=== PATIENT | female | born 1980 | race Caucasian/White ===

== ENCOUNTER 2019-03-17 17:05 | Emergency (ER) | payer BC, SELFPAY ==
--- NOTE | ~2019-03-17 | CT_ITS ---
EXAMINATION: CT cervical spine wo con DATE: 03/17/2019 18:22 INDICATION: Head injury TECHNIQUE: Computed tomography (CT) of the cervical spine was performed without intravenous contrast. Automated exposure control and iterative reconstruction technique were employed. The dose-length pro duct was 416.36 mGy-cm. COMPARISON: Cervical spine radiographs dated 03/26/2017 FINDINGS: Again seen is straightening of the normal cervical lordosis. Vertebral body heights are normal. No fr acture. Mild disc height loss at C5-C6 with left-sided predominant posterior disc osteophyte complex resulting in mild central canal stenosis at this level. Minimal to mild facet osteoarthritis at a few levels in the cervical and upper thoracic spine. No significant neural foraminal stenosis. Cervical soft tissues are unremarkable. Mild emphysematous changes at the periphery of the apices of the lungs . IMPRESSION: 1. Minimal cervical spondylosis. No acute osseous abnormality. Reviewed, dictated and finalized at location A. ES' REGISTRY DIRECTOR
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
--- NOTE | ~2019-03-17 | XR_ITS ---
EXAMINATION: XR hand RT 2V DATE: 03/17/2019 18:30 INDICATION: Right hand pain after a heavy object fell onto it. TECHNIQUE: Posteroanterior and lateral views of the right hand were obtained. COMPARISON: 12/09/2018 FINDINGS: Alignment is normal. No fracture. Joint spaces are normal. Soft tissues are unremarkable. IMPRESSION: 1. Negative right radiographs. Reviewed, dictated and finalized at location A. ATIONAL PROGRAM DIRECTOR
[2019-03-17 17:44] VITALS: BP 107/73; PULSE 99; RESP 18; TEMP 36.8; O2SAT 100
--- NOTE | 2019-03-17 21:04 | ED.HEATRA ---
HPI - Head Injury General Chief complaint: Head Injury <Zeinab Calixto PA-C - Last Filed: 03/17/19 21:10> Stated complaint: head injury <FISH Farrell Last Filed: 03/17/19 21:10> Time Seen by Provider: 03/17/19 20:56 <Zeinab Calixto PA-C - Last Filed: 03/17/19 21:10> Source: patient <FISH Farrell Last Filed: 03/17/19 21:10> Mode of arrival: ambulatory <FISH Farrell Last Filed: 03/17/19 21:10> Limitations: no limitations <FISH Farrell Last Filed: 03/17/19 21:10> History of Present Illness HPI Narrative: This is a 38-year-old female that presents the emergency department after head injury yesterday afternoon. Reports she was putting her hammock back together, and the stand fell and hit her in the head and on her right hand. Denies loss of consciousness. Reports since she has been having headaches and feels forgetful. Also reports neck pain and right hand pain. Denies vision changes, vomiting, numbness, or weakness. <Zeinab Calixto PA-C - Last Filed: 03/17/19 21:10> Related Data Home medications: Home Medications Medication Instructions Recorded Confirmed acyclovir 400 mg tablet 400 mg PO QID 12/12/18 diclofenac sodium 1 % topical gel 2 gm TOPICAL QID 12/12/18 metformin 500 mg tablet 500 mg PO DAILY 12/12/18 venlafaxine 150 mg tablet,extended 150 mg PO DAILY 12/12/18 release 24 hr venlafaxine 75 mg tablet 75 mg PO DAILY 12/12/18 <FISH Farrell Last Filed: 03/17/19 21:10> Allergies/Adverse reactions: Allergies Allergy/AdvReac Type Severity Reaction Status Date / Time adhesive tape Allergy Mild BLISTERS Verified 12/13/18 08:38 adhesive Allergy Unknown blood Verified 12/13/18 08:38 blisters eletriptan Allergy Unknown Unknown Verified 12/13/18 08:38 hydromorphone Allergy Unknown Vomiting Verified 12/13/18 08:38 miconazole Allergy Unknown Unknown Verified 12/13/18 08:38 sumatriptan Allergy Unknown Unknown Verified 12/13/18 08:38 tioconazole Allergy Unknown Swelling Verified 12/13/18 08:38 <Zeinab Calixto PA-C - Last Filed: 03/17/19 21:10> Review of Systems Review of Systems: Narrative: CONSTITUTIONAL: Denies fever EYES: Denies visual changes GASTROINTESTINAL: Denies vomiting MUSCULOSKELETAL: Reports joint pain, and myalgia. NEUROLOGIC: Reports headache. Denies numbness, or weakness. <Zeinab Calixto PA-C - Last Filed: 03/17/19 21:10> All systems reviewed & are unremarkable except as noted in HPI and below <Zeinab Calixto PA-C - Last Filed: 03/17/19 21:10> [facility] Past Medical History Medical History: Medical History (Updated 03/18/19 @ 00:00 by Background Daomkar) Allergies Anxiety Arthritis Asthma Bronchitis Depression Diabetes DM II (diabetes mellitus, type II), controlled Fibroids Fibromyalgia Genital herpes GERD (gastroesophageal reflux disease) HSV infection Hx of carpal tunnel syndrome Hx of fracture of wrist rt Hypercholesteremia Interstitial cystitis Lesion of stomach Migraine MVP (mitral valve prolapse) <Zeinab Calixto PA-C - Last Filed: 03/17/19 21:10> Surgical History Surgical History: Surgical History (Updated 02/17/19 @ 13:47 by Alisia Emerson [facility]) deliv NOS-unsp H/O adenoidectomy H/O foot surgery H/O sinus surgery History of classical section x2 Hx of tonsillectomy Hx of tubal ligation <Zeinab Calixto PA-C - Last Filed: 03/17/19 21:10> Family History Family History: Family History (Updated 06/28/17 @ 15:53 by DOCTOR UNKNOWN) Father Family history of malignant neoplasm of urinary bladder, Onset Age: 67 Family history of rheumatoid arthritis Family history of hypercholesterolemia Family history of mental disorder Hypertension Family history of alcoholism Carcinoma of colon, Onset Age: 67 Family history of lung cancer, Onset Age: 67 Family history of malignant neoplasm of brain, Onset
--- NOTE | 2019-03-17 21:48 | PC.NURSE ---
never got chance to see the pt, before d/c pt ready to leave, asked for papers and left after signing
== END 2019-03-17 21:48 | disposition home or self-care (01) ==
PROVIDERS: Emergency Provider Emergency Medicine; PCP Physician Assistant
DX: S09.90XA Unspecified injury of head, initial encounter (principal); M54.2 Cervicalgia; M79.641 Pain in right hand; M47.812 Spondylosis without myelopathy or radiculopathy, cervical region; F41.9 Anxiety disorder, unspecified; M19.90 Unspecified osteoarthritis, unspecified site; J45.909 Unspecified asthma, uncomplicated; F32.9 Major depressive disorder, single episode, unspecified; E11.9 Type 2 diabetes mellitus without complications; M79.7 Fibromyalgia; K21.9 Gastro-esophageal reflux disease without esophagitis; E78.00 Pure hypercholesterolemia, unspecified; I34.1 Nonrheumatic mitral (valve) prolapse; F17.210 Nicotine dependence, cigarettes, uncomplicated; Z79.84 Long term (current) use of oral hypoglycemic drugs; W20.8XXA Other cause of strike by thrown, projected or falling object, initial encounter
CPT/HCPCS: 70450; 72125; 73120; 99284

== ENCOUNTER 2019-07-05 18:27 | Outpatient (CLI) | payer BC, SELFPAY ==
--- NOTE | ~2019-07-05 | MR_ITS ---
EXAMINATION: MR ankle RT wo con DATE: 07/05/2019 19:16 INDICATION: Achilles insertional tendinosis. Right ankle pain. TECHNIQUE: Magnetic resonance imaging (MRI) of the right ankle was performed without intravenous cont rast. Sequences included sagittal PD-weighted FS FSE, sagittal PD-weighted FSE, coronal PD-weighted F S FSE, coronal PD-weighted FSE, axial PD-weighted FS FSE, and axial PD-weighted FSE. COMPARISON: Right foot radiographs 12/09/2018 FINDINGS: Medial ankle ligaments: The superficial and deep components of the deltoid ligament are normal. Lateral ankle ligaments: There are changes of prior sprains of anterior talofibular ligament and calcaneofibular ligament devin acterized by thickening and increased signal intensity. Posterior talofibular ligament is normal. The re are changes of prior sprain of anterior tibiofibular ligament characterized by thickening and incr eased signal intensity. Posterior tibiofibular ligament is intact. Tendons: There is mild peroneus brevis and peroneus longus tendinopathy. The anterior and medial ankle tendons are normal. There is mild Achilles tendinopathy. Plantar fascia: There is thickening and increased signal involving the central band of plantar fascia, consistent wit h fasciitis. There is an enthesophyte at the calcaneal attachment. Bones/other: Bone alignment is normal. No fracture. The talar dome is normal. Fluid: There is no joint effusion. IMPRESSION: 1. Mild Achilles tendinopathy. 2. Plantar fasciitis. 3. Mild peroneus brevis and peroneus longus tendinopathy. 4. Changes of prior lateral ankle sprain. Reviewed, dictated and finalized at location A.
== END 2019-07-05 18:28 | disposition home or self-care (01) ==
LOC: ANHIMG 18:36
PROVIDERS: PCP Physician Assistant; Visit Provider Podiatrist Foot & Ankle Surgery
DX: M76.61 Achilles tendinitis, right leg (principal); M72.2 Plantar fascial fibromatosis
CPT/HCPCS: 73721

== ENCOUNTER 2019-07-09 10:17 | Emergency (ER) | payer OTHER, BC, SELFPAY ==
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
[2019-07-09 10:21] VITALS: BP 127/83; PULSE 106; RESP 16; TEMP 36.2; O2SAT 100
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
[2019-07-09] MEDS: ACETAMINOPHEN 500 MG TABLET 1000 MG PO (11:37)
[2019-07-09] MEDS: DIAZEPAM 5 MG TABLET PO (11:37)
[2019-07-09] MEDS: KETOROLAC (*BKC) 60 MG/2 ML VIAL 30 MG IM (11:38)
[2019-07-09 11:50] VITALS: TEMP 36.2
== END 2019-07-09 11:51 | disposition home or self-care (01) ==
PROVIDERS: Emergency Provider Emergency Medicine; PCP Physician Assistant
DX: S13.4XXA Sprain of ligaments of cervical spine, initial encounter (principal); M54.12 Radiculopathy, cervical region; M19.90 Unspecified osteoarthritis, unspecified site; J45.909 Unspecified asthma, uncomplicated; E11.9 Type 2 diabetes mellitus without complications; M79.7 Fibromyalgia; K21.9 Gastro-esophageal reflux disease without esophagitis; E78.00 Pure hypercholesterolemia, unspecified; I34.1 Nonrheumatic mitral (valve) prolapse; Z79.84 Long term (current) use of oral hypoglycemic drugs; F41.9 Anxiety disorder, unspecified; F32.9 Major depressive disorder, single episode, unspecified; F17.210 Nicotine dependence, cigarettes, uncomplicated
CPT/HCPCS: 72125; 73030; 73080; 96372; 99284; A9270; J1885

== ENCOUNTER 2019-08-07 07:50 | Emergency (ER) | payer BC, SELFPAY ==
[2019-08-07] VITALS (8 sets, daily range): BP systolic 107–131; BP diastolic 70–79; PULSE 85–104; RESP 13–23; TEMP 36.9–37.1; O2SAT 98–100
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
--- NOTE | ~2019-08-07 | XR_ITS ---
EXAMINATION: XR chest 1V portable DATE: 08/07/2019 08:29 INDICATION: Shortness of breath. Chest pain. TECHNIQUE: frontal view of the chest was obtained. COMPARISON: Chest radiograph dated 01/30/2019 FINDINGS: The lungs remain clear with no focal airspace opacities, pulmonary edema, pleural effusion or pneumot horax. The cardiomediastinal silhouette is normal. Visualized bones and soft tissues are unremarkable . IMPRESSION: 1. No acute cardiopulmonary disease. Reviewed, dictated and finalized at location A.
--- NOTE | 2019-08-07 08:12 | ECG_ITS ---
Measurements Intervals [place] Rate: 103 P: 46 UT: 146 QRS: 72 QRSD: 81 T: 53 QT: 324 QTc: 425 Interpretive Statements SINUS TACHYCARDIA ABNORMAL ECG Electronically Signed On 08-07-2019 8:39:08 CDT by Mulugeta Simon D.O.
[2019-08-07 08:13] LABS: Glucose Point of Care 307 (65-105)
--- NOTE | 2019-08-07 08:29 | PC.NURSE ---
Pt states I'm dry you're going to have to cath me
[2019-08-07] MEDS: LACTATED RINGERS 1,000 ML 999 ML IV CONT (08:34)
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
[2019-08-07 08:53] LABS: Basophils Percent Auto 0.4 % (0.2-1.2); Eosinophils Absolute Auto 0.1 K/mm3 (0-0.3); Hemoglobin 13.6 g/dL (12.0-15.0); Immature Granulocyte Absolute 0.03 K/mm3 (0.00-0.031); Immature Granulocyte Percent A 0.3 % (0-0.5); Lymphocytes Absolute Auto 1.62 K/mm3 (0.9-3.2); Lymphocytes Percent Auto 16.6 % (18.3-44.2); Mean Corpuscular HGB Conc 32.4 g/dl (32-36); Mean Corpuscular Hemoglobin 26.9 pg (26-34); Mean Corpuscular Volume 83.2 fl (80-100); Mean Platelet Volume 10.3 fl (7.4-10.4); Monocytes Absolute Auto 0.5 K/mm3 (0.1-0.6); Monocytes Percent Auto 4.7 % (2.6-8.5); Neutrophils Absolute Auto 7.5 K/mm3 (1.3-6.7); Platelet Count Result 203 k/mm3 (150-375); Red Blood Count 5.05 M/mm3 (4.2-5.4); Red Cell Distribution Width 14.6 % (11.5-14.5); White Blood Count 9.8 K/mm3 (4.5-10.0)
[2019-08-07 09:05] LABS: INR 1.3; Prothrombin Time 16.2 Seconds (11.1-14.7)
[2019-08-07 09:06] LABS: Lactic Acid Reflex 1.4 mmol/L (0.7-2.1)
[2019-08-07 09:06] LABS: Partial Thromboplastin Time 24.7 SECONDS (22.3-36.8)
[2019-08-07 09:09] LABS: Alanine Aminotransferase 17 U/L (4-35); Albumin Level 4.3 g/dL (3.5-5.1); Alkaline Phosphatase 124 U/L (38-126); Aspartate Amino Transferase 19 U/L (14-36); Bilirubin,Total 0.5 mg/dL (0.2-1.3); Blood Urea Nitrogen 11 mg/dL (7-17); Carbon Dioxide 23 mmol/L (22-30); Chloride 101 mmol/L (98-107); Creatine Kinase 42 U/L (30-135); Estimated CRCL calculation 91 ml/min; Estimated Glomerular Filt Rate > 60; Glucose 314 mg/dL (65-105); Lipase 76 U/L (23-300); Magnesium 1.9 mg/dL (1.6-2.3); Potassium 4.2 mmol/L (3.4-5.0); Sodium 133 mmol/L (137-145)
[2019-08-07 09:13] LABS: Add Urine Microscopic? YES; Appearance Urine Clear (Clear); Bacteria Urine Trace /hpf; Bilirubin Urine 1+ (Negative); Blood Urine Negative (Negative); Color Urine Yellow (Yellow); Glucose Urine UA 3+ mg/dL (Negative); Ketones Urine 2+ mg/dL (Negative); Leukocyte Esterase Ur Negative LEU/UL (Negative); Mucus Urine Heavy /lpf; Nitrate Urine Negative (Negative); Protein Urine 1+ mg/dL (Negative); RBC Urine 0-2 /hpf (0-2); Squamous Epithelial Cell Urine Moderate /hpf (Few); WBC Urine 0-3 /hpf
[2019-08-07 09:14] LABS: Specific Grav Ur 1.031 (1.001-1.035)
[2019-08-07 09:17] LABS: Troponin I < 0.012 ng/mL (0.000-0.034)
[2019-08-07 09:18] LABS: Amphetamine Screen Urine Negative (Negative); Barbiturate Screen Urine Negative (Negative); Benzodiazepines Screen Urine Positive (Negative); Cannabinoid Screen Urine Negative (Negative); Cocaine Screen Urine Negative (Negative); Methadone Screen Urine Negative (Negative); Opiate Screen Urine Negative (Negative); Phencyclidine Screen Urine Negative (Negative)
[2019-08-07] MEDS: MECLIZINE HCL 25 MG TABLET PO (11:33)
[2019-08-07] MEDS: SODIUM CHLORIDE 0.9% IV 1,000 ML 999 ML IV CONT ×2 (11:34→11:37)
== END 2019-08-07 13:29 | disposition home or self-care (01) ==
PROVIDERS: Emergency Provider General Practice; PCP Physician Assistant
DX: R53.1 Weakness (principal); E11.65 Type 2 diabetes mellitus with hyperglycemia; F41.9 Anxiety disorder, unspecified; M19.90 Unspecified osteoarthritis, unspecified site; J45.909 Unspecified asthma, uncomplicated; F32.9 Major depressive disorder, single episode, unspecified; K21.9 Gastro-esophageal reflux disease without esophagitis
CPT/HCPCS: 36415; 51701; 70496; 70498; 71045; 80053; 80307; 81001; 81025; 82550; 82948; 83605; 83690; 83735; 84484; 85025; 85610; 85730; 86140; 93005; 96360; 96361; 99284; A9270; J7030; J7120; Q9967

== ENCOUNTER 2019-08-09 15:42 | Emergency (ER) | payer BC, SELFPAY ==
--- NOTE | ~2019-08-09 | CT_ITS ---
EXAMINATION: CT abdomen pelvis w con INDICATION: Abdominal pain TECHNIQUE: Computed tomographic images of the abdomen and pelvis were obtained after the administrati on of 100 cc of Omnipaque 350 intravenous contrast. The dose-length product (DLP) was 694.05 mGy-cm. Automated exposure control and iterative reconstruction technique were employed. COMPARISON: 09/16/2018 FINDINGS: Minimal dependent atelectasis is present in the lung bases. The heart size is normal. The l iver, spleen, pancreas, gallbladder, and adrenal glands are normal. The kidneys are unremarkable. No pathologically enlarged abdominal or pelvic lymph nodes are identified. There is no free intraperiton eal gas or evidence of bowel obstruction. The appendix measures up to 6 mm. There is a complex cyst o f the right adnexa measuring 5.3 x 5.2 cm. A small amount of free fluid is present in the pelvis whic h may be physiologic. IMPRESSION: 1. Complex cyst of the right adnexa, although likely incidental in a reproductive age female, pelvic ultrasound is recommended. These findings and recommendations were discussed with 08/08/2019 at 1725 h ours on 08/09/2019. Reviewed, dictated and finalized at location A. IMPRESSION: 1. Complex cyst of the right adnexa, although likely incidental in a reproducti ve age female, pelvic ultrasound is recommended. These findings and recommendat ions were discussed with 08/08/2019 at 1725 hours on 08/09/2019.
--- NOTE | ~2019-08-09 | US_ITS ---
EXAMINATION: US pelvic complete w TV DATE: 08/09/2019 18:24 INDICATION: Cystic right adnexal lesion on CT, abdominal pain TECHNIQUE: Multiple transabdominal and endovaginal sonographic images of the pelvis were obtained. COMPARISON: 02/15/[address] from today FINDINGS: The uterus measures 7.3 x 3.2 x 3.5 cm. The endometrial complex measures 9 mm. The right ov todd measures 4.9 x 4.8 x 4.3 cm and contains a 4.3 cm cyst with thin septation. The left ovary measur es 2.7 x 1.0 x 2.3 cm. There is normal vascular flow in the ovaries. There is no free fluid in the pe lvis. IMPRESSION: 1. Intact vascular flow to the ovaries. 2. 4.3 cm right ovarian cyst with thin septation requiring no additional follow-up in a reproductive age female. Reviewed, dictated and finalized at location A. IMPRESSION: 1. Intact vascular flow to the ovaries. 2. 4.3 cm right ovarian cyst with thin septation requiring no additional follow -up in a reproductive age female.
[2019-08-09 15:45] VITALS: BP 136/82; PULSE 108; RESP 20; TEMP 36.6; O2SAT 100
[2019-08-09 16:04] LABS: Basophils Absolute Auto 0.1 K/mm3 (0.0-0.1); Basophils Percent Auto 0.6 % (0.2-1.2); Eosinophils Absolute Auto 0.1 K/mm3 (0-0.3); Hematocrit 44.8 % (37.0-47.0); Hemoglobin 14.5 g/dL (12.0-15.0); Immature Granulocyte Absolute 0.05 K/mm3 (0.00-0.031); Immature Granulocyte Percent A 0.4 % (0-0.5); Lymphocytes Absolute Auto 3.43 K/mm3 (0.9-3.2); Lymphocytes Percent Auto 28.8 % (18.3-44.2); Mean Corpuscular HGB Conc 32.4 g/dl (32-36); Mean Corpuscular Hemoglobin 27.2 pg (26-34); Mean Corpuscular Volume 83.9 fl (80-100); Mean Platelet Volume 10.5 fl (7.4-10.4); Monocytes Absolute Auto 0.7 K/mm3 (0.1-0.6); Monocytes Percent Auto 5.8 % (2.6-8.5); Neutrophils Absolute Auto 7.6 K/mm3 (1.3-6.7); Neutrophils Percent Auto 63.4 % (45.5-73.1); Platelet Count Result 259 k/mm3 (150-375); Red Blood Count 5.34 M/mm3 (4.2-5.4); Red Cell Distribution Width 14.8 % (11.5-14.5); White Blood Count 11.9 K/mm3 (4.5-10.0)
[2019-08-09 16:14] LABS: INR 0.9
[2019-08-09 16:15] LABS: Partial Thromboplastin Time 23.8 SECONDS (22.3-36.8)
[2019-08-09 16:16] LABS: Lactic Acid Reflex 1.4 mmol/L (0.7-2.1)
[2019-08-09 16:19] LABS: Alanine Aminotransferase 22 U/L (4-35); Albumin Level 4.5 g/dL (3.5-5.1); Alkaline Phosphatase 108 U/L (38-126); Aspartate Amino Transferase 27 U/L (14-36); Bilirubin,Total 0.3 mg/dL (0.2-1.3); Blood Urea Nitrogen 9 mg/dL (7-17); CRP 0.9 mg/dL (<1.0); Calcium 9.4 mg/dL (8.4-10.2); Carbon Dioxide 26 mmol/L (22-30); Chloride 103 mmol/L (98-107); Estimated CRCL calculation 92 ml/min; Estimated Glomerular Filt Rate > 60; Glucose 133 mg/dL (65-105); Potassium 3.9 mmol/L (3.4-5.0); Sodium 137 mmol/L (137-145)
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
[2019-08-09] MEDS: FAMOTIDINE 20 MG/2 ML VIAL IV PUSH (16:39)
[2019-08-09] MEDS: METOCLOPRAMIDE HCL INJ 10 MG/2 ML VIAL IV PUSH (16:39)
[2019-08-09 16:51] LABS: Add Urine Microscopic? NO; Appearance Urine Clear (Clear); Bilirubin Urine Negative (Negative); Blood Urine Negative (Negative); Color Urine Colorless (Yellow); Glucose Urine UA Negative (Negative); Ketones Urine Negative (Negative); Leukocyte Esterase Ur Negative LEU/UL (Negative); Nitrate Urine Negative (Negative); Protein Urine Negative (Negative); Urobilinogen Urine Negative mg/dL (<2.0)
[2019-08-09 16:52] LABS: Specific Grav Ur 1.004 (1.001-1.035)
[2019-08-09] MEDS: SODIUM CHLORIDE 0.9% IV 1,000 ML 999 ML (17:47)
[2019-08-09 18:23] VITALS: BP 137/88; PULSE 82; RESP 16
[2019-08-09 19:22] VITALS: BP 122/78; PULSE 78; RESP 16; TEMP 36.8; O2SAT 99
[2019-08-11 13:33] LABS: SARS-CoV-2 RNA PCR Negative
== END 2019-08-09 19:23 | disposition home or self-care (01) ==
PROVIDERS: Emergency Medicine Emergency Medical Services; Emergency Provider Emergency Medicine; PCP Physician Assistant
DX: R10.9 Unspecified abdominal pain (principal); Z20.828 Contact with and (suspected) exposure to other viral communicable diseases; E11.9 Type 2 diabetes mellitus without complications; J45.909 Unspecified asthma, uncomplicated; M19.90 Unspecified osteoarthritis, unspecified site; F41.9 Anxiety disorder, unspecified; F32.9 Major depressive disorder, single episode, unspecified; K21.9 Gastro-esophageal reflux disease without esophagitis; M79.7 Fibromyalgia; E78.00 Pure hypercholesterolemia, unspecified; K58.9 Irritable bowel syndrome, unspecified; I34.1 Nonrheumatic mitral (valve) prolapse; F17.210 Nicotine dependence, cigarettes, uncomplicated; N83.201 Unspecified ovarian cyst, right side; Z79.84 Long term (current) use of oral hypoglycemic drugs
CPT/HCPCS: 36415; 74177; 76830; 76856; 80053; 81003; 81025; 83605; 85025; 85610; 85730; 86140; 87635; 96361; 96374; 96375; 99284; C9803; J1200; J2765; J7030; Q9967; U0003

== ENCOUNTER 2019-09-22 00:24 | Outpatient (CLI) | payer BC, SELFPAY ==
[2019-09-22 18:35] LABS: SARS-CoV-2 RNA PCR Negative
== END 2019-09-22 00:25 | disposition home or self-care (01) ==
LOC: ANHCOVIDDT 00:24
PROVIDERS: PCP Physician Assistant; Visit Provider Obstetrics & Gynecology
DX: Z01.812 Encounter for preprocedural laboratory examination (principal); Z20.828 Contact with and (suspected) exposure to other viral communicable diseases
CPT/HCPCS: 87635; C9803; U0003

== ENCOUNTER 2019-09-25 01:01 | Day surgery (SDC) | payer BC, SELFPAY ==
[2019-09-11 10:02] VITALS: BMI 32.3
--- NOTE | 2019-09-22 13:32 | PM.IMHP ---
H&P: HPI History of Present Illness Date/Time: 09/22/19 13:32 Chief complaint: Unspecified Renan Ovarian Cysts Narrative: Alisia Emerson is a 39 year old female Who went to the ER about 6 weeks ago for pelvic pain. She was found to have a 4.3 cm right ovarian cyst. She continues to have midline suprapubic and right lower quadrant pain which is not relieved with Midol or naproxen. She is amenorrheic on progestin only pills other than occasional spotting. She denies urinary or bowel complaints of fever nausea vomiting or vaginal discharge. She is coming in for planned total laparoscopic hysterectomy with bilateral salpingo-oophorectomy. Review of Systems Review of Systems: All systems reviewed & are unremarkable except as noted in HPI and below PMFSH Past Medical History Medical History Allergies Anxiety Arthritis Asthma Bilateral hand pain Bronchitis Carcinoma x2 Chronic constipation Depression Diabetes DM II (diabetes mellitus, type II), controlled Fibroids Fibromyalgia (~2012) Genital herpes GERD (gastroesophageal reflux disease) HSV infection Hx of carpal tunnel syndrome Hx of fracture of wrist rt Hypercholesteremia IBS (irritable bowel syndrome) (~2012) Interstitial cystitis Lesion of stomach Migraine MVP (mitral valve prolapse) Vaginal delivery 10/25/09 Full-term. Female 5lbs 6oz 09/16/97 Full term. Female 8lbs 7.5 oz Surgical History Surgical History deliv NOS-unsp H/O adenoidectomy H/O foot surgery H/O sinus surgery History of bilateral tubal ligation History of classical section x2 Hx of tonsillectomy Hx of tubal ligation Family History Family History Father Family history of malignant neoplasm of urinary bladder, Onset Age: 67 Family history of rheumatoid arthritis Family history of hypercholesterolemia Family history of mental disorder Hypertension Family history of alcoholism Carcinoma of colon, Onset Age: 67 Family history of lung cancer, Onset Age: 67 Family history of malignant neoplasm of brain, Onset Age: 67 Family history of hearing loss Family history of malignant neoplasm Grandparent Family history of thyroid disease Family history of obesity Family history of osteoporosis Depression Hypertension Family history of alcoholism Family history of arthritis Carcinoma of colon Family history of Alzheimer's disease Family history of lung cancer Family history of hearing loss Sibling Family history of mental disorder Hypertension Cerebrovascular accident Family history of development disorder Mother Depression Hypertension Family history of arthritis Family history of Alzheimer's disease Social History Social History Smoking packs per day: 0.5 Smoking cigarettes per day: 10.0 Years smoked: 20 Smoking pack-years: 10.00 Smoking status: Current every day smoker Tobacco type: cigarettes Second hand tobacco smoke exposure: Yes Alcohol intake: current Substance use: never Gender identity (if verbalized by the patient): Female Spiritual care concerns: No Meds Home Medications and Allergies Home Medications Medication Instructions Recorded Confirmed Type atorvastatin 10 mg tablet 10 mg PO DAILY #90 tablet 02/10/19 09/11/19 Rx metformin 500 mg tablet 500 mg PO BID #180 tablet 05/16/19 09/11/19 Rx venlafaxine 75 mg tablet,extended 75 mg PO DAILY #90 tablet 07/03/19 09/11/19 Rx release 24 hr omeprazole 40 mg capsule,delayed 40 mg PO DAILY #90 cap 07/05/19 09/11/19 Rx release acetaminophen 500 mg PO Q6H PRN #30 cap 07/09/19 09/11/19 Rx acyclovir 400 mg PO BID PRN 07/09/19 09/11/19 History flibanserin [Addyi] 100 mg PO DAILY 07/09/19 09/11/19 History norethindrone (contraceptive) 0.35 mg PO D
[2019-09-25] VITALS (16 sets, daily range): BP systolic 113–141; BP diastolic 57–85; PULSE 75–107; RESP 12–20; TEMP 36.2–36.8; O2SAT 77–100
[2019-09-25] MEDS: KETOROLAC 15 MG/ML VIAL (*BKC) IV PUSH (11:37)
[2019-09-25] MEDS: LACTATED RINGERS 1,000 ML 30 ML IV CONT ×2 (11:37→15:37)
[2019-09-25] MEDS: ACETAMINOPHEN 500 MG TABLET 1000 MG PO (11:37)
[2019-09-25 11:46] LABS: Glucose Point of Care 131 (65-105)
--- NOTE | 2019-09-25 12:20 | WPDANESEPPF ---
Anes - Initial Pre Proc Eval Procedure: Operation Date: 09/25/19 13:00 Proposed Procedures p Total Laparoscopic Hysterectomy With Bilateral Salpingo-Oophorectomy - Latia Frias MD Date/Time: 09/25/19 12:20 Surgeon: Latia Frias MD Pre Op Diagnosis: Unspecified Renan Ovarian Cysts Patient Data Age: 39 Gender: F Height: 5 ft 6 in Weight: 86.5 kg Last Vital Signs Temp 98.2 F 09/25/19 11:40 Pulse 96 09/25/19 11:40 Resp 16 09/25/19 11:40 BP 132/85 09/25/19 11:40 Pulse Ox 100 09/25/19 11:40 Allergies Allergy/AdvReac Type Severity Reaction Status Date / Time adhesive tape Allergy Mild BLISTERS Verified 09/25/19 11:07 miconazole Allergy Unknown Swelling Verified 09/25/19 11:07 tioconazole Allergy Unknown Swelling Verified 09/25/19 11:07 eletriptan AdvReac Unknown Vomiting Verified 09/25/19 11:07 hydromorphone AdvReac Unknown Severe Verified 09/25/19 11:07 Vomiting sumatriptan AdvReac Unknown Vomiting Verified 09/25/19 11:07 Home Medications Medication Instructions Recorded Confirmed Type atorvastatin 10 mg tablet 10 mg PO DAILY #90 tablet 02/10/19 09/25/19 Rx metformin 500 mg tablet 500 mg PO BID #180 tablet 05/16/19 09/25/19 Rx venlafaxine 75 mg tablet,extended 75 mg PO DAILY #90 tablet 07/03/19 09/25/19 Rx release 24 hr omeprazole 40 mg capsule,delayed 40 mg PO DAILY #90 cap 07/05/19 09/25/19 Rx release acetaminophen 500 mg PO Q6H PRN #30 cap 07/09/19 09/25/19 Rx acyclovir 400 mg PO BID PRN 07/09/19 09/25/19 History flibanserin [Addyi] 100 mg PO DAILY 07/09/19 09/25/19 History norethindrone (contraceptive) 0.35 mg PO DAILY 07/09/19 09/25/19 History [Incassia] diclofenac sodium 1 % topical gel 2 gm TOPICAL QID PRN 30 Days #100 07/28/19 09/25/19 Rx gm metoprolol succinate 25 mg 25 mg PO DAILY #30 tablet 07/31/19 09/25/19 Rx tablet,extended release 24 hr venlafaxine 150 mg tablet,extended 150 mg PO DAILY #90 tablet 09/03/19 09/25/19 Rx release 24 hr cyclobenzaprine 10 mg PO HS PRN 09/11/19 09/25/19 History fexofenadine [Amina Allergy] 180 mg PO DAILY 09/11/19 09/25/19 History gabapentin 600 mg PO BID 09/11/19 09/25/19 History linaclotide 72 mcg capsule 72 mcg PO QAM #30 cap 09/13/19 09/25/19 Rx alprazolam 0.5 mg tablet 0.5 mg PO HS PRN #30 tablet 09/15/19 09/25/19 Rx Laboratory Tests 09/25/19 11:44 POC Capillary Glucose 131 mg/dl H mg/dl (65-105) Patient hx anesthesia problems: none Family hx anesthesia problems: none PMFSH Past Medical History Medical History Allergies Anxiety Arthritis Asthma Bilateral hand pain Bronchitis Carcinoma x2 Chronic constipation Depression Diabetes DM II (diabetes mellitus, type II), controlled Fibroids Fibromyalgia (~2012) Genital herpes GERD (gastroesophageal reflux disease) HSV infection Hx of carpal tunnel syndrome Hx of fracture of wrist rt Hypercholesteremia IBS (irritable bowel syndrome) (~2012) Interstitial cystitis Lesion of stomach Migraine MVP (mitral valve prolapse) Vaginal delivery 10/25/09 Full-term. Female 5lbs 6oz 09/16/97 Full term. Female 8lbs 7.5 oz Surgical History Surgical History deliv NOS-unsp H/O adenoidectomy H/O foot surgery H/O sinus surgery History of bilateral tubal ligation History of classical section x2 Hx of tonsillectomy Hx of tubal ligation Family History Family History Father Family history of malignant neoplasm of urinary bladder, Onset Age: 67 Family history of rheumatoid arthritis Family history of hypercholesterolemia Family history of mental disorder Hypertension Family history of alcoholism Carcinoma of colon, Onset Age: 67 Family history of lung cancer, Onset Age: 67 Family history of malignant neoplasm of brain, Onset Age: 67 Family history of hearing loss
--- NOTE | 2019-09-25 13:41 | WPDHPUPDATE1 ---
History and Physical Update Update Date/Time: 09/25/19 13:41 History and Physical has been reviewed, including an updated exam of the patient. There are NO changes in the patient's condition. Risks, benefits, and alternatives have been discussed and questions answered. Patient agrees to proceed with procedure.
[2019-09-25] MEDS: ceFAZolin 2 GM/D5W 50 ML 2 GM/50 ML BAG IVPB (13:50)
[2019-09-25] MEDS: BUPIVACAINE/EPINEPHRINE 0.5% 30 ML VIAL INFILTRATE (14:46)
--- NOTE | 2019-09-25 15:22 | PM.PROC ---
Procedure Note - Detailed Date of procedure: 09/25/19 Pre-op diagnosis: Unspecified Renan Ovarian Cysts Right ovarian cyst, pelvic pain Post-op diagnosis: same Procedure performed: TLH/BSO Description of procedure: Procedure she was taken to the operating room where general anesthesia was obtained. She was prepared and draped in the normal sterile fashion in dorsal lithotomy position. Marcaine was injected infraumbilically and a 5 mm skin incision was made in the infraumbilical fold with a scalpel. A 5 mm non bladed trocar was then placed with the camera in the trocar under direct visualization into the peritoneal cavity. Insufflation was begun and she was placed in Trendelenburg. A 10 mm trocar was then placed in the right lower quadrant under direct visualization. Inspection of pelvis revealed the findings as noted below. 5 mm trocar was then placed in the left lower quadrant under direct visualization. The right fallopian tube was grasped for traction. The right infundibulopelvic ligament was grasped coagulated and transected using the Harmonic scalpel with excellent hemostasis visualized. The mesial salpinx was serially clamped and transected. Then the right round ligament was clamped and transected. The bladder flap was created from the right side. Attention was then turned to the left side. The left infundibulopelvic ligament was grasped coagulated and transected using the Harmonic scalpel. The mesosalpinx was serially clamped and transected. The left round ligament was clamped and transected. The bladder flap was created from the left side meeting the flap from the right side. The bladder was pushed down further with the laparoscopic Kittner. The left uterine artery was skeletonized clamped coagulated and transected with excellent hemostasis visualized. Another couple bites were taken down the broad ligament until the level of the uterosacral ligament had been reached. Attention was then turned to the right side again where the right uterine artery was clamped coagulated and transected with excellent hemostasis visualized. Another couple bites were taken on the broad ligament the level of the uterosacral ligament was reached. Both uterosacral ligaments were then divided. A sponge stick was placed in the vagina and pressed against the anterior cul-de-sac. The Harmonic scalpel was used to make a colpotomy incision against the sponge stick. The vagina was then circumferentially incised using the Harmonic scalpel hugging closely against the cervix. All operative sites were noted to be hemostatic the uterus and cervix were put pressed down as far as possible into the vaginal canal. Attention was then turned to the vagina. A speculum was placed the cervix is grasped easily with a tenaculum. The uterus tubes and ovaries were all brought easily through the vaginal incision. A moist blue towel was placed into the vagina to help hold the pneumoperitoneum. Attention was then turned back to the abdomen. The vaginal cuff was closed using 0 Vicryl [id number] sutures placed laparoscopically. A total of 4 sutures were placed for hemostasis and reinforcement. All operative sites were irrigated. Hemostasis was assured. The right lower quadrant trocar was removed. The Ady-Tigre device along with an 0 Vicryl was used to close the fascia of the right lower quadrant incision. The pneumoperitoneum was then allowed to escape. All trocars removed. All skin incisions were closed using 4 0 Monocryl in subcuticular fashion. She tolerated the procedure well. Sponge lap needle and instrument counts were correct x2. She was taken to the recovery room in stable condition. Anesthesia: GETA Surgeon: Latia Frias MD Estimated blood loss (mL): 25 Drains: Yes (Brizuela) Packing: No Pathology: yes Complications: No immediate complications Condition: stable Disposition: PACU Findings: Normal uterus, serous fluid-filled right ovarian cyst, normal left ovary, no
[2019-09-25 15:54] LABS: Glucose Point of Care 120 (65-105)
[2019-09-25] MEDS: ONDANSETRON INJ 4 MG/2 ML VIAL IV PUSH (16:49)
--- NOTE | 2019-09-25 17:31 | PC.NURSE ---
This patient, Alisia Emerson, was received from PACU per bed to room 288. Patient/family oriented to unit policies and routines
[2019-09-25] MEDS: KETOROLAC 30 MG/ML VIAL (*BKC) IV PUSH (17:51)
[2019-09-25] MEDS: LACTATED RINGERS 1,000 ML 125 ML IV CONT (17:51)
[2019-09-25] MEDS: ENOXAPARIN 40 MG/0.4 ML SYRINGE SUB-Q (22:56)
[2019-09-26] MEDS: IBUPROFEN 600 MG TABLET PO (04:55)
[2019-09-26 05:00] VITALS: BP 105/62; PULSE 92; RESP 16; TEMP 37.2; O2SAT 97
[2019-09-26 05:43] LABS: Basophils Percent Auto 0.2 % (0.2-1.2); Eosinophils Percent Auto 0.1 % (0-4.4); Hematocrit 37.2 % (37.0-47.0); Hemoglobin 12.1 g/dL (12.0-15.0); Immature Granulocyte Absolute 0.06 K/mm3 (0.00-0.031); Immature Granulocyte Percent A 0.4 % (0-0.5); Lymphocytes Percent Auto 14.1 % (18.3-44.2); Mean Corpuscular HGB Conc 32.5 g/dl (32-36); Mean Corpuscular Hemoglobin 27.4 pg (26-34); Mean Corpuscular Volume 84.2 fl (80-100); Monocytes Absolute Auto 0.7 K/mm3 (0.1-0.6); Monocytes Percent Auto 4.7 % (2.6-8.5); Neutrophils Absolute Auto 11.4 K/mm3 (1.3-6.7); Neutrophils Percent Auto 80.5 % (45.5-73.1); Platelet Count Result 226 k/mm3 (150-375); Red Blood Count 4.42 M/mm3 (4.2-5.4); Red Cell Distribution Width 14.4 % (11.5-14.5); White Blood Count 14.2 K/mm3 (4.5-10.0)
[2019-09-26 06:05] LABS: Anion Gap 4 mmol/L (8-16); Blood Urea Nitrogen 9 mg/dL (7-17); Calcium 8.8 mg/dL (8.4-10.2); Carbon Dioxide 29 mmol/L (22-30); Chloride 103 mmol/L (98-107); Estimated CRCL calculation 90 ml/min; Estimated Glomerular Filt Rate > 60; Glucose 166 mg/dL (65-105); Potassium 4.3 mmol/L (3.4-5.0); Sodium 136 mmol/L (137-145)
[2019-09-26 07:15] VITALS: PULSE 92; RESP 16; O2SAT 97
--- NOTE | 2019-09-26 07:52 | WPDANESPN ---
Anes - Prog Note Post-Op Date/Time: 09/26/19 07:52 Cardiovascular status: normal Respiratory status: normal Airway patency: baseline Mental status: baseline Post-Op hydration status: normal Vital Signs: Last Vital Signs Temp 37.2 C 09/26/19 05:00 Pulse 92 09/26/19 07:15 Resp 16 09/26/19 07:15 BP 105/62 09/26/19 05:00 Pulse Ox 97 09/26/19 07:15 Pain Score (VAS): 6 I/O: Intake & Output 09/25/19 09/25/19 09/26/19 15:59 23:59 07:59 Intake Total 50 830 1240 Output Total 1840 2250 Balance 50 -1010 -1010 Laboratory Tests 09/26/19 05:02 09/26/19 05:02 09/25/19 09/25/19 09/26/19 11:44 15:52 05:02 WBC 14.2 H RBC 4.42 Hgb 12.1 Hct 37.2 MCV 84.2 MCH 27.4 MCHC 32.5 RDW 14.4 Plt Count 226 MPV 10.0 Immature Gran % (Auto) 0.4 Neut % (Auto) 80.5 H Lymph % (Auto) 14.1 L [place] % (Auto) 4.7 Eos % (Auto) 0.1 Baso % (Auto) 0.2 Lymph # (Auto) 2.00 [place] # (Auto) 0.7 H Eos # (Auto) 0.0 Baso # (Auto) 0.0 Abs Immat Gran (auto) 0.06 H Absolute Neuts (auto) 11.4 H Absolute Nucleated RBC 0.0 Nucleated RBC % 0.0 Sodium Potassium Chloride Carbon Dioxide Anion Gap BUN Creatinine Estim Creat Clear Calc Estimated GFR Glucose POC Capillary Glucose 131 H 120 H Calcium 09/26/19 05:02 WBC RBC Hgb Hct MCV MCH MCHC RDW Plt Count MPV Immature Gran % (Auto) Neut % (Auto) Lymph % (Auto) [place] % (Auto) Eos % (Auto) Baso % (Auto) Lymph # (Auto) [place] # (Auto) Eos # (Auto) Baso # (Auto) Abs Immat Gran (auto) Absolute Neuts (auto) Absolute Nucleated RBC Nucleated RBC % Sodium 136 L Potassium 4.3 Chloride 103 Carbon Dioxide 29 Anion Gap 4 L BUN 9 Creatinine 0.80 Estim Creat Clear Calc 90 Estimated GFR > 60 Glucose 166 H POC Capillary Glucose Calcium 8.8 Post-procedural complaints: none Patient Feedback: Patient satisfied with anesthetic care.
--- NOTE | 2019-09-26 08:18 | PM.GYNPNOP ---
EXPEDITER CLERK - A/P Postoperative Procedures: Procedures Operation Date: 09/25/19 13:00 Actual Procedures Side Surgeon p Total Laparoscopic Hysterectomy With Bilateral Salpingo-Oophorectomy Bilateral Latia Frias MD Postoperative day: 1 Postoperative status: doing well and other (Tollerating Regular Diet) Postoperative plan: routine post-op care and discharge Time Spent With Patient Time: Total time spent is greater than 50% in coordination of care (as documented) at patient's floor/unit and/or counseling patient: Time with patient: 15 - 25 minutes EXPEDITER CLERK- PN:Subj Post-Op Subjective Date/time seen: 09/26/19 08:18 Subjective: patient reports feeling better, pain is well controlled and patient is tolerating oral intake Exam Const: General: cooperative, healthy appearing, comfortable and no acute distress Resp: Auscultation: no crackles, no rales, no rhonchi and no wheezes Cardio: Rhythm: regular rhythm Heart sounds: no click and no murmurs GI: Inspection: non-distended Auscultation: normal bowel sounds Other: Incisions - CDI Extrem: General: normal to inspection, no pedal edema and no calf tenderness EXPEDITER CLERK - PN: Obj Data Vital Signs Vital Signs: Vital Signs - 24 hr 09/25/19 11:40 09/25/19 15:37 09/25/19 15:45 Temperature 98.2 F 97.2 F L Pulse Rate 96 88 75 Respiratory Rate 16 17 16 Blood Pressure 132/85 121/77 122/71 Pulse Oximetry 100 100 77 L 09/25/19 16:00 09/25/19 16:15 09/25/19 16:30 Temperature Pulse Rate 75 100 100 Respiratory Rate 15 20 14 Blood Pressure 117/70 116/76 115/66 Pulse Oximetry 100 96 100 09/25/19 16:45 09/25/19 17:00 09/25/19 17:15 Temperature Pulse Rate 98 88 88 Respiratory Rate 14 12 15 Blood Pressure 113/57 L 113/62 113/78 Pulse Oximetry 100 100 99 09/25/19 17:35 09/25/19 17:45 09/25/19 18:00 Temperature 97.7 F Pulse Rate 93 107 H 88 Respiratory Rate 18 18 Blood Pressure 131/71 119/77 122/66 Pulse Oximetry 99 100 100 09/25/19 18:30 09/25/19 19:00 09/25/19 20:00 Temperature 97.5 F L 97.8 F Pulse Rate 78 89 83 Respiratory Rate 16 16 Blood Pressure 128/67 141/68 H 120/70 Pulse Oximetry 100 100 100 09/25/19 23:00 09/26/19 05:00 09/26/19 07:15 Temperature 97.9 F 99.0 F Pulse Rate 76 92 92 Respiratory Rate 16 16 16 Blood Pressure 120/63 105/62 Pulse Oximetry 99 97 97 Intake/Output Intake/Output: Intake & Output 09/23/19 09/24/19 09/25/19 09/26/19 23:59 23:59 23:59 23:59 Intake Total 880 1240 Output Total 1840 2250 Balance -960 -1010 Meds/Results Medications: Active Medications Generic Name Dose Route Start Last Admin Trade Name Freq PRN Reason Stop Dose Admin Hydrocodone Bitart/Acetaminophen 1 tab 09/25/19 17:25 09/26/19 04:56 [place] 5-325 Mg PO 1 tab Q3H PRN Administration Pain Rated 5 or Less Alprazolam 0.5 mg 09/25/19 17:25 Xanax PO HS PRN anxiety Atorvastatin Calcium 10 mg 09/26/19 09:00 Lipitor PO DAILY [facility] Docusate Sodium 100 mg 09/25/19 17:25 09/26/19 05:23 Colace Capsule PO Not Given BID [facility] Enoxaparin Sodium 40 mg 09/25/19 22:00 09/25/19 22:56 Lovenox SUB-Q 40 mg DAILY [facility] Administration Gabapentin 600 mg 09/25/19 17:25 09/26/19 06:24 Neurontin PO Not Given BID [facility] Ibuprofen 600 mg 09/25/19 17:25 09/26/19 04:55 Motrin PO 600 mg Q6H PRN Administration Cramping Ketorolac Tromethamine 30 mg 09/25/19 17:25 09/25/19 17:51 Toradol Inj IV PUSH 09/30/19 17:26 30 mg Q6H PRN Administration Pain Rated 4-6 Loratadine 10 mg 09/26/19 09:00 Claritin PO 10/26/19 09:01 DAILY [facility] Metformin HCl 500 mg 09/25/19 17:25 09/26/19 06:18 Glucophage PO Not Given BID GENA Metoclopramide HCl 10 mg 09/25/19 17:25 Reglan IV PUSH Q6H PRN Nausea Metoprolol Succinate 25 mg 09/26/19 09:00 Toprol Xl PO DAILY GENA Naloxone HCl 0.1 mg 09/25/19 17:25 Narcan IV PUSH
--- NOTE | 2019-09-26 08:19 | PM.DS ---
DS: Admitting Diagnosis Admitting Diagnosis Admitting Diagnosis: Unspecified Renan Ovarian Cysts DS: Discharge Diagnosis Discharge Diagnosis (1) Pelvic pain: Code(s): R10.2 - Pelvic and perineal pain Status: Acute (2) Ovarian cyst: Qualifiers: Laterality: bilateral Qualified Code(s): N83.201 - Unspecified ovarian cyst, right side; N83.202 - Unspecified ovarian cyst, left side Code(s): N83.209 - Unspecified ovarian cyst, unspecified side Status: Acute DS: Summary Hospital Course Reason for hospitalization: [facility] Hospital Course: unremarkable Status at Discharge Functional status at discharge: independent ambulation Time Spent with Patient Time attestation: Total time spent providing and/or coordinating discharge services: DS: Data Data Completed and Pending Pending studies at discharge: Pending at discharge 09/25/19 15:01 Surgical [PTH] Routine Labs on day of discharge: Labs from last 24 hours 09/26/19 09/26/19 09/25/19 05:02 05:02 15:52 WBC 14.2 H RBC 4.42 Hgb 12.1 Hct 37.2 MCV 84.2 MCH 27.4 MCHC 32.5 RDW 14.4 Plt Count 226 MPV 10.0 Immature Gran % (Auto) 0.4 Neut % (Auto) 80.5 H Lymph % (Auto) 14.1 L [place] % (Auto) 4.7 Eos % (Auto) 0.1 Baso % (Auto) 0.2 Lymph # (Auto) 2.00 [place] # (Auto) 0.7 H Eos # (Auto) 0.0 Baso # (Auto) 0.0 Abs Immat Gran (auto) 0.06 H Absolute Neuts (auto) 11.4 H Absolute Nucleated RBC 0.0 Nucleated RBC % 0.0 Sodium 136 L Potassium 4.3 Chloride 103 Carbon Dioxide 29 Anion Gap 4 L BUN 9 Creatinine 0.80 Estim Creat Clear Calc 90 Estimated GFR > 60 Glucose 166 H POC Capillary Glucose 120 H Calcium 8.8 09/25/19 11:44 WBC RBC Hgb Hct MCV MCH MCHC RDW Plt Count MPV Immature Gran % (Auto) Neut % (Auto) Lymph % (Auto) [place] % (Auto) Eos % (Auto) Baso % (Auto) Lymph # (Auto) [place] # (Auto) Eos # (Auto) Baso # (Auto) Abs Immat Gran (auto) Absolute Neuts (auto) Absolute Nucleated RBC Nucleated RBC % Sodium Potassium Chloride Carbon Dioxide Anion Gap BUN Creatinine Estim Creat Clear Calc Estimated GFR Glucose POC Capillary Glucose 131 H Calcium Discharge Plan Discharge Discharging Clinician: Rajeev Armenta Patient Disposition: Home, Self-Care Activity: pelvic rest Diet: regular Patient Instructions: Antibiotic Form Stand Alone Forms: General Discharge Information Follow-up/Referrals: Rajeev Armenta MD [Physician] - Discharge Medications: New hydrocodone-acetaminophen 5-325 mg tablet 1 - 2 tablet PO Q4H PRN (Reason: pain) Qty: 25 RF: 0 Continued diclofenac sodium 1 % gel 2 gm TOPICAL QID PRN (Reason: pain) 30 Days Qty: 100 RF: 6 Addyi 100 mg tablet 100 mg PO DAILY RF: 0 acyclovir 400 mg tablet 400 mg PO BID PRN (Reason: cold sore) RF: 0 acetaminophen 500 mg capsule 500 mg PO Q6H PRN (Reason: fever or pain) Qty: 30 RF: 0 cyclobenzaprine 10 mg tablet 10 mg PO HS PRN (Reason: Spasms) RF: 0 gabapentin 300 mg capsule 600 mg PO BID RF: 0 fexofenadine [Amina Allergy] 180 mg Tablet 180 mg PO DAILY RF: 0 atorvastatin 10 mg tablet 10 mg PO DAILY Qty: 90 RF: 1 metformin 500 mg tablet 500 mg PO BID Qty: 180 RF: 1 venlafaxine 75 mg tablet extended release 24hr 75 mg PO DAILY Qty: 90 RF: 1 omeprazole 40 mg capsule,delayed release(DR/EC) 40 mg PO DAILY Qty: 90 RF: 2 metoprolol succinate 25 mg tablet extended release 24 hr 25 mg PO DAILY Qty: 30 RF: 5 venlafaxine 150 mg tablet extended release 24hr 150 mg PO DAILY Qty: 90 RF: 1 Linzess 72 mcg capsule 72 mcg PO QAM Qty: 30 RF: 3 alprazolam 0.5 mg tablet 0.5 mg PO HS PRN (Reason: anxiety) Qty: 30 RF: 0 Discontinued norethindrone (contraceptive) [Incassia] 0.35 mg tablet 0.35 mg PO DAILY RF: 0
[2019-09-26] MEDS: LORATADINE 10 MG TABLET PO (08:22)
[2019-09-26] MEDS: ATORVASTATIN 10 MG TABLET PO (08:22)
[2019-09-26] MEDS: GABAPENTIN 300 MG CAPSULE 600 MG PO (08:22)
[2019-09-26] MEDS: SIMETHICONE 80 MG TAB.CHEW PO (08:22)
[2019-09-26] MEDS: PANTOPRAZOLE 40 MG TABLET PO (08:22)
[2019-09-26] MEDS: DOCUSATE SODIUM 100 MG CAPSULE PO (08:22)
[2019-09-26] MEDS: metFORMIN HCL 500 MG TABLET PO (08:23)
[2019-09-26] MEDS: VENLAFAXINE HCL XR 75 MG CAP.ER.24H 150 MG PO (08:23)
[2019-09-26] MEDS: VENLAFAXINE HCL XR 75 MG CAP.ER.24H PO (08:29)
[2019-09-26 08:45] VITALS: BP 128/70; PULSE 81; RESP 18; TEMP 37.3; O2SAT 97
--- NOTE | 2019-09-26 10:26 | PC.NURSE ---
Discharged patient to home. Transported patient to vehicle via wheelchair. Discharge instructions given including follow-up guidelines, when to call provider, and pain management. All questions answered.
== END 2019-09-26 10:17 | disposition home or self-care (01) ==
LOC: ANHSURGERY 10:52 → ANHOB2 09-26 08:20
PROVIDERS: PCP Physician Assistant; Visit Provider Obstetrics & Gynecology
PROC: 0UT9FZZ Resection of Uterus, Via Natural or Artificial Opening With Percutaneous Endoscopic Assistance (ICD-10-PCS; CPT 58571; principal; 2019-09-25 13:00)
DX: R10.2 Pelvic and perineal pain (principal); D27.0 Benign neoplasm of right ovary; N83.02 Follicular cyst of left ovary; E11.9 Type 2 diabetes mellitus without complications; E78.00 Pure hypercholesterolemia, unspecified; M79.7 Fibromyalgia; K21.9 Gastro-esophageal reflux disease without esophagitis; F41.8 Other specified anxiety disorders; J45.909 Unspecified asthma, uncomplicated; I34.1 Nonrheumatic mitral (valve) prolapse; B00.9 Herpesviral infection, unspecified; F17.210 Nicotine dependence, cigarettes, uncomplicated; Z79.84 Long term (current) use of oral hypoglycemic drugs
CPT/HCPCS: 58571; 36415; 80048; 85025; 88307; 99199; A9270; J0690; J1100; J1170; J1650; J1885; J2250; J2405; J3010; J7030; J7120

== ENCOUNTER 2019-09-28 14:33 | Outpatient (CLI) | payer BC, SELFPAY ==
--- NOTE | ~2019-09-28 | US_ITS ---
EXAMINATION: US venous doppler [facility] EXAM DATE: 09/28/2019 15:15 INDICATION: Left leg edema. TECHNIQUE: Multiple grayscale, color flow and Doppler images of the left lower extremity deep venous system were obtained and reviewed. Comparison is made to prior examination from 02/21/2016. FINDINGS: The left common femoral, femoral and profunda veins demonstrate normal color flow, respirat ory variation, augmentation and compressibility. Compressibility, color flow confirmed within the le ft popliteal, posterior tibial, peroneal, and greater saphenous veins. IMPRESSION: 1. No left lower extremity deep venous thrombosis. Reviewed, dictated and finalized at location B.
== END 2019-09-28 14:34 | disposition home or self-care (01) ==
LOC: ANHIMG 14:36
PROVIDERS: PCP Physician Assistant; Visit Provider Obstetrics & Gynecology
DX: M79.89 Other specified soft tissue disorders (principal)
CPT/HCPCS: 93971

== ENCOUNTER 2019-12-25 15:56 | Emergency (ER) | payer BC, SELFPAY ==
--- NOTE | ~2019-12-25 | CT_ITS ---
EXAMINATION: CT abdomen pelvis w con DATE: 12/25/2019 18:37 INDICATION: Periumbilical abdominal pain, right upper quadrant pain and nausea. TECHNIQUE: Computed tomography (CT) of the abdomen and pelvis was performed with 100 mL Omnipaque-350 intravenous contrast. Automated exposure control and iterative reconstruction technique were employe d. The dose-length product was 682.16 mGy-cm. COMPARISON: 08/09/2019 FINDINGS: Minimal dependent atelectasis in the bilateral lower lobes. Heart size is normal. No pericardial or p leural effusion. Liver, gallbladder, spleen, pancreas, bilateral adrenal glands and kidneys are lizzette l. There appears to be some urothelial thickening along the bilateral ureters would correlate with ur inalysis to exclude ascending urinary tract infection. Normal appendix. No abnormal bowel wall thicke kannan or obstruction. Bladder is normal. The uterus is not identified and has likely been surgically r esected. No free intraperitoneal gas or fluid. No pathologically enlarged abdominal or pelvic lymphad enopathy. Minimal to mild thoracolumbar spondylosis. IMPRESSION: 1. Mild urothelial enhancement at the bilateral ureters. Correlate with urinalysis to exclude ascendi ng urinary tract infection. No other acute intra-abdominal/pelvic process. Reviewed, dictated and finalized at location . ICE CAR OPERATOR IMPRESSION: 1. Mild urothelial enhancement at the bilateral ureters. Correlate with urinaly sis to exclude ascending urinary tract infection. No other acute intra-abdomina l/pelvic process.
[2019-12-25 16:09] VITALS: BP 115/72; PULSE 99; RESP 17; TEMP 36.4; O2SAT 100
[2019-12-25 16:30] LABS: Basophils Absolute Auto 0.1 K/mm3 (0.0-0.1); Basophils Percent Auto 0.5 % (0.2-1.2); Eosinophils Absolute Auto 0.1 K/mm3 (0-0.3); Eosinophils Percent Auto 0.7 % (0-4.4); Hematocrit 42.1 % (37.0-47.0); Hemoglobin 13.5 g/dL (12.0-15.0); Immature Granulocyte Absolute 0.03 K/mm3 (0.00-0.031); Immature Granulocyte Percent A 0.3 % (0-0.5); Lymphocytes Absolute Auto 3.66 K/mm3 (0.9-3.2); Lymphocytes Percent Auto 36.5 % (18.3-44.2); Mean Corpuscular HGB Conc 32.1 g/dl (32-36); Mean Corpuscular Hemoglobin 27.4 pg (26-34); Mean Corpuscular Volume 85.6 fl (80-100); Mean Platelet Volume 9.9 fl (7.4-10.4); Monocytes Absolute Auto 0.5 K/mm3 (0.1-0.6); Monocytes Percent Auto 5.4 % (2.6-8.5); Neutrophils Absolute Auto 5.7 K/mm3 (1.3-6.7); Neutrophils Percent Auto 56.6 % (45.5-73.1); Platelet Count Result 234 k/mm3 (150-375); Red Blood Count 4.92 M/mm3 (4.2-5.4); Red Cell Distribution Width 15.1 % (11.5-14.5)
[2019-12-25 16:32] LABS: Add Urine Microscopic? NO; Appearance Urine Clear (Clear); Bilirubin Urine Negative (Negative); Blood Urine Negative (Negative); Color Urine Straw (Yellow); Glucose Urine UA Negative (Negative); Ketones Urine Negative (Negative); Leukocyte Esterase Ur Negative LEU/UL (Negative); Nitrate Urine Negative (Negative); Protein Urine Negative (Negative); Specific Grav Ur 1.006 (1.001-1.035); Urobilinogen Urine Negative mg/dL (<2.0)
--- NOTE | 2019-12-25 16:35 | ED.ABDPAIN ---
HPI - Abdominal Pain General Chief Complaint: Abdominal Pain Stated Complaint: abd pain Time Seen by Provider: 12/25/19 16:33 History of Present Illness HPI narrative: 39 yo female w/ h/o IBS, GERD presents to the ED with abdominal pain. The pain is the worst in the RUQ. Radiates throughout the abdomen. Feels sharp and burning. Not better with anything. She has an upcoming appointment with Dr. Caballero for her abdomianl issues, but has not seen him yet. Related Data Home Medications Medication Instructions Recorded Confirmed acyclovir 400 mg PO BID PRN 07/09/19 09/25/19 fexofenadine [Amina Allergy] 180 mg PO DAILY 09/11/19 09/25/19 Allergies Allergy/AdvReac Type Severity Reaction Status Date / Time adhesive tape Allergy Mild BLISTERS Verified 10/27/19 14:29 miconazole Allergy Unknown Swelling Verified 10/27/19 14:29 tioconazole Allergy Unknown Swelling Verified 10/27/19 14:29 eletriptan AdvReac Unknown Vomiting Verified 10/27/19 14:29 hydromorphone AdvReac Unknown Severe Verified 10/27/19 14:29 Vomiting sumatriptan AdvReac Unknown Vomiting Verified 10/27/19 14:29 Review of Systems Review of Systems: All systems reviewed & are unremarkable except as noted in HPI and below Constitutional: Constitutional: Denies fever(s) ENT: Denies sore throat Cardiovascular: Cardiovascular: Reports chest pain Gastrointestinal: Gastrointestinal: Reports abdominal pain, Reports nausea and Denies vomiting Genitourinary: Genitourinary: Denies dysuria Neurologic: Denies confusion and Denies weakness PMFSH Past Medical History Medical History Allergies Anxiety Arthritis Asthma Bilateral hand pain Bronchitis Carcinoma x2 Chronic constipation Depression Diabetes DM II (diabetes mellitus, type II), controlled Fibroids Fibromyalgia (~2012) Genital herpes GERD (gastroesophageal reflux disease) HSV infection Hx of carpal tunnel syndrome Hx of fracture of wrist rt Hypercholesteremia IBS (irritable bowel syndrome) (~2012) Interstitial cystitis Lesion of stomach Migraine MVP (mitral valve prolapse) Vaginal delivery 10/25/09 Full-term. Female 5lbs 6oz 09/16/97 Full term. Female 8lbs 7.5 oz Surgical History Surgical History deliv NOS-unsp H/O adenoidectomy H/O foot surgery H/O sinus surgery History of bilateral tubal ligation History of classical section x2 History of hysterectomy 09/25/2019 Hx of tonsillectomy Hx of tubal ligation Family History Family History Father Family history of malignant neoplasm of urinary bladder, Onset Age: 67 Family history of rheumatoid arthritis Family history of hypercholesterolemia Family history of mental disorder Hypertension Family history of alcoholism Carcinoma of colon, Onset Age: 67 Family history of lung cancer, Onset Age: 67 Family history of malignant neoplasm of brain, Onset Age: 67 Family history of hearing loss Family history of malignant neoplasm Grandparent Family history of thyroid disease Family history of obesity Family history of osteoporosis Depression Hypertension Family history of alcoholism Family history of arthritis Carcinoma of colon Family history of Alzheimer's disease Family history of lung cancer Family history of hearing loss Sibling Family history of mental disorder Hypertension Cerebrovascular accident Family history of development disorder Mother Depression Hypertension Family history of arthritis Family history of Alzheimer's disease Social History Social History Smoking packs per day: 0.5 Smoking cigarettes per day: 10.0 Years smoked: 20 Smoking pack-years: 10.00 Smoking status: Current every day smoker Tobacco type: cigarettes Second hand
[2019-12-25 16:42] LABS: Alanine Aminotransferase 32 U/L (4-35); Albumin Level 4.6 g/dL (3.5-5.1); Alkaline Phosphatase 90 U/L (38-126); Anion Gap 11 mmol/L (8-16); Aspartate Amino Transferase 29 U/L (14-36); Bilirubin,Total 0.3 mg/dL (0.2-1.3); Blood Urea Nitrogen 17 mg/dL (7-17); Calcium 9.7 mg/dL (8.4-10.2); Carbon Dioxide 26 mmol/L (22-30); Chloride 101 mmol/L (98-107); Estimated CRCL calculation 81 ml/min; Estimated Glomerular Filt Rate > 60; Glucose 89 mg/dL (65-105); Lipase 67 U/L (23-300); Sodium 138 mmol/L (137-145)
[2019-12-25] MEDS: PANTOPRAZOLE SODIUM IV 40 MG VIAL IV PUSH (17:58)
[2019-12-25] MEDS: SODIUM CHLORIDE 0.9% IV 1,000 ML 999 ML IV CONT (17:58)
[2019-12-25] MEDS: ONDANSETRON INJ 4 MG/2 ML VIAL IV PUSH (17:58)
[2019-12-25] MEDS: DICYCLOMINE HCL INJ 20 MG/2 ML VIAL IM (17:58)
[2019-12-25 18:55] VITALS: BP 136/88; PULSE 78; RESP 16; O2SAT 98
== END 2019-12-25 19:45 | disposition home or self-care (01) ==
PROVIDERS: Emergency Provider Emergency Medicine; PCP Physician Assistant
DX: R10.84 Generalized abdominal pain (principal); R11.0 Nausea; M19.90 Unspecified osteoarthritis, unspecified site; J45.909 Unspecified asthma, uncomplicated; E11.9 Type 2 diabetes mellitus without complications; M79.7 Fibromyalgia; K21.9 Gastro-esophageal reflux disease without esophagitis; E78.00 Pure hypercholesterolemia, unspecified; K58.9 Irritable bowel syndrome, unspecified; I34.1 Nonrheumatic mitral (valve) prolapse; F17.210 Nicotine dependence, cigarettes, uncomplicated
CPT/HCPCS: 36415; 74177; 80053; 81003; 83690; 85025; 96372; 96374; 96375; 99284; C9113; J0500; J2405; J7030; Q9967

== ENCOUNTER 2019-12-28 16:28 | Emergency (ER) | payer BC, SELFPAY ==
[2019-12-28 16:37] VITALS: BP 110/67; PULSE 99; RESP 18; TEMP 36.1; O2SAT 100
--- NOTE | 2019-12-28 17:03 | ED.GENADULT ---
HPI - General Adult General Chief complaint: Neck Pain/Injury Stated complaint: swollen lymph nodes/neck pain, recent abd pain Time Seen by Provider: 12/28/19 16:54 Source: patient and old records reviewed Mode of arrival: ambulatory Limitations: no limitations History of Present Illness HPI narrative: Patient is a 39-year-old female who presents to emergency department for evaluation of left ear pain frontal headache and bilateral anterior lymphadenopathy of the cervical region patient notes that the symptoms have just come on denies sick contacts or known potential exposures denies other URI symptoms and on arrival is in the room in no distress patient had had recent evaluation for belly pain which is improved patient on arrival to emergency department Related Data Home Medications Medication Instructions Recorded Confirmed acyclovir 400 mg PO BID PRN 07/09/19 09/25/19 fexofenadine [Amina Allergy] 180 mg PO DAILY 09/11/19 09/25/19 Allergies Allergy/AdvReac Type Severity Reaction Status Date / Time adhesive tape Allergy Mild BLISTERS Verified 12/28/19 16:41 miconazole Allergy Unknown Swelling Verified 12/28/19 16:41 tioconazole Allergy Unknown Swelling Verified 12/28/19 16:41 eletriptan AdvReac Unknown Vomiting Verified 12/28/19 16:41 hydromorphone AdvReac Unknown Severe Verified 12/28/19 16:41 Vomiting sumatriptan AdvReac Unknown Vomiting Verified 12/28/19 16:41 Review of Systems Review of Systems: All systems reviewed & are unremarkable except as noted in HPI and below PMFSH Past Medical History Medical History Allergies Anxiety Arthritis Asthma Bilateral hand pain Bronchitis Carcinoma x2 Chronic constipation Depression Diabetes DM II (diabetes mellitus, type II), controlled Fibroids Fibromyalgia (~2012) Genital herpes GERD (gastroesophageal reflux disease) HSV infection Hx of carpal tunnel syndrome Hx of fracture of wrist rt Hypercholesteremia IBS (irritable bowel syndrome) (~2012) Interstitial cystitis Lesion of stomach Migraine MVP (mitral valve prolapse) Vaginal delivery 10/25/09 Full-term. Female 5lbs 6oz 09/16/97 Full term. Female 8lbs 7.5 oz Surgical History Surgical History deliv NOS-unsp H/O adenoidectomy H/O foot surgery H/O sinus surgery History of bilateral tubal ligation History of classical section x2 History of hysterectomy 09/25/2019 Hx of tonsillectomy Hx of tubal ligation Family History Family History Father Family history of malignant neoplasm of urinary bladder, Onset Age: 67 Family history of rheumatoid arthritis Family history of hypercholesterolemia Family history of mental disorder Hypertension Family history of alcoholism Carcinoma of colon, Onset Age: 67 Family history of lung cancer, Onset Age: 67 Family history of malignant neoplasm of brain, Onset Age: 67 Family history of hearing loss Family history of malignant neoplasm Grandparent Family history of thyroid disease Family history of obesity Family history of osteoporosis Depression Hypertension Family history of alcoholism Family history of arthritis Carcinoma of colon Family history of Alzheimer's disease Family history of lung cancer Family history of hearing loss Sibling Family history of mental disorder Hypertension Cerebrovascular accident Family history of development disorder Mother Depression Hypertension Family history of arthritis Family history of Alzheimer's disease Social History Social History Smoking packs per day: 0.5 Smoking cigarettes per day: 10.0 Years smoked: 20 Smoking pack-years: 10.00 Smoking status: Current every day smoker Tobacco type: cigarettes Second hand tobacco smoke exposure
[2019-12-29 06:44] LABS: SARS-CoV-2 RNA PCR Negative
== END 2019-12-28 17:35 | disposition home or self-care (01) ==
PROVIDERS: Emergency Medicine Emergency Medical Services; Emergency Provider Emergency Medicine; PCP Physician Assistant
DX: Z20.828 Contact with and (suspected) exposure to other viral communicable diseases (principal); J06.9 Acute upper respiratory infection, unspecified; F17.210 Nicotine dependence, cigarettes, uncomplicated; F41.9 Anxiety disorder, unspecified; M19.90 Unspecified osteoarthritis, unspecified site; J45.909 Unspecified asthma, uncomplicated; F32.9 Major depressive disorder, single episode, unspecified; E11.9 Type 2 diabetes mellitus without complications; K21.9 Gastro-esophageal reflux disease without esophagitis
CPT/HCPCS: 87635; 99283; C9803; U0003

== ENCOUNTER 2020-01-21 15:42 | Emergency (ER) | payer BC, SELFPAY ==
--- NOTE | ~2020-01-21 | XR_ITS ---
EXAMINATION: XR chest 1V portable INDICATION: Shortness of breath and headache TECHNIQUE: Portable AP chest at 1608 hours COMPARISON: 08/07/2019 FINDINGS: The lungs are free of acute opacities. There is no pleural effusion or pneumothorax. The ca rdiomediastinal silhouette is normal. The visualized bones and soft tissues are unremarkable. IMPRESSION: 1. No acute cardiopulmonary abnormality. Reviewed, dictated and finalized at location A. NG MACHINE AND DRIER OPERATOR
--- NOTE | ~2020-01-21 | CT_ITS ---
EXAMINATION: CTA chest PE protocol DATE: 01/21/2020 17:18 INDICATION: Pleuritic chest pain TECHNIQUE: Computed tomography angiography (CTA) of the chest was performed with 100 mL Omnipaque-350 intravenous contrast timed to evaluate the pulmonary arteries. Coronal maximum intensity projection 3D-reconstructions were created by the technologist. The dose-length product (DLP) was 410.70 mGy-cm. Automated exposure control and iterative reconstruction technique were employed. COMPARISON: None FINDINGS: The pulmonary arteries are well-opacified. No pulmonary embolism is identified. There are minimal dependent airspace opacities of the lower lobes. No pleural effusion or pneumothorax is ident ified. No pathologically enlarged thoracic lymph nodes are identified. The heart size is normal. IMPRESSION: 1. No pulmonary embolism. 2. Minimal dependent airspace opacities of the lower lobes, likely atelectasis. Reviewed, dictated and finalized at location A. DENSITY FINISHING OPERATOR
[2020-01-21 15:45] VITALS: BP 134/79; PULSE 100; RESP 20; TEMP 36.4; O2SAT 99
--- NOTE | 2020-01-21 16:03 | ECG_ITS ---
Measurements Intervals [place] Rate: 90 P: 45 CT: 154 QRS: 70 QRSD: 79 T: 47 QT: 330 QTc: 404 Interpretive Statements SINUS RHYTHM BASELINE ARTIFACT- I, III, AVL, AVF, V3 NORMAL ECG Electronically Signed On 01-22-2020 6:54:06 CEMETERY KEEPER by Mulugeta Simon D.O.
--- NOTE | 2020-01-21 16:05 | ED.URI ---
HPI - URI/Sore Throat General Chief Complaint: Upper Respiratory Infection Stated Complaint: difficulty breathing, covid exposure Time Seen by Provider: 01/21/20 15:52 Source: patient Mode of arrival: ambulatory Limitations: no limitations History of Present Illness HPI Narrative: This is a 39 year old female that presents to the ER for cold symptoms since this morning. Reports cough, congestion, sore throat. Reports pleuritic chest pain. Denies fever or lower extremity edema. Related Data Home Medications Medication Instructions Recorded Confirmed acyclovir 400 mg PO BID PRN 07/09/19 09/25/19 fexofenadine [Amina Allergy] 180 mg PO DAILY 09/11/19 09/25/19 Allergies Allergy/AdvReac Type Severity Reaction Status Date / Time adhesive tape Allergy Mild BLISTERS Verified 01/21/20 15:50 miconazole Allergy Unknown Swelling Verified 01/21/20 15:50 tioconazole Allergy Unknown Swelling Verified 01/21/20 15:50 eletriptan AdvReac Unknown Vomiting Verified 01/21/20 15:50 hydromorphone AdvReac Unknown Severe Verified 01/21/20 15:50 Vomiting sumatriptan AdvReac Unknown Vomiting Verified 01/21/20 15:50 Review of Systems Review of Systems: Narrative: CONSTITUTIONAL: Denies fever ENT: Reports rhinorrhea, congestion, sore throat CARDIOVASCULAR: Reports chest pain. Denies edema. RESPIRATORY: Reports cough and dyspnea. All systems reviewed & are unremarkable except as noted in HPI and below PMFSH Past Medical History Medical History Allergies Anxiety Arthritis Asthma Bilateral hand pain Bronchitis Carcinoma x2 Chronic constipation Depression Diabetes DM II (diabetes mellitus, type II), controlled Fibroids Fibromyalgia (~2012) Genital herpes GERD (gastroesophageal reflux disease) HSV infection Hx of carpal tunnel syndrome Hx of fracture of wrist rt Hypercholesteremia IBS (irritable bowel syndrome) (~2012) Interstitial cystitis Lesion of stomach Migraine MVP (mitral valve prolapse) Vaginal delivery 10/25/09 Full-term. Female 5lbs 6oz 09/16/97 Full term. Female 8lbs 7.5 oz Surgical History Surgical History deliv NOS-unsp H/O adenoidectomy H/O foot surgery H/O sinus surgery History of bilateral tubal ligation History of classical section x2 History of hysterectomy 09/25/2019 Hx of tonsillectomy Hx of tubal ligation Family History Family History Father Family history of malignant neoplasm of urinary bladder, Onset Age: 67 Family history of rheumatoid arthritis Family history of hypercholesterolemia Family history of mental disorder Hypertension Family history of alcoholism Carcinoma of colon, Onset Age: 67 Family history of lung cancer, Onset Age: 67 Family history of malignant neoplasm of brain, Onset Age: 67 Family history of hearing loss Family history of malignant neoplasm Grandparent Family history of thyroid disease Family history of obesity Family history of osteoporosis Depression Hypertension Family history of alcoholism Family history of arthritis Carcinoma of colon Family history of Alzheimer's disease Family history of lung cancer Family history of hearing loss Sibling Family history of mental disorder Hypertension Cerebrovascular accident Family history of development disorder Mother Depression Hypertension Family history of arthritis Family history of Alzheimer's disease Social History Social History Smoking packs per day: 0.5 Smoking cigarettes per day: 10.0 Years smoked: 20 Smoking pack-years: 10.00 Smoking status: Current every day smoker Tobacco type: cigarettes Second hand tobacco smoke exposure: Yes Alcohol intake: current Substance use: never Gender identity (if verbalized by the pa
[2020-01-21 16:19] LABS: Basophils Absolute Auto 0.1 K/mm3 (0.0-0.1); Basophils Percent Auto 0.5 % (0.2-1.2); Eosinophils Absolute Auto 0.2 K/mm3 (0-0.3); Eosinophils Percent Auto 2.2 % (0-4.4); Hematocrit 39.3 % (37.0-47.0); Hemoglobin 12.9 g/dL (12.0-15.0); Immature Granulocyte Absolute 0.03 K/mm3 (0.00-0.031); Immature Granulocyte Percent A 0.3 % (0-0.5); Lymphocytes Absolute Auto 2.95 K/mm3 (0.9-3.2); Lymphocytes Percent Auto 29.7 % (18.3-44.2); Mean Corpuscular HGB Conc 32.8 g/dl (32-36); Mean Corpuscular Hemoglobin 28.3 pg (26-34); Mean Corpuscular Volume 86.2 fl (80-100); Mean Platelet Volume 9.5 fl (7.4-10.4); Monocytes Absolute Auto 0.7 K/mm3 (0.1-0.6); Monocytes Percent Auto 7.5 % (2.6-8.5); Neutrophils Absolute Auto 5.9 K/mm3 (1.3-6.7); Neutrophils Percent Auto 59.8 % (45.5-73.1); Platelet Count Result 201 k/mm3 (150-375); Red Blood Count 4.56 M/mm3 (4.2-5.4); Red Cell Distribution Width 14.6 % (11.5-14.5); White Blood Count 9.9 K/mm3 (4.5-10.0)
[2020-01-21 16:28] LABS: INR 0.9; Prothrombin Time 12.9 Seconds (11.1-14.7)
[2020-01-21 16:29] LABS: Partial Thromboplastin Time 27.2 SECONDS (22.3-36.8)
[2020-01-21] MEDS: ALBUTEROL SULFATE (*SP) AEROSOL 1 PUFF 2 PUFF INHALATION (16:29)
[2020-01-21 16:31] LABS: Alanine Aminotransferase 26 U/L (4-35); Albumin Level 3.8 g/dL (3.5-5.1); Alkaline Phosphatase 87 U/L (38-126); Anion Gap 6 mmol/L (8-16); Aspartate Amino Transferase 25 U/L (14-36); Bilirubin,Total 0.3 mg/dL (0.2-1.3); Blood Urea Nitrogen 13 mg/dL (7-17); Calcium 9.1 mg/dL (8.4-10.2); Carbon Dioxide 30 mmol/L (22-30); Chloride 103 mmol/L (98-107); D Dimer 1.13 ug/mL (<0.48); Estimated CRCL calculation 79 ml/min; Estimated Glomerular Filt Rate > 60; Glucose 113 mg/dL (65-105); Sodium 139 mmol/L (137-145)
[2020-01-21 18:01] VITALS: BP 136/80; PULSE 102; RESP 21; O2SAT 99
[2020-01-22 18:34] LABS: SARS-CoV-2 RNA PCR Negative
== END 2020-01-21 18:05 | disposition home or self-care (01) ==
PROVIDERS: Physician Assistant; Emergency Provider Emergency Medicine; PCP Physician Assistant
DX: B34.9 Viral infection, unspecified (principal); Z20.828 Contact with and (suspected) exposure to other viral communicable diseases; M19.90 Unspecified osteoarthritis, unspecified site; J45.909 Unspecified asthma, uncomplicated; E11.9 Type 2 diabetes mellitus without complications; Z79.84 Long term (current) use of oral hypoglycemic drugs; F41.9 Anxiety disorder, unspecified; F32.9 Major depressive disorder, single episode, unspecified; M79.7 Fibromyalgia; K21.9 Gastro-esophageal reflux disease without esophagitis; E78.00 Pure hypercholesterolemia, unspecified; K58.9 Irritable bowel syndrome, unspecified; I34.1 Nonrheumatic mitral (valve) prolapse; F17.210 Nicotine dependence, cigarettes, uncomplicated
CPT/HCPCS: 36415; 71045; 71275; 80053; 85025; 85380; 85610; 85730; 87635; 87804; 93005; 94640; 99284; A9270; C9803; Q9967; U0003

== ENCOUNTER 2020-03-08 10:08 | Outpatient (CLI) | payer BC, SELFPAY ==
--- NOTE | ~2020-03-08 | MM_ITS ---
EXAMINATION: MM screening lacy BI w alphonso HISTORY: Screening TECHNIQUE: Craniocaudal and mediolateral oblique 3-D tomosynthesis images were obtained and synthetic 2-D images were generated. CAD analysis was submitted and interpreted. COMPARISON: Comparison to multiple prior studies sequentially, with oldest reviewed study dated 04/2016. BREAST PARENCHYMAL COMPOSITION: There are scattered areas of fibroglandular density. FINDINGS: There is no evidence of suspicious mass, calcification, or architectural distortion to sugg est malignancy in either breast. There has been no suspicious interval change. IMPRESSION: 1. No mammographic evidence of malignancy. 2. Recommend routine screening mammography in one year. BI-RADS Category 1: Negative Reviewed, dictated and finalized at location A. RVISOR LACE TEARING
== END 2020-03-08 10:09 | disposition home or self-care (01) ==
LOC: ANHIMG 10:10
PROVIDERS: PCP Physician Assistant; Visit Provider Obstetrics & Gynecology
DX: Z12.31 Encounter for screening mammogram for malignant neoplasm of breast (principal)
CPT/HCPCS: 77063; 77067

== ENCOUNTER 2020-04-02 16:20 | Emergency (ER) | payer BC, SELFPAY ==
--- NOTE | ~2020-04-02 | XR_ITS ---
EXAMINATION: XR knee RT 3V DATE: 04/02/2020 17:17 INDICATION: Right knee pain. TECHNIQUE: 3 views of right knee on 4 radiographs were obtained. COMPARISON: Right knee radiographs 09/07/2017 FINDINGS: Bone alignment is normal. No fracture. There is mild osteoarthritis of medial and patellofe moral compartments characterized by tiny marginal osteophytes. There is a small knee joint effusion. IMPRESSION: 1. Mild right knee osteoarthritis. 2. Small right knee joint effusion. Reviewed, dictated and finalized at location A. ING MACHINE TENDER
[2020-04-02 16:26] VITALS: BP 113/72; PULSE 97; RESP 20; TEMP 36.4; O2SAT 100
--- NOTE | 2020-04-02 17:49 | ED.GENADULT ---
HPI - General Adult General Chief complaint: Extremity Injury, Lower Stated complaint: right knee pain Time Seen by Provider: 04/02/20 17:23 Source: patient Mode of arrival: ambulatory Limitations: no limitations History of Present Illness HPI narrative: Patient is a 39-year-old female who presents to emergency department for evaluation of right knee pain anterior posterior that began after moving noting aching pain has had some pain in this knee in the past has not seen specialist or primary care for it denies other injury or trauma radiation of pain presents in no distress Related Data Home Medications Medication Instructions Recorded Confirmed acyclovir 400 mg PO BID PRN 07/09/19 01/31/20 fexofenadine [Amina Allergy] 180 mg PO DAILY 09/11/19 01/31/20 Allergies Allergy/AdvReac Type Severity Reaction Status Date / Time adhesive tape Allergy Mild BLISTERS Verified 04/02/20 16:28 miconazole Allergy Unknown Swelling Verified 04/02/20 16:28 tioconazole Allergy Unknown Swelling Verified 04/02/20 16:28 eletriptan AdvReac Unknown Vomiting Verified 04/02/20 16:28 hydromorphone AdvReac Unknown Severe Verified 04/02/20 16:28 Vomiting sumatriptan AdvReac Unknown Vomiting Verified 04/02/20 16:28 Review of Systems Review of Systems: All systems reviewed & are unremarkable except as noted in HPI and below PMFSH Past Medical History Medical History Allergies Anxiety Arthritis Asthma Bilateral hand pain Blood in stool Bronchitis Carcinoma x2 Chronic constipation Depression Diabetes DM II (diabetes mellitus, type II), controlled Dysphagia Family history of colon cancer Fibroids Fibromyalgia (~2012) Genital herpes GERD (gastroesophageal reflux disease) History of gastritis HSV infection Hx of carpal tunnel syndrome Hx of fracture of wrist rt Hypercholesteremia IBS (irritable bowel syndrome) (~2012) Interstitial cystitis Lesion of stomach Migraine MVP (mitral valve prolapse) Odynophagia Postprandial abdominal bloating Vaginal delivery 10/25/09 Full-term. Female 5lbs 6oz 09/16/97 Full term. Female 8lbs 7.5 oz Weight loss Surgical History Surgical History deliv NOS-unsp H/O adenoidectomy H/O foot surgery H/O sinus surgery History of bilateral tubal ligation History of classical section x2 History of hysterectomy 09/25/2019 Hx of tonsillectomy Hx of tubal ligation Family History Family History Father Family history of malignant neoplasm of urinary bladder, Onset Age: 67 Family history of rheumatoid arthritis Family history of hypercholesterolemia Family history of mental disorder Hypertension Family history of alcoholism Carcinoma of colon, Onset Age: 67 Family history of lung cancer, Onset Age: 67 Family history of malignant neoplasm of brain, Onset Age: 67 Family history of hearing loss Family history of malignant neoplasm Grandparent Family history of thyroid disease Family history of obesity Family history of osteoporosis Depression Hypertension Family history of alcoholism Family history of arthritis Carcinoma of colon Family history of Alzheimer's disease Family history of lung cancer Family history of hearing loss Sibling Family history of mental disorder Hypertension Cerebrovascular accident Family history of development disorder Mother Depression Hypertension Family history of arthritis Family history of Alzheimer's disease Social History Social History Smoking packs per day: 0.5 Smoking cigarettes per day: 10.0 Years smoked: 20 Smoking pack-years: 10.00 Smoking status: Current some day smoker Tobacco type: cigarettes Second hand tobacco smoke exposure: Yes Alcohol intake: current Subst
== END 2020-04-02 18:00 | disposition home or self-care (01) ==
PROVIDERS: Emergency Provider Emergency Medicine; PCP Physician Assistant
DX: M25.561 Pain in right knee (principal); J45.909 Unspecified asthma, uncomplicated; F32.9 Major depressive disorder, single episode, unspecified; F41.9 Anxiety disorder, unspecified; E11.9 Type 2 diabetes mellitus without complications; M79.7 Fibromyalgia; K21.9 Gastro-esophageal reflux disease without esophagitis; E78.00 Pure hypercholesterolemia, unspecified; K58.9 Irritable bowel syndrome, unspecified; F17.210 Nicotine dependence, cigarettes, uncomplicated; M17.11 Unilateral primary osteoarthritis, right knee; Z79.84 Long term (current) use of oral hypoglycemic drugs
CPT/HCPCS: 73562; 99283

== ENCOUNTER 2020-04-23 16:31 | Observation (INO) | payer BC, SELFPAY ==
--- NOTE | ~2020-04-23 | CT_ITS ---
EXAMINATION: CT abdomen pelvis wo con DATE: 04/23/2020 21:16 INDICATION: Abdominal pain, nausea, vomiting, blood in stool. TECHNIQUE: Computed tomography (CT) of the abdomen and pelvis was performed without intravenous contr ast. Automated exposure control and iterative reconstruction technique were employed. Exam dose: 751 .58 mGy-cm total exam DLP. COMPARISON: 12/25/2019 CT abdomen and pelvis with IV contrast material FINDINGS: The lung bases are clear of infiltrate or consolidation. Normal heart size. No pericardial or pleural effusion. The liver, spleen, pancreas, and adrenal glands and kidneys are unremarkable on this limited noncontr ast examination. No bile duct or pancreatic duct dilatation. No urinary tract calculus or hydroureteronephrosis. The urinary bladder is unremarkable. Status post hysterectomy. Normal caliber of the abdominal aorta. No intraperitoneal or retroperitoneal or pelvic mass lesion or adenopathy or ascites. Normal appendix. No bowel obstruction or bowel wall thickening, pneumatosis or intraperitoneal free a ir. Included skeletal structures are unremarkable. IMPRESSION: Status post hysterectomy Normal appendix Reviewed, dictated and finalized at [facility] Reviewed, dictated and finalized at [facility].
[2020-04-23 17:08] VITALS: BP 126/78; PULSE 83; RESP 16; O2SAT 100
[2020-04-23 17:31] LABS: Basophils Absolute Auto 0.1 K/mm3 (0.0-0.1); Basophils Percent Auto 0.6 % (0.2-1.2); Eosinophils Absolute Auto 0.1 K/mm3 (0-0.3); Eosinophils Percent Auto 1.1 % (0-4.4); Hematocrit 45.4 % (37.0-47.0); Hemoglobin 14.6 g/dL (12.0-15.0); Immature Granulocyte Absolute 0.03 K/mm3 (0.00-0.031); Immature Granulocyte Percent A 0.3 % (0-0.5); Lymphocytes Absolute Auto 3.73 K/mm3 (0.9-3.2); Lymphocytes Percent Auto 37.4 % (18.3-44.2); Mean Corpuscular HGB Conc 32.2 g/dl (32-36); Mean Corpuscular Hemoglobin 27.3 pg (26-34); Mean Corpuscular Volume 84.9 fl (80-100); Mean Platelet Volume 9.8 fl (7.4-10.4); Monocytes Absolute Auto 0.5 K/mm3 (0.1-0.6); Monocytes Percent Auto 4.7 % (2.6-8.5); Neutrophils Absolute Auto 5.6 K/mm3 (1.3-6.7); Neutrophils Percent Auto 55.9 % (45.5-73.1); Platelet Count Result 235 k/mm3 (150-375); Red Blood Count 5.35 M/mm3 (4.2-5.4); Red Cell Distribution Width 14.3 % (11.5-14.5)
[2020-04-23 17:41] LABS: Add Urine Microscopic? NO; Appearance Urine Clear (Clear); Bilirubin Urine Negative (Negative); Blood Urine Negative (Negative); Color Urine Straw (Yellow); Glucose Urine UA Negative (Negative); Ketones Urine Negative (Negative); Leukocyte Esterase Ur Negative LEU/UL (Negative); Nitrate Urine Negative (Negative); Protein Urine Negative (Negative); Specific Grav Ur 1.009 (1.001-1.035); Urobilinogen Urine Negative mg/dL (<2.0)
[2020-04-23 17:43] LABS: Alanine Aminotransferase 24 U/L (4-35); Albumin Level 4.8 g/dL (3.5-5.1); Alkaline Phosphatase 107 U/L (38-126); Anion Gap 5 mmol/L (8-16); Aspartate Amino Transferase 26 U/L (14-36); Bilirubin,Total 0.3 mg/dL (0.2-1.3); Blood Urea Nitrogen 18 mg/dL (7-17); Carbon Dioxide 32 mmol/L (22-30); Chloride 101 mmol/L (98-107); Estimated CRCL calculation 79 ml/min; Estimated Glomerular Filt Rate > 60; Glucose 74 mg/dL (65-105); Lipase 84 U/L (23-300); Potassium 3.8 mmol/L (3.4-5.0); Sodium 138 mmol/L (137-145)
[2020-04-23 18:35] VITALS: BP 118/68; PULSE 64; RESP 12; O2SAT 99
--- NOTE | 2020-04-23 18:44 | ED.GENADULT ---
HPI - General Adult General Chief complaint: Abdominal Pain Stated complaint: blood in stool, nausea Time Seen by Provider: 04/23/20 18:29 History of Present Illness HPI narrative: Patient is a 39 y/o female complaining of intermittent upper abdominal pain for several months. She describes her pain as burning and rates it as 5/10. There is no pain radiation. There is no alleviating or exacerbating factor. She had vomiting a few days ago. She is supposed to have colonoscopy done, but has not had it done yet. She also noticed some rectal bleeding today. Related Data Home Medications Medication Instructions Recorded Confirmed acyclovir 400 mg PO BID PRN 07/09/19 04/23/20 fexofenadine [Amina Allergy] 180 mg PO DAILY 09/11/19 04/23/20 metformin 500 mg PO DAILY 04/23/20 04/23/20 omeprazole 40 mg PO DAILY 04/23/20 04/23/20 venlafaxine 225 mg PO DAILY 04/23/20 04/23/20 Allergies Allergy/AdvReac Type Severity Reaction Status Date / Time adhesive tape Allergy Mild BLISTERS Verified 04/24/20 13:13 miconazole Allergy Unknown Swelling Verified 04/24/20 13:13 tioconazole Allergy Unknown Swelling Verified 04/24/20 13:13 eletriptan AdvReac Unknown Vomiting Verified 04/24/20 13:13 hydromorphone AdvReac Unknown Severe Verified 04/24/20 13:13 Vomiting sumatriptan AdvReac Unknown Vomiting Verified 04/24/20 13:13 Review of Systems Constitutional: Constitutional: Denies chills, Denies fever(s), Denies headache(s) and Denies weakness Eyes: Eyes: Denies blurry vision ENT: Denies headache(s) and Denies neck pain Cardiovascular: Cardiovascular: Denies chest pain and Denies dyspnea Respiratory: Respiratory: Denies cough and Denies dyspnea Gastrointestinal: Gastrointestinal: Reports abdominal pain, Reports hematochezia, Denies diarrhea, Denies nausea and Denies vomiting Genitourinary: Genitourinary: Denies hematuria and Denies dysuria Musculoskeletal: Musculoskeletal: Denies back pain and Denies neck pain Neurologic: Denies headache(s) and Denies weakness [facility] Past Medical History Medical History Allergies Anxiety Arthritis Asthma Bilateral hand pain Blood in stool Bronchitis Carcinoma x2 Chronic constipation Depression Diabetes DM II (diabetes mellitus, type II), controlled Dysphagia Family history of colon cancer Fibroids Fibromyalgia (~2012) Genital herpes GERD (gastroesophageal reflux disease) History of gastritis HSV infection Hx of carpal tunnel syndrome Hx of fracture of wrist rt Hypercholesteremia IBS (irritable bowel syndrome) (~2012) Interstitial cystitis Lesion of stomach Migraine MVP (mitral valve prolapse) Odynophagia Postprandial abdominal bloating Vaginal delivery 10/25/09 Full-term. Female 5lbs 6oz 09/16/97 Full term. Female 8lbs 7.5 oz Weight loss Surgical History Surgical History deliv NOS-unsp H/O adenoidectomy H/O foot surgery H/O sinus surgery History of bilateral tubal ligation History of classical section x2 History of hysterectomy 09/25/2019 Hx of tonsillectomy Hx of tubal ligation Family History Family History Father Family history of malignant neoplasm of urinary bladder, Onset Age: 67 Family history of rheumatoid arthritis Family history of hypercholesterolemia Family history of mental disorder Hypertension Family history of alcoholism Carcinoma of colon, Onset Age: 67 Family history of lung cancer, Onset Age: 67 Family history of malignant neoplasm of brain, Onset Age: 67 Family history of hearing loss Family history of malignant neoplasm Grandparent Family history of thyroid disease Family history of obesity Family history of osteoporosis Depression Hypertension Family history of alcoholism Family history of arthritis Carcinoma of colon Family history of Al
[2020-04-23] MEDS: ONDANSETRON INJ 4 MG/2 ML VIAL IV PUSH (19:26)
--- NOTE | 2020-04-23 20:44 | PM.IMHP ---
H&P: HPI History of Present Illness Date/Time: 04/23/20 20:44 Chief Complaint: blood in stool Narrative: Patient is a 39 y/o female complaining who presnts today wtih blood in her stool noted this afternoo. She reports that she ahs been feeling nauseous and vomiting this past . She reports she was having upper abodminal pain worsened since then and having nausea nnd vomiting. She reports she does have chronic abodminal issues for quite some time. She has GI workup done in the past for the same without any obvious findings. This afternoon when she went to the bathroom she had blood in her stool which was mixed with stool and not jeffery blood. this alarmed her and hence came to the hospital for further workup. She denies any fver, chils, sob, chest pain. Review of Systems Constitutional: Constitutional: Denies excessive sweating, Denies fatigue, Denies headache(s) and Denies weakness ENT: Denies headache(s), Denies lip swelling, Denies epistaxis, Denies nasal congestion, Denies nasal discharge and Denies neck pain Cardiovascular: Cardiovascular: Denies chest pain, Denies diaphoresis, Denies lightheadedness, Denies palpitations, Denies dyspnea and Denies dyspnea on exertion Respiratory: Respiratory: Denies cough, Denies dyspnea and Denies dyspnea on exertion Gastrointestinal: Gastrointestinal: Reports abdominal pain, Denies melena, Reports hematochezia, Denies constipation, Reports diarrhea, Reports nausea and Reports vomiting Genitourinary: Genitourinary: Denies nocturia, Denies dysuria and Denies flank pain Musculoskeletal: Musculoskeletal: Denies abnormal gait, Denies back pain and Denies neck pain Integumentary/Breasts: Skin/Breast: Denies dry skin and Denies rash Neurologic: Denies Abnormal speech present, Denies abnormal gait, Denies behavioral changes, Denies confusion, Denies headache(s) and Denies weakness Psychiatric: Psychiatric: Denies anxiety, Denies behavioral changes and Denies confusion Endocrine: Endocrine: Denies cold intolerance, Denies excessive sweating, Denies fatigue, Denies heat intolerance and Denies palpitations Hematologic/Lymphatic: Hematologic/Lymphatic: Denies easy bleeding and Denies lymphadenopathy Allergic/Immunologic: Allergic/Immunologic: Denies urticaria and Denies lip swelling PMFSH Past Medical History Medical History Allergies Anxiety Arthritis Asthma Bilateral hand pain Blood in stool Bronchitis Carcinoma x2 Chronic constipation Depression Diabetes DM II (diabetes mellitus, type II), controlled Dysphagia Family history of colon cancer Fibroids Fibromyalgia (~2012) Genital herpes GERD (gastroesophageal reflux disease) History of gastritis HSV infection Hx of carpal tunnel syndrome Hx of fracture of wrist rt Hypercholesteremia IBS (irritable bowel syndrome) (~2012) Interstitial cystitis Lesion of stomach Migraine MVP (mitral valve prolapse) Odynophagia Postprandial abdominal bloating Vaginal delivery 10/25/09 Full-term. Female 5lbs 6oz 09/16/97 Full term. Female 8lbs 7.5 oz Weight loss Surgical History Surgical History deliv NOS-unsp H/O adenoidectomy H/O foot surgery H/O sinus surgery History of bilateral tubal ligation History of classical section x2 History of hysterectomy 09/25/2019 Hx of tonsillectomy Hx of tubal ligation Family History Family History Father Family history of malignant neoplasm of urinary bladder, Onset Age: 67 Family history of rheumatoid arthritis Family history of hypercholesterolemia Family history of mental disorder Hypertension Family history of alcoholism Carcinoma of colon, Onset Age: 67 Family history of lung cancer, Onset Age: 67 Family history of malignant neoplasm of brain, Onset Age: 67 Family history of hearing loss
--- NOTE | 2020-04-23 22:00 | ADMGEN ---
This patient, Alisia Emerson, was admitted to Medical Room 342-01. Patient/family oriented to hospital policies and general routines including ID bracelet, bed and alarms, visiting hours, pain management, procedures, bathroom and other care routines, personal items, smoking policy, room service/diet, and visiting hours. Information on how to activate the Rapid Response Team has been discussed. Patient/Family are encouraged to report perceived risks to care and to ask questions if they do not understand what they are told or what they should do.
[2020-04-23] MEDS: BISACODYL 5 MG TABLET EC 20 MG PO (22:03)
[2020-04-23] MEDS: SODIUM CHLORIDE 0.9% IV 1,000 ML 75 ML IV CONT (22:04)
[2020-04-23] MEDS: PEG (High)/E-LYTE SOLN 4,000 ML BTL 4000 ML PO (22:05)
[2020-04-23 22:10] VITALS: BP 129/74; PULSE 88; RESP 16; TEMP 36.4; O2SAT 100; BMI 29.7
[2020-04-23 22:13] VITALS: BP 129/74; PULSE 88; RESP 16; TEMP 36.4; O2SAT 100; BMI 29.7
[2020-04-24] VITALS (7 sets, daily range): BP systolic 102–138; BP diastolic 59–93; PULSE 77–94; RESP 15–27; TEMP 36.3–36.5; O2SAT 94–100; BMI 29.7
[2020-04-24] MEDS: ONDANSETRON INJ 4 MG/2 ML VIAL IV PUSH ×2 (00:47→09:18)
[2020-04-24 06:42] LABS: Basophils Percent Auto 0.4 % (0.2-1.2); Eosinophils Absolute Auto 0.1 K/mm3 (0-0.3); Eosinophils Percent Auto 1.1 % (0-4.4); Hematocrit 40.2 % (37.0-47.0); Hemoglobin 12.7 g/dL (12.0-15.0); Immature Granulocyte Absolute 0.03 K/mm3 (0.00-0.031); Immature Granulocyte Percent A 0.4 % (0-0.5); Lymphocytes Percent Auto 40.8 % (18.3-44.2); Mean Corpuscular HGB Conc 31.6 g/dl (32-36); Mean Corpuscular Hemoglobin 27.1 pg (26-34); Mean Corpuscular Volume 85.7 fl (80-100); Mean Platelet Volume 9.9 fl (7.4-10.4); Monocytes Absolute Auto 0.7 K/mm3 (0.1-0.6); Neutrophils Percent Auto 49.3 % (45.5-73.1); Platelet Count Result 207 k/mm3 (150-375); Red Blood Count 4.69 M/mm3 (4.2-5.4); Red Cell Distribution Width 14.4 % (11.5-14.5); White Blood Count 8.1 K/mm3 (4.5-10.0)
--- NOTE | 2020-04-24 08:50 | WPDANESEPPF ---
Anes - Initial Pre Proc Eval Procedure: Operation Date: 04/24/20 15:00 Proposed Procedures p Esophagogastroduodenoscopy & Colonoscopy - Georgi Alcantara MD Date/Time: 04/24/20 08:50 Surgeon: Mckay Parkre MD Pre Op Diagnosis: gi bleed Patient Data Age: 39 Gender: F Height: 1.68 m Weight: 83.4 kg Last Vital Signs Temp 36.5 C 04/24/20 06:00 Pulse 94 04/24/20 06:00 Resp 18 04/24/20 06:00 BP 138/72 04/24/20 06:00 Pulse Ox 100 04/24/20 06:00 Allergies Allergy/AdvReac Type Severity Reaction Status Date / Time adhesive tape Allergy Mild BLISTERS Verified 04/23/20 22:06 miconazole Allergy Unknown Swelling Verified 04/23/20 22:06 tioconazole Allergy Unknown Swelling Verified 04/23/20 22:06 eletriptan AdvReac Unknown Vomiting Verified 04/23/20 22:06 hydromorphone AdvReac Unknown Severe Verified 04/23/20 22:06 Vomiting sumatriptan AdvReac Unknown Vomiting Verified 04/23/20 22:06 Home Medications Medication Instructions Recorded Confirmed Type acyclovir 400 mg PO BID PRN 07/09/19 04/23/20 History fexofenadine [Amina Allergy] 180 mg PO DAILY 09/11/19 04/23/20 History lisinopril 5 mg tablet 5 mg PO DAILY #90 tablet 10/17/19 04/23/20 Rx ondansetron 4 mg PO Q6H PRN #7 tablet 12/28/19 04/23/20 Rx metoprolol succinate 25 mg 25 mg PO DAILY #30 tablet 02/12/20 04/23/20 Rx tablet,extended release 24 hr atorvastatin 10 mg tablet 10 mg PO DAILY #90 tablet 02/14/20 04/23/20 Rx estradiol 1 mg/gram (0.1 %) 1 packet TRANSDERM DAILY #90 gm 02/14/20 04/23/20 Rx transdermal gel packet cyclobenzaprine 10 mg tablet 10 mg PO HS PRN #30 tablet 04/09/20 04/23/20 Rx metformin 500 mg PO DAILY 04/23/20 04/23/20 History omeprazole 40 mg PO DAILY 04/23/20 04/23/20 History venlafaxine 225 mg PO DAILY 04/23/20 04/23/20 History Laboratory Tests 04/23/20 04/23/20 04/23/20 17:24 17:24 17:24 WBC 10.0 K/mm3 K/mm3 (4.5-10.0) RBC 5.35 M/mm3 M/mm3 (4.2-5.4) Hgb 14.6 g/dL g/dL (12.0-15.0) Hct 45.4 % % (37.0-47.0) MCV 84.9 fl fl (80-100) MCH 27.3 pg pg (26-34) MCHC 32.2 g/dl g/dl (32-36) RDW 14.3 % % (11.5-14.5) Plt Count 235 k/mm3 k/mm3 (150-375) MPV 9.8 fl fl (7.4-10.4) Immature Gran % (Auto) 0.3 % % (0-0.5) Neut % (Auto) 55.9 % % (45.5-73.1) Lymph % (Auto) 37.4 % % (18.3-44.2) [place] % (Auto) 4.7 % % (2.6-8.5) Eos % (Auto) 1.1 % % (0-4.4) Baso % (Auto) 0.6 % % (0.2-1.2) Lymph # (Auto) 3.73 K/mm3 H K/mm3 (0.9-3.2) [place] # (Auto) 0.5 K/mm3 K/mm3 (0.1-0.6) Eos # (Auto) 0.1 K/mm3 K/mm3 (0-0.3) Baso # (Auto) 0.1 K/mm3 K/mm3 (0.0-0.1) Abs Immat Gran (auto) 0.03 K/mm3 K/mm3 (0.00-0.031) Absolute Neuts (auto) 5.6 K/mm3 K/mm3 (1.3-6.7) Absolute Nucleated RBC 0.0 K/mm3 K/mm3 (0.0-0.012) Nucleated RBC % 0.0 % % (0.0-0.2) Sodium 138 mmol/L mmol/L (137-145) Potassium 3.8 mmol/L mmol/L (3.4-5.0) Chloride 101 mmol/L mmol/L (98-107) Carbon Dioxide 32 mmol/L H mmol/L (22-30) Anion Gap 5 mmol/L L mmol/L (8-16) BUN 18 mg/dL H mg/dL (7-17) Creatinine 0.90 mg/dL mg/dL (0.7-1.0) Estim Creat Clear Calc 79 ml/min ml/min Estimated GFR > 60 (59 - ) Glucose 74 mg/dL mg/dL (65-105) Hemoglobin A1c 6.0 % H % (<5.7) Calcium 10.0 mg/dL mg/dL (8.4-10.2) Total Bilirubin 0.3 mg/dL mg/dL (0.2-1.3) AST 26 U/L U/L (14-36) ALT 24 U/L U/L (4-35) Alkaline Phosphatase 107 U/L U/L (38-126) Total Protein 9.0 g/dL H g/dL (6.3-8.2) Albumin 4.8 g/dL g/dL (3.5-5.1) Lipase 84 U/L U/L (23-300) Urine Color Urine Appearance
[2020-04-24] MEDS: MAGNESIUM CITRATE 300 ML BTL PO (09:29)
[2020-04-24 10:11] LABS: Glucose Point of Care 135 (65-105)
[2020-04-24] MEDS: SODIUM CHLORIDE 0.9% IV 1,000 ML 75 ML IV CONT (11:52)
[2020-04-24 11:58] LABS: Glucose Point of Care 118 (65-105)
--- NOTE | 2020-04-24 12:26 | PM.IMPN ---
Progress Note: A&P Assessment and Plan (1) BRBPR (bright red blood per rectum): Code(s): K62.5 - Hemorrhage of anus and rectum Status: Acute Assessment and Plan: NPO Would obtain EGD on colonoscopy Appreciate GI note Supportive care Monitor H&H (2) Weight loss: Code(s): R63.4 - Abnormal weight loss Status: Acute Assessment and Plan: On intention Likely secondary to decreased oral intake (3) Postprandial abdominal bloating: Code(s): R14.0 - Abdominal distension (gaseous) Status: Acute Assessment and Plan: Suspect ulcer ulcer Exacerbated after meals Patient takes NSAIDs (4) Odynophagia: Code(s): R13.10 - Dysphagia, unspecified Status: Acute Assessment and Plan: Likely esophagitis Await EGD (5) Dysphagia: Code(s): R13.10 - Dysphagia, unspecified Status: Acute Assessment and Plan: Likely esophagitis/reflux. PENDING EGD (6) Tobacco use: Code(s): Z72.0 - Tobacco use Status: Acute Assessment and Plan: Nicotine patch as needed Will deputy county counsel about tobacco cessation (7) Fibromyalgia: Onset Date: ~2012 Code(s): M79.7 - Fibromyalgia Status: Acute Assessment and Plan: Follow-up in the outpatient setting (8) Bilateral hand pain: Code(s): M79.641 - Pain in right hand; M79.642 - Pain in left hand Status: Acute Assessment and Plan: Stable Follow-up in the outpatient setting (9) Chronic constipation: Code(s): K59.09 - Other constipation Status: Acute Assessment and Plan: Encourage fiber rich to diet (10) IBS (irritable bowel syndrome): Onset Date: ~2012 Code(s): K58.9 - Irritable bowel syndrome without diarrhea Status: Acute Assessment and Plan: Stable Subjective Date/time seen: 04/24/20 12:26 I feel fine Review of Systems Review of Systems: Narrative: Patient is here after she presented to emergency room for bright red blood per rectum. Patient states that she has had epigastric abdominal pain for the last 2 years or so, she regularly takes naproxen. States the pain is worse after eating, has had some weight loss. Constitutional: Comments: No fevers, no rigors, or chills. Cardiovascular: Comments: No chest pain ,no shortness of breath, no PND no orthopnea ,no leg swelling, no palpitation Respiratory: Comments: No cough or sputum production Gastrointestinal: Comments: Epigastric abdominal pain, no hematemesis, bright red blood per rectum. Musculoskeletal: Comments: No muscle pain, or joint pain. Integumentary/Breasts: Comments: No rashes Neurologic: Comments: No sensorimotor deficit Exam Narrative: Exam Narrative: Laying in bed in no acute distress Const: General: cooperative, healthy appearing, comfortable, no acute distress, alert, awake and Physically active Nutritional Appearance: well nourished Orientation/consciousness: patient oriented x3 HENMT: Head: normal to inspection and normocephalic Ears: hearing grossly normal bilaterally General nose exam: Normal external nose present Face and sinus: normal facial exam Eyes: General: appearance normal, both eyes and all related structures Pupils: Equal, round and reactive pupils present EOM: EOMs intact bilaterally Neck: Neck: no lymphadenopathy, supple and no JVD Resp: Effort & Inspection: normal respiratory effort and able to speak in complete sentences Auscultation: clear to auscultation bilaterally Cardio: Jugular venous distension: no JVD Rate: regular rate Rhythm: regular rhythm GI: GI Palp: Yes Soft to palpation and Yes No hepatosplenomegaly present Skin: Rashes: no rashes Neuro: General: patient oriented x3 and CN's II-XI intact bilaterally Cranial nerves: Yes CN's II-XII intact bilaterally and Yes Equal, round and reactive pupils present Speech: normal speech Gait exam (Neuro): Normal gait present Motor exam (neuro):
--- NOTE | 2020-04-24 13:02 | PC.NURSE ---
To GI lab per lior.
[2020-04-24] MEDS: LACTATED RINGERS 1,000 ML 150 ML IV CONT (13:18)
--- NOTE | 2020-04-24 13:23 | PCNSR ---
On 04/24/20, the student, Gracy Cramer, provided care and completed [facility] documentation on this patient. I have reviewed the student's documentation and agree with the findings.
--- NOTE | 2020-04-24 15:08 | WPDGICN ---
Assessment and Plan Assessment and plan (1) BRBPR (bright red blood per rectum): Code(s): K62.5 - Hemorrhage of anus and rectum Status: Acute Assessment and Plan: we will proceed with colonoscopy to check source of bleeding hb normal but continue to monitor more recommendations after scopes (2) Dysphagia: Code(s): R13.10 - Dysphagia, unspecified Status: Acute Assessment and Plan: intermittent, will proceed with egd and biopsies, check if esophagitis, ring, EoE (3) Postprandial abdominal bloating: Code(s): R14.0 - Abdominal distension (gaseous) Status: Acute (4) Nausea & vomiting: Qualifiers: Vomiting type: unspecified Vomiting Intractability: non-intractable Qualified Code(s): R11.2 - Nausea with vomiting, unspecified Code(s): R11.2 - Nausea with vomiting, unspecified Status: Acute Assessment and Plan: better with medical treatment proceed with egd (5) Chronic constipation: Code(s): K59.09 - Other constipation Status: Acute Assessment and Plan: she has used linzess previously (6) Fibromyalgia: Onset Date: ~2012 Code(s): M79.7 - Fibromyalgia Status: Acute (7) Family history of colon cancer: Code(s): Z80.0 - Family history of malignant neoplasm of digestive organs Status: Acute Assessment and Plan: colonoscopy GI Consult Note Consult date/time: 04/24/20 15:08 Reason for consult: abdominal pain, bloating, blood in stools HPI: Alisia Emerson is a 39 year old female who saw us in clinic back in January because intermittent abdominal pain, weight loss, nausea and bloating since September. Also history of painful swallowing with solids and liquids in chest area, like food gets stuck and slow passes pain resolves after food passing. EGD [place] [address] Gould with gastritis using omeprazole. CT scan 12/2019 reviewed with normal liver gallbladder,spleen, pancreas, bilateral adrenal glands, and kidneys normal. Last colonoscopy in 09/2018 with sigmoid colon polyp (Dr. Gould). She came here with worsening abdominal pain and also blood in stools which is a new symptom. After she saw me in the office, she was supposed to follow up with EGD and colonoscopy. Here also with more nause and vomiting since Wednesday, hb on admission normal 14. Repeat CT scan reviewed, status post hysterectomy, normal appendix. She has strong family history of colon cancer with Father, Paternal Aunt, and Paternal Grandmother. Also history of constipation, used linzess. Review of Systems Constitutional: Constitutional: Denies headache(s) and Denies weakness Eyes: Eyes: Denies blurry vision ENT: Reports Normal hearing present, Denies headache(s) and Denies neck pain Cardiovascular: Cardiovascular: Denies chest pain and Denies dyspnea Respiratory: Respiratory: Denies dyspnea Gastrointestinal: Gastrointestinal: Reports no additional gastrointestinal complaints Genitourinary: Genitourinary: Denies dysuria Musculoskeletal: Musculoskeletal: Denies neck pain Integumentary/Breasts: Skin/Breast: Denies dry skin Neurologic: Reports Normal hearing present, Denies headache(s) and Denies weakness Psychiatric: Psychiatric: Denies anxiety Endocrine: Endocrine: Denies change in body appearance Hematologic/Lymphatic: Hematologic/Lymphatic: Denies easy bleeding Allergic/Immunologic: Allergic/Immunologic: Denies urticaria PMFSH Past Medical History Medical History Allergies Anxiety Arthritis Asthma Bilateral hand pain Blood in stool Bronchitis Carcinoma x2 Chronic constipation Depression Diabetes DM II (diabetes mellitus, type II), controlled Dysphagia Family history of colon cancer Fibroids Fibromyalgia (~2012) Genital herpes GERD (gastroesophageal reflux disease) History of gastritis HSV infection Hx of carpal tunnel syndrome Hx of fracture of
[2020-04-24] MEDS: BENZOCAINE (*SP) 60 ML SPRAY CAN (HURRICAINE) 1 SPRAY MUCOUS MEM (15:20)
--- NOTE | 2020-04-24 15:36 | SUR.OPER ---
Addendum entered by Demetria Lepe, [employer] 04/24/20 15:37: EGD COMPLETED AT 1530, COLONOSCOPY STARTED AT 1537 Original Note: EGD COMPLETED AT 1630 COLONOSCOPY STARTED AT 1537
--- NOTE | 2020-04-24 16:20 | PC.NURSE ---
Pt returned from GI lab per lior.
[2020-04-24 16:42] LABS: Glucose Point of Care 84 (65-105)
--- NOTE | 2020-04-24 17:16 | PM.DS ---
DS: Admitting Diagnosis Admitting Diagnosis Admitting Diagnosis: (1) Blood in stool: (2) History of gastritis: (3) Family history of colon cancer: (4) Weight loss: (5) Postprandial abdominal bloating: (6) Overweight (BMI 25.0-29.9): (7) Fibromyalgia: (8) IBS (irritable bowel syndrome): DS: Discharge Diagnosis Discharge Diagnosis (1) BRBPR (bright red blood per rectum): Code(s): K62.5 - Hemorrhage of anus and rectum Status: Acute Assessment and Plan: Resolved S/P EGD (2) Weight loss: Code(s): R63.4 - Abnormal weight loss Status: Acute Assessment and Plan: Intentional (3) Dysphagia: Code(s): R13.10 - Dysphagia, unspecified Status: Acute Assessment and Plan: S/p EGD No findings (4) Odynophagia: Code(s): R13.10 - Dysphagia, unspecified Status: Acute Assessment and Plan: S/p EGD No findings (5) Postprandial abdominal bloating: Code(s): R14.0 - Abdominal distension (gaseous) Status: Acute Assessment and Plan: S/p EGD and Colonoscopy (6) Tobacco use: Code(s): Z72.0 - Tobacco use Status: Acute Assessment and Plan: Encourage sessation (7) Nausea & vomiting: Qualifiers: Vomiting type: unspecified Vomiting Intractability: non-intractable Qualified Code(s): R11.2 - Nausea with vomiting, unspecified Code(s): R11.2 - Nausea with vomiting, unspecified Status: Acute Assessment and Plan: Resolved (8) Fibromyalgia: Onset Date: ~2012 Code(s): M79.7 - Fibromyalgia Status: Acute Assessment and Plan: Follow up in the outpatient setting. DS: Summary Hospital Course Reason for hospitalization: BRBPR Hospital Course: Patient is a 39 y/o female presented to ED blood in her stool . She reports that she has been feeling nauseous and vomiting a couple of days ago, also epigastric abdominal pain worse with food intake . She stated to have chronic abdominal issues for quite some time. She had GI workup done in the past for the same without any findings. Preliminary work up in ED was low yielding. Patient was admitted to [facility] and underwent EGD and colonoscopy with no remarkable findings but hemorrhoids. She has been discharged home. Consults: GI Procedures: EGD and colonoscopy Patient will follow-up with her primary care physician for all other health issues. Status at Discharge Cognitive/behavioral status at discharge: AOX3 Functional status at discharge: independent ambulation Time Spent with Patient Time attestation: Total time spent providing and/or coordinating discharge services: Time spent: Greater than 30 minutes Exam Const: General: healthy appearing, comfortable, no acute distress, well developed, alert, awake and Physically active Nutritional Appearance: average body habitus and well nourished HENMT: Head: normal to inspection and normocephalic Ears: hearing grossly normal bilaterally General nose exam: Normal external nose present Face and sinus: normal facial exam Mouth: Yes Normal oral and palatal mucosa present Eyes: General: appearance normal, both eyes and all related structures Pupils: Equal, round and reactive pupils present EOM: EOMs intact bilaterally Neck: Neck: normal visual inspection and no lymphadenopathy Resp: Effort & Inspection: normal respiratory effort Auscultation: clear to auscultation bilaterally Cardio: Jugular venous distension: no JVD Rate: regular rate Rhythm: regular rhythm GI: GI Palp: Yes Soft to palpation and Yes No hepatosplenomegaly present Skin: Rashes: no rashes Neuro: General: patient oriented x3 and CN's II-XI intact bilaterally Cranial nerves: Yes CN's II-XII intact bilaterally and Yes Equal, round and reactive pupils present Cognition (Neuro): normal cognition Speech: normal speech Gait exam (Neuro): Normal gait pres
--- NOTE | 2020-04-24 17:58 | PC.NURSE ---
Pt valuables (vivi) retrieved from locked cabinet and returned to pt.
== END 2020-04-24 18:05 | disposition home or self-care (01) ==
LOC: ANHED 18:32 → ANH3MED 22:20
PROVIDERS: Internal Medicine Gastroenterology; Admitting Provider Internal Medicine; Emergency Provider Emergency Medicine; PCP Physician Assistant; Visit Provider Internal Medicine
PROC: 0DJ08ZZ Inspection of Upper Intestinal Tract, Via Natural or Artificial Opening Endoscopic (ICD-10-PCS; CPT 43235; principal; 2020-04-24 15:00)
DX: K29.50 Unspecified chronic gastritis without bleeding (principal); D12.3 Benign neoplasm of transverse colon; K92.1 Melena; K64.8 Other hemorrhoids; E11.9 Type 2 diabetes mellitus without complications; R13.10 Dysphagia, unspecified; R14.0 Abdominal distension (gaseous); K21.9 Gastro-esophageal reflux disease without esophagitis; K58.9 Irritable bowel syndrome, unspecified; M79.7 Fibromyalgia; F17.210 Nicotine dependence, cigarettes, uncomplicated; Z79.84 Long term (current) use of oral hypoglycemic drugs
CPT/HCPCS: 45385; 43239; 36415; 74176; 80053; 81003; 81025; 82948; 83036; 83690; 85025; 88305; 96361; 96374; 99285; A9270; G0378; J2405; J2704; J7030; J7120

== ENCOUNTER 2020-05-07 19:50 | Emergency (ER) | payer BC, SELFPAY ==
--- NOTE | ~2020-05-07 | CT_ITS ---
EXAMINATION: CT abdomen pelvis w con DATE: 05/07/2020 23:06 INDICATION: Upper abdominal pain. Nausea and vomiting. TECHNIQUE: Computed tomography (CT) of the abdomen and pelvis was performed with 100 mL Omnipaque 350 intravenous contrast. Automated exposure control and iterative reconstruction technique were employe d. The dose-length product was 631.05 mGy-cm. COMPARISON: None. FINDINGS: The visualized portions of the lung bases demonstrate mild atelectasis. No pleural effusion . The heart size is normal. No pericardial effusion. The liver, gallbladder, spleen, pancreas, adrena l glands, and kidneys are normal. There are no dilated loops of bowel. There is wall thickening and m esenteric edema involving multiple of jejunum. The appendix is normal. There are no pathologically en larged lymph nodes. There is no free intraperitoneal fluid. There is mild lumbar spondylosis. IMPRESSION: 1. Wall thickening and mesenteric edema involving multiple loops of jejunum, consistent with enteriti s. Reviewed, dictated and finalized at location A. IMPRESSION: 1. Wall thickening and mesenteric edema involving multiple loops of jejunum, co nsistent with enteritis.
[2020-05-07 20:43] VITALS: BP 90/62; PULSE 116; RESP 18; TEMP 36.9; O2SAT 99
[2020-05-07 21:09] LABS: Basophils Absolute Auto 0.1 K/mm3 (0.0-0.1); Basophils Percent Auto 0.4 % (0.2-1.2); Eosinophils Absolute Auto 0.1 K/mm3 (0-0.3); Eosinophils Percent Auto 0.6 % (0-4.4); Hematocrit 46.9 % (37.0-47.0); Hemoglobin 15.2 g/dL (12.0-15.0); Immature Granulocyte Absolute 0.06 K/mm3 (0.00-0.031); Immature Granulocyte Percent A 0.5 % (0-0.5); Lymphocytes Absolute Auto 1.66 K/mm3 (0.9-3.2); Lymphocytes Percent Auto 13.4 % (18.3-44.2); Mean Corpuscular HGB Conc 32.4 g/dl (32-36); Mean Corpuscular Hemoglobin 27.2 pg (26-34); Mean Corpuscular Volume 84.1 fl (80-100); Mean Platelet Volume 9.6 fl (7.4-10.4); Monocytes Absolute Auto 0.6 K/mm3 (0.1-0.6); Monocytes Percent Auto 4.7 % (2.6-8.5); Neutrophils Percent Auto 80.4 % (45.5-73.1); Platelet Count Result 257 k/mm3 (150-375); Red Blood Count 5.58 M/mm3 (4.2-5.4); Red Cell Distribution Width 14.3 % (11.5-14.5); White Blood Count 12.4 K/mm3 (4.5-10.0)
[2020-05-07 21:31] LABS: Alanine Aminotransferase 27 U/L (4-35); Albumin Level 4.8 g/dL (3.5-5.1); Alkaline Phosphatase 108 U/L (38-126); Anion Gap 9 mmol/L (8-16); Aspartate Amino Transferase 28 U/L (14-36); Bilirubin,Total 0.4 mg/dL (0.2-1.3); Blood Urea Nitrogen 23 mg/dL (7-17); Calcium 9.7 mg/dL (8.4-10.2); Carbon Dioxide 29 mmol/L (22-30); Chloride 100 mmol/L (98-107); Estimated CRCL calculation 79 ml/min; Estimated Glomerular Filt Rate > 60; Glucose 115 mg/dL (65-105); Lipase 57 U/L (23-300); Potassium 4.2 mmol/L (3.4-5.0); Sodium 138 mmol/L (137-145)
[2020-05-07 21:57] VITALS: BP 134/84; PULSE 103; RESP 16; TEMP 37.2; O2SAT 100
--- NOTE | 2020-05-07 22:44 | ED.ABDPAIN ---
HPI - Abdominal Pain General Chief Complaint: Abdominal Pain Stated Complaint: abd pain; N/V Time Seen by Provider: 05/07/20 22:02 Source: patient Mode of arrival: ambulatory Limitations: no limitations History of Present Illness HPI narrative: This is a 39 year old female who presents for evaluation of epigastric abdominal pain with nausea and vomiting. She reports that she has been dealing with dull aching epigastric pain for a while now, but today she developed sharp epigastric pain . This new pain is also associated with nausea and vomiting which is a new symptom. She had an EDG and colonoscopy performed [address] Alcantara. She reports chills but denies fever. Related Data Home Medications Medication Instructions Recorded Confirmed acyclovir 400 mg PO BID PRN 07/09/19 04/23/20 fexofenadine [Amina Allergy] 180 mg PO DAILY 09/11/19 04/23/20 metformin 500 mg PO DAILY 04/23/20 04/23/20 omeprazole 40 mg PO DAILY 04/23/20 04/23/20 venlafaxine 225 mg PO DAILY 04/23/20 04/23/20 Allergies Allergy/AdvReac Type Severity Reaction Status Date / Time adhesive tape Allergy Mild BLISTERS Verified 05/07/20 22:08 miconazole Allergy Unknown Swelling Verified 05/07/20 22:08 tioconazole Allergy Unknown Swelling Verified 05/07/20 22:08 eletriptan AdvReac Unknown Vomiting Verified 05/07/20 22:08 hydromorphone AdvReac Unknown Severe Verified 05/07/20 22:08 Vomiting sumatriptan AdvReac Unknown Vomiting Verified 05/07/20 22:08 Review of Systems Review of Systems: All systems reviewed & are unremarkable except as noted in HPI and below Constitutional: Constitutional: Reports chills and Denies fever(s) Cardiovascular: Cardiovascular: Denies chest pain Respiratory: Respiratory: Denies cough and Denies dyspnea Gastrointestinal: Gastrointestinal: Reports abdominal pain, Denies diarrhea, Reports nausea and Reports vomiting PMFSH Past Medical History Medical History Allergies Anxiety Arthritis Asthma Bilateral hand pain Blood in stool Bronchitis Carcinoma x2 Chronic constipation Depression Diabetes DM II (diabetes mellitus, type II), controlled Dysphagia Family history of colon cancer Fibroids Fibromyalgia (~2012) Genital herpes GERD (gastroesophageal reflux disease) History of gastritis HSV infection Hx of carpal tunnel syndrome Hx of fracture of wrist rt Hypercholesteremia IBS (irritable bowel syndrome) (~2012) Interstitial cystitis Lesion of stomach Migraine MVP (mitral valve prolapse) Odynophagia Postprandial abdominal bloating Vaginal delivery 10/25/09 Full-term. Female 5lbs 6oz 09/16/97 Full term. Female 8lbs 7.5 oz Weight loss Surgical History Surgical History deliv NOS-unsp H/O adenoidectomy H/O foot surgery H/O sinus surgery History of bilateral tubal ligation History of classical section x2 History of hysterectomy 09/25/2019 Hx of tonsillectomy Hx of tubal ligation Family History Family History Father Family history of malignant neoplasm of urinary bladder, Onset Age: 67 Family history of rheumatoid arthritis Family history of hypercholesterolemia Family history of mental disorder Hypertension Family history of alcoholism Carcinoma of colon, Onset Age: 67 Family history of lung cancer, Onset Age: 67 Family history of malignant neoplasm of brain, Onset Age: 67 Family history of hearing loss Family history of malignant neoplasm Grandparent Family history of thyroid disease Family history of obesity Family history of osteoporosis Depression Hypertension Family history of alcoholism Family history of arthritis Carcinoma of colon Family history of Alzheimer's disease Family history of lung cancer Family history of hearing loss Sibling Family history of men
[2020-05-07] MEDS: ONDANSETRON INJ 4 MG/2 ML VIAL IV PUSH (22:48)
[2020-05-07 23:00] LABS: Add Urine Microscopic? YES; Appearance Urine Cloudy (Clear); Bacteria Urine Trace /hpf; Bilirubin Urine Negative (Negative); Blood Urine Negative (Negative); Color Urine Yellow (Yellow); Glucose Urine UA Negative (Negative); Ketones Urine Trace mg/dL (Negative); Leukocyte Esterase Ur 1+ LEU/UL (Negative); Mucus Urine Rare /lpf; Nitrate Urine Negative (Negative); Protein Urine 1+ mg/dL (Negative); RBC Urine 0-2 /hpf (0-2); Specific Grav Ur 1.028 (1.001-1.035); Squamous Epithelial Cell Urine Occasional /hpf (Few); WBC Urine 0-3 /hpf
[2020-05-07] MEDS: LACTATED RINGERS 1,000 ML 999 ML IV CONT (23:13)
[2020-05-07 23:21] VITALS: TEMP 37.2
[2020-05-07] MEDS: SODIUM CHLORIDE 0.9% IV 1,000 ML 999 ML IV CONT (23:41)
[2020-05-07 23:49] VITALS: BP 93/55; PULSE 78; RESP 16; O2SAT 97
[2020-05-08] MEDS: ONDANSETRON INJ 4 MG/2 ML VIAL IV PUSH (01:02)
[2020-05-08 01:13] VITALS: BP 99/66; PULSE 95; RESP 16; O2SAT 97
[2020-05-08] MEDS: DICYCLOMINE HCL INJ 20 MG/2 ML VIAL IM (01:44)
--- NOTE | 2020-05-08 02:57 | PC.NURSE ---
Patient able to keep fluids and crackers down after PO challenge.
[2020-05-08 02:58] VITALS: BP 103/78; PULSE 91; RESP 12; O2SAT 99
== END 2020-05-08 03:00 | disposition home or self-care (01) ==
PROVIDERS: Emergency Medicine; Emergency Provider General Practice; PCP Physician Assistant
DX: K52.9 Noninfective gastroenteritis and colitis, unspecified (principal); E11.9 Type 2 diabetes mellitus without complications; J45.909 Unspecified asthma, uncomplicated; M79.7 Fibromyalgia; K21.9 Gastro-esophageal reflux disease without esophagitis; E78.00 Pure hypercholesterolemia, unspecified; K58.9 Irritable bowel syndrome, unspecified; I34.1 Nonrheumatic mitral (valve) prolapse; F41.9 Anxiety disorder, unspecified; F32.9 Major depressive disorder, single episode, unspecified; F17.210 Nicotine dependence, cigarettes, uncomplicated; Z79.84 Long term (current) use of oral hypoglycemic drugs
CPT/HCPCS: 36415; 74177; 80053; 81001; 83690; 85025; 96361; 96372; 96374; 96375; 96376; 99284; J0131; J0500; J2405; J7030; J7120; Q9967

== ENCOUNTER 2020-07-21 15:05 | Emergency (ER) | payer BC, SELFPAY ==
[2020-07-21 15:21] VITALS: BP 108/69; PULSE 93; RESP 16; TEMP 36.1; O2SAT 100
[2020-07-21 15:24] VITALS: BP 108/69; PULSE 93; RESP 16; TEMP 36.1; O2SAT 100
--- NOTE | 2020-07-21 15:51 | ED.FEMALEGU ---
HPI - Female Genitourinary General Chief complaint: Urogenital-Female Stated complaint: UTI Time Seen by Provider: 07/21/20 15:51 Source: patient and RN notes reviewed Mode of arrival: ambulatory Limitations: no limitations History of Present Illness HPI Narrative: 40-year-old female who presents to [facility] with complaints of urinary frequency and burning stating she felt she had a urinary tract infection. Patient states that she called her PROGRAMMER ANALYST and she received Flagyl on the 8th for what she thought was bacterial vaginosis due to having white vaginal discharge but she noticed no improvement after taking 3 days worth of medication so she quit taking. Patient admits that she quit taking her Metformin approximately 1 year ago and has not had any recent labs for evaluation for her glucose. Urine showing 3+ glucose no other abnormalities noted on urine. Glucose per fingerstick greater than 405 which is upper limits of our glucose monitor. Patient states that she is drinking a lot of water because she is thirsty and concerned because she doesn't seem to be going as much as she thinks she should with as much water as she is drinking. MD elicited complaint: dysuria Pertinent past history: diabetes and other (treated) Onset (ago): week(s) (1) Location of symptoms: urethra and vaginal Severity: moderate Female Urogenital Radiation: Non-Radiating Quality of pain: burning Related Data Home Medications Medication Instructions Recorded Confirmed fexofenadine [Amina Allergy] 180 mg PO DAILY 09/11/19 04/23/20 Allergies Allergy/AdvReac Type Severity Reaction Status Date / Time adhesive tape Allergy Mild BLISTERS Verified 07/21/20 16:58 miconazole Allergy Unknown Swelling Verified 07/21/20 16:58 tioconazole Allergy Unknown Swelling Verified 07/21/20 16:58 amoxicillin AdvReac Intermediate Other Verified 07/21/20 16:58 clavulanic acid AdvReac Intermediate Other Verified 07/21/20 16:58 [From Augmentin] eletriptan AdvReac Unknown Vomiting Verified 07/21/20 16:58 hydromorphone AdvReac Unknown Severe Verified 07/21/20 16:58 Vomiting sumatriptan AdvReac Unknown Vomiting Verified 07/21/20 16:58 Review of Systems Review of Systems: Narrative: CONSTITUTIONAL: Denies fever, chills, or sweats. EYES: Denies visual changes, redness, or discharge. ENT: Denies rhinorrhea, congestion, sore throat, or otalgia. CARDIOVASCULAR: Denies chest pain, palpitations, or edema. RESPIRATORY: Denies cough or dyspnea. GASTROINTESTINAL: Denies abdominal pain, nausea, vomiting, or diarrhea. GENITOURINARY: Positive for dysuria no hematuria. SKIN: Denies rash or itching. MUSCULOSKELETAL: Denies back pain, joint pain, or myalgia. NEUROLOGIC: Denies headache, numbness, or weakness. PSYCHIATRIC: Denies anxiety or depression. All systems reviewed & are unremarkable except as noted in HPI and below PMFSH Past Medical History Medical History Allergies Anxiety Arthritis Asthma Bilateral hand pain Blood in stool Bronchitis Carcinoma x2 Chronic constipation Depression Diabetes DM II (diabetes mellitus, type II), controlled Dysphagia Family history of colon cancer Fibroids Fibromyalgia (~2012) Genital herpes GERD (gastroesophageal reflux disease) History of gastritis HSV infection Hx of carpal tunnel syndrome Hx of fracture of wrist rt Hypercholesteremia IBS (irritable bowel syndrome) (~2012) Interstitial cystitis Lesion of stomach Migraine MVP (mitral valve prolapse) Odynophagia Postprandial abdominal bloating Vaginal delivery 10/25/09 Full-term. Female 5lbs 6oz 09/16/97 Full term. Female 8lbs 7.5 oz Weight loss Surgical History Surgical History deliv NOS-unsp H/O adenoidectomy H/O foot surgery H/O sinus surgery History of bilateral tubal ligation History of classical section x2 History of hysterectomy 09/25/2019
[2020-07-21 16:02] LABS: Glucose Point of Care 405 mg/dl (65-105)
== END 2020-07-21 16:10 | disposition short-term general hospital (02) ==
PROVIDERS: Emergency Provider Registered Nurse; PCP Physician Assistant
DX: R63.1 Polydipsia (principal); R30.0 Dysuria; E11.65 Type 2 diabetes mellitus with hyperglycemia; M19.90 Unspecified osteoarthritis, unspecified site; J45.909 Unspecified asthma, uncomplicated; K21.9 Gastro-esophageal reflux disease without esophagitis; E78.00 Pure hypercholesterolemia, unspecified; I34.1 Nonrheumatic mitral (valve) prolapse
CPT/HCPCS: 81003; 82948; 99212; G0463

== ENCOUNTER 2020-07-21 16:36 | Emergency (ER) | payer BC, SELFPAY ==
[2020-07-21 16:36] VITALS: BP 127/80; PULSE 86; RESP 20; TEMP 36.7; O2SAT 100
[2020-07-21 17:25] LABS: Basophils Percent Auto 0.5 % (0.2-1.2); Eosinophils Absolute Auto 0.1 K/mm3 (0-0.3); Eosinophils Percent Auto 1.4 % (0-4.4); Hemoglobin 13.9 g/dL (12.0-15.0); Immature Granulocyte Absolute 0.03 K/mm3 (0.00-0.031); Immature Granulocyte Percent A 0.4 % (0-0.5); Lymphocytes Absolute Auto 3.11 K/mm3 (0.9-3.2); Lymphocytes Percent Auto 38.4 % (18.3-44.2); Mean Corpuscular HGB Conc 32.3 g/dl (32-36); Mean Corpuscular Volume 83.7 fl (80-100); Mean Platelet Volume 10.3 fl (7.4-10.4); Monocytes Absolute Auto 0.4 K/mm3 (0.1-0.6); Monocytes Percent Auto 4.9 % (2.6-8.5); Neutrophils Absolute Auto 4.4 K/mm3 (1.3-6.7); Neutrophils Percent Auto 54.4 % (45.5-73.1); Platelet Count Result 218 k/mm3 (150-375); Red Blood Count 5.14 M/mm3 (4.2-5.4); White Blood Count 8.1 K/mm3 (4.5-10.0)
[2020-07-21] MEDS: SODIUM CHLORIDE 0.9% IV 1,000 ML 999 ML (17:25)
--- NOTE | 2020-07-21 17:26 | PC.NURSE ---
VORB FROM DR PETER. TO GIVE 1L NS BOLUS X1
[2020-07-21 17:34] LABS: Anion Gap 12 mmol/L (8-16); Blood Urea Nitrogen 15 mg/dL (7-17); Carbon Dioxide 28 mmol/L (22-30); Chloride 95 mmol/L (98-107); Estimated CRCL calculation 89 ml/min; Estimated Glomerular Filt Rate > 60; Glucose 373 mg/dL (65-105); Potassium 3.7 mmol/L (3.4-5.0); Sodium 135 mmol/L (137-145)
--- NOTE | 2020-07-21 17:42 | ED.GENADULT ---
HPI - General Adult General Chief complaint: Recheck/Abnormal Lab/Rx Stated complaint: high blood sugar Time Seen by Provider: 07/21/20 16:57 History of Present Illness HPI narrative: Patient is a 40-year-old female who presents ER with elevated blood sugars. Patient was at urgent care for dysuria ongoing over the last 3 to 4 days. No fevers or chills or sweats. No flank pain. It was found that she had no UTI but that she was feeling a lot of glucose and her blood sugar was greater than 400 on the glucometer. Patient reports she has not been taking her Metformin for the last year because her significant other had read that there is a class action lawsuit suit did not want her to take the medication. Patient also reports that she had a hysterectomy about a year ago and she has been going through menopause due to this. Patient reports she has no vaginal discharge or rash around her vagina. Related Data Home Medications Medication Instructions Recorded Confirmed fexofenadine [Amina Allergy] 180 mg PO DAILY 09/11/19 04/23/20 Allergies Allergy/AdvReac Type Severity Reaction Status Date / Time adhesive tape Allergy Mild BLISTERS Verified 07/21/20 16:58 miconazole Allergy Unknown Swelling Verified 07/21/20 16:58 tioconazole Allergy Unknown Swelling Verified 07/21/20 16:58 amoxicillin AdvReac Intermediate Other Verified 07/21/20 16:58 clavulanic acid AdvReac Intermediate Other Verified 07/21/20 16:58 [From Augmentin] eletriptan AdvReac Unknown Vomiting Verified 07/21/20 16:58 hydromorphone AdvReac Unknown Severe Verified 07/21/20 16:58 Vomiting sumatriptan AdvReac Unknown Vomiting Verified 07/21/20 16:58 Review of Systems Constitutional: Constitutional: Denies chills, Denies fever(s) and Denies weakness Gastrointestinal: Gastrointestinal: Denies abdominal pain, Denies nausea and Denies vomiting Genitourinary: Genitourinary: Denies abnormal vaginal bleeding, Denies hematuria, Denies nocturia, Reports dysuria, Denies flank pain and Denies vaginal discharge PMFSH Past Medical History Medical History Allergies Anxiety Arthritis Asthma Bilateral hand pain Blood in stool Bronchitis Carcinoma x2 Chronic constipation Depression Diabetes DM II (diabetes mellitus, type II), controlled Dysphagia Family history of colon cancer Fibroids Fibromyalgia (~2012) Genital herpes GERD (gastroesophageal reflux disease) History of gastritis HSV infection Hx of carpal tunnel syndrome Hx of fracture of wrist rt Hypercholesteremia IBS (irritable bowel syndrome) (~2012) Interstitial cystitis Lesion of stomach Migraine MVP (mitral valve prolapse) Odynophagia Postprandial abdominal bloating Vaginal delivery 10/25/09 Full-term. Female 5lbs 6oz 09/16/97 Full term. Female 8lbs 7.5 oz Weight loss Surgical History Surgical History deliv NOS-unsp H/O adenoidectomy H/O foot surgery H/O sinus surgery History of bilateral tubal ligation History of classical section x2 History of hysterectomy 09/25/2019 Hx of tonsillectomy Hx of tubal ligation Family History Family History Father Family history of malignant neoplasm of urinary bladder, Onset Age: 67 Family history of hearing loss Family history of malignant neoplasm Family history of rheumatoid arthritis Family history of hypercholesterolemia Family history of mental disorder Hypertension Family history of alcoholism Carcinoma of colon, Onset Age: 67 Family history of lung cancer, Onset Age: 67 Family history of malignant neoplasm of brain, Onset Age: 67 Grandparent Family history of thyroid disease Family history of lung cancer Family history of hearing loss Family history of obesity Family history of osteoporosis Depression Hypertension Family history of alcoholism
[2020-07-21 18:30] VITALS: BP 144/88; PULSE 84; RESP 18; O2SAT 98
== END 2020-07-21 18:30 | disposition home or self-care (01) ==
PROVIDERS: Emergency Provider Emergency Medicine; PCP Physician Assistant
DX: E11.65 Type 2 diabetes mellitus with hyperglycemia (principal); F17.210 Nicotine dependence, cigarettes, uncomplicated; T38.3X6A Underdosing of insulin and oral hypoglycemic [antidiabetic] drugs, initial encounter; Z91.128 Patient's intentional underdosing of medication regimen for other reason
CPT/HCPCS: 36415; 80048; 85025; 96360; 96361; 99283; J7030

== ENCOUNTER 2020-07-24 06:14 | Emergency (ER) | payer BC, SELFPAY ==
[2020-07-24 06:23] VITALS: BP 132/85; PULSE 114; RESP 18; TEMP 36.7; O2SAT 98
[2020-07-24 06:29] LABS: Glucose Point of Care 458 mg/dl (65-105)
[2020-07-24 07:02] LABS: Add Urine Microscopic? YES; Appearance Urine Clear (Clear); Bacteria Urine Trace /hpf; Bilirubin Urine Negative (Negative); Blood Urine Negative (Negative); Color Urine Straw (Yellow); Glucose Urine UA 3+ mg/dL (Negative); Ketones Urine Negative (Negative); Leukocyte Esterase Ur Negative LEU/UL (Negative); Nitrate Urine Negative (Negative); Protein Urine Negative (Negative); Specific Grav Ur 1.026 (1.001-1.035); Squamous Epithelial Cell Urine Occasional /hpf (Few); Urobilinogen Urine Negative mg/dL (<2.0); WBC Urine 0-3 /hpf
[2020-07-24 07:04] LABS: Basophils Percent Auto 0.5 % (0.2-1.2); Eosinophils Absolute Auto 0.1 K/mm3 (0-0.3); Eosinophils Percent Auto 1.2 % (0-4.4); Hematocrit 41.6 % (37.0-47.0); Hemoglobin 13.5 g/dL (12.0-15.0); Immature Granulocyte Absolute 0.03 K/mm3 (0.00-0.031); Immature Granulocyte Percent A 0.5 % (0-0.5); Lymphocytes Absolute Auto 1.57 K/mm3 (0.9-3.2); Lymphocytes Percent Auto 26.2 % (18.3-44.2); Mean Corpuscular HGB Conc 32.5 g/dl (32-36); Mean Corpuscular Hemoglobin 27.3 pg (26-34); Mean Corpuscular Volume 84.2 fl (80-100); Mean Platelet Volume 10.3 fl (7.4-10.4); Monocytes Absolute Auto 0.6 K/mm3 (0.1-0.6); Monocytes Percent Auto 10.2 % (2.6-8.5); Neutrophils Absolute Auto 3.7 K/mm3 (1.3-6.7); Neutrophils Percent Auto 61.4 % (45.5-73.1); Platelet Count Result 201 k/mm3 (150-375); Red Blood Count 4.94 M/mm3 (4.2-5.4); Red Cell Distribution Width 14.3 % (11.5-14.5)
[2020-07-24 07:12] LABS: Beta-Hydroxybutyrate/Acetoacetate 0.26 mmol/L (0.02-0.27)
--- NOTE | 2020-07-24 07:35 | PC.NURSE ---
called lab spoke to christina at 0730 to add on a CMP Mg and Phos
[2020-07-24 07:40] LABS: Glucose Point of Care 474 mg/dl (65-105)
[2020-07-24 07:44] LABS: Alveolar/Arterial O2 Gradient 32.3 mmHg; Base Excess ABG -0.4 mEq/l (+/-2.0); Carboxyhemoglobin 5.2 % THb (0-2.0); Fractional Inspired Oxygen 21 %; HCO3 ABG 23.7 mEq/l (22.0-26.0); Oxygen Content ABG 17.6 %vol (16.0-22.0); Oxygen Saturation ABG 95.1 % (95.0-100.0); Oxyhemoglobin 90.1 % THb (90.0-100.0); PCO2 ABG 37.1 mmHg (35.0-45.0); PO2 FiO2 Ratio Arterial Blood 3.48 %; Reduced Hemoglobin 4.7 %THb (0-5.0); Total Hemoglobin 13.9 g/dL (12.0-18.0); pH ABG 7.423 (7.350-7.450)
[2020-07-24 07:45] LABS: Device ROOM AIR; Site Drawn LEFT RADIAL
[2020-07-24] MEDS: INSULIN HUMAN REGULAR (*BKC) 100 UNITS/ML 8 UNITS IV PUSH (07:50)
[2020-07-24] MEDS: INSULIN HUMAN REGULAR (*BKC) 100 UNITS in SODIUM CHLORIDE 0.9% IV 99 ML 8.28 UNITS IV CONT (07:52)
[2020-07-24] MEDS: SODIUM CHLORIDE 0.9% IV 1,000 ML 999 ML IV CONT (07:54)
[2020-07-24 08:10] VITALS: BP 107/67; PULSE 85; RESP 21; O2SAT 100
[2020-07-24 08:16] VITALS: BP 98/55; PULSE 83; RESP 19; O2SAT 100
[2020-07-24 08:16] LABS: Alanine Aminotransferase 23 U/L (4-35); Albumin Level 4.3 g/dL (3.5-5.1); Alkaline Phosphatase 195 U/L (38-126); Anion Gap 10 mmol/L (8-16); Aspartate Amino Transferase 24 U/L (14-36); Bilirubin,Total 0.3 mg/dL (0.2-1.3); Blood Urea Nitrogen 14 mg/dL (7-17); Calcium 9.4 mg/dL (8.4-10.2); Carbon Dioxide 25 mmol/L (22-30); Chloride 100 mmol/L (98-107); Estimated CRCL calculation 88 ml/min; Estimated Glomerular Filt Rate > 60; Glucose 530 mg/dL (65-105); Magnesium 1.9 mg/dL (1.6-2.3); Phosphorus 3.9 mg/dL (2.5-4.5); Potassium 4.3 mmol/L (3.4-5.0); Sodium 135 mmol/L (137-145)
[2020-07-24 08:28] VITALS: BP 94/55; PULSE 82; RESP 18; O2SAT 100
--- NOTE | 2020-07-24 08:33 | ED.GENADULT ---
HPI - General Adult General Chief complaint: Recheck/Abnormal Lab/Rx Stated complaint: High blood sugar Time Seen by Provider: 07/24/20 07:14 Source: patient and RN notes reviewed Mode of arrival: ambulatory History of Present Illness HPI narrative: Patient is 40 years old white female presented to the ED not feeling well for months. Had history of gestational diabetes, later was diagnosed of type 2 diabetes almost 11 years ago, been using Metformin and diet control since. Last antidiabetic medication was over 2 years ago. Came to our emergency room 4 days ago and was diagnosed of hyperglycemia, discharged on Metformin which started 1 day later. Been checking her blood sugar almost 10 times a day. She reports elevated blood glucose and difficulty to control it. Patient denies any fever, chills, nausea, vomiting, pain. Related Data Home Medications Medication Instructions Recorded Confirmed fexofenadine [Amina Allergy] 180 mg PO DAILY 09/11/19 04/23/20 venlafaxine mg PO 07/24/20 Allergies Allergy/AdvReac Type Severity Reaction Status Date / Time adhesive tape Allergy Mild BLISTERS Verified 07/24/20 08:05 miconazole Allergy Unknown Swelling Verified 07/24/20 08:05 tioconazole Allergy Unknown Swelling Verified 07/24/20 08:05 amoxicillin AdvReac Intermediate Other Verified 07/24/20 08:05 clavulanic acid AdvReac Intermediate Other Verified 07/24/20 08:05 [From Augmentin] eletriptan AdvReac Unknown Vomiting Verified 07/24/20 08:05 hydromorphone AdvReac Unknown Severe Verified 07/24/20 08:05 Vomiting sumatriptan AdvReac Unknown Vomiting Verified 07/24/20 08:05 Review of Systems Review of Systems: Narrative: CONSTITUTIONAL: Denies fever, chills, or sweats. EYES: Denies visual changes, redness, or discharge. ENT: Denies rhinorrhea, congestion, sore throat, or otalgia. CARDIOVASCULAR: Denies chest pain, palpitations, or edema. RESPIRATORY: Denies cough or dyspnea. GASTROINTESTINAL: Denies abdominal pain, nausea, vomiting, or diarrhea. GENITOURINARY: Denies dysuria or hematuria. SKIN: Denies rash or itching. MUSCULOSKELETAL: Denies back pain, joint pain, or myalgia. NEUROLOGIC: Denies headache, numbness, or weakness. PSYCHIATRIC: Denies anxiety or depression. [facility] Past Medical History Medical History Allergies Anxiety Arthritis Asthma Bilateral hand pain Blood in stool Bronchitis Carcinoma x2 Chronic constipation Depression Diabetes DM II (diabetes mellitus, type II), controlled Dysphagia Family history of colon cancer Fibroids Fibromyalgia (~2012) Genital herpes GERD (gastroesophageal reflux disease) History of gastritis HSV infection Hx of carpal tunnel syndrome Hx of fracture of wrist rt Hypercholesteremia IBS (irritable bowel syndrome) (~2012) Interstitial cystitis Lesion of stomach Migraine MVP (mitral valve prolapse) Odynophagia Postprandial abdominal bloating Vaginal delivery 10/25/09 Full-term. Female 5lbs 6oz 09/16/97 Full term. Female 8lbs 7.5 oz Weight loss Surgical History Surgical History deliv NOS-unsp H/O adenoidectomy H/O foot surgery H/O sinus surgery History of bilateral tubal ligation History of classical section x2 History of hysterectomy 09/25/2019 Hx of tonsillectomy Hx of tubal ligation Family History Family History Father Family history of malignant neoplasm of urinary bladder, Onset Age: 67 Family history of hearing loss Family history of malignant neoplasm Family history of rheumatoid arthritis Family history of hypercholesterolemia Family history of mental disorder Hypertension Family history of alcoholism Carcinoma of colon, Onset Age: 67 Family history of lung cancer, Onset Age: 67 Family history of malignant neoplasm of brain, Onset Age: 67 Grandparent Family history
[2020-07-24 08:49] LABS: Glucose Point of Care 223 mg/dl (65-105)
--- NOTE | 2020-07-24 09:13 | PC.NURSE ---
per EDP lindsey insulin drip stopped
[2020-07-24 09:22] VITALS: BP 120/80; PULSE 87; RESP 16; O2SAT 100
== END 2020-07-24 09:22 | disposition home or self-care (01) ==
PROVIDERS: Emergency Medicine; Emergency Provider Emergency Medicine; PCP Physician Assistant
DX: E11.65 Type 2 diabetes mellitus with hyperglycemia (principal); M19.90 Unspecified osteoarthritis, unspecified site; J45.909 Unspecified asthma, uncomplicated; F41.9 Anxiety disorder, unspecified; M79.7 Fibromyalgia; K21.9 Gastro-esophageal reflux disease without esophagitis; E78.00 Pure hypercholesterolemia, unspecified; F17.210 Nicotine dependence, cigarettes, uncomplicated; Z79.84 Long term (current) use of oral hypoglycemic drugs
CPT/HCPCS: 36415; 36600; 80053; 81001; 81025; 82010; 82375; 82805; 82948; 83050; 83735; 84100; 85025; 96365; 99284; J1815; J7030

== ENCOUNTER 2021-01-21 09:51 | Outpatient (CLI) | payer BC, SELFPAY ==
[2021-01-21 10:27] LABS: Anion Gap 8 mmol/L (8-16); Blood Urea Nitrogen 18 mg/dL (7-17); Calcium 9.9 mg/dL (8.4-10.2); Carbon Dioxide 26 mmol/L (22-30); Chloride 102 mmol/L (98-107); Cholesterol 169 mg/dL (0-200); Estimated Glomerular Filt Rate > 60; Glucose 97 mg/dL (65-110); HDL Direct 42 mg/dL; Potassium 4.7 mmol/L (3.4-5.0); Sodium 136 mmol/L (137-145); Triglycerides 168 mg/dL (<150)
[2021-01-21 10:38] LABS: LDL Cholesterol Direct 90 mg/dL
== END 2021-01-21 09:52 | disposition home or self-care (01) ==
LOC: ANHLAB 09:53
PROVIDERS: PCP Internal Medicine; Visit Provider Physician Assistant
DX: E11.9 Type 2 diabetes mellitus without complications (principal)
CPT/HCPCS: 36415; 80048; 80061

== ENCOUNTER 2021-03-18 11:37 | Emergency (ER) | payer BC, SELFPAY ==
--- NOTE | ~2021-03-18 | XR_ITS ---
EXAMINATION: XR chest 1V portable DATE: 03/18/2021 12:10 INDICATION: Cough. COVID positive. TECHNIQUE: frontal view of the chest was obtained. COMPARISON: Chest radiograph and CT dated 01/21/2020 FINDINGS: The lungs remain clear with no focal airspace opacities, pulmonary edema, pleural effusion or pneumot horax. The cardiomediastinal silhouette is normal. Visualized bones and soft tissues are unremarkable . IMPRESSION: 1. No acute cardiopulmonary disease. Reviewed, dictated and finalized at location A. GEMASTER ANALYST
[2021-03-18 11:42] VITALS: BP 115/76; PULSE 100; RESP 16; TEMP 36.4; O2SAT 100
--- NOTE | 2021-03-18 12:10 | ED.URI ---
HPI - URI/Sore Throat General Chief Complaint: Back Pain/Injury Stated Complaint: Wheezing bilat. flank pain, Covid-19+ Time Seen by Provider: 03/18/21 11:52 Source: patient Mode of arrival: ambulatory Limitations: no limitations History of Present Illness HPI Narrative: Patient is a 40-year-old female complaining of wheezing accompanied by cough, nasal congestion, fever x2 weeks. Patient states that she was diagnosed with Covid on March 05, and still having symptoms up until now. Patient also complaining of low back pain x1 week, denies any nausea, vomiting, or urinary symptoms. Denies any chest pain, shortness of breath, abdominal pain or diarrhea. Related Data Home Medications Medication Instructions Recorded Confirmed fexofenadine [Amina Allergy] 180 mg PO DAILY 09/11/19 02/19/21 ascorbate calcium (vitamin C) 500 500 mg PO DAILY 02/19/21 02/19/21 mg tablet insulin glargine 100 unit/mL (3 10 unit SUBCUT QPM 02/19/21 02/19/21 mL) subcutaneous pen magnesium 200 mg tablet 200 mg PO DAILY 02/19/21 02/19/21 zinc PO 02/19/21 02/19/21 Allergies Allergy/AdvReac Type Severity Reaction Status Date / Time adhesive tape Allergy Mild BLISTERS Verified 02/19/21 10:34 miconazole Allergy Unknown Swelling Verified 02/19/21 10:34 tioconazole Allergy Unknown Swelling Verified 02/19/21 10:34 clavulanic acid AdvReac Intermediate Other Verified 02/19/21 10:34 [From Augmentin] eletriptan AdvReac Unknown Vomiting Verified 02/19/21 10:34 hydromorphone AdvReac Unknown Severe Verified 02/19/21 10:34 Vomiting sumatriptan AdvReac Unknown Vomiting Verified 02/19/21 10:34 Review of Systems Review of Systems: All systems reviewed & are unremarkable except as noted in HPI and below Constitutional: Constitutional: Denies body ache(s), Denies excessive sweating, Denies fatigue, Denies headache(s), Denies lethargy, Denies malaise, Denies weakness and Denies weight loss Eyes: Eyes: Denies blurry vision, Denies change in vision and Denies loss of vision ENT: Denies dizziness, Denies ear discharge, Denies headache(s), Denies lip swelling, Denies epistaxis, Denies nasal congestion, Denies neck pain, Denies throat swelling and Denies tongue swelling Cardiovascular: Cardiovascular: Denies chest pain, Denies chest pain at rest, Denies chest pain with activity, Denies diaphoresis, Denies rapid heart rate, Denies edema, Denies irregular heart rhythm, Denies lightheadedness, Denies palpitations, Denies dyspnea and Denies dyspnea on exertion Respiratory: Respiratory: Denies chest congestion, Denies hemoptysis, Denies dyspnea and Denies dyspnea on exertion Gastrointestinal: Gastrointestinal: Denies abdominal pain, Denies melena, Denies hematochezia, Denies diarrhea, Denies nausea, Denies vomiting and Denies hematemesis Musculoskeletal: Musculoskeletal: Denies abnormal gait, Denies deformity, Denies joint swelling, Denies limited range of motion, Denies neck pain and Denies numbness Neurologic: Denies Abnormal speech present, Denies abnormal gait, Denies confusion, Denies dizziness, Denies headache(s), Denies focal weakness, Denies loss of vision, Denies numbness, Denies Other visual disturbances, Denies Sensory deficit (Neuro) and Denies weakness Psychiatric: Psychiatric: Denies confusion, Denies depression, Denies auditory hallucinations, Denies homicidal ideation and Denies suicidal ideation Endocrine: Endocrine: Denies cold intolerance, Denies excessive sweating, Denies fatigue, Denies heat intolerance and Denies palpitations Hematologic/Lymphatic: Hematologic/Lymphatic: Denies easy bleeding and Denies easy bruising Allergic/Immunologic: Allergic/Immunologic: Denies lip swelling, Denies throat swelling and Denies tongue swelling PMFSH Past Medical History Medical History Allergies Anxiety Arthritis Asthma Bilateral hand pain Blood in stool Bronchitis Carcinoma x2 Chronic constipat
[2021-03-18 12:20] LABS: Add Urine Microscopic? NO; Appearance Urine Clear (Clear); Bilirubin Urine Negative (Negative); Blood Urine Negative (Negative); Color Urine Yellow (Yellow); Glucose Urine UA Negative (Negative); Ketones Urine Negative (Negative); Leukocyte Esterase Ur Negative LEU/UL (Negative); Nitrate Urine Negative (Negative); Protein Urine Negative (Negative); Urobilinogen Urine Negative mg/dL (<2.0)
[2021-03-18 12:47] LABS: Glucose Point of Care 147 mg/dl (65-105)
[2021-03-18 14:48] VITALS: BP 96/61; PULSE 99; RESP 16; O2SAT 96
== END 2021-03-18 14:51 | disposition home or self-care (01) ==
PROVIDERS: Emergency Provider Emergency Medicine; PCP Internal Medicine
DX: U07.1 COVID-19 (principal); E11.9 Type 2 diabetes mellitus without complications; J45.909 Unspecified asthma, uncomplicated; E78.00 Pure hypercholesterolemia, unspecified; I34.1 Nonrheumatic mitral (valve) prolapse; M79.7 Fibromyalgia; K58.1 Irritable bowel syndrome with constipation; K21.9 Gastro-esophageal reflux disease without esophagitis; M19.90 Unspecified osteoarthritis, unspecified site; F41.9 Anxiety disorder, unspecified; F32.A Depression, unspecified; F17.210 Nicotine dependence, cigarettes, uncomplicated; Z85.9 Personal history of malignant neoplasm, unspecified; Z79.4 Long term (current) use of insulin; Z79.84 Long term (current) use of oral hypoglycemic drugs
CPT/HCPCS: 71045; 81003; 81025; 82948; 96372; 99283; J1100

== ENCOUNTER 2021-12-19 09:08 | Emergency (ER) | payer BC, SELFPAY ==
[2021-12-19] VITALS (7 sets, daily range): BP systolic 129; BP diastolic 73; PULSE 66–91; RESP 16–19; TEMP 37.1; O2SAT 93–100
--- NOTE | ~2021-12-19 | XR_ITS ---
EXAMINATION: XR chest 1V portable INDICATION: Cough TECHNIQUE: Portable AP chest at 1042 hours COMPARISON: 03/18/2021 FINDINGS: The lungs are free of acute opacities. No pleural effusion or pneumothorax. The cardiomedia stinal silhouette is normal. IMPRESSION: 1. No acute cardiopulmonary abnormality. Reviewed, dictated and finalized at location B. ESS DEVELOPMENT TECHNICIAN
--- NOTE | 2021-12-19 10:11 | ECG_ITS ---
Measurements Intervals Epes Rate: 78 P: 16 CA: 132 QRS: 52 QRSD: 86 T: 33 QT: 357 QTc: 407 Interpretive Statements SINUS RHYTHM BASELINE WANDER- III, V5 NORMAL ECG COMPARED TO ECG 01/21/2020 16:17:13 NO SIGNIFICANT CHANGES Electronically Signed On 12-19-2021 11:54:03 FRUIT HARVEST WORKER by Mulugeta Simon D.O.
--- NOTE | 2021-12-19 10:42 | ED.GENADULT ---
HPI - General Adult General Chief complaint: Upper Respiratory Infection Stated complaint: pain with inspiration Time Seen by Provider: 12/19/21 10:08 Source: RN notes reviewed History of Present Illness HPI narrative: Patient presents emergency room from home for upper respiratory symptoms. Patient states she has been sick for the past 2 days. Says she has been having a cough this been nonproductive as well as rhinorrhea. States is associated with subjective fevers and chest pain across the bilateral upper chest. Patient states the pain hurts with deep inspiration and coughing and she has no pain when at rest she states that the cough has been nonproductive she denies any shortness of breath denies abdominal pain nausea vomiting states she is not taking thing for the pain at home Related Data Home Medications Medication Instructions Recorded Confirmed fexofenadine 180 mg tablet 180 mg PO DAILY 09/11/19 12/07/21 ([facility] All[facility]) ascorbate calcium (vitamin C) 500 500 mg PO DAILY 02/19/21 12/07/21 mg tablet magnesium 200 mg tablet 200 mg PO DAILY 02/19/21 12/07/21 zinc PO 02/19/21 12/07/21 quetiapine 50 mg tablet 50 mg PO QHS 06/02/21 12/07/21 Allergies Allergy/AdvReac Type Severity Reaction Status Date / Time adhesive tape Allergy Mild BLISTERS Verified 12/01/21 08:59 miconazole Allergy Unknown Swelling Verified 12/01/21 08:59 tioconazole Allergy Unknown Swelling Verified 12/01/21 08:59 clavulanic acid AdvReac Intermediate Other Verified 12/01/21 08:59 [From Augmentin] eletriptan AdvReac Unknown Vomiting Verified 12/01/21 08:59 hydromorphone AdvReac Unknown Severe Verified 12/01/21 08:59 Vomiting sumatriptan AdvReac Unknown Vomiting Verified 12/01/21 08:59 Review of Systems Review of Systems: Gen.: Report subjective fevers Eyes: Denies eye pain or visual change ENT: Reports area Respiratory: Denies shortness of breath reports cough CV: D reports chest pain with coughing and deep and GI: Denies abdominal pain nausea, emesis or diarrhea Musculoskeletal: Denies back pain or muscle pain Neuro: Denies numbness, tingling, weakness or focal weakness Skin: Denies rash Except as documented, all other systems reviewed and negative [facility] Past Medical History Medical History Allergies Anxiety Arthritis Asthma Bilateral hand pain Blood in stool Bronchitis Carcinoma x2 Chronic constipation COVID-19 virus infection Depression Diabetes DM II (diabetes mellitus, type II), controlled Dysphagia Fibroids Fibromyalgia (~2012) GERD (gastroesophageal reflux disease) History of gastritis HSV infection Type 2 Hx of carpal tunnel syndrome Hx of fracture of wrist rt Hypercholesteremia IBS (irritable bowel syndrome) (~2012) Interstitial cystitis Lesion of stomach Migraine MVP (mitral valve prolapse) Odynophagia Postprandial abdominal bloating Weight loss Surgical History Surgical History H/O adenoidectomy H/O foot surgery H/O sinus surgery History of bilateral salpingo-oophorectomy 09/25/19 History of bilateral tubal ligation History of hysterectomy 09/25/2019, TLH Hx of tonsillectomy Previous section x2 Family History Family History Father Family history of malignant neoplasm of urinary bladder, Onset Age: 67 Family history of rheumatoid arthritis Family history of hypercholesterolemia Family history of mental disorder Hypertension Family history of alcoholism Carcinoma of colon, Onset Age: 67 Family history of lung cancer, Onset Age: 67 Family history of malignant neoplasm of brain, Onset Age: 67 Family history of hearing loss Family history of malignant neoplasm Grandparent Family history of thyroid disease Family history of obesity Family history of osteoporosis Depression Hypertension Fami
[2021-12-19 10:44] LABS: Influenza A QL RT-PCR Negative (Negative); Influenza B QL RT-PCR Negative (Negative); SARS-CoV-2 RNA PCR Negative
[2021-12-19] MEDS: ALBUTEROL SULFATE NEB 2.5 MG/3 ML INH 5 MG INHALATION (10:49)
[2021-12-19] MEDS: IPRATROPIUM BR 0.02% INH SOLN 0.5 MG/2.5 ML VIAL INHALATION (10:49)
--- NOTE | 2021-12-19 11:25 | PC.NURSE ---
Patient report received from NONI Burt. All questions answered and care of patient assumed. Patient resting quietly in stretcher with call-light in reach. NAD. VSS. Awaiting further orders and disposition.
[2021-12-19] MEDS: predniSONE 20 MG TABLET 60 MG PO (12:18)
[2021-12-19] MEDS: IBUPROFEN 600 MG TABLET PO (12:19)
== END 2021-12-19 13:04 | disposition home or self-care (01) ==
PROVIDERS: Emergency Provider Emergency Medicine; PCP Physician Assistant
DX: J06.9 Acute upper respiratory infection, unspecified (principal); J45.909 Unspecified asthma, uncomplicated; Z20.822 Contact with and (suspected) exposure to COVID-19; E11.9 Type 2 diabetes mellitus without complications; E78.00 Pure hypercholesterolemia, unspecified; I34.1 Nonrheumatic mitral (valve) prolapse; K21.9 Gastro-esophageal reflux disease without esophagitis; M79.7 Fibromyalgia; M19.90 Unspecified osteoarthritis, unspecified site; F41.9 Anxiety disorder, unspecified; F32.A Depression, unspecified; Z86.16 Personal history of COVID-19; Z85.9 Personal history of malignant neoplasm, unspecified; Z90.710 Acquired absence of both cervix and uterus; Z90.722 Acquired absence of ovaries, bilateral; Z90.79 Acquired absence of other genital organ(s); Z79.84 Long term (current) use of oral hypoglycemic drugs; Z79.4 Long term (current) use of insulin; F17.210 Nicotine dependence, cigarettes, uncomplicated; F17.290 Nicotine dependence, other tobacco product, uncomplicated
CPT/HCPCS: 71045; 87636; 93005; 94640; 99283; A9270; J7512

== ENCOUNTER 2022-01-15 09:52 | Emergency (ER) | payer BC, SELFPAY ==
--- NOTE | ~2022-01-15 | US_ITS ---
EXAMINATION: US axilla LT DATE: 01/15/2022 11:12 INDICATION: Swelling at the left axilla 3 days post COVID vaccination in the left arm TECHNIQUE: Multiple grayscale and Doppler ultrasound images of the left axilla were obtained. COMPARISON: CT dated 01/21/2020 FINDINGS: There are couple lymph nodes in the region of concern at the left axilla which, the larger measuring 3.1 cm in maximal length and the smaller measuring 1.4 cm in length. These appear comprised predomina ntly by large central echogenic fatty hilum. The cortex of the larger of the 2 lymph nodes measure ap proximately 2-3 mm which is within normal limits but increased in size since the prior CT. No other a bnormal masses or fluid collections identified. IMPRESSION: 1. Pair of likely reactive left axillary lymph nodes. Reviewed, dictated and finalized at location A. ER MATERIAL HANDLER
[2022-01-15 10:00] VITALS: BP 130/84; PULSE 100; RESP 16; TEMP 36.8; O2SAT 100
--- NOTE | 2022-01-15 10:50 | ED.GENADULT ---
HPI - General Adult General Chief complaint: Recheck/Abnormal Lab/Rx Stated complaint: SWOLLEN L AXILLA AFTER COVID VACCINE Time Seen by Provider: 01/15/22 10:06 History of Present Illness HPI narrative: 41-year-old female presents to the emergency room for evaluation of pain and swelling to her left axilla. Patient states symptoms of been present for 3 days, and began shortly after receiving her first COVID injection. Patient also reports subjective fever, chills and decreased appetite. Patient was referred here by her PCP for further evaluation. Related Data Home Medications Medication Instructions Recorded Confirmed fexofenadine 180 mg tablet 180 mg PO DAILY 09/11/19 12/07/21 ([facility]) ascorbate calcium (vitamin C) 500 500 mg PO DAILY 02/19/21 12/07/21 mg tablet magnesium 200 mg tablet 200 mg PO DAILY 02/19/21 12/07/21 zinc PO 02/19/21 12/07/21 quetiapine 50 mg tablet 50 mg PO QHS 06/02/21 12/07/21 Allergies Allergy/AdvReac Type Severity Reaction Status Date / Time adhesive tape Allergy Mild BLISTERS Verified 01/15/22 10:03 miconazole Allergy Unknown Swelling Verified 01/15/22 10:03 tioconazole Allergy Unknown Swelling Verified 01/15/22 10:03 clavulanic acid AdvReac Intermediate Other Verified 01/15/22 10:03 [From Augmentin] eletriptan AdvReac Unknown Vomiting Verified 01/15/22 10:03 hydromorphone AdvReac Unknown Severe Verified 01/15/22 10:03 Vomiting sumatriptan AdvReac Unknown Vomiting Verified 01/15/22 10:03 Review of Systems Review of Systems: CONSTITUTIONAL: Denies fever, chills, or sweats. EYES: Denies visual changes, redness, or discharge. ENT: Denies rhinorrhea, congestion, sore throat, or otalgia. CARDIOVASCULAR: Denies chest pain, palpitations, or edema. RESPIRATORY: Denies cough or dyspnea. GASTROINTESTINAL: Denies abdominal pain, nausea, vomiting, or diarrhea. GENITOURINARY: Denies dysuria or hematuria. SKIN: Reports left axillary swelling and tenderness MUSCULOSKELETAL: Denies back pain, joint pain, or myalgia. NEUROLOGIC: Denies headache, numbness, dizziness, or weakness. PSYCHIATRIC: Denies anxiety or depression. PMFSH Past Medical History Medical History Allergies Anxiety Arthritis Asthma Bilateral hand pain Blood in stool Bronchitis Carcinoma x2 Chronic constipation COVID-19 virus infection Depression Diabetes DM II (diabetes mellitus, type II), controlled Dysphagia Fibroids Fibromyalgia (~2012) GERD (gastroesophageal reflux disease) History of gastritis HSV infection Type 2 Hx of carpal tunnel syndrome Hx of fracture of wrist rt Hypercholesteremia IBS (irritable bowel syndrome) (~2012) Interstitial cystitis Lesion of stomach Migraine MVP (mitral valve prolapse) Odynophagia Postprandial abdominal bloating Weight loss Surgical History Surgical History H/O adenoidectomy H/O foot surgery H/O sinus surgery History of bilateral salpingo-oophorectomy 09/25/19 History of bilateral tubal ligation History of hysterectomy 09/25/2019, TLH Hx of tonsillectomy Previous section x2 Family History Family History Father Family history of malignant neoplasm of urinary bladder, Onset Age: 67 Family history of rheumatoid arthritis Family history of hypercholesterolemia Family history of mental disorder Hypertension Family history of alcoholism Carcinoma of colon, Onset Age: 67 Family history of lung cancer, Onset Age: 67 Family history of malignant neoplasm of brain, Onset Age: 67 Family history of hearing loss Family history of malignant neoplasm Grandparent Family history of thyroid disease Family history of obesity Family history of osteoporosis Depression Hypertension Family history of alcoholism Family history of arthritis Carcinoma of colon Family histo
[2022-01-15 12:37] VITALS: BP 128/78; PULSE 99; RESP 18; O2SAT 100
== END 2022-01-15 13:11 | disposition home or self-care (01) ==
PROVIDERS: Emergency Provider Nurse Practitioner Family; PCP Physician Assistant
DX: R22.32 Localized swelling, mass and lump, left upper limb (principal); T50.B95A Adverse effect of other viral vaccines, initial encounter
CPT/HCPCS: 76882; 99284

== ENCOUNTER 2022-03-09 08:05 | Emergency (ER) | payer BC, SELFPAY ==
--- NOTE | ~2022-03-09 | CT_ITS ---
EXAMINATION: CT abdomen pelvis w con DATE: 03/09/2022 09:27 INDICATION: Right lower quadrant abdominal pain. Nausea and vomiting. TECHNIQUE: Computed tomography (CT) of the abdomen and pelvis was performed with 100 mL Omnipaque 350 intravenous contrast. Automated exposure control and iterative reconstruction technique were employe d. The dose-length product was 652.66 mGy-cm. COMPARISON: CT abdomen and pelvis 05/07/2020 FINDINGS: The visualized portions of the lung bases demonstrate mild dependent atelectasis. No pleura l effusion. The heart size is normal. No pericardial effusion. The liver, gallbladder, spleen, pancre as, adrenal glands, and kidneys are normal. There is diverticulosis of the colon without evidence of diverticulitis. The appendix is normal. There are no dilated loops of bowel. There are no pathologica lly enlarged lymph nodes. There is no free intraperitoneal fluid. There is mild thoracolumbar spondyl osis. IMPRESSION: 1. No etiology for the patient's symptoms. Reviewed, dictated and finalized at location A. GER REPORTING
[2022-03-09 08:12] VITALS: BP 125/83; PULSE 92; RESP 20; TEMP 37.1; O2SAT 100
[2022-03-09 08:32] LABS: Basophils Percent Auto 0.5 % (0.2-1.2); Eosinophils Absolute Auto 0.1 K/mm3 (0-0.3); Eosinophils Percent Auto 1.7 % (0-4.4); Hematocrit 45.6 % (37.0-47.0); Hemoglobin 14.4 g/dL (12.0-15.0); Immature Granulocyte Absolute 0.02 K/mm3 (0.00-0.031); Immature Granulocyte Percent A 0.2 % (0-0.5); Lymphocytes Absolute Auto 2.41 K/mm3 (0.9-3.2); Mean Corpuscular HGB Conc 31.6 g/dl (32-36); Mean Corpuscular Hemoglobin 27.3 pg (26-34); Mean Corpuscular Volume 86.5 fl (80-100); Mean Platelet Volume 9.8 fl (7.4-10.4); Monocytes Absolute Auto 0.5 K/mm3 (0.1-0.6); Neutrophils Absolute Auto 4.9 K/mm3 (1.3-6.7); Neutrophils Percent Auto 61.6 % (45.5-73.1); Platelet Count Result 255 k/mm3 (150-375); Red Blood Count 5.27 M/mm3 (4.2-5.4); Red Cell Distribution Width 14.8 % (11.5-14.5)
[2022-03-09 08:37] LABS: Alanine Aminotransferase 26 U/L (6-35); Albumin Level 4.5 g/dL (3.5-5.1); Alkaline Phosphatase 106 U/L (38-126); Anion Gap 10 mmol/L (8-16); Aspartate Amino Transferase 29 U/L (14-36); Bilirubin,Total 0.7 mg/dL (0.2-1.3); Blood Urea Nitrogen 19 mg/dL (7-17); Carbon Dioxide 25 mmol/L (22-30); Chloride 103 mmol/L (98-107); Estimated CRCL calculation 61 ml/min; Estimated Glomerular Filt Rate 54; Glucose 151 mg/dL (65-110); Lipase 53 U/L (23-300); Sodium 138 mmol/L (137-145)
[2022-03-09 08:41] LABS: Appearance Urine Clear (Clear); Bilirubin Urine 1+ (Negative); Blood Urine Negative (Negative); Color Urine Yellow (Yellow); Glucose Urine UA Negative (Negative); Ketones Urine Negative (Negative); Leukocyte Esterase Ur Negative LEU/UL (Negative); Nitrate Urine Negative (Negative); Protein Urine Negative (Negative)
[2022-03-09 08:44] LABS: Bacteria Urine Trace /hpf; Mucus Urine Rare /lpf; Squamous Epithelial Cell Urine Moderate /hpf (Few); Transitional Epi Cells Urine Rare /hpf (None Seen)
[2022-03-09 08:45] LABS: Add Urine Microscopic? YES
[2022-03-09] MEDS: MORPHINE SULFATE (*CRX) 4 MG/ML INJ IV PUSH (09:10)
[2022-03-09] MEDS: SODIUM CHLORIDE 0.9% IV 1,000 ML 999 ML IV CONT (09:10)
[2022-03-09] MEDS: ONDANSETRON INJ 4 MG/2 ML VIAL IV PUSH (09:10)
[2022-03-09 09:11] VITALS: BP 147/86; PULSE 100; RESP 18; O2SAT 100
--- NOTE | 2022-03-09 09:19 | PC.NURSE ---
Pt to CT scan via stretcher at this time.
--- NOTE | 2022-03-09 10:15 | ED.NAVMDI ---
HPI - Nausea/Vomiting/Diarrhea General Chief complaint: Nausea/Vomiting/Diarrhea Stated complaint: N/V x 3 days Time Seen by Provider: 03/09/22 08:17 History of Present Illness HPI Narrative: Patient is a 41-year-old female who presents ER with nausea and vomiting. Ongoing for 3 days. No alleviating factors. Associated with diffuse abdominal cramping. Reports she has not had a bowel movement in the last 5 to 6 days. Denies fevers or chills or sweats. No known sick contacts. Related Data Allergies Allergy/AdvReac Type Severity Reaction Status Date / Time adhesive tape Allergy Mild BLISTERS Verified 03/09/22 08:18 miconazole Allergy Unknown Swelling Verified 03/09/22 08:18 tioconazole Allergy Unknown Swelling Verified 03/09/22 08:18 clavulanic acid AdvReac Intermediate Other Verified 03/09/22 08:18 [From Augmentin] eletriptan AdvReac Unknown Vomiting Verified 03/09/22 08:18 hydromorphone AdvReac Unknown Severe Verified 03/09/22 08:18 Vomiting sumatriptan AdvReac Unknown Vomiting Verified 03/09/22 08:18 Review of Systems Review of Systems: All systems reviewed & are unremarkable except as noted in HPI and below Constitutional: Constitutional: Denies chills, Denies fatigue and Denies fever(s) Cardiovascular: Cardiovascular: Denies chest pain and Denies rapid heart rate Gastrointestinal: Gastrointestinal: Reports abdominal pain, Denies constipation, Denies diarrhea, Reports nausea and Reports vomiting Genitourinary: Genitourinary: Denies nocturia, Denies dysuria and Denies flank pain PMFSH Past Medical History Medical History Allergies Anxiety Arthritis Asthma Bilateral hand pain Blood in stool Bronchitis Carcinoma x2 Chronic constipation COVID-19 virus infection Depression Diabetes DM II (diabetes mellitus, type II), controlled Dysphagia Fibroids Fibromyalgia (~2012) GERD (gastroesophageal reflux disease) History of gastritis HSV infection Type 2 Hx of carpal tunnel syndrome Hx of fracture of wrist rt Hypercholesteremia IBS (irritable bowel syndrome) (~2012) Interstitial cystitis Lesion of stomach Migraine MVP (mitral valve prolapse) Odynophagia Postprandial abdominal bloating Weight loss Surgical History Surgical History H/O adenoidectomy H/O foot surgery H/O sinus surgery History of bilateral salpingo-oophorectomy 09/25/19 History of bilateral tubal ligation History of hysterectomy 09/25/2019, TLH Hx of tonsillectomy Previous section x2 Family History Family History Father Family history of malignant neoplasm of urinary bladder, Onset Age: 67 Family history of rheumatoid arthritis Family history of hypercholesterolemia Family history of mental disorder Hypertension Family history of alcoholism Carcinoma of colon, Onset Age: 67 Family history of lung cancer, Onset Age: 67 Family history of malignant neoplasm of brain, Onset Age: 67 Family history of hearing loss Family history of malignant neoplasm Grandparent Family history of thyroid disease Family history of obesity Family history of osteoporosis Depression Hypertension Family history of alcoholism Family history of arthritis Carcinoma of colon Family history of Alzheimer's disease Family history of lung cancer Family history of hearing loss Sibling Family history of mental disorder Hypertension Cerebrovascular accident Family history of development disorder Mother Depression Hypertension Family history of arthritis Family history of Alzheimer's disease Social History Social History Smoking packs per day: 0.5 Smoking cigarettes per day: 10.0 Smoking status: Current every day smoker Tobacco type: cigarettes and e-cigarettes/vaping Second hand tobacco smoke e
[2022-03-09 10:43] VITALS: BP 103/67; PULSE 73; RESP 18; O2SAT 100
== END 2022-03-09 10:52 | disposition home or self-care (01) ==
PROVIDERS: Emergency Provider Emergency Medicine; PCP Physician Assistant
DX: R11.2 Nausea with vomiting, unspecified (principal); J45.909 Unspecified asthma, uncomplicated; E11.9 Type 2 diabetes mellitus without complications; E78.00 Pure hypercholesterolemia, unspecified; I34.1 Nonrheumatic mitral (valve) prolapse; K58.9 Irritable bowel syndrome, unspecified; K21.9 Gastro-esophageal reflux disease without esophagitis; M79.7 Fibromyalgia; M19.90 Unspecified osteoarthritis, unspecified site; F41.9 Anxiety disorder, unspecified; F32.A Depression, unspecified; Z90.722 Acquired absence of ovaries, bilateral; Z90.79 Acquired absence of other genital organ(s); Z90.710 Acquired absence of both cervix and uterus; Z86.16 Personal history of COVID-19; F17.290 Nicotine dependence, other tobacco product, uncomplicated; Z79.4 Long term (current) use of insulin; Z79.85 Long-term (current) use of injectable non-insulin antidiabetic drugs
CPT/HCPCS: 36415; 74177; 80053; 81001; 83690; 85025; 96361; 96374; 96375; 99284; J2270; J2405; J7030; Q9967

== ENCOUNTER 2022-03-31 08:18 | Outpatient (CLI) | payer BC, SELFPAY ==
--- NOTE | ~2022-03-31 | NM_ITS ---
EXAMINATION: NM marylin stress w perfusion DATE: 03/31/2022 10:36 TELECOMMUNICATIONS SWITCH TECHNICIAN INDICATION: Shortness of breath with exertion TECHNIQUE: Rest images were obtained following intravenous administration of 10 mCi Tc99m tetrofosmin (Myoview). The patient was infused intravenously with Lexiscan (regadenoson). Then, 33 mCi Tc99m tet rofosmin (Myoview) was administered intravenously, and stress images were obtained. Data was reconstr ucted into short axis and horizontal and vertical long axis SPECT images. Gated SPECT images were als o obtained. COMPARISON: None. FINDINGS: There is no definite reversible or fixed perfusion abnormality to suggest ischemia or infar ction. There is no segmental wall motion abnormality. Left ventricular ejection fraction measures 7 7%. IMPRESSION: 1. No definite ischemia or infarct. 2. Normal left ventricular ejection fraction measuring 77%. Reviewed, dictated and finalized at location L. COMMUNICATIONS SWITCH TECHNICIAN
--- NOTE | 2022-03-31 08:29 | EST_ITS ---
Patient Info Name: Alisia Emerson Age: 41 years : 1980 Gender: Female Ht: 66 in Wt: 185 lbs BSA: 2.00 m2 HR: 79 bpm BP: 114 / 82 mmHg Heart Rhythm: Sinus Rhythm Exam Date: 03/31/2022 9:26 AM Exam Location: [facility] Patient Status: Outpatient Admit Date: 03/31/2022 Staff Ordering Physician: Dontae Elliott PA-C Attending Provider: Dontae Elliott PA-C Exercise Technologist: Kandi Onofre CT Exercise Physician: Mulugeta Simon DO Exam Type: CA stress marylin w NM Study Info Indications R06.09 - Other forms of dyspnea R53.83 - Other fatigue A regadenoson stress test was performed. Summary 1. 1. Negative lexiscan stress test for ischemic ST changes by ECG criteria. 2. 2. Stable hemodynamics throughout the test. 3. 3. Nuclear scan to follow and will be reported separately. Please correlate with it. 4. 4. Patient informed of the above results. Protocol: Lexiscan Stress ECG Details Stage: REST Duration (min): 0 min : 58 sec HR (bpm): 81 SBP (mmHg): 114 DBP (mmHg): 82 Stage: REST Duration (min): 6 min : 11 sec HR (bpm): 80 SBP (mmHg): 114 DBP (mmHg): 82 Stage: STAGE 1 Duration (min): 0 min : 59 sec HR (bpm): 138 SBP (mmHg): 128 DBP (mmHg): 84 Stage: RECOVERY Duration (min): 1 min : 0 sec HR (bpm): 142 SBP (mmHg): 128 DBP (mmHg): 84 Stage: RECOVERY Duration (min): 2 min : 0 sec HR (bpm): --- SBP (mmHg): 128 DBP (mmHg): 84 Stage: RECOVERY Duration (min): 3 min : 0 sec HR (bpm): 130 SBP (mmHg): 132 DBP (mmHg): 80 Stage: RECOVERY Duration (min): 4 min : 0 sec HR (bpm): 122 SBP (mmHg): 132 DBP (mmHg): 80 Stage: RECOVERY Duration (min): 4 min : 51 sec HR (bpm): 115 SBP (mmHg): 115 DBP (mmHg): 78 Rest HR: 80 bpm Peak HR: 148 bpm Rest Sys BP: 114 mmHg Peak Sys BP: 132 mmHg Max Pred HR: 178 bpm % Max Pred HR: 83 % Target HR: 151 bpm Max RPP: 19,536 bpm*mmHg Termination Reason: Completed protocol Cardiac Symptoms: Shortness of breath Total Time: 1 min : 0 sec Rest Kumar BP: 82 mmHg Peak Kumar BP: 80 mmHg Total Dose: 0.4 mg Resting ECG Sinus rhythm. Stress ECG No ST changes. Arrhythmias None. Report Signatures
== END 2022-03-31 08:19 | disposition home or self-care (01) ==
PROVIDERS: PCP Physician Assistant; Visit Provider Physician Assistant
DX: R06.02 Shortness of breath (principal); R53.83 Other fatigue
CPT/HCPCS: 78452; 93017; A9502; J2785

== ENCOUNTER 2022-06-15 12:31 | Outpatient (CLI) | payer OTHER, BC, SELFPAY ==
--- NOTE | 2022-06-15 16:44 | WPDSIXMINUTE ---
Six Minute Walk Procedure Procedure Performed Pulmonary Stress Test (6 min walk) Six Minute Walk Six Minute Walk: This is a 6 minute walk test. The test was performed and interpreted in accordance with the 2014 ERS/ATS task force guidelines. Findings: The patient's resting room air oxygen saturation measured by pulse oximetry was 98% and heart rate was 78 bpm. Patient ambulated for 305 meters and oxygen saturation remained 92 to 98%. Heart rate at the end of the study was 114 bpm. The patient did not qualify for supplemental oxygen at rest or with ambulation. There are no prior studies for comparison.
--- NOTE | 2022-06-15 16:45 | WPDPFTINT ---
PFT Procedure Performed PFT Procedure Performed Spirometry with Pre/Post Bronchodilator Plethysmography (Lung Vol) Diffusing Cap (DLCO) Flow Vol Loop PFT Interpretation This is a pulmonary function test with pre and post-bronchodilator spirometry, plethysmography and diffusing capacity. The test was performed and results interpreted in accordance with the 2019 and 2005 ATS/ERS Task Force guidelines respectively using the Global Lung Function Initiative-2012 reference equations. Patient demonstrated good effort and cooperation. Reproducibility criteria were met. The quality of the pre bronchodilator spirometry maneuver was Grade B and post bronchodilator spirometry maneuver was Grade A. Findings: Spirometry: The contour the inspiratory and expiratory flow tracing are normal. The pre bronchodilator FVC is 4.01 L, 103% predicted. The pre bronchodilator FEV1 is 2.8 L, 91% predicted. The pre bronchodilator FEV1: FVC ratio 72%. The post bronchodilator FVC is 3.99 L, representing 1% decrease. The post bronchodilator FEV1 is 2.99 L, representing a 4% increase. The post bronchodilator FEV1: FVC ratio 75%. Plethysmography: The total lung capacity is 5.47 L, 102% predicted. Functional residual capacity is 2.65 L, 88% predicted. The residual volume is 1.45 L, 83% predicted. Diffusion capacity: The diffusing capacity unadjusted for hemoglobin carboxyhemoglobin is 16.2, 67% predicted. The diffusing capacity adjusted for alveolar volume is 3.54, 77% predicted. Impression: The spirometry is normal without evidence of an obstructive abnormality. There is no significant improvement after inhaling a single dose of albuterol. The lung volumes are normal. The diffusing capacity unadjusted for hemoglobin and carboxyhemoglobin is mildly decreased and normalizes when adjusted for alveolar volume. There are no prior studies for comparison
== END 2022-06-15 12:32 | disposition home or self-care (01) ==
LOC: ANHPFT 12:32
PROVIDERS: PCP Physician Assistant; Visit Provider Nurse Practitioner Family
DX: R06.02 Shortness of breath (principal)
CPT/HCPCS: 94060; 94618; 94726; 94729

== ENCOUNTER 2022-07-23 09:27 | Outpatient (CLI) | payer OTHER, BC, SELFPAY ==
--- NOTE | 2022-07-23 14:46 | SLEEP ---
Paper documentation exists on this patient due to [employer] [facility] downtime on 07/22/22 from to [[id number]] .
--- NOTE | 2022-08-01 13:38 | WPDHOMESLEEP ---
Sleep Study - Home Unattended Date of Study: 07/22/22 Ordering Provider: Deepak Little APRN Interpreting Provider: Maryann Slater MD Home Sleep Study Type: Watch PAT Height: 1.68 m Weight: 83.007 kg Body Mass Index: 29.5 Neck Circumference (inches): 16.5 Flippin: 13 Reason for Sleep Study Daytime hypersomnolence Sleep History Alisia Emerson is a 42-year-old female with history of excessive daytime sleepiness who is having a home sleep test for evaluation of sleep-disordered breathing. She is always tired, has fallen asleep on the phone at work. 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 She has fallen asleep talking with her . This started a month ago. She occasionally awakens from sleep short of breath. She rarely awakens at night with heartburn, belching or cough.??She constantly snores, frequently snores loudly enough that others complain. She frequently has trouble sleeping when she has a cold. She never wakes up suddenly gasping for breath during the night. She never has breathing problems at night. She occasionally sweats excessively at night. She never notices her heart pounding or beating irregularly during the night. She occasionally falls asleep during the day. She occasionally falls asleep while driving. She occasionally experiences loss of muscle tone with strong emotion. She occasionally feels paralyzed on waking or falling asleep. She frequently experiences vivid dreams upon waking or falling asleep. She never feels afraid of going to sleep. She occasionally has nightmares. She rarely recalls her dreams. She constantly has thoughts racing through her mind. She frequently feels sad or depressed. She frequently feels anxiety or worry about things. She occasionally notices parts of her body jerk. She never kicks during the night. She never feels crawling or aching feelings in her legs. She frequently feels leg pain at night. She does not grind her teeth or has morning jaw pain. She constantly feels bothered by pain during the day, rarely awakened by pain during the night. She constantly wakes up feeling stiff, sore, and achy in the morning with pain in her neck, spine, or joints. ? ? Normal bedtime is around 8:30 to 9:30 p.m., taking about an hour or longer to fall asleep. She wakes up 4-6 times during the night, and while awake, goes to the bathroom or gets something to eat. She is able to return to sleep in 3 to 10 minutes. She typically gets about 6-8 hours of sleep per night. Her wake up time is 6:00 to 6:30 a.m. She does not take naps. She is drowsy for 3 hours after waking. She feels better in the afternoon compared to other times of day. Habits:??Tobacco:1/2 pack per day. Caffeine 4-5 servings/day. Alcohol: none Recreational substances: marijuana for pain PMFSH Past Medical History Medical History Allergies Anxiety Arthritis Asthma Bilateral hand pain Blood in stool Bronchitis Carcinoma x2 Chronic constipation COVID-19 virus infection Depression Diabetes DM II (diabetes mellitus, type II), controlled Dysphagia Fibroids Fibromyalgia (~2012) GERD (gastroesophageal reflux disease) History of gastritis HSV infection Type 2 Hx of carpal tunnel syndrome Hx of fracture of wrist rt Hypercholesteremia IBS (irritable bowel syndrome) (~2012) Interstitial cystitis Lesion of stomach Migraine MVP (mitral valve prolapse) Odynophagia Postprandial abdominal bloating Weight loss Surgical History Surgical History H/O adenoidectomy H/O foot surgery H/O sinus surgery History of bilateral salpingo-oophorectomy 09/25/19 History of bilateral tubal ligation History of hysterectomy 09/25/2019, TLH Hx of tonsillectomy Previous section x2 Family History Family History Father Family history of malignant neoplasm of urinary bladder, Onset Age: 6
[2022-08-01 14:03] VITALS: BMI 29.5
== END 2022-07-24 08:48 | disposition home or self-care (01) ==
LOC: ANHCSM 09:28
PROVIDERS: PCP Physician Assistant; Visit Provider Nurse Practitioner Family
DX: R06.83 Snoring (principal); G47.10 Hypersomnia, unspecified
CPT/HCPCS: 95800

== ENCOUNTER 2022-08-12 07:18 | Emergency (ER) | payer OTHER, BC, SELFPAY ==
[2022-08-12] VITALS (21 sets, daily range): BP systolic 102–124; BP diastolic 49–78; PULSE 76–101; RESP 12–20; TEMP 36.4; O2SAT 96–100
--- NOTE | ~2022-08-12 | XR_ITS ---
EXAMINATION: XR chest 2V DATE: 08/12/2022 07:50 INDICATION: Chest pain. TECHNIQUE: Frontal and lateral views of the chest were obtained. COMPARISON: Chest single view 12/19/2021, CT abdomen and pelvis 03/09/22 FINDINGS: The chest demonstrates clear lungs without pneumonia, pleural effusion, or pneumothorax. Th e heart size is normal. IMPRESSION: 1. No acute cardiopulmonary disease. Reviewed, dictated and finalized at location A.
--- NOTE | 2022-08-12 07:26 | ECG_ITS ---
Measurements Intervals [place] Rate: 87 P: 44 RI: 158 QRS: 69 QRSD: 79 T: 52 QT: 345 QTc: 416 Interpretive Statements SINUS RHYTHM NORMAL ECG COMPARED TO ECG 12/19/2021 10:18:08 NO SIGNIFICANT CHANGES Electronically Signed On 08-12-2022 8:12:58 CDT by Mulugeta Simon D.O.
[2022-08-12 07:47] LABS: Basophils Absolute Auto 0.1 K/mm3 (0.0-0.1); Basophils Percent Auto 0.9 % (0.2-1.2); Eosinophils Absolute Auto 0.3 K/mm3 (0-0.3); Eosinophils Percent Auto 3.8 % (0-4.4); Hematocrit 40.5 % (37.0-47.0); Immature Granulocyte Absolute 0.02 K/mm3 (0.00-0.031); Immature Granulocyte Percent A 0.3 % (0-0.5); Lymphocytes Absolute Auto 2.58 K/mm3 (0.9-3.2); Lymphocytes Percent Auto 32.9 % (18.3-44.2); Mean Corpuscular HGB Conc 32.1 g/dl (32-36); Mean Corpuscular Hemoglobin 28.3 pg (26-34); Mean Platelet Volume 9.7 fl (7.4-10.4); Monocytes Absolute Auto 0.5 K/mm3 (0.1-0.6); Monocytes Percent Auto 6.2 % (2.6-8.5); Neutrophils Absolute Auto 4.4 K/mm3 (1.3-6.7); Neutrophils Percent Auto 55.9 % (45.5-73.1); Platelet Count Result 208 k/mm3 (150-375); Red Cell Distribution Width 14.2 % (11.5-14.5); White Blood Count 7.9 K/mm3 (4.5-10.0)
[2022-08-12 07:54] LABS: Alanine Aminotransferase 25 U/L (6-35); Alkaline Phosphatase 113 U/L (38-126); Anion Gap 8 mmol/L (8-16); Aspartate Amino Transferase 26 U/L (14-36); Bilirubin,Total 0.3 mg/dL (0.2-1.3); Blood Urea Nitrogen 16 mg/dL (7-17); Calcium 8.9 mg/dL (8.4-10.2); Carbon Dioxide 28 mmol/L (22-30); Chloride 105 mmol/L (98-107); Estimated CRCL calculation 68 ml/min; Estimated Glomerular Filt Rate > 60; Glucose 167 mg/dL (65-110); Lipase 128 U/L (23-300); Potassium 4.5 mmol/L (3.4-5.0); Sodium 141 mmol/L (137-145)
[2022-08-12 07:57] LABS: INR 0.9; Prothrombin Time 12.4 Seconds (11.1-14.7)
--- NOTE | 2022-08-12 07:57 | ED.CHESTPAIN ---
HPI - Chest Pain General Chief Complaint: Chest Pain Stated Complaint: difficulty breathing Time Seen by Provider: 08/12/22 07:24 History of Present Illness HPI narrative: 42-year-old female presented to the emergency department for evaluation of right-sided chest pain that started on Wednesday and has since spread to her left chest. Patient describes the chest pain or short lasting but is intermittent. Patient states it happens at rest that is not attributed to activity. Patient denies any prior history of VT CVA or PE/DVT. Patient does describe some associated nausea and shortness of breath. Related Data Allergies Allergy/AdvReac Type Severity Reaction Status Date / Time adhesive tape Allergy Mild BLISTERS Verified 07/03/22 15:15 miconazole Allergy Unknown Swelling Verified 07/03/22 15:15 tioconazole Allergy Unknown Swelling Verified 07/03/22 15:15 clavulanic acid AdvReac Intermediate Other Verified 07/03/22 15:15 [From Augmentin] eletriptan AdvReac Unknown Vomiting Verified 07/03/22 15:15 hydromorphone AdvReac Unknown Severe Verified 07/03/22 15:15 Vomiting sumatriptan AdvReac Unknown Vomiting Verified 07/03/22 15:15 Review of Systems Review of Systems: All systems reviewed & are unremarkable except as noted in HPI and below PMFSH Past Medical History Medical History Allergies Anxiety Arthritis Asthma Bilateral hand pain Blood in stool Bronchitis Carcinoma x2 Chronic constipation COVID-19 virus infection Depression Diabetes DM II (diabetes mellitus, type II), controlled Dysphagia Fibroids Fibromyalgia (~2012) GERD (gastroesophageal reflux disease) History of gastritis HSV infection Type 2 Hx of carpal tunnel syndrome Hx of fracture of wrist rt Hypercholesteremia IBS (irritable bowel syndrome) (~2012) Interstitial cystitis Lesion of stomach Migraine MVP (mitral valve prolapse) Odynophagia Postprandial abdominal bloating Weight loss Surgical History Surgical History H/O adenoidectomy H/O foot surgery H/O sinus surgery History of bilateral salpingo-oophorectomy 09/25/19 History of bilateral tubal ligation History of hysterectomy 09/25/2019, TLH Hx of tonsillectomy Previous section x2 Family History Family History Father Family history of malignant neoplasm of urinary bladder, Onset Age: 67 Family history of rheumatoid arthritis Family history of hypercholesterolemia Family history of mental disorder Hypertension Family history of alcoholism Carcinoma of colon, Onset Age: 67 Family history of lung cancer, Onset Age: 67 Family history of malignant neoplasm of brain, Onset Age: 67 Family history of hearing loss Family history of malignant neoplasm Grandparent Family history of thyroid disease Family history of obesity Family history of osteoporosis Depression Hypertension Family history of alcoholism Family history of arthritis Carcinoma of colon Family history of Alzheimer's disease Family history of lung cancer Family history of hearing loss Sibling Family history of mental disorder Hypertension Cerebrovascular accident Family history of development disorder Mother Depression Hypertension Family history of arthritis Family history of Alzheimer's disease Social History Social History Smoking packs per day: 0.5 Smoking cigarettes per day: 10.0 Smoking status: Current every day smoker Tobacco type: cigarettes Second hand tobacco smoke exposure: Yes Alcohol intake: current Drinks per week: 1 Alcohol use details: rarely Substance use: never Lack of Transportation: No Lack of Food: Sometimes True Current Housing: I Have Housing Concerned About Future Housing: No Difficulty Paying Gas/Electric B
[2022-08-12 07:58] LABS: Partial Thromboplastin Time 28.5 SECONDS (22.3-36.8)
[2022-08-12 08:04] LABS: Troponin I < 0.012 ng/mL (0.000-0.034)
[2022-08-12] MEDS: NITROGLYCERIN SL 0.4 MG TABLET SUBLINGUAL (08:06)
[2022-08-12] MEDS: ASPIRIN 81 MG CHEWABLE TABLET 324 MG PO (08:06)
--- NOTE | 2022-08-12 08:10 | PC.NURSE ---
Administerd 1 SL tablet of Nitro. Patient rating pain at 7/10. No improvement of pain with Nitro. Patient did c/o headache. MD aware and no additional nitro given.
[2022-08-12 08:15] LABS: D Dimer 0.33 ug/mL (<0.48)
[2022-08-12 11:01] LABS: Troponin I < 0.012 ng/mL (0.000-0.034)
--- NOTE | 2022-08-12 11:01 | PC.NURSE ---
Patient report given to NONI Benton. All questions answered and care of patient transferred.
== END 2022-08-12 11:42 | disposition home or self-care (01) ==
PROVIDERS: Emergency Provider Emergency Medicine; PCP Physician Assistant
DX: R07.9 Chest pain, unspecified (principal); J45.909 Unspecified asthma, uncomplicated; E11.9 Type 2 diabetes mellitus without complications; E78.00 Pure hypercholesterolemia, unspecified; I34.1 Nonrheumatic mitral (valve) prolapse; M19.90 Unspecified osteoarthritis, unspecified site; M79.7 Fibromyalgia; K21.9 Gastro-esophageal reflux disease without esophagitis; K58.9 Irritable bowel syndrome, unspecified; F41.9 Anxiety disorder, unspecified; F32.A Depression, unspecified; Z86.16 Personal history of COVID-19; Z79.85 Long-term (current) use of injectable non-insulin antidiabetic drugs; Z79.4 Long term (current) use of insulin
CPT/HCPCS: 36415; 71046; 80053; 83690; 84484; 85025; 85380; 85610; 85730; 93005; 99284; A9270

== ENCOUNTER 2022-09-11 08:22 | Outpatient (CLI) | payer OTHER, BC, SELFPAY ==
--- NOTE | ~2022-09-11 | SLEEP.INT_ITS ---
Polysomnography Report Patient Name: ELISSA EMERSON Study Date: 09/11/2022 Referring Physician: Deepak Little APRN Indications for Polysomnography The patient is a 42 year-old Female who is 5' 6 and weighs 180.0 lbs. Her BMI equals 29.3. The patie nt's neck circumference is 16.5 inches. The [place] Sleepiness Scale score was 13. A full night polysomnogram was performed to evaluate the patient for unrefreshing sleep and daytime hypersomnia. Sleep History Elissa Emerson is a 42-year-old female with history of excessive daytime sleepiness who is having a h ome sleep test for evaluation of sleep-disordered breathing. She is always tired, has fallen asleep on the phone at work. 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 She has fallen asleep talking with her . This started a month ago. She oc casionally awakens from sleep short of breath. She rarely awakens at night with heartburn, belching or cough. S he constantly snores, frequently snores loudly enough that others complain. She frequently has trouble sleeping whe n she has a cold. She never wakes up suddenly gasping for breath during the night. She never has breathing proble ms at night. She occasionally sweats excessively at night. She never notices her heart pounding or beating irregul yung during the night. She occasionally falls asleep during the day. She occasionally falls asleep while driving. She occasionally experiences loss of muscle tone with strong emotion. She occasionally feels paralyzed on waking or fa lling asleep. She frequently experiences vivid dreams upon waking or falling asleep. She never feels afraid of jesus g to sleep. She occasionally has nightmares. She rarely recalls her dreams. She constantly has thoughts racing throug h her mind. She frequently feels sad or depressed. She frequently feels anxiety or worry about things. She occasi onally notices parts of her body jerk. She never kicks during the night. She never feels crawling or aching feelings in her legs. She frequently feels leg pain at night. She does not grind her teeth or has morning jaw bola n. She constantly feels bothered by pain during the day, rarely awakened by pain during the night. She const antly wakes up feeling stiff, sore, and achy in the morning with pain in her neck, spine, or joints. Normal bedtime is around 8:30 to 9:30 p.m., taking about an hour or longer to fall asleep. She wakes up 4-6 times during the night, and while awake, goes to the bathroom or gets something to eat. She is able to retu rn to sleep in 3 to 10 minutes. She typically gets about 6-8 hours of sleep per night. Her wake up time is 6:00 to 6:30 a .m. She does not take naps. She is drowsy for 3 hours after waking. She feels better in the afternoon compared to othe r times of day. Habits: Tobacco:1/2 packs per day. Caffeine 4-5 servings/day. Alcohol: none Recreational subst ances: marijuana for pain Medical History Allergies Anxiety Arthritis Asthma Bilateral hand pain Blood in stool Bronchitis Carcinoma x 2 Chronic constipation COVID-19 virus infection Depression Diabetes DM II (diabetes mellitus, type II), controlled Dysphagia Fibroids Fibromyalgia ( 2012) GERD (gastroesophageal reflux disease) History of gastritis HSV infection-Type 2 Hx of carpal tunnel syndrome Hx of fracture of right wrist Hypercholesteremia IBS (irritable bowel syndrome) ( 2012) Interstitial cystitis Lesion of stomach Migraine MVP (mitral valve prolapse) Odynophagia Postprandial abdominal bloating Weight loss Medications quetiapine 50 mg tablet 50 mg PO QHS Qty: 90 1RF bupropion HCl 300 mg tablet extended release 24 hr 300 mg PO QAM Qty: 90 1RF atorvastatin 20 mg tablet 20 mg PO DAILY Qty: 90 1RF tolterodine 4 mg capsule,extended release 24hr 4 mg PO DAILY Qty: 90 1RF insulin glargine [Basaglar KwikPen U-100 Insulin] 100 unit/mL (3 mL
== END 2022-09-12 07:02 | disposition home or self-care (01) ==
LOC: ANHCSM 08:23
PROVIDERS: PCP Physician Assistant; Visit Provider Nurse Practitioner Family
DX: G47.10 Hypersomnia, unspecified (principal)
CPT/HCPCS: 95810

== ENCOUNTER 2022-10-26 08:54 | Emergency (ER) | payer OTHER, BC, SELFPAY ==
--- NOTE | ~2022-10-26 | CT_ITS ---
EXAMINATION: CT brain wo con DATE: 10/26/2022 10:19 INDICATION: Anterior left head pain post head injury. TECHNIQUE: Computed tomography (CT) of the head was performed without intravenous contrast. Sagittal and coronal reconstructions were performed. The mA was adjusted according to patient size. Iterative reconstruction technique was employed. The dose-length product was 605.33 mGy-cm. COMPARISON: head CT dated 08/07/2019 FINDINGS: No fracture. No acute intracranial hemorrhage, acute infarction or abnormal extra axial fluid collect ion. Ventricles are normal and symmetric. No mass/mass effect. The orbits, paranasal sinuses and mast oid air cells are normal. IMPRESSION: 1. Normal head CT. Reviewed, dictated and finalized at location A. IMPRESSION: 1. Normal head CT.
[2022-10-26 09:25] VITALS: BP 112/70; PULSE 91; RESP 18; TEMP 36.3; O2SAT 99
[2022-10-26] MEDS: ACETAMINOPHEN 500 MG TABLET 1000 MG PO (10:36)
[2022-10-26] MEDS: diphenhydrAMINE HCl INJ 50 MG/ML VIAL 25 MG IV PUSH (10:37)
[2022-10-26] MEDS: PROCHLORPERAZINE EDISYLATE 10 MG/2 ML VIAL IV PUSH (10:39)
[2022-10-26] MEDS: SODIUM CHLORIDE 0.9% IV 1,000 ML 999 ML IV CONT (10:40)
[2022-10-26] MEDS: KETOROLAC 15 MG/ML VIAL (*BKC) IV PUSH (10:44)
[2022-10-26 10:46] VITALS: BP 111/78; PULSE 80; RESP 18; O2SAT 100
--- NOTE | 2022-10-26 11:12 | ED.HA ---
HPI - Headache General Chief Complaint: Headache Stated Complaint: Headache Time Seen by Provider: 10/26/22 09:21 History of Present Illness HPI Narrative: This is a 42-year-old female, past history of hypertension and hyperlipidemia, who presents emergency department complaining of headache for the past day. The patient states last night, she was running to her friend, when she struck her head on a car window frame. She states she did not lose consciousness but since then has had numbness in the left hand and throbbing headache. This is associated with light sensitivity and nausea. She states she has vomited once without blood. Related Data Allergies Allergy/AdvReac Type Severity Reaction Status Date / Time adhesive tape Allergy Mild BLISTERS Verified 10/26/22 09:29 miconazole Allergy Unknown Swelling Verified 10/26/22 09:29 tioconazole Allergy Unknown Swelling Verified 10/26/22 09:29 clavulanic acid AdvReac Intermediate Other Verified 10/26/22 09:29 [From Augmentin] eletriptan AdvReac Unknown Vomiting Verified 10/26/22 09:29 hydromorphone AdvReac Unknown Severe Verified 10/26/22 09:29 Vomiting sumatriptan AdvReac Unknown Vomiting Verified 10/26/22 09:29 Review of Systems Review of Systems: CONSTITUTIONAL: Denies fever, chills, or sweats. EYES: Photophobia denies redness, or discharge. ENT: Mild congestion denies rhinorrhea, sore throat, or otalgia. CARDIOVASCULAR: Denies chest pain, palpitations, or edema. RESPIRATORY: Denies cough or dyspnea. GASTROINTESTINAL: Denies abdominal pain, nausea, vomiting, or diarrhea. GENITOURINARY: Denies dysuria or hematuria. SKIN: Denies rash or itching. MUSCULOSKELETAL: Denies back pain, joint pain, or myalgia. NEUROLOGIC: Headache denies numbness, dizziness, or weakness. PSYCHIATRIC: Denies anxiety or depression. [facility] Past Medical History Medical History Allergies Anxiety Arthritis Asthma Bilateral hand pain Blood in stool Bronchitis Carcinoma x2 Chronic constipation COVID-19 virus infection Depression Diabetes DM II (diabetes mellitus, type II), controlled Dysphagia Fibroids Fibromyalgia (~2012) GERD (gastroesophageal reflux disease) History of gastritis HSV infection Type 2 Hx of carpal tunnel syndrome Hx of fracture of wrist rt Hypercholesteremia IBS (irritable bowel syndrome) (~2013) Interstitial cystitis Lesion of stomach Migraine MVP (mitral valve prolapse) Odynophagia Postprandial abdominal bloating Weight loss Surgical History Surgical History H/O adenoidectomy H/O foot surgery H/O sinus surgery History of bilateral salpingo-oophorectomy 09/25/19 History of bilateral tubal ligation History of hysterectomy 09/25/2019, TLH Hx of tonsillectomy Previous section x2 Family History Family History Father Family history of malignant neoplasm of urinary bladder, Onset Age: 67 Family history of rheumatoid arthritis Family history of hypercholesterolemia Family history of mental disorder Hypertension Family history of alcoholism Carcinoma of colon, Onset Age: 67 Family history of lung cancer, Onset Age: 67 Family history of malignant neoplasm of brain, Onset Age: 67 Family history of hearing loss Family history of malignant neoplasm Grandparent Family history of thyroid disease Family history of obesity Family history of osteoporosis Depression Hypertension Family history of alcoholism Family history of arthritis Carcinoma of colon Family history of Alzheimer's disease Family history of lung cancer Family history of hearing loss Sibling Family history of mental disorder Hypertension Cerebrovascular accident Family history of development disorder Mother Depression Hypertension Family history of arthritis Family history of Alzheim
[2022-10-26 11:23] VITALS: BP 122/76; O2SAT 100
[2022-10-26 11:54] VITALS: BP 109/58; PULSE 71; RESP 18; O2SAT 100
== END 2022-10-26 11:55 | disposition home or self-care (01) ==
PROVIDERS: Emergency Provider Preventive Medicine Aerospace Medicine; PCP Physician Assistant
DX: S06.0X0A Concussion without loss of consciousness, initial encounter (principal); G44.309 Post-traumatic headache, unspecified, not intractable; I10 Essential (primary) hypertension; I34.1 Nonrheumatic mitral (valve) prolapse; E78.00 Pure hypercholesterolemia, unspecified; E11.9 Type 2 diabetes mellitus without complications; J45.909 Unspecified asthma, uncomplicated; M19.90 Unspecified osteoarthritis, unspecified site; M79.7 Fibromyalgia; K21.9 Gastro-esophageal reflux disease without esophagitis; K58.9 Irritable bowel syndrome, unspecified; Z86.16 Personal history of COVID-19; Z90.722 Acquired absence of ovaries, bilateral; Z90.79 Acquired absence of other genital organ(s); Z90.710 Acquired absence of both cervix and uterus; F17.210 Nicotine dependence, cigarettes, uncomplicated; Z79.85 Long-term (current) use of injectable non-insulin antidiabetic drugs; Z79.4 Long term (current) use of insulin; W22.8XXA Striking against or struck by other objects, initial encounter
CPT/HCPCS: 70450; 96361; 96374; 96375; 99284; A9270; J0780; J1200; J1885; J7030

== ENCOUNTER 2022-10-28 09:59 | Emergency (ER) | payer OTHER, BC, SELFPAY ==
[2022-10-28 10:02] VITALS: PULSE 89; RESP 10; O2SAT 100
--- NOTE | 2022-10-28 10:47 | ED.HEATRA ---
HPI - Head Injury General Chief complaint: Head Injury Stated complaint: Concussion last week, wet ear Time Seen by Provider: 10/28/22 10:16 History of Present Illness HPI Narrative: Patient is a 42-year-old female who presents ER with reports of concussion. She was trying to say hello to a friend who was in a car when she banged her head on the window. It caused her to have a headache and blurred vision. She was seen in the ER and had a negative CT scan. She went to work yesterday and cannot finish her shift due to her headache. She also thinks she has some drainage coming out of her left ear which increased her concerned so she came here for further evaluation. No fevers or chills or sweats. No ringing in her ear Related Data Allergies Allergy/AdvReac Type Severity Reaction Status Date / Time adhesive tape Allergy Mild BLISTERS Verified 10/26/22 09:29 miconazole Allergy Unknown Swelling Verified 10/26/22 09:29 tioconazole Allergy Unknown Swelling Verified 10/26/22 09:29 clavulanic acid AdvReac Intermediate Other Verified 10/26/22 09:29 [From Augmentin] eletriptan AdvReac Unknown Vomiting Verified 10/26/22 09:29 hydromorphone AdvReac Unknown Severe Verified 10/26/22 09:29 Vomiting sumatriptan AdvReac Unknown Vomiting Verified 10/26/22 09:29 Review of Systems Review of Systems: All systems reviewed & are unremarkable except as noted in HPI and below ENT: Denies nasal congestion and Denies sore throat Comments: Ear drainage Neurologic: Reports headache(s), Denies focal weakness and Denies numbness PMFSH Past Medical History Medical History Allergies Anxiety Arthritis Asthma Bilateral hand pain Blood in stool Bronchitis Carcinoma x2 Chronic constipation COVID-19 virus infection Depression Diabetes DM II (diabetes mellitus, type II), controlled Dysphagia Fibroids Fibromyalgia (~2012) GERD (gastroesophageal reflux disease) History of gastritis HSV infection Type 2 Hx of carpal tunnel syndrome Hx of fracture of wrist rt Hypercholesteremia IBS (irritable bowel syndrome) (~2012) Interstitial cystitis Lesion of stomach Migraine MVP (mitral valve prolapse) Odynophagia Postprandial abdominal bloating Weight loss Surgical History Surgical History H/O adenoidectomy H/O foot surgery H/O sinus surgery History of bilateral salpingo-oophorectomy 09/25/19 History of bilateral tubal ligation History of hysterectomy 09/25/2019, TLH Hx of tonsillectomy Previous section x2 Family History Family History Father Family history of malignant neoplasm of urinary bladder, Onset Age: 67 Family history of rheumatoid arthritis Family history of hypercholesterolemia Family history of mental disorder Hypertension Family history of alcoholism Carcinoma of colon, Onset Age: 67 Family history of lung cancer, Onset Age: 67 Family history of malignant neoplasm of brain, Onset Age: 67 Family history of hearing loss Family history of malignant neoplasm Grandparent Family history of thyroid disease Family history of obesity Family history of osteoporosis Depression Hypertension Family history of alcoholism Family history of arthritis Carcinoma of colon Family history of Alzheimer's disease Family history of lung cancer Family history of hearing loss Sibling Family history of mental disorder Hypertension Cerebrovascular accident Family history of development disorder Mother Depression Hypertension Family history of arthritis Family history of Alzheimer's disease Social History Social History Smoking packs per day: 0.5 Smoking cigarettes per day: 10.0 Smoking status: Current every day smoker Tobacco type: cigarettes Second hand
== END 2022-10-28 10:57 | disposition home or self-care (01) ==
PROVIDERS: Emergency Provider Emergency Medicine; PCP Physician Assistant
DX: S06.0XAD Concussion with loss of consciousness status unknown, subsequent encounter (principal); S16.1XXD Strain of muscle, fascia and tendon at neck level, subsequent encounter; I10 Essential (primary) hypertension; I34.1 Nonrheumatic mitral (valve) prolapse; E78.00 Pure hypercholesterolemia, unspecified; E11.9 Type 2 diabetes mellitus without complications; J45.909 Unspecified asthma, uncomplicated; M19.90 Unspecified osteoarthritis, unspecified site; M79.7 Fibromyalgia; K21.9 Gastro-esophageal reflux disease without esophagitis; K58.9 Irritable bowel syndrome, unspecified; Z86.16 Personal history of COVID-19; Z90.722 Acquired absence of ovaries, bilateral; Z90.79 Acquired absence of other genital organ(s); Z90.710 Acquired absence of both cervix and uterus; F17.210 Nicotine dependence, cigarettes, uncomplicated; Z79.85 Long-term (current) use of injectable non-insulin antidiabetic drugs; Z79.4 Long term (current) use of insulin; W22.8XXD Striking against or struck by other objects, subsequent encounter
CPT/HCPCS: 99283

== ENCOUNTER 2022-11-02 11:37 | Emergency (ER) | payer OTHER, BC, SELFPAY ==
[2022-11-02 11:56] VITALS: BP 116/77; PULSE 108; RESP 16; TEMP 36.4; O2SAT 100
--- NOTE | 2022-11-02 12:28 | ED.URI ---
HPI - URI/Sore Throat General Chief Complaint: Upper Respiratory Infection Stated Complaint: cough,fever, wheezing Time Seen by Provider: 11/02/22 12:28 Source: patient Mode of arrival: ambulatory Limitations: no limitations History of Present Illness HPI Narrative: 42 yo F presents with c/o cough, congestion, fatigue, fever, bodyaches, headache for 3 days. Taking DayQuil NyQuil cold and flu to treat symptoms. Denies nausea vomiting diarrhea. History of asthma and smoking, has been using albuterol more than usual. All systems reviewed and negative except as noted above. Related Data Allergies Allergy/AdvReac Type Severity Reaction Status Date / Time adhesive tape Allergy Mild BLISTERS Verified 11/02/22 12:02 miconazole Allergy Unknown Swelling Verified 11/02/22 12:02 tioconazole Allergy Unknown Swelling Verified 11/02/22 12:02 clavulanic acid AdvReac Intermediate Other Verified 11/02/22 12:02 [From Augmentin] eletriptan AdvReac Unknown Vomiting Verified 11/02/22 12:02 hydromorphone AdvReac Unknown Severe Verified 11/02/22 12:02 Vomiting sumatriptan AdvReac Unknown Vomiting Verified 11/02/22 12:02 Review of Systems Review of Systems: CONSTITUTIONAL: reports fever, chills, or sweats. EYES: Denies visual changes, redness, or discharge. ENT: Reports rhinorrhea, congestion, sore throat. Denies otalgia. CARDIOVASCULAR: Denies chest pain, palpitations, or edema. RESPIRATORY: reports cough. In dyspnea. GASTROINTESTINAL: Denies abdominal pain, nausea, vomiting, or diarrhea. GENITOURINARY: Denies dysuria or hematuria. SKIN: Denies rash or itching. MUSCULOSKELETAL: Denies back pain, joint pain, or myalgia. NEUROLOGIC: Denies headache, numbness, or weakness. PSYCHIATRIC: Denies anxiety or depression. All other systems reviewed are negative, except as documented in HPI. [facility] Past Medical History Medical History Allergies Anxiety Arthritis Asthma Bilateral hand pain Blood in stool Bronchitis Carcinoma x2 Chronic constipation COVID-19 virus infection Depression Diabetes DM II (diabetes mellitus, type II), controlled Dysphagia Fibroids Fibromyalgia (~2012) GERD (gastroesophageal reflux disease) History of gastritis HSV infection Type 2 Hx of carpal tunnel syndrome Hx of fracture of wrist rt Hypercholesteremia IBS (irritable bowel syndrome) (~2013) Interstitial cystitis Lesion of stomach Migraine MVP (mitral valve prolapse) Odynophagia Postprandial abdominal bloating Weight loss Surgical History Surgical History H/O adenoidectomy H/O foot surgery H/O sinus surgery History of bilateral salpingo-oophorectomy 09/25/19 History of bilateral tubal ligation History of hysterectomy 09/25/2019, TLH Hx of tonsillectomy Previous section x2 Family History Family History Father Family history of malignant neoplasm of urinary bladder, Onset Age: 67 Family history of rheumatoid arthritis Family history of hypercholesterolemia Family history of mental disorder Hypertension Family history of alcoholism Carcinoma of colon, Onset Age: 67 Family history of lung cancer, Onset Age: 67 Family history of malignant neoplasm of brain, Onset Age: 67 Family history of hearing loss Family history of malignant neoplasm Grandparent Family history of thyroid disease Family history of obesity Family history of osteoporosis Depression Hypertension Family history of alcoholism Family history of arthritis Carcinoma of colon Family history of Alzheimer's disease Family history of lung cancer Family history of hearing loss Sibling Family history of mental disorder Hypertension Cerebrovascular accident Family history of development disorder Mother Depression Hypertension Family history of arthritis
== END 2022-11-02 12:52 | disposition home or self-care (01) ==
PROVIDERS: Emergency Provider Nurse Practitioner Family; PCP Physician Assistant
DX: J10.1 Influenza due to other identified influenza virus with other respiratory manifestations (principal); E11.9 Type 2 diabetes mellitus without complications; F17.210 Nicotine dependence, cigarettes, uncomplicated; Z20.822 Contact with and (suspected) exposure to COVID-19
CPT/HCPCS: 87426; 87804; 99213; C9803; G0463

== ENCOUNTER 2022-11-08 08:41 | Emergency (ER) | payer OTHER, BC, SELFPAY ==
[2022-11-08] VITALS (16 sets, daily range): BP systolic 107–139; BP diastolic 69–92; PULSE 86–137; RESP 15–26; TEMP 37.1; O2SAT 98–100
--- NOTE | ~2022-11-08 | XR_ITS ---
EXAMINATION: XR chest 1V portable INDICATION: Productive cough TECHNIQUE: Portable AP chest at 0953 hours COMPARISON: 08/12/2022 FINDINGS: The lungs are free of acute opacities. No pleural effusion or pneumothorax. The cardiomedia stinal silhouette is normal. IMPRESSION: 1. No acute cardiopulmonary abnormality. Reviewed, dictated and finalized at location [facility].
--- NOTE | 2022-11-08 09:00 | ED.GENADULT ---
HPI - General Adult General Chief complaint: Shortness of Breath/Dyspnea Stated complaint: trouble breathing Time Seen by Provider: 11/08/22 09:00 Source: patient Mode of arrival: ambulatory Limitations: no limitations History of Present Illness HPI narrative: This is a 42-year-old female with PMH of asthma, T2DM who presents to the ED with chief complaint of shortness of breath and cough for the last week. Patient reports that she was diagnosed with influenza a urgent care approximately 1 week ago. She had initial relief with Tessalon Perles, steroids and albuterol but states these things are not helping now. Reports the cough is getting worse. Reports cough is productive with green sputum. Reports general malaise. Endorses chest pain/tightness only when she has to cough. Denies fevers, chills, exertional chest pain, abdominal pain, urinary symptoms, leg swelling. Related Data Allergies Allergy/AdvReac Type Severity Reaction Status Date / Time adhesive tape Allergy Mild BLISTERS Verified 11/02/22 12:02 miconazole Allergy Unknown Swelling Verified 11/02/22 12:02 tioconazole Allergy Unknown Swelling Verified 11/02/22 12:02 amoxicillin Allergy Nausea and Verified 11/08/22 08:58 Vomiting clavulanic acid AdvReac Intermediate Other Verified 11/02/22 12:02 [From Augmentin] eletriptan AdvReac Unknown Vomiting Verified 11/02/22 12:02 hydromorphone AdvReac Unknown Severe Verified 11/02/22 12:02 Vomiting sumatriptan AdvReac Unknown Vomiting Verified 11/02/22 12:02 Review of Systems Review of Systems: All systems as dictated in HPI [facility] Past Medical History Medical History Allergies Anxiety Arthritis Asthma Bilateral hand pain Blood in stool Bronchitis Carcinoma x2 Chronic constipation COVID-19 virus infection Depression Diabetes DM II (diabetes mellitus, type II), controlled Dysphagia Fibroids Fibromyalgia (~2012) GERD (gastroesophageal reflux disease) History of gastritis HSV infection Type 2 Hx of carpal tunnel syndrome Hx of fracture of wrist rt Hypercholesteremia IBS (irritable bowel syndrome) (~2012) Interstitial cystitis Lesion of stomach Migraine MVP (mitral valve prolapse) Odynophagia Postprandial abdominal bloating Weight loss Surgical History Surgical History H/O adenoidectomy H/O foot surgery H/O sinus surgery History of bilateral salpingo-oophorectomy 09/25/19 History of bilateral tubal ligation History of hysterectomy 09/25/2019, TLH Hx of tonsillectomy Previous section x2 Family History Family History Father Family history of malignant neoplasm of urinary bladder, Onset Age: 67 Family history of rheumatoid arthritis Family history of hypercholesterolemia Family history of mental disorder Hypertension Family history of alcoholism Carcinoma of colon, Onset Age: 67 Family history of lung cancer, Onset Age: 67 Family history of malignant neoplasm of brain, Onset Age: 67 Family history of hearing loss Family history of malignant neoplasm Grandparent Family history of thyroid disease Family history of obesity Family history of osteoporosis Depression Hypertension Family history of alcoholism Family history of arthritis Carcinoma of colon Family history of Alzheimer's disease Family history of lung cancer Family history of hearing loss Sibling Family history of mental disorder Hypertension Cerebrovascular accident Family history of development disorder Mother Depression Hypertension Family history of arthritis Family history of Alzheimer's disease Social History Social History Smoking packs per day: 0.5 Smoking cigarettes per day: 10.0 Smoking status: Current every day smoker Tobac
--- NOTE | 2022-11-08 09:17 | ECG_ITS ---
Measurements Intervals [place] Rate: 93 P: 48 [place]: 151 QRS: 75 QRSD: 82 T: 56 QT: 332 QTc: 414 Interpretive Statements SINUS RHYTHM NORMAL ELECTROCARDIOGRAM COMPARED TO ECG 08/12/2022 07:29:03 NO SIGNIFICANT CHANGES Electronically Signed On 11-09-2022 13:19:57 CDT by Han Rodrigez M.D.
[2022-11-08] MEDS: methylPREDNISolone SOD SUCC 125 MG VIAL IV PUSH (09:34)
[2022-11-08] MEDS: ALBUTEROL SULFATE NEB 2.5 MG/3 ML INH INHALATION ×3 (09:36→09:38)
[2022-11-08] MEDS: IPRATROPIUM BR 0.02% INH SOLN 0.5 MG/2.5 ML VIAL INHALATION ×3 (09:36→09:37)
[2022-11-08 09:41] LABS: Basophils Percent Auto 0.5 % (0.2-1.2); Eosinophils Absolute Auto 0.2 K/mm3 (0-0.3); Eosinophils Percent Auto 3.1 % (0-4.4); Hematocrit 37.9 % (37.0-47.0); Hemoglobin 11.9 g/dL (12.0-15.0); Immature Granulocyte Absolute 0.04 K/mm3 (0.00-0.031); Immature Granulocyte Percent A 0.5 % (0-0.5); Lymphocytes Absolute Auto 2.85 K/mm3 (0.9-3.2); Lymphocytes Percent Auto 37.8 % (18.3-44.2); Mean Corpuscular HGB Conc 31.4 g/dl (32-36); Mean Corpuscular Hemoglobin 27.5 pg (26-34); Mean Corpuscular Volume 87.7 fl (80-100); Mean Platelet Volume 9.9 fl (7.4-10.4); Monocytes Absolute Auto 0.5 K/mm3 (0.1-0.6); Neutrophils Absolute Auto 3.9 K/mm3 (1.3-6.7); Neutrophils Percent Auto 52.1 % (45.5-73.1); Platelet Count Result 225 k/mm3 (150-375); Red Blood Count 4.32 M/mm3 (4.2-5.4); Red Cell Distribution Width 14.6 % (11.5-14.5); White Blood Count 7.5 K/mm3 (4.5-10.0)
[2022-11-08 09:55] LABS: Anion Gap 6 mmol/L (8-16); Blood Urea Nitrogen 11 mg/dL (7-17); Calcium 9.1 mg/dL (8.4-10.2); Carbon Dioxide 30 mmol/L (22-30); Chloride 105 mmol/L (98-107); Estimated CRCL calculation 55 ml/min; Estimated Glomerular Filt Rate 54; Glucose 87 mg/dL (65-110); Magnesium 2.2 mg/dL (1.6-2.3); Potassium 3.4 mmol/L (3.4-5.0); Sodium 141 mmol/L (137-145)
[2022-11-08 09:56] LABS: D Dimer 0.52 ug/mL (<0.48)
== END 2022-11-08 11:36 | disposition home or self-care (01) ==
PROVIDERS: Emergency Provider Physician Assistant; PCP Physician Assistant
DX: J45.909 Unspecified asthma, uncomplicated (principal); E11.9 Type 2 diabetes mellitus without complications; E78.00 Pure hypercholesterolemia, unspecified; K58.9 Irritable bowel syndrome, unspecified; I34.1 Nonrheumatic mitral (valve) prolapse; N30.10 Interstitial cystitis (chronic) without hematuria; K21.9 Gastro-esophageal reflux disease without esophagitis; M79.7 Fibromyalgia; M19.90 Unspecified osteoarthritis, unspecified site; F32.A Depression, unspecified; F41.9 Anxiety disorder, unspecified; F17.210 Nicotine dependence, cigarettes, uncomplicated; Z86.16 Personal history of COVID-19; Z90.722 Acquired absence of ovaries, bilateral; Z90.79 Acquired absence of other genital organ(s); Z90.710 Acquired absence of both cervix and uterus; Z79.85 Long-term (current) use of injectable non-insulin antidiabetic drugs; Z79.4 Long term (current) use of insulin
CPT/HCPCS: 36415; 71045; 80048; 83735; 85025; 85380; 93005; 94640; 96374; 99284; J2930

== ENCOUNTER 2022-11-11 09:04 | Emergency (ER) | payer OTHER, BC, SELFPAY ==
[2022-11-11] VITALS (19 sets, daily range): BP systolic 114–137; BP diastolic 64–85; PULSE 85–112; RESP 12–24; TEMP 36.7; O2SAT 96–100
--- NOTE | ~2022-11-11 | XR_ITS ---
Clinical Indication: Shortness of breath AP and lateral views of the chest: Comparison: 11/08/2022 Findings: The lungs are clear, without evidence of focal consolidation or pleural effusion. Cardiome diastinal silhouette is within normal limits. Bones and soft tissues are unremarkable. Impression: Normal chest. Reviewed, dictated and finalized at location . Impression: Normal chest.
--- NOTE | ~2022-11-11 | CT_ITS ---
EXAMINATION: CTA chest PE protocol DATE: 11/11/2022 10:21 INDICATION: Shortness of breath with exertion. Pleuritic pain. Cough. Recent flu. TECHNIQUE: Computed tomography angiography (CTA) of the chest was performed with 100 mL Omnipaque-350 intravenous contrast timed to evaluate the pulmonary arteries. Coronal maximum intensity projection 3D-reconstructions were created by the technologist. Automated exposure control and iterative reconst ruction technique were employed. Exam dose: 412.38 mGy-cm total exam DLP. COMPARISON: 11/08/2022 portable AP chest FINDINGS: There is diagnostic contrast enhancement of the pulmonary arteries and no evidence of pulmo nary embolism. No thoracic aortic aneurysm or dissection. Normal heart size. No pericardial effusion. Mild bilateral hilar and mediastinal lymph node prominence, likely reactive, with scattered irregular groundglass infiltrates throughout all lobes, both lungs. Consider Covid infection or other bilatera l pneumonia. No pleural effusion or pneumothorax. Included skeletal structures are unremarkable. IMPRESSION: Scattered diffuse bilateral pulmonary infiltrates suggestive of Covid or other bilateral pneumonia, with mild likely reactive bilateral hilar and mediastinal lymph node prominence No evidence of pulmonary embolism or aortic aneurysm or dissection Reviewed, dictated and finalized at Location [facility]. Reviewed, dictated and finalized at location B. IMPRESSION: Scattered diffuse bilateral pulmonary infiltrates suggestive of Co vid or other bilateral pneumonia, with mild likely reactive bilateral hilar and mediastinal lymph node prominence No evidence of pulmonary embolism or aortic aneurysm or dissection
--- NOTE | 2022-11-11 09:15 | ECG_ITS ---
Measurements Intervals [place] Rate: 92 P: 49 [place]: 144 QRS: 62 QRSD: 78 T: 43 QT: 328 QTc: 408 Interpretive Statements SINUS RHYTHM COMPARED TO ECG 11/08/2022 09:38:41 NO SIGNIFICANT CHANGES Electronically Signed On 11-11-2022 15:45:18 CDT by Norma Sarmiento M.D.
--- NOTE | 2022-11-11 09:21 | ED.SOB ---
HPI - SOB/Dyspnea General Chief Complaint: Shortness of Breath/Dyspnea Stated Complaint: SOB w/ excertion Time Seen by Provider: 11/11/22 09:12 Source: patient and old records reviewed Mode of arrival: ambulatory Limitations: no limitations History of Present Illness HPI Narrative: Patient is a 42-year-old female who presents ED with report of shortness of breath. Per records, patient has been seen in our facility several times within the last few weeks. She was diagnosed with influenza A on 11/02. Patient reports she has not felt well since then. She complains of a persistent cough, unable to bring up any phlegm, dyspnea, worse with exertion, and chest heaviness over the last 4 days. Patient states she feels like she is unable to even walk throughout her house without having to stop and catch her breath. She also states she has had a hard time taking a deep breath as this forces her to begin coughing again. She does have history of asthma and has been using her albuterol at home. She denies any further fevers, nausea, vomiting, abdominal pain, lower extremity pain or swelling. Related Data Allergies Allergy/AdvReac Type Severity Reaction Status Date / Time adhesive tape Allergy Mild BLISTERS Verified 11/11/22 09:25 miconazole Allergy Unknown Swelling Verified 11/11/22 09:25 tioconazole Allergy Unknown Swelling Verified 11/11/22 09:25 amoxicillin Allergy Nausea and Verified 11/11/22 09:25 Vomiting clavulanic acid AdvReac Intermediate Other Verified 11/11/22 09:25 [From Augmentin] eletriptan AdvReac Unknown Vomiting Verified 11/11/22 09:25 hydromorphone AdvReac Unknown Severe Verified 11/11/22 09:25 Vomiting sumatriptan AdvReac Unknown Vomiting Verified 11/11/22 09:25 Review of Systems Review of Systems: CONSTITUTIONAL: Denies fever, chills, or sweats. ENT: Denies rhinorrhea, congestion, sore throat. CARDIOVASCULAR: See HPI. RESPIRATORY: See HPI. GASTROINTESTINAL: Denies abdominal pain, nausea, vomiting. MUSCULOSKELETAL: Denies back pain, joint pain, or myalgia. NEUROLOGIC: Denies headache, numbness, or weakness. All systems reviewed & are unremarkable except as noted in HPI and below PMFSH Past Medical History Medical History Allergies Anxiety Arthritis Asthma Bilateral hand pain Blood in stool Bronchitis Carcinoma x2 Chronic constipation COVID-19 virus infection Depression Diabetes DM II (diabetes mellitus, type II), controlled Dysphagia Fibroids Fibromyalgia (~2012) GERD (gastroesophageal reflux disease) History of gastritis HSV infection Type 2 Hx of carpal tunnel syndrome Hx of fracture of wrist rt Hypercholesteremia IBS (irritable bowel syndrome) (~2012) Interstitial cystitis Lesion of stomach Migraine MVP (mitral valve prolapse) Odynophagia Postprandial abdominal bloating Weight loss Surgical History Surgical History H/O adenoidectomy H/O foot surgery H/O sinus surgery History of bilateral salpingo-oophorectomy 09/25/19 History of bilateral tubal ligation History of hysterectomy 09/25/2019, TLH Hx of tonsillectomy Previous section x2 Family History Family History Father Family history of malignant neoplasm of urinary bladder, Onset Age: 67 Family history of rheumatoid arthritis Family history of hypercholesterolemia Family history of mental disorder Hypertension Family history of alcoholism Carcinoma of colon, Onset Age: 67 Family history of lung cancer, Onset Age: 67 Family history of malignant neoplasm of brain, Onset Age: 67 Family history of hearing loss Family history of malignant neoplasm Grandparent Family history of thyroid disease Family history of obesity Family history of osteoporosis Depression Hypertension Family history of alcoholism Family
[2022-11-11] MEDS: IPRATROPIUM BR 0.02% INH SOLN 0.5 MG/2.5 ML VIAL INHALATION (09:31)
[2022-11-11] MEDS: LEVALBUTEROL NEB 1.25 MG/3 ML INHALATION (09:31)
[2022-11-11 09:38] LABS: Basophils Percent Auto 0.5 % (0.2-1.2); Eosinophils Absolute Auto 0.3 K/mm3 (0-0.3); Eosinophils Percent Auto 3.4 % (0-4.4); Hematocrit 38.3 % (37.0-47.0); Hemoglobin 11.9 g/dL (12.0-15.0); Immature Granulocyte Absolute 0.05 K/mm3 (0.00-0.031); Immature Granulocyte Percent A 0.7 % (0-0.5); Lymphocytes Absolute Auto 2.34 K/mm3 (0.9-3.2); Lymphocytes Percent Auto 30.6 % (18.3-44.2); Mean Corpuscular HGB Conc 31.1 g/dl (32-36); Mean Corpuscular Hemoglobin 27.4 pg (26-34); Mean Platelet Volume 9.7 fl (7.4-10.4); Monocytes Absolute Auto 0.5 K/mm3 (0.1-0.6); Monocytes Percent Auto 6.5 % (2.6-8.5); Neutrophils Absolute Auto 4.5 K/mm3 (1.3-6.7); Neutrophils Percent Auto 58.3 % (45.5-73.1); Platelet Count Result 252 k/mm3 (150-375); Red Blood Count 4.35 M/mm3 (4.2-5.4); Red Cell Distribution Width 14.3 % (11.5-14.5); White Blood Count 7.7 K/mm3 (4.5-10.0)
[2022-11-11 09:56] LABS: Magnesium 2.2 mg/dL (1.6-2.3)
[2022-11-11 09:58] LABS: Alanine Aminotransferase 23 U/L (6-35); Albumin Level 3.9 g/dL (3.5-5.1); Alkaline Phosphatase 86 U/L (38-126); Anion Gap 7 mmol/L (8-16); Aspartate Amino Transferase 25 U/L (14-36); Bilirubin,Total 0.7 mg/dL (0.2-1.3); Blood Urea Nitrogen 14 mg/dL (7-17); Calcium 9.2 mg/dL (8.4-10.2); Carbon Dioxide 28 mmol/L (22-30); Chloride 105 mmol/L (98-107); Estimated CRCL calculation 60 ml/min; Estimated Glomerular Filt Rate > 60; Glucose 142 mg/dL (65-110); Sodium 140 mmol/L (137-145)
[2022-11-11 10:08] LABS: NT Pro B Type Natriuretic Pept 42 pg/mL (19.9-100); Troponin I < 0.012 ng/mL (0.000-0.034)
[2022-11-11] MEDS: FLUCONAZOLE 150 MG TABLET PO (12:29)
== END 2022-11-11 12:38 | disposition home or self-care (01) ==
PROVIDERS: Preventive Medicine Aerospace Medicine; Emergency Provider Physician Assistant; PCP Physician Assistant
DX: J18.9 Pneumonia, unspecified organism (principal); R06.02 Shortness of breath; E11.9 Type 2 diabetes mellitus without complications; E78.00 Pure hypercholesterolemia, unspecified; J45.909 Unspecified asthma, uncomplicated; I34.1 Nonrheumatic mitral (valve) prolapse; N30.10 Interstitial cystitis (chronic) without hematuria; K58.9 Irritable bowel syndrome, unspecified; K21.9 Gastro-esophageal reflux disease without esophagitis; M79.7 Fibromyalgia; M19.90 Unspecified osteoarthritis, unspecified site; F41.9 Anxiety disorder, unspecified; F17.210 Nicotine dependence, cigarettes, uncomplicated; Z85.9 Personal history of malignant neoplasm, unspecified; Z86.16 Personal history of COVID-19; Z90.722 Acquired absence of ovaries, bilateral; Z90.79 Acquired absence of other genital organ(s); Z90.710 Acquired absence of both cervix and uterus; Z79.85 Long-term (current) use of injectable non-insulin antidiabetic drugs; Z79.4 Long term (current) use of insulin
CPT/HCPCS: 36415; 71046; 71275; 80053; 83735; 83880; 84484; 85025; 93005; 94640; 99284; A9270; Q9967

== ENCOUNTER 2022-12-30 10:19 | Emergency (ER) | payer OTHER, BC, SELFPAY ==
--- NOTE | ~2022-12-30 | CT_ITS ---
EXAMINATION: CT brain wo con INDICATION: Headache COMPARISON: 10/26/2022 TECHNIQUE: Standard unenhanced head CT. The dose-length product (DLP) was 605.33 mGy-cm. The mA was a djusted according to patient size. Iterative reconstruction technique was employed. FINDINGS: No intracranial hemorrhage, acute infarction, or abnormal mass lesion. The ventricles are n ormal. No abnormal mass effect or midline shift. The [place]-white matter differentiation is normal. The basal cisterns are patent. The orbits are normal. The paranasal sinuses, mastoids and calvarium are normal. IMPRESSION: 1. No acute intracranial abnormality. 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
[2022-12-30 10:27] LABS: Glucose Point of Care 197 mg/dl (65-105)
[2022-12-30 10:41] VITALS: BP 115/78; PULSE 73; RESP 18; TEMP 36.3; O2SAT 100
[2022-12-30 11:05] VITALS: BP 109/73; PULSE 77; RESP 18; O2SAT 100
--- NOTE | 2022-12-30 11:17 | ED.GENADULT ---
HPI - General Adult General Chief complaint: Weakness Stated complaint: Low blood sugar Time Seen by Provider: 12/30/22 10:44 History of Present Illness HPI narrative: 42-year-old female presenting to the emergency department for evaluation of headache weakness and hypoglycemia. Patient is a diabetic and reports last night she was review shopping and had onset of diaphoresis lightheaded weakness and suspected that her blood sugar had dropped. Patient was able to make it home after having a sodium a.m. after patient checked her blood sugar was 125. Patient states that today she still has increased generalized weakness and does still have a headache. Related Data Allergies Allergy/AdvReac Type Severity Reaction Status Date / Time adhesive tape Allergy Mild BLISTERS Verified 12/30/22 11:08 miconazole Allergy Unknown Swelling Verified 12/30/22 11:08 tioconazole Allergy Unknown Swelling Verified 12/30/22 11:08 amoxicillin Allergy Nausea and Verified 12/30/22 11:08 Vomiting clavulanic acid AdvReac Intermediate Other Verified 12/30/22 11:08 [From Augmentin] eletriptan AdvReac Unknown Vomiting Verified 12/30/22 11:08 hydromorphone AdvReac Unknown Severe Verified 12/30/22 11:08 Vomiting sumatriptan AdvReac Unknown Vomiting Verified 12/30/22 11:08 Review of Systems Review of Systems: All systems reviewed & are unremarkable except as noted in HPI and below PMFSH Past Medical History Medical History Allergies Anxiety Arthritis Asthma Bilateral hand pain Blood in stool Bronchitis Carcinoma x2 Chronic constipation COVID-19 virus infection Depression Diabetes DM II (diabetes mellitus, type II), controlled Dysphagia Fibroids Fibromyalgia (~2012) GERD (gastroesophageal reflux disease) History of gastritis HSV infection Type 2 Hx of carpal tunnel syndrome Hx of fracture of wrist rt Hypercholesteremia IBS (irritable bowel syndrome) (~2012) Interstitial cystitis Lesion of stomach Migraine MVP (mitral valve prolapse) Odynophagia Postprandial abdominal bloating Weight loss Surgical History Surgical History H/O adenoidectomy H/O foot surgery H/O sinus surgery History of bilateral salpingo-oophorectomy 09/25/19 History of bilateral tubal ligation History of hysterectomy 09/25/2019, TLH Hx of tonsillectomy Previous section x2 Family History Family History Father Family history of malignant neoplasm of urinary bladder, Onset Age: 67 Family history of rheumatoid arthritis Family history of hypercholesterolemia Family history of mental disorder Hypertension Family history of alcoholism Carcinoma of colon, Onset Age: 67 Family history of lung cancer, Onset Age: 67 Family history of malignant neoplasm of brain, Onset Age: 67 Family history of hearing loss Family history of malignant neoplasm Grandparent Family history of thyroid disease Family history of obesity Family history of osteoporosis Depression Hypertension Family history of alcoholism Family history of arthritis Carcinoma of colon Family history of Alzheimer's disease Family history of lung cancer Family history of hearing loss Sibling Family history of mental disorder Hypertension Cerebrovascular accident Family history of development disorder Mother Depression Hypertension Family history of arthritis Family history of Alzheimer's disease Social History Social History Smoking packs per day: 0.5 Smoking cigarettes per day: 10.0 Smoking status: Current every day smoker Tobacco type: cigarettes Second hand tobacco smoke exposure: Yes Alcohol intake: current Drinks per week: 1 Alcohol use details: rarely Substance use: never Lack of Transp
[2022-12-30] MEDS: SODIUM CHLORIDE 0.9% IV 1,000 ML 999 ML IV CONT (11:24)
[2022-12-30 11:28] VITALS: BP 111/77; PULSE 72; RESP 18; O2SAT 100
[2022-12-30 11:35] LABS: Basophils Absolute Auto 0.1 K/mm3 (0.0-0.1); Basophils Percent Auto 0.6 % (0.2-1.2); Eosinophils Absolute Auto 0.2 K/mm3 (0-0.3); Eosinophils Percent Auto 2.8 % (0-4.4); Hematocrit 43.8 % (37.0-47.0); Hemoglobin 13.9 g/dL (12.0-15.0); Immature Granulocyte Absolute 0.02 K/mm3 (0.00-0.031); Immature Granulocyte Percent A 0.3 % (0-0.5); Lymphocytes Absolute Auto 2.97 K/mm3 (0.9-3.2); Lymphocytes Percent Auto 37.1 % (18.3-44.2); Mean Corpuscular HGB Conc 31.7 g/dl (32-36); Mean Corpuscular Hemoglobin 27.7 pg (26-34); Mean Corpuscular Volume 87.3 fl (80-100); Mean Platelet Volume 9.9 fl (7.4-10.4); Monocytes Absolute Auto 0.5 K/mm3 (0.1-0.6); Monocytes Percent Auto 6.6 % (2.6-8.5); Neutrophils Absolute Auto 4.2 K/mm3 (1.3-6.7); Neutrophils Percent Auto 52.6 % (45.5-73.1); Platelet Count Result 222 k/mm3 (150-375); Red Blood Count 5.02 M/mm3 (4.2-5.4); Red Cell Distribution Width 14.8 % (11.5-14.5)
[2022-12-30 11:37] LABS: Appearance Urine Clear (Clear); Bilirubin Urine Negative (Negative); Blood Urine Negative (Negative); Color Urine Yellow (Yellow); Glucose Urine UA Negative (Negative); Ketones Urine Negative (Negative); Leukocyte Esterase Ur Negative LEU/UL (Negative); Nitrate Urine Negative (Negative); Protein Urine Negative (Negative); Specific Grav Ur 1.009 (1.001-1.035); Urobilinogen Urine 0.2 mg/dL (<2.0); pH Urine 6.5 (5.0-9.0)
[2022-12-30 11:47] LABS: Add Urine Microscopic? NO
[2022-12-30 11:49] LABS: Alanine Aminotransferase 48 U/L (6-35); Albumin Level 4.7 g/dL (3.5-5.1); Alkaline Phosphatase 106 U/L (38-126); Anion Gap 12 mmol/L (8-16); Aspartate Amino Transferase 38 U/L (14-36); Bilirubin,Total 0.5 mg/dL (0.2-1.3); Blood Urea Nitrogen 16 mg/dL (7-17); Carbon Dioxide 27 mmol/L (22-30); Chloride 100 mmol/L (98-107); Estimated Glomerular Filt Rate > 60; Glucose 158 mg/dL (65-110); Potassium 4.4 mmol/L (3.4-5.0); Sodium 139 mmol/L (137-145)
[2022-12-30 12:11] LABS: Influenza A QL RT-PCR Negative (Negative); Influenza B QL RT-PCR Negative (Negative); RSV RNA, RT-PCR Negative (Negative); SARS-CoV-2 RNA PCR Negative (Negative)
[2022-12-30 12:54] VITALS: BP 106/64; PULSE 67; RESP 18; O2SAT 100
[2022-12-30 13:03] VITALS: BP 113/65; PULSE 66; RESP 17; O2SAT 100
== END 2022-12-30 13:05 | disposition home or self-care (01) ==
PROVIDERS: Emergency Provider Emergency Medicine; PCP Physician Assistant
DX: R53.1 Weakness (principal); Z20.822 Contact with and (suspected) exposure to COVID-19; E11.9 Type 2 diabetes mellitus without complications; Z79.4 Long term (current) use of insulin; Z79.85 Long-term (current) use of injectable non-insulin antidiabetic drugs
CPT/HCPCS: 36415; 70450; 80053; 81003; 82948; 85025; 87637; 96360; 96361; 99284; J7030

== ENCOUNTER 2023-01-22 09:52 | Emergency (ER) | payer OTHER, BC, SELFPAY ==
[2023-01-22 10:03] VITALS: BP 115/75; PULSE 87; RESP 16; TEMP 36.4; O2SAT 99
--- NOTE | 2023-01-22 10:17 | ED.BACK ---
HPI - Back Pain/Injury General Chief Complaint: Back Pain/Injury Stated Complaint: Back pain Time Seen by Provider: 01/22/23 10:41 Source: patient and RN notes reviewed Mode of arrival: ambulatory Limitations: no limitations History of Present Illness HPI Narrative: 42-year-old female presents concern for acute low back pain. Reports she has had intermittent dkal-or-eyamibtn back pain over the last week and today at work she twisted and felt a sudden back pain. She reports bilateral low back pain. Denies loss of bowel or bladder function, perianal anesthesia, weakness in any extremity, abdominal pain. Reports throughout the last week she has tried to take Motrin without relief. MD elicited complaint: back pain Related Data Allergies Allergy/AdvReac Type Severity Reaction Status Date / Time adhesive tape Allergy Mild BLISTERS Verified 12/30/22 11:08 miconazole Allergy Unknown Swelling Verified 12/30/22 11:08 tioconazole Allergy Unknown Swelling Verified 12/30/22 11:08 amoxicillin Allergy Nausea and Verified 12/30/22 11:08 Vomiting clavulanic acid AdvReac Intermediate Other Verified 12/30/22 11:08 [From Augmentin] eletriptan AdvReac Unknown Vomiting Verified 12/30/22 11:08 hydromorphone AdvReac Unknown Severe Verified 12/30/22 11:08 Vomiting sumatriptan AdvReac Unknown Vomiting Verified 12/30/22 11:08 Review of Systems Review of Systems: CONSTITUTIONAL: Denies malaise, chills, sweats, or fever. CARDIOVASCULAR: Denies chest pain, palpitations, or edema. RESPIRATORY: Denies cough or dyspnea. GASTROINTESTINAL: Denies abdominal pain, nausea, vomiting, diarrhea, loss of bowel function GENITOURINARY: Denies dysuria, hematuria, frequency, loss of bladder function. SKIN: Denies rash or itching. MUSCULOSKELETAL: Reports low back pain NEUROLOGIC: Denies numbness, weakness, or headache. All systems reviewed & are unremarkable except as noted in HPI and below PMFSH Past Medical History Medical History Allergies Anxiety Arthritis Asthma Bilateral hand pain Blood in stool Bronchitis Carcinoma x2 Chronic constipation COVID-19 virus infection Depression Diabetes DM II (diabetes mellitus, type II), controlled Dysphagia Fibroids Fibromyalgia (~2012) GERD (gastroesophageal reflux disease) History of gastritis HSV infection Type 2 Hx of carpal tunnel syndrome Hx of fracture of wrist rt Hypercholesteremia IBS (irritable bowel syndrome) (~2012) Interstitial cystitis Lesion of stomach Migraine MVP (mitral valve prolapse) Odynophagia Postprandial abdominal bloating Weight loss Surgical History Surgical History H/O adenoidectomy H/O foot surgery H/O sinus surgery History of bilateral salpingo-oophorectomy 09/25/19 History of bilateral tubal ligation History of hysterectomy 09/25/2019, TLH Hx of tonsillectomy Previous section x2 Family History Family History Father Family history of malignant neoplasm of urinary bladder, Onset Age: 67 Family history of rheumatoid arthritis Family history of hypercholesterolemia Family history of mental disorder Hypertension Family history of alcoholism Carcinoma of colon, Onset Age: 67 Family history of lung cancer, Onset Age: 67 Family history of malignant neoplasm of brain, Onset Age: 67 Family history of hearing loss Family history of malignant neoplasm Grandparent Family history of thyroid disease Family history of obesity Family history of osteoporosis Depression Hypertension Family history of alcoholism Family history of arthritis Carcinoma of colon Family history of Alzheimer's disease Family history of lung cancer Family history of hearing loss Sibling Family history of mental disorder Hypertension Cerebrovascular accident Family h
== END 2023-01-22 10:54 | disposition home or self-care (01) ==
PROVIDERS: Emergency Provider Nurse Practitioner; PCP Physician Assistant
DX: M54.50 Low back pain, unspecified (principal); F17.210 Nicotine dependence, cigarettes, uncomplicated; M19.90 Unspecified osteoarthritis, unspecified site; E11.9 Type 2 diabetes mellitus without complications; M79.7 Fibromyalgia; K21.9 Gastro-esophageal reflux disease without esophagitis; E78.00 Pure hypercholesterolemia, unspecified; I34.1 Nonrheumatic mitral (valve) prolapse; F41.9 Anxiety disorder, unspecified; F32.A Depression, unspecified; Z86.16 Personal history of COVID-19; Z85.9 Personal history of malignant neoplasm, unspecified
CPT/HCPCS: 99213; G0463

== ENCOUNTER 2023-02-01 11:10 | Emergency (ER) | payer OTHER, BC, SELFPAY ==
[2023-02-01] VITALS (29 sets, daily range): BP systolic 102–124; BP diastolic 53–90; PULSE 66–131; RESP 12–25; TEMP 36.4; O2SAT 98–100
[2023-02-01 11:39] LABS: Glucose Point of Care 197 mg/dl (65-105)
[2023-02-01 11:46] LABS: Basophils Absolute Auto 0.1 K/mm3 (0.0-0.1); Basophils Percent Auto 0.3 % (0.2-1.2); Eosinophils Absolute Auto 0.1 K/mm3 (0-0.3); Eosinophils Percent Auto 0.3 % (0-4.4); Hematocrit 51.9 % (37.0-47.0); Hemoglobin 16.4 g/dL (12.0-15.0); Immature Granulocyte Absolute 0.07 K/mm3 (0.00-0.031); Immature Granulocyte Percent A 0.4 % (0-0.5); Lymphocytes Absolute Auto 2.68 K/mm3 (0.9-3.2); Lymphocytes Percent Auto 16.8 % (18.3-44.2); Mean Corpuscular HGB Conc 31.6 g/dl (32-36); Mean Corpuscular Hemoglobin 27.5 pg (26-34); Mean Corpuscular Volume 87.1 fl (80-100); Mean Platelet Volume 9.7 fl (7.4-10.4); Monocytes Absolute Auto 0.9 K/mm3 (0.1-0.6); Monocytes Percent Auto 5.9 % (2.6-8.5); Neutrophils Absolute Auto 12.2 K/mm3 (1.3-6.7); Neutrophils Percent Auto 76.3 % (45.5-73.1); Platelet Count Result 271 k/mm3 (150-375); Red Blood Count 5.96 M/mm3 (4.2-5.4); Red Cell Distribution Width 14.7 % (11.5-14.5)
[2023-02-01 12:00] LABS: Alanine Aminotransferase 30 U/L (6-35); Albumin Level 4.9 g/dL (3.5-5.1); Alkaline Phosphatase 127 U/L (38-126); Anion Gap 13 mmol/L (8-16); Aspartate Amino Transferase 26 U/L (14-36); Bilirubin,Total 0.9 mg/dL (0.2-1.3); Blood Urea Nitrogen 21 mg/dL (7-17); Calcium 10.6 mg/dL (8.4-10.2); Carbon Dioxide 27 mmol/L (22-30); Chloride 100 mmol/L (98-107); Estimated CRCL calculation 63 ml/min; Estimated Glomerular Filt Rate 54; Glucose 177 mg/dL (65-110); Lipase 78 U/L (23-300); Potassium 3.9 mmol/L (3.4-5.0); Sodium 140 mmol/L (137-145)
--- NOTE | 2023-02-01 12:07 | PC.NURSE ---
pt states they are unable to void for a urine sample at this time. pt requested to hold off on getting straight cathed. pt was educated to use call light when they have the urge to void for a sample.
[2023-02-01] MEDS: ONDANSETRON INJ 4 MG/2 ML VIAL IV PUSH (12:30)
[2023-02-01] MEDS: SODIUM CHLORIDE 0.9% IV 1,000 ML 999 ML IV CONT ×2 (12:30→14:33)
[2023-02-01 13:50] LABS: Appearance Urine Cloudy (Clear); Bacteria Urine Rare /hpf; Bilirubin Urine Negative (Negative); Blood Urine Negative (Negative); Color Urine Dark Yellow (Yellow); Glucose Urine UA Negative (Negative); Ketones Urine 2+ mg/dL (Negative); Leukocyte Esterase Ur Negative LEU/UL (Negative); Mucus Urine Present /lpf; Need Manual Microscopic Reviewed; Nitrate Urine Negative (Negative); Protein Urine 1+ mg/dL (Negative); RBC Urine 0-2 /hpf (0-2); Specific Grav Ur 1.027 (1.001-1.035); Squamous Epithelial Cell Urine Few /hpf (Few); WBC Urine 0-5 /hpf
[2023-02-01 13:51] LABS: Add Urine Microscopic? YES
--- NOTE | 2023-02-01 15:36 | ED.NAVMDI ---
HPI - Nausea/Vomiting/Diarrhea General Chief complaint: Nausea/Vomiting/Diarrhea Stated complaint: vomiting/diabetic Time Seen by Provider: 02/01/23 12:03 History of Present Illness HPI Narrative: Patient is a 42-year-old female who presents ER with nausea vomiting. Ongoing for 2 days. No fevers or chills or sweats. Denies elevated blood sugars. No known sick contacts. She is without diarrhea. No alleviating factors. Related Data Allergies Allergy/AdvReac Type Severity Reaction Status Date / Time adhesive tape Allergy Mild BLISTERS Verified 12/30/22 11:08 miconazole Allergy Unknown Swelling Verified 12/30/22 11:08 tioconazole Allergy Unknown Swelling Verified 12/30/22 11:08 amoxicillin Allergy Nausea and Verified 12/30/22 11:08 Vomiting clavulanic acid AdvReac Intermediate Other Verified 12/30/22 11:08 [From Augmentin] eletriptan AdvReac Unknown Vomiting Verified 12/30/22 11:08 hydromorphone AdvReac Unknown Severe Verified 12/30/22 11:08 Vomiting sumatriptan AdvReac Unknown Vomiting Verified 12/30/22 11:08 Review of Systems Review of Systems: All systems reviewed & are unremarkable except as noted in HPI and below Constitutional: Constitutional: Reports chills, Reports fatigue and Denies fever(s) ENT: Reports system reviewed and no additional complaints, except as documented Cardiovascular: Cardiovascular: Reports no additional cardiovascular complaints Respiratory: Respiratory: Reports no additional respiratory complaints Gastrointestinal: Gastrointestinal: Denies abdominal pain, Denies diarrhea, Reports nausea and Reports vomiting Genitourinary: Genitourinary: Reports no additional female genitourinary complaints [facility] Past Medical History Medical History Allergies Anxiety Arthritis Asthma Bilateral hand pain Blood in stool Bronchitis Carcinoma x2 Chronic constipation COVID-19 virus infection Depression Diabetes DM II (diabetes mellitus, type II), controlled Dysphagia Fibroids Fibromyalgia (~2012) GERD (gastroesophageal reflux disease) History of gastritis HSV infection Type 2 Hx of carpal tunnel syndrome Hx of fracture of wrist rt Hypercholesteremia IBS (irritable bowel syndrome) (~2012) Interstitial cystitis Lesion of stomach Migraine MVP (mitral valve prolapse) Odynophagia Postprandial abdominal bloating Weight loss Surgical History Surgical History H/O adenoidectomy H/O foot surgery H/O sinus surgery History of bilateral salpingo-oophorectomy 09/25/19 History of bilateral tubal ligation History of hysterectomy 09/25/2019, TLH Hx of tonsillectomy Previous section x2 Family History Family History Father Family history of malignant neoplasm of urinary bladder, Onset Age: 67 Family history of rheumatoid arthritis Family history of hypercholesterolemia Family history of mental disorder Hypertension Family history of alcoholism Carcinoma of colon, Onset Age: 67 Family history of lung cancer, Onset Age: 67 Family history of malignant neoplasm of brain, Onset Age: 67 Family history of hearing loss Family history of malignant neoplasm Grandparent Family history of thyroid disease Family history of obesity Family history of osteoporosis Depression Hypertension Family history of alcoholism Family history of arthritis Carcinoma of colon Family history of Alzheimer's disease Family history of lung cancer Family history of hearing loss Sibling Family history of mental disorder Hypertension Cerebrovascular accident Family history of development disorder Mother Depression Hypertension Family history of arthritis Family history of Alzheimer's disease Social History Social History Smok
== END 2023-02-01 15:52 | disposition home or self-care (01) ==
PROVIDERS: Emergency Medicine; Emergency Provider Emergency Medicine; PCP Physician Assistant
DX: R11.2 Nausea with vomiting, unspecified (principal); E86.0 Dehydration; E11.9 Type 2 diabetes mellitus without complications; F17.210 Nicotine dependence, cigarettes, uncomplicated
CPT/HCPCS: 36415; 80053; 81001; 82948; 83690; 85025; 96361; 96374; 99284; J2405; J7030

== ENCOUNTER 2023-02-05 06:28 | Emergency (ER) | payer OTHER, BC, SELFPAY ==
[2023-02-05] VITALS (9 sets, daily range): BP systolic 102–130; BP diastolic 77–93; PULSE 92–118; RESP 11–24; TEMP 36.9; O2SAT 99–100
[2023-02-05 07:30] LABS: Influenza A QL RT-PCR Negative (Negative); Influenza B QL RT-PCR Negative (Negative); RSV RNA, RT-PCR Negative (Negative); SARS-CoV-2 RNA PCR Positive (Negative)
--- NOTE | 2023-02-05 07:35 | ED.GENADULT ---
HPI - General Adult General Chief complaint: Unspecified Stated complaint: hurting all over , vomiting Time Seen by Provider: 02/05/23 06:56 History of Present Illness HPI narrative: 42-year-old female present to the emergency department for evaluation of persistent nausea vomiting and body aches. Patient reports that over the course of the last week she began developing body aches with persistent nausea vomiting. Patient reports the nausea vomiting improved approximately 2 days ago but she is still having persistent body aches. Patient also reports sore throat. Related Data Allergies Allergy/AdvReac Type Severity Reaction Status Date / Time adhesive tape Allergy Mild BLISTERS Verified 12/30/22 11:08 miconazole Allergy Unknown Swelling Verified 12/30/22 11:08 tioconazole Allergy Unknown Swelling Verified 12/30/22 11:08 amoxicillin Allergy Nausea and Verified 12/30/22 11:08 Vomiting clavulanic acid AdvReac Intermediate Other Verified 12/30/22 11:08 [From Augmentin] eletriptan AdvReac Unknown Vomiting Verified 12/30/22 11:08 hydromorphone AdvReac Unknown Severe Verified 12/30/22 11:08 Vomiting sumatriptan AdvReac Unknown Vomiting Verified 12/30/22 11:08 Review of Systems Review of Systems: All systems reviewed & are unremarkable except as noted in HPI and below PMFSH Past Medical History Medical History Allergies Anxiety Arthritis Asthma Bilateral hand pain Blood in stool Bronchitis Carcinoma x2 Chronic constipation COVID-19 virus infection Depression Diabetes DM II (diabetes mellitus, type II), controlled Dysphagia Fibroids Fibromyalgia (~2012) GERD (gastroesophageal reflux disease) History of gastritis HSV infection Type 2 Hx of carpal tunnel syndrome Hx of fracture of wrist rt Hypercholesteremia IBS (irritable bowel syndrome) (~2012) Interstitial cystitis Lesion of stomach Migraine MVP (mitral valve prolapse) Odynophagia Postprandial abdominal bloating Weight loss Surgical History Surgical History H/O adenoidectomy H/O foot surgery H/O sinus surgery History of bilateral salpingo-oophorectomy 09/25/19 History of bilateral tubal ligation History of hysterectomy 09/25/2019, TLH Hx of tonsillectomy Previous section x2 Family History Family History Father Family history of malignant neoplasm of urinary bladder, Onset Age: 67 Family history of rheumatoid arthritis Family history of hypercholesterolemia Family history of mental disorder Hypertension Family history of alcoholism Carcinoma of colon, Onset Age: 67 Family history of lung cancer, Onset Age: 67 Family history of malignant neoplasm of brain, Onset Age: 67 Family history of hearing loss Family history of malignant neoplasm Grandparent Family history of thyroid disease Family history of obesity Family history of osteoporosis Depression Hypertension Family history of alcoholism Family history of arthritis Carcinoma of colon Family history of Alzheimer's disease Family history of lung cancer Family history of hearing loss Sibling Family history of mental disorder Hypertension Cerebrovascular accident Family history of development disorder Mother Depression Hypertension Family history of arthritis Family history of Alzheimer's disease Social History Social History Smoking packs per day: 0.5 Smoking cigarettes per day: 10.0 Smoking status: Current every day smoker Tobacco type: cigarettes Second hand tobacco smoke exposure: Yes Alcohol intake: current Drinks per week: 1 Alcohol use details: rarely Substance use: never Lack of Transportation: No Lack of Food: Sometimes True Current Housing: I Have Housing Con
[2023-02-05] MEDS: KETOROLAC 15 MG/ML VIAL (*BKC) IV PUSH (07:49)
[2023-02-05 08:29] LABS: Basophils Percent Auto 0.4 % (0.2-1.2); Eosinophils Percent Auto 0.3 % (0-4.4); Hematocrit 43.7 % (37.0-47.0); Hemoglobin 14.4 g/dL (12.0-15.0); Immature Granulocyte Absolute 0.03 K/mm3 (0.00-0.031); Immature Granulocyte Percent A 0.4 % (0-0.5); Lymphocytes Absolute Auto 0.82 K/mm3 (0.9-3.2); Lymphocytes Percent Auto 12.2 % (18.3-44.2); Mean Corpuscular Hemoglobin 27.5 pg (26-34); Mean Corpuscular Volume 83.6 fl (80-100); Mean Platelet Volume 9.5 fl (7.4-10.4); Monocytes Absolute Auto 0.6 K/mm3 (0.1-0.6); Monocytes Percent Auto 8.5 % (2.6-8.5); Neutrophils Absolute Auto 5.2 K/mm3 (1.3-6.7); Neutrophils Percent Auto 78.2 % (45.5-73.1); Platelet Count Result 166 k/mm3 (150-375); Red Blood Count 5.23 M/mm3 (4.2-5.4); Red Cell Distribution Width 13.5 % (11.5-14.5); White Blood Count 6.7 K/mm3 (4.5-10.0)
[2023-02-05 08:38] LABS: Alanine Aminotransferase 24 U/L (6-35); Albumin Level 4.3 g/dL (3.5-5.1); Alkaline Phosphatase 90 U/L (38-126); Anion Gap 14 mmol/L (8-16); Aspartate Amino Transferase 27 U/L (14-36); Blood Urea Nitrogen 14 mg/dL (7-17); Calcium 9.4 mg/dL (8.4-10.2); Carbon Dioxide 20 mmol/L (22-30); Chloride 101 mmol/L (98-107); Estimated Glomerular Filt Rate > 60; Glucose 123 mg/dL (65-110); Potassium 3.6 mmol/L (3.4-5.0); Sodium 135 mmol/L (137-145)
[2023-02-05 08:52] LABS: Strep Group A RT-PCR NOT DETECTED (Negative)
== END 2023-02-05 09:20 | disposition home or self-care (01) ==
PROVIDERS: Emergency Medicine; Emergency Provider Emergency Medicine; PCP Physician Assistant
DX: U07.1 COVID-19 (principal); J02.9 Acute pharyngitis, unspecified; J45.909 Unspecified asthma, uncomplicated; E11.9 Type 2 diabetes mellitus without complications; E78.00 Pure hypercholesterolemia, unspecified; I34.1 Nonrheumatic mitral (valve) prolapse; K21.9 Gastro-esophageal reflux disease without esophagitis; K58.9 Irritable bowel syndrome, unspecified; M19.90 Unspecified osteoarthritis, unspecified site; M79.7 Fibromyalgia; F17.200 Nicotine dependence, unspecified, uncomplicated; F41.9 Anxiety disorder, unspecified; F32.A Depression, unspecified; Z86.16 Personal history of COVID-19; Z90.722 Acquired absence of ovaries, bilateral; Z90.79 Acquired absence of other genital organ(s); Z90.710 Acquired absence of both cervix and uterus
CPT/HCPCS: 36415; 80053; 85025; 87637; 87651; 96374; 99284; J1885

== ENCOUNTER 2023-04-19 15:27 | Emergency (ER) | payer BC, OTHER, SELFPAY ==
[2023-04-19 15:36] VITALS: BP 126/71; PULSE 74; RESP 12; TEMP 36.6; O2SAT 100
--- NOTE | 2023-04-19 16:00 | ED.GENADULT ---
HPI - General Adult General Chief complaint: Extremity Problem,Nontraumatic Stated complaint: Right Shoulder Pain/Both Hands Swollen Time Seen by Provider: 04/19/23 15:51 Source: patient, RN notes reviewed and old records reviewed Mode of arrival: ambulatory Limitations: no limitations History of Present Illness HPI narrative: 42-year-old patient to express care with complaint of bilateral hand swelling for pain for 3 days and right shoulder pain this started this morning. Patient endorses that she noticed shoulder pain upon opening her 's car door this morning. Patient reports no known injury to hands. Patient endorses history of arthritis. Related Data Home Medications Medication Instructions Recorded Confirmed propranolol 60 mg capsule,24 60 mg PO DAILY 04/19/23 04/19/23 hr,extended release quetiapine 100 mg tablet 100 mg PO DAILY 04/19/23 04/19/23 Allergies Allergy/AdvReac Type Severity Reaction Status Date / Time adhesive tape Allergy Mild BLISTERS Verified 04/19/23 15:45 miconazole Allergy Unknown Swelling Verified 04/19/23 15:45 tioconazole Allergy Unknown Swelling Verified 04/19/23 15:45 amoxicillin Allergy Nausea and Verified 04/19/23 15:45 Vomiting clavulanic acid AdvReac Intermediate Other Verified 04/19/23 15:45 [From Augmentin] eletriptan AdvReac Unknown Vomiting Verified 04/19/23 15:45 hydromorphone AdvReac Unknown Severe Verified 04/19/23 15:45 Vomiting sumatriptan AdvReac Unknown Vomiting Verified 04/19/23 15:45 Review of Systems Review of Systems: All systems reviewed & are unremarkable except as noted in HPI and below Constitutional: Constitutional: Reports no additional constitutional complaints Eyes: Eyes: Reports no additional eye complaints ENT: Reports system reviewed and no additional complaints, except as documented Cardiovascular: Cardiovascular: Reports no additional cardiovascular complaints, Denies chest pain and Denies dyspnea Respiratory: Respiratory: Reports no additional respiratory complaints, Denies cough and Denies dyspnea Musculoskeletal: Musculoskeletal: Denies muscle weakness, Denies numbness and Reports other ( endorses bilateral hand swelling and right shoulder pain) Neurologic: Reports system reviewed and no additional complaints, except as documented Psychiatric: Psychiatric: Reports no additional psychiatric complaints PMFSH Past Medical History Medical History Allergies Anxiety Arthritis Asthma Bilateral hand pain Blood in stool Bronchitis Carcinoma x2 Chronic constipation COVID-19 virus infection Depression Diabetes DM II (diabetes mellitus, type II), controlled Dysphagia Fibroids Fibromyalgia (~2012) GERD (gastroesophageal reflux disease) History of gastritis HSV infection Type 2 Hx of carpal tunnel syndrome Hx of fracture of wrist rt Hypercholesteremia IBS (irritable bowel syndrome) (~2012) Interstitial cystitis Lesion of stomach Migraine MVP (mitral valve prolapse) Odynophagia Postprandial abdominal bloating Weight loss Surgical History Surgical History H/O adenoidectomy H/O foot surgery H/O sinus surgery History of bilateral salpingo-oophorectomy 09/25/19 History of bilateral tubal ligation History of hysterectomy 09/25/2019, TLH Hx of tonsillectomy Previous section x2 Family History Family History Father Family history of malignant neoplasm of urinary bladder, Onset Age: 67 Family history of rheumatoid arthritis Family history of hypercholesterolemia Family history of mental disorder Hypertension Family history of alcoholism Carcinoma of colon, Onset Age: 67 Family history of lung cancer, Onset Age: 67 Family history of malignant neoplasm of brain, Onset Age: 67 Family history of hearing loss
== END 2023-04-19 16:15 | disposition home or self-care (01) ==
PROVIDERS: Emergency Provider Nurse Practitioner Family; PCP Physician Assistant
DX: S46.911A Strain of unspecified muscle, fascia and tendon at shoulder and upper arm level, right arm, initial encounter (principal); X58.XXXA Exposure to other specified factors, initial encounter; M19.042 Primary osteoarthritis, left hand; M19.041 Primary osteoarthritis, right hand; E11.9 Type 2 diabetes mellitus without complications; M79.7 Fibromyalgia; E78.00 Pure hypercholesterolemia, unspecified; I34.1 Nonrheumatic mitral (valve) prolapse; Z86.16 Personal history of COVID-19; F41.9 Anxiety disorder, unspecified; F32.A Depression, unspecified
CPT/HCPCS: 99212; G0463

== ENCOUNTER 2023-04-22 11:45 | Emergency (ER) | payer OTHER, BC, SELFPAY ==
[2023-04-22 11:47] VITALS: BP 127/69; PULSE 88; RESP 16; TEMP 36.6; O2SAT 100
--- NOTE | 2023-04-22 13:51 | ED.UPPEXIN ---
HPI - Extremity Injury (Upper) General Chief Complaint: Extremity Injury, Upper Stated Complaint: Right arm pain and swelling Time Seen by Provider: 04/22/23 13:51 Source: patient Mode of arrival: ambulatory Limitations: no limitations History of Present Illness HPI narrative: Nancy is a 42-year-old female patient presenting to the clinic today with complaints of right trapezius muscle pain with pain radiating down to her shoulder and down her arm. She reports that she has been taking ibuprofen without relief. Denies any neck injury or shoulder injury. Related Data Home Medications Medication Instructions Recorded Confirmed propranolol 60 mg capsule,24 60 mg PO DAILY 04/19/23 04/19/23 hr,extended release quetiapine 100 mg tablet 100 mg PO DAILY 04/19/23 04/19/23 Allergies Allergy/AdvReac Type Severity Reaction Status Date / Time adhesive tape Allergy Mild BLISTERS Verified 04/22/23 11:49 miconazole Allergy Unknown Swelling Verified 04/22/23 11:49 tioconazole Allergy Unknown Swelling Verified 04/22/23 11:49 amoxicillin Allergy Nausea and Verified 04/22/23 11:49 Vomiting clavulanic acid AdvReac Intermediate Other Verified 04/22/23 11:49 [From Augmentin] eletriptan AdvReac Unknown Vomiting Verified 04/22/23 11:49 hydromorphone AdvReac Unknown Severe Verified 04/22/23 11:49 Vomiting sumatriptan AdvReac Unknown Vomiting Verified 04/22/23 11:49 Review of Systems Review of Systems: Pertinent positives per HPI. Patient denies any fever, chills, rash, headache, visual changes, dizziness, cough, shortness of breath, chest pain, palpitations, nausea, vomiting, diarrhea, constipation, abdominal pain, or any urinary issues. [facility] Past Medical History Medical History Allergies Anxiety Arthritis Asthma Bilateral hand pain Blood in stool Bronchitis Carcinoma x2 Chronic constipation COVID-19 virus infection Depression Diabetes DM II (diabetes mellitus, type II), controlled Dysphagia Fibroids Fibromyalgia (~2012) GERD (gastroesophageal reflux disease) History of gastritis HSV infection Type 2 Hx of carpal tunnel syndrome Hx of fracture of wrist rt Hypercholesteremia IBS (irritable bowel syndrome) (~2012) Interstitial cystitis Lesion of stomach Migraine MVP (mitral valve prolapse) Odynophagia Postprandial abdominal bloating Weight loss Surgical History Surgical History H/O adenoidectomy H/O foot surgery H/O sinus surgery History of bilateral salpingo-oophorectomy 09/25/19 History of bilateral tubal ligation History of hysterectomy 09/25/2019, TLH Hx of tonsillectomy Previous section x2 Family History Family History Father Family history of malignant neoplasm of urinary bladder, Onset Age: 67 Family history of rheumatoid arthritis Family history of hypercholesterolemia Family history of mental disorder Hypertension Family history of alcoholism Carcinoma of colon, Onset Age: 67 Family history of lung cancer, Onset Age: 67 Family history of malignant neoplasm of brain, Onset Age: 67 Family history of hearing loss Family history of malignant neoplasm Grandparent Family history of thyroid disease Family history of obesity Family history of osteoporosis Depression Hypertension Family history of alcoholism Family history of arthritis Carcinoma of colon Family history of Alzheimer's disease Family history of lung cancer Family history of hearing loss Sibling Family history of mental disorder Hypertension Cerebrovascular accident Family history of development disorder Mother Depression Hypertension Family history of arthritis Family history of Alzheimer's disease Social History Social History Smoking pack
== END 2023-04-22 14:11 | disposition home or self-care (01) ==
PROVIDERS: Emergency Provider Nurse Practitioner Family; PCP Physician Assistant
DX: S46.811A Strain of other muscles, fascia and tendons at shoulder and upper arm level, right arm, initial encounter (principal); J45.909 Unspecified asthma, uncomplicated; E11.9 Type 2 diabetes mellitus without complications; M79.7 Fibromyalgia; K21.9 Gastro-esophageal reflux disease without esophagitis; K58.1 Irritable bowel syndrome with constipation; F32.A Depression, unspecified; I34.1 Nonrheumatic mitral (valve) prolapse; F41.9 Anxiety disorder, unspecified; F17.210 Nicotine dependence, cigarettes, uncomplicated; Z86.16 Personal history of COVID-19; Z90.79 Acquired absence of other genital organ(s); Z90.722 Acquired absence of ovaries, bilateral; Z90.710 Acquired absence of both cervix and uterus; X58.XXXA Exposure to other specified factors, initial encounter
CPT/HCPCS: 99283

== ENCOUNTER 2023-05-04 10:49 | Emergency (ER) | payer OTHER, BC, SELFPAY ==
[2023-05-04] VITALS (10 sets, daily range): BP systolic 111–137; BP diastolic 74–81; PULSE 64–72; RESP 12–19; TEMP 36.1–36.8; O2SAT 97–100
[2023-05-04 11:25] LABS: Glucose Point of Care 365 mg/dl (65-105)
[2023-05-04 11:34] LABS: Basophils Absolute Auto 0.1 K/mm3 (0.0-0.1); Basophils Percent Auto 0.6 % (0.2-1.2); Eosinophils Absolute Auto 0.1 K/mm3 (0-0.3); Eosinophils Percent Auto 1.1 % (0-4.4); Hematocrit 41.7 % (37.0-47.0); Hemoglobin 13.6 g/dL (12.0-15.0); Immature Granulocyte Absolute 0.05 K/mm3 (0.00-0.031); Immature Granulocyte Percent A 0.5 % (0-0.5); Lymphocytes Absolute Auto 4.37 K/mm3 (0.9-3.2); Mean Corpuscular HGB Conc 32.6 g/dl (32-36); Mean Corpuscular Volume 85.8 fl (80-100); Mean Platelet Volume 9.9 fl (7.4-10.4); Monocytes Absolute Auto 0.6 K/mm3 (0.1-0.6); Monocytes Percent Auto 6.4 % (2.6-8.5); Neutrophils Absolute Auto 4.5 K/mm3 (1.3-6.7); Neutrophils Percent Auto 46.4 % (45.5-73.1); Platelet Count Result 210 k/mm3 (150-375); Red Blood Count 4.86 M/mm3 (4.2-5.4); Red Cell Distribution Width 14.2 % (11.5-14.5); White Blood Count 9.7 K/mm3 (4.5-10.0)
--- NOTE | 2023-05-04 11:36 | ECG_ITS ---
Measurements Intervals [place] Rate: 70 P: 44 NC: 171 QRS: 65 QRSD: 75 T: 45 QT: 354 QTc: 382 Interpretive Statements SINUS RHYTHM BASELINE WANDER- I, II, AVR, AVL, V6 NORMAL ECG COMPARED TO ECG 11/11/2022 09:20:27 NO SIGNIFICANT CHANGES Electronically Signed On 05-04-2023 12:58:08 CDT by Mulugeta Simon D.O.
--- NOTE | 2023-05-04 11:37 | ED.RECABL ---
HPI - Recheck/Abnormal Lab/Rx General Chief Complaint: Recheck/Abnormal Lab/Rx Stated Complaint: high BG Time Seen by Provider: 05/04/23 11:06 Source: patient Mode of arrival: ambulatory Limitations: no limitations History of Present Illness HPI narrative: This is a 42-year-old female that presents to the emergency department for elevated blood sugar. Reports she has not been on her medication for diabetes in a couple of months. She was on Ozempic, but was having a lot of nausea and vomiting with this. She has not seen her PCP for further management of her diabetes. She checked her blood sugar and it was 400 which prompted her to be seen in the ER. Reports she has been having some trouble with reflux as well, she has not been taking her Omeprazole. Denies fever, chest pain, shortness of breath. Related Data Home Medications Medication Instructions Recorded Confirmed propranolol 60 mg capsule,24 60 mg PO DAILY 04/19/23 04/19/23 hr,extended release quetiapine 100 mg tablet 100 mg PO DAILY 04/19/23 04/19/23 Allergies Allergy/AdvReac Type Severity Reaction Status Date / Time adhesive tape Allergy Mild BLISTERS Verified 04/22/23 11:49 miconazole Allergy Unknown Swelling Verified 04/22/23 11:49 tioconazole Allergy Unknown Swelling Verified 04/22/23 11:49 clavulanic acid AdvReac Intermediate Other Verified 04/22/23 11:49 [From Augmentin] eletriptan AdvReac Unknown Vomiting Verified 04/22/23 11:49 hydromorphone AdvReac Unknown Severe Verified 04/22/23 11:49 Vomiting sumatriptan AdvReac Unknown Vomiting Verified 04/22/23 11:49 amoxicillin AdvReac Nausea and Verified 05/04/23 11:40 Vomiting Review of Systems Review of Systems: CONSTITUTIONAL: Denies fever CARDIOVASCULAR: Denies chest pain, or edema. RESPIRATORY: Denies dyspnea. GASTROINTESTINAL: Denies current nausea, vomiting All systems reviewed & are unremarkable except as noted in HPI and below PMFSH Past Medical History Medical History Allergies Anxiety Arthritis Asthma Bilateral hand pain Blood in stool Bronchitis Carcinoma x2 Chronic constipation COVID-19 virus infection Depression Diabetes DM II (diabetes mellitus, type II), controlled Dysphagia Fibroids Fibromyalgia (~2012) GERD (gastroesophageal reflux disease) History of gastritis HSV infection Type 2 Hx of carpal tunnel syndrome Hx of fracture of wrist rt Hypercholesteremia IBS (irritable bowel syndrome) (~2012) Interstitial cystitis Lesion of stomach Migraine MVP (mitral valve prolapse) Odynophagia Postprandial abdominal bloating Weight loss Surgical History Surgical History H/O adenoidectomy H/O foot surgery H/O sinus surgery History of bilateral salpingo-oophorectomy 09/25/19 History of bilateral tubal ligation History of hysterectomy 09/25/2019, TLH Hx of tonsillectomy Previous section x2 Family History Family History Father Family history of malignant neoplasm of urinary bladder, Onset Age: 67 Family history of rheumatoid arthritis Family history of hypercholesterolemia Family history of mental disorder Hypertension Family history of alcoholism Carcinoma of colon, Onset Age: 67 Family history of lung cancer, Onset Age: 67 Family history of malignant neoplasm of brain, Onset Age: 67 Family history of hearing loss Family history of malignant neoplasm Grandparent Family history of thyroid disease Family history of obesity Family history of osteoporosis Depression Hypertension Family history of alcoholism Family history of arthritis Carcinoma of colon Family history of Alzheimer's disease Family history of lung cancer Family history of hearing loss Sibling Family history of mental disorder Hypertension Cerebrovascular accident Family his
[2023-05-04 11:40] LABS: Appearance Urine Clear (Clear); Color Urine Yellow (Yellow)
[2023-05-04 11:41] LABS: Add Urine Microscopic? NO; Bilirubin Urine Negative (Negative); Blood Urine Negative (Negative); Glucose Urine UA 3+ mg/dL (Negative); Ketones Urine Negative (Negative); Leukocyte Esterase Ur Negative LEU/UL (Negative); Nitrate Urine Negative (Negative); Protein Urine Negative (Negative); Specific Grav Ur 1.025 (1.001-1.035); Urobilinogen Urine 0.2 mg/dL (<2.0); pH Urine 5.5 (5.0-9.0)
[2023-05-04 11:43] LABS: Alanine Aminotransferase 17 U/L (6-35); Albumin Level 4.2 g/dL (3.5-5.1); Alkaline Phosphatase 136 U/L (38-126); Anion Gap 5 mmol/L (4-12); Aspartate Amino Transferase 17 U/L (14-36); Bilirubin,Total 0.5 mg/dL (0.2-1.3); Blood Urea Nitrogen 21 mg/dL (7-17); Calcium 9.3 mg/dL (8.4-10.2); Carbon Dioxide 27 mmol/L (22-30); Chloride 101 mmol/L (98-107); Estimated CRCL calculation 87 ml/min; Estimated Glomerular Filt Rate > 60; Glucose 350 mg/dL (65-110); Phosphorus 3.9 mg/dL (2.5-4.5); Potassium 4.2 mmol/L (3.4-5.0); Sodium 133 mmol/L (137-145)
[2023-05-04 11:46] LABS: Beta-Hydroxybutyrate/Acetoacetate 0.05 mmol/L (0.02-0.27)
[2023-05-04] MEDS: ONDANSETRON INJ 4 MG/2 ML VIAL IV PUSH (11:53)
[2023-05-04] MEDS: PANTOPRAZOLE SODIUM IV 40 MG VIAL IV PUSH (11:53)
[2023-05-04 12:00] LABS: Troponin I < 0.012 ng/mL (0.000-0.034)
[2023-05-04 13:12] LABS: Hemoglobin A1C 8.7 % (<5.7)
== END 2023-05-04 13:00 | disposition home or self-care (01) ==
PROVIDERS: Emergency Provider Physician Assistant; PCP Physician Assistant
DX: E11.65 Type 2 diabetes mellitus with hyperglycemia (principal); K21.00 Gastro-esophageal reflux disease with esophagitis, without bleeding; F17.210 Nicotine dependence, cigarettes, uncomplicated; F41.9 Anxiety disorder, unspecified; M19.90 Unspecified osteoarthritis, unspecified site; J45.909 Unspecified asthma, uncomplicated; F32.A Depression, unspecified; K21.9 Gastro-esophageal reflux disease without esophagitis; Z91.148 Patient's other noncompliance with medication regimen for other reason
CPT/HCPCS: 36415; 80053; 81003; 82010; 82948; 83036; 83735; 84100; 84484; 85025; 93005; 96374; 96375; 99284; C9113; J2405

== ENCOUNTER 2023-06-19 08:07 | Outpatient (CLI) | payer BC, SELFPAY ==
--- NOTE | ~2023-06-19 | US_ITS ---
EXAMINATION: US abdomen complete DATE: 06/19/2023 08:35 INDICATION: Unspecified abdominal pain. TECHNIQUE: Multiple grayscale and Doppler ultrasound images of the abdomen were obtained. COMPARISON: CT abdomen and pelvis 03/09/2022 FINDINGS: Abdominal aorta is normal in caliber. Inferior vena cava is normal. The visualized portions of the head and body of the pancreas are normal. The liver is normal without focal lesion. There is normal flow in main portal vein. The gallbladder is normal in size. No gallstones or gallbladder wall thickening. There was no sonographic Louise's sign. The common duct is normal and measures 4 mm. The spleen is normal in size. The kidneys are normal in size. IMPRESSION: 1. Normal complete abdomen ultrasound. Reviewed, dictated and finalized at location E.
== END 2023-06-19 08:08 ==
PROVIDERS: PCP Physician Assistant; Visit Provider Physician Assistant
DX: R10.9 Unspecified abdominal pain (principal)
CPT/HCPCS: 76700

== ENCOUNTER 2023-08-04 16:46 | Emergency (ER) | payer BC, SELFPAY ==
--- NOTE | ~2023-08-04 | XR_ITS ---
EXAM: XR knee RT min 4V DATE: 08/04/2023 17:10 HISTORY: recent injury FALL/TWIST INJ TO RT KNEE ATTN LATEROINFERO . COMPARISON: 04/02/2020. FINDINGS: Normal mineralization. No fracture or dislocation. No lytic or blastic lesion. Mild tricom partmental osteoarthritis. No erosion or periosteal change. Soft tissues within normal limits. Small volume joint fluid. IMPRESSION: No acute osseous finding in the right knee. Reviewed, dictated and finalized at location K.
[2023-08-04 16:51] VITALS: BP 130/79; PULSE 79; RESP 14; TEMP 36.9; O2SAT 100
--- NOTE | 2023-08-04 17:16 | ED.LOWEXIN ---
HPI - Extremity Injury (Lower) General Chief Complaint: Extremity Injury, Lower Stated Complaint: R KNEECAP INJURY 5D AGO Time Seen by Provider: 08/04/23 16:56 Source: patient Mode of arrival: ambulatory Limitations: no limitations History of Present Illness HPI Narrative: Patient is a 43-year-old female who presents the ED with report of right knee pain. Patient reports she believes she dislocated her patella on Wednesday after tripping/falling and hitting her kitchen cabinet. She states she is able to reduce the patellar herself, however since then she has been having pain in the right knee. She states her kneecap looks more pointy than usual. she is able to ambulate, but has pain with this. Has been taking ibuprofen without much relief. Last took ibuprofen at 11:00 a.m.. Denies numbness or other injuries. Related Data Home Medications Medication Instructions Recorded Confirmed propranolol 60 mg capsule,24 60 mg PO DAILY 04/19/23 04/19/23 hr,extended release quetiapine 100 mg tablet 100 mg PO DAILY 04/19/23 04/19/23 Allergies Allergy/AdvReac Type Severity Reaction Status Date / Time adhesive tape Allergy Mild BLISTERS Verified 08/04/23 17:05 miconazole Allergy Unknown Swelling Verified 08/04/23 17:05 tioconazole Allergy Unknown Swelling Verified 08/04/23 17:05 clavulanic acid AdvReac Intermediate Other Verified 08/04/23 17:05 [From Augmentin] eletriptan AdvReac Unknown Vomiting Verified 08/04/23 17:05 hydromorphone AdvReac Unknown Severe Verified 08/04/23 17:05 Vomiting sumatriptan AdvReac Unknown Vomiting Verified 08/04/23 17:05 amoxicillin AdvReac Nausea and Verified 08/04/23 17:05 Vomiting Review of Systems Review of Systems: CONSTITUTIONAL: Denies fever, chills, or sweats. MUSCULOSKELETAL: See HPI NEUROLOGIC: Denies headache, dizziness, numbness, or weakness. All systems reviewed & are unremarkable except as noted in HPI and below PMFSH Past Medical History Medical History Allergies Anxiety Arthritis Asthma Bilateral hand pain Blood in stool Bronchitis Carcinoma x2 Chronic constipation COVID-19 virus infection Depression Diabetes DM II (diabetes mellitus, type II), controlled Dysphagia Fibroids Fibromyalgia (~2012) GERD (gastroesophageal reflux disease) History of gastritis HSV infection Type 2 Hx of carpal tunnel syndrome Hx of fracture of wrist rt Hypercholesteremia IBS (irritable bowel syndrome) (~2012) Interstitial cystitis Lesion of stomach Migraine MVP (mitral valve prolapse) Odynophagia Postprandial abdominal bloating Weight loss Surgical History Surgical History H/O adenoidectomy H/O foot surgery H/O sinus surgery History of bilateral salpingo-oophorectomy 09/25/19 History of bilateral tubal ligation History of hysterectomy 09/25/2019, TLH Hx of tonsillectomy Previous section x2 Family History Family History Father Family history of malignant neoplasm of urinary bladder, Onset Age: 67 Family history of rheumatoid arthritis Family history of hypercholesterolemia Family history of mental disorder Hypertension Family history of alcoholism Carcinoma of colon, Onset Age: 67 Family history of lung cancer, Onset Age: 67 Family history of malignant neoplasm of brain, Onset Age: 67 Family history of hearing loss Family history of malignant neoplasm Grandparent Family history of thyroid disease Family history of obesity Family history of osteoporosis Depression Hypertension Family history of alcoholism Family history of arthritis Carcinoma of colon Family history of Alzheimer's disease Family history of lung cancer Family history of hearing loss Sibling Family history of mental disorder Hypertension Cerebrovascular accident Fam
[2023-08-04] MEDS: ACETAMINOPHEN 500 MG TABLET 1000 MG PO (17:34)
[2023-08-04] MEDS: KETOROLAC (*BKC) 60 MG/2 ML VIAL IM (17:35)
== END 2023-08-04 18:20 | disposition home or self-care (01) ==
PROVIDERS: Emergency Provider Physician Assistant; PCP Physician Assistant
DX: M23.91 Unspecified internal derangement of right knee (principal); S89.91XA Unspecified injury of right lower leg, initial encounter; I34.1 Nonrheumatic mitral (valve) prolapse; J45.909 Unspecified asthma, uncomplicated; E11.9 Type 2 diabetes mellitus without complications; E78.00 Pure hypercholesterolemia, unspecified; N30.10 Interstitial cystitis (chronic) without hematuria; K21.9 Gastro-esophageal reflux disease without esophagitis; M79.7 Fibromyalgia; M19.90 Unspecified osteoarthritis, unspecified site; F32.A Depression, unspecified; F41.9 Anxiety disorder, unspecified; F17.210 Nicotine dependence, cigarettes, uncomplicated; Z86.16 Personal history of COVID-19; Z90.79 Acquired absence of other genital organ(s); Z90.722 Acquired absence of ovaries, bilateral; Z90.710 Acquired absence of both cervix and uterus; Z79.899 Other long term (current) drug therapy; Z79.84 Long term (current) use of oral hypoglycemic drugs; Z79.4 Long term (current) use of insulin; W01.198A Fall on same level from slipping, tripping and stumbling with subsequent striking against other object, initial encounter
CPT/HCPCS: 73564; 96372; 99283; A9270; J1885

== ENCOUNTER 2023-08-20 13:00 | Emergency (ER) | payer BC, SELFPAY ==
--- NOTE | ~2023-08-20 | XR_ITS ---
EXAMINATION: XR knee RT 3V DATE: 08/20/2023 14:23 INDICATION: Trauma to the right patella 3 weeks prior with possible dislocation TECHNIQUE: AP, lateral and sunrise views of the right knee were obtained COMPARISON: None. FINDINGS: Alignment is normal. There is an irregular contour along the inferomedial margin of the patella sugge stive of an impaction fracture related to a lateral patellar dislocation/relocation injury. No other fractures identified. No joint effusion/layering lipohemarthrosis. Soft tissues are unremarkable. IMPRESSION: 1. Likely impaction fracture along the inferomedial margin of the patella suggestive of a lateral pat ellar dislocation/relocation injury. Correlate for point tenderness along the inferomedial margin of the patella. Reviewed, dictated and finalized at location A. IMPRESSION: 1. Likely impaction fracture along the inferomedial margin of the patella sugge stive of a lateral patellar dislocation/relocation injury. Correlate for point tenderness along the inferomedial margin of the patella.
--- NOTE | ~2023-08-20 | US_ITS ---
EXAMINATION: US venous doppler LE DATE: 08/20/2023 14:13 INDICATION: Right lower limb pain and swelling TECHNIQUE: Grayscale ultrasound images without and with compression and Doppler ultrasound images of the right lower extremity veins were obtained. COMPARISON: 06/25/2017 FINDINGS: The visualized portions of right common femoral vein, profunda (deep) femoral vein, femoral vein, pop liteal vein, peroneal trunk, posterior tibial veins, peroneal veins, gastrocnemius vein and proximal to mid greater saphenous vein are patent. IMPRESSION: 1. No deep venous thrombosis in the right lower limb. Reviewed, dictated and finalized at location A.
[2023-08-20 13:07] VITALS: BP 119/75; PULSE 74; RESP 16; TEMP 36.7; O2SAT 100
--- NOTE | 2023-08-20 13:40 | ED.EXTPRO ---
HPI - Extremity Problem General Chief complaint: Extremity Problem,Nontraumatic Stated complaint: rule out dvt, injured R knee 07/29 Time Seen by Provider: 08/20/23 13:39 Source: patient Mode of arrival: ambulatory History of Present Illness HPI Narrative: PATIENT ACCIDENTALLY KICKED HER RIGHT KNEE ON THE [employer] JULY 30, 2023. BEEN HAVING PAIN AND THE RIGHT KNEE ANTERIORLY SINCE, WAS SEEN BY ORTHOPEDIC 1 WEEK AGO, REFERRED TO THE ER FOR EVALUATION AND GET VENOUS DOPPLER TO RULE OUT DEEP VEIN THROMBOSIS. Related Data Home Medications Medication Instructions Recorded Confirmed propranolol 60 mg capsule,24 60 mg PO DAILY 04/19/23 04/19/23 hr,extended release quetiapine 100 mg tablet 100 mg PO DAILY 04/19/23 04/19/23 Allergies Allergy/AdvReac Type Severity Reaction Status Date / Time adhesive tape Allergy Mild BLISTERS Verified 08/13/23 08:42 miconazole Allergy Unknown Swelling Verified 08/13/23 08:42 tioconazole Allergy Unknown Swelling Verified 08/13/23 08:42 clavulanic acid AdvReac Intermediate Other Verified 08/13/23 08:42 [From Augmentin] eletriptan AdvReac Unknown Vomiting Verified 08/13/23 08:42 hydromorphone AdvReac Unknown Severe Verified 08/13/23 08:42 Vomiting sumatriptan AdvReac Unknown Vomiting Verified 08/13/23 08:42 amoxicillin AdvReac Nausea and Verified 08/13/23 08:42 Vomiting Review of Systems Review of Systems: All systems reviewed & are unremarkable except as noted in HPI and below PMFSH Past Medical History Medical History Allergies Anxiety Arthritis Asthma Bilateral hand pain Blood in stool Bronchitis Carcinoma x2 Chronic constipation COVID-19 virus infection Depression Diabetes DM II (diabetes mellitus, type II), controlled Dysphagia Fibroids Fibromyalgia (~2012) GERD (gastroesophageal reflux disease) History of gastritis HSV infection Type 2 Hx of carpal tunnel syndrome Hx of fracture of wrist rt Hypercholesteremia IBS (irritable bowel syndrome) (~2012) Interstitial cystitis Lesion of stomach Migraine MVP (mitral valve prolapse) Odynophagia Postprandial abdominal bloating Weight loss Surgical History Surgical History H/O adenoidectomy H/O foot surgery H/O sinus surgery History of bilateral salpingo-oophorectomy 09/25/19 History of bilateral tubal ligation History of hysterectomy 09/25/2019, TLH Hx of tonsillectomy Previous section x2 Family History Family History Father Family history of malignant neoplasm of urinary bladder, Onset Age: 67 Family history of rheumatoid arthritis Family history of hypercholesterolemia Family history of mental disorder Hypertension Family history of alcoholism Carcinoma of colon, Onset Age: 67 Family history of lung cancer, Onset Age: 67 Family history of malignant neoplasm of brain, Onset Age: 67 Family history of hearing loss Family history of malignant neoplasm Grandparent Family history of thyroid disease Family history of obesity Family history of osteoporosis Depression Hypertension Family history of alcoholism Family history of arthritis Carcinoma of colon Family history of Alzheimer's disease Family history of lung cancer Family history of hearing loss Sibling Family history of mental disorder Hypertension Cerebrovascular accident Family history of development disorder Mother Depression Hypertension Family history of arthritis Family history of Alzheimer's disease Social History Social History Smoking packs per day: 0.5 Smoking cigarettes per day: 10.0 Smoking status: Current every day smoker Tobacco type: cigarettes Second hand tobacco smoke exposure: Yes Alcohol intake: current Drinks per week: 1 Alcohol use details: rarely S
--- NOTE | 2023-08-20 16:56 | PC.NURSE ---
Patient left before knee immobilizer placement. and discharge education
== END 2023-08-20 16:55 | disposition home or self-care (01) ==
PROVIDERS: Emergency Provider Emergency Medicine; PCP Physician Assistant
DX: S82.091A Other fracture of right patella, initial encounter for closed fracture (principal); M79.604 Pain in right leg; I34.1 Nonrheumatic mitral (valve) prolapse; J45.909 Unspecified asthma, uncomplicated; E11.9 Type 2 diabetes mellitus without complications; E78.00 Pure hypercholesterolemia, unspecified; K21.9 Gastro-esophageal reflux disease without esophagitis; K58.9 Irritable bowel syndrome, unspecified; M79.7 Fibromyalgia; F41.9 Anxiety disorder, unspecified; F32.A Depression, unspecified; F17.210 Nicotine dependence, cigarettes, uncomplicated; Z86.16 Personal history of COVID-19; Z90.722 Acquired absence of ovaries, bilateral; Z90.79 Acquired absence of other genital organ(s); Z90.710 Acquired absence of both cervix and uterus; Z79.899 Other long term (current) drug therapy; W22.8XXA Striking against or struck by other objects, initial encounter
CPT/HCPCS: 73562; 93971; 99284

== ENCOUNTER 2023-08-28 09:36 | Outpatient (CLI) | payer BC, SELFPAY ==
--- NOTE | ~2023-08-28 | MR_ITS ---
EXAMINATION: MR knee RT wo con DATE: 08/28/2023 10:31 INDICATION: Right knee pain TECHNIQUE: Magnetic resonance imaging (MRI) of the right knee was performed without intravenous contr ast. Sequences included coronal PD-weighted FSE, coronal PD-weighted FS FSE, sagittal T2-weighted FS E, sagittal PD-weighted FS FSE and axial PD weighted fat saturated FSE. COMPARISON: None. FINDINGS: Medial compartment: Medial meniscus is normal. Articular cartilage is normal. Lateral compartment: Lateral meniscus is normal. Articular cartilage is normal. Patellofemoral compartment: Deep chondral fissuring at the medial and lateral patellar facets and at the apical ridge with tiny s ubarticular cystlike change at the central aspect of the medial patellar facet. Trochlear cartilage i s normal. Ligaments and tendons: Anterior and posterior cruciate ligaments are normal. The medial collateral ligament and fibular brook ateral ligament complex are normal. The extensor mechanism is normal. The visualized medial and later al hamstring tendons as well as the iliotibial band are normal. Fluid: Physiologic amount of fluid in the joint space. No loose osteochondral bodies identified. Osseous/other: Normal marrow signal. No fracture or pathologic marrow replacing process. There is mild edema in the superficial suprapatellar fat pad which can be seen with fat pad impingement syndrome. IMPRESSION: 1. Moderate and high-grade patellar chondromalacia. The remaining femoral and tibial cartilage, the m enisci and stabilizing ligaments are all normal. 2. Edema in the superficial suprapatellar fat pad which can be seen with fat pad impingement syndrome . Reviewed, dictated and finalized at location A. IMPRESSION: 1. Moderate and high-grade patellar chondromalacia. The remaining femoral and t ibial cartilage, the menisci and stabilizing ligaments are all normal. 2. Edema in the superficial suprapatellar fat pad which can be seen with fat pa d impingement syndrome.
== END 2023-08-28 09:37 | disposition home or self-care (01) ==
PROVIDERS: PCP Physician Assistant; Visit Provider Physician Assistant Surgical
DX: M25.561 Pain in right knee (principal); R93.6 Abnormal findings on diagnostic imaging of limbs
CPT/HCPCS: 73721

== ENCOUNTER 2023-10-07 11:19 | Emergency (ER) | payer BC, SELFPAY ==
[2023-10-07 11:31] VITALS: BP 109/72; PULSE 70; RESP 16; TEMP 36.7; O2SAT 98
--- NOTE | 2023-10-07 12:21 | ED.URI ---
HPI - URI/Sore Throat General Chief Complaint: Upper Respiratory Infection Stated Complaint: covid exp, CASIANO,bodyaches,throat issue Time Seen by Provider: 10/07/23 12:23 Source: patient, RN notes reviewed and old records reviewed Mode of arrival: ambulatory Limitations: no limitations History of Present Illness HPI Narrative: Patient presents with 1 day history of cough, body aches, runny nose, headache. She has had a positive COVID-19 exposure. She denies any shortness of breath. She has been taking ibuprofen for her symptoms with good relief Related Data Home Medications Medication Instructions Recorded Confirmed propranolol 60 mg capsule,24 60 mg PO DAILY 04/19/23 10/07/23 hr,extended release quetiapine 100 mg tablet 100 mg PO DAILY 04/19/23 10/07/23 Allergies Allergy/AdvReac Type Severity Reaction Status Date / Time miconazole Allergy Severe Swelling Verified 10/07/23 12:05 tioconazole Allergy Severe Swelling Verified 10/07/23 12:05 adhesive tape Allergy Mild BLISTERS Verified 10/07/23 12:05 amoxicillin AdvReac Intermediate Nausea and Verified 10/07/23 12:05 Vomiting clavulanic acid AdvReac Intermediate Other Verified 10/07/23 12:05 [From Augmentin] eletriptan AdvReac Intermediate Vomiting Verified 10/07/23 12:05 hydromorphone AdvReac Intermediate Severe Verified 10/07/23 12:05 Vomiting sumatriptan AdvReac Intermediate Vomiting Verified 10/07/23 12:05 Review of Systems Review of Systems: All systems reviewed & are unremarkable except as noted in HPI and below Constitutional: Constitutional: Reports as per HPI, Reports no additional constitutional complaints, Reports body ache(s), Reports fever(s) and Reports headache(s) ENT: Reports system reviewed and no additional complaints, except as documented, Reports as per HPI, Reports headache(s), Reports nasal discharge and Reports sore throat Cardiovascular: Cardiovascular: Reports no additional cardiovascular complaints Respiratory: Respiratory: Reports as per HPI, Reports no additional respiratory complaints and Reports cough Gastrointestinal: Gastrointestinal: Reports no additional gastrointestinal complaints PMFSH Past Medical History Medical History Allergies Anxiety Arthritis Asthma Bilateral hand pain Blood in stool Bronchitis Carcinoma x2 Chronic constipation COVID-19 virus infection Depression Diabetes DM II (diabetes mellitus, type II), controlled Dysphagia Fibroids Fibromyalgia (~2012) GERD (gastroesophageal reflux disease) History of gastritis HSV infection Type 2 Hx of carpal tunnel syndrome Hx of fracture of wrist rt Hypercholesteremia IBS (irritable bowel syndrome) (~2012) Interstitial cystitis Lesion of stomach Migraine MVP (mitral valve prolapse) Odynophagia Postprandial abdominal bloating Weight loss Surgical History Surgical History H/O adenoidectomy H/O foot surgery H/O sinus surgery History of bilateral salpingo-oophorectomy 09/25/19 History of bilateral tubal ligation History of hysterectomy 09/25/2019, TLH Hx of tonsillectomy Previous section x2 Family History Family History Father Family history of malignant neoplasm of urinary bladder, Onset Age: 67 Family history of rheumatoid arthritis Family history of hypercholesterolemia Family history of mental disorder Hypertension Family history of alcoholism Carcinoma of colon, Onset Age: 67 Family history of lung cancer, Onset Age: 67 Family history of malignant neoplasm of brain, Onset Age: 67 Family history of hearing loss Family history of malignant neoplasm Grandparent Family history of thyroid disease Family history of obesity Family history of osteoporosis Depression Hypertension Family history of alcoholism Family history of arthritis Carcinom
== END 2023-10-07 13:06 | disposition home or self-care (01) ==
PROVIDERS: Emergency Provider Nurse Practitioner Family; PCP Physician Assistant
DX: J06.9 Acute upper respiratory infection, unspecified (principal); Z20.822 Contact with and (suspected) exposure to COVID-19; F17.210 Nicotine dependence, cigarettes, uncomplicated; F12.90 Cannabis use, unspecified, uncomplicated; J45.909 Unspecified asthma, uncomplicated; E11.9 Type 2 diabetes mellitus without complications; M79.7 Fibromyalgia; E78.00 Pure hypercholesterolemia, unspecified; I34.1 Nonrheumatic mitral (valve) prolapse
CPT/HCPCS: 87426; 99213; G0463

== ENCOUNTER 2023-10-25 12:25 | Emergency (ER) | payer BC, SELFPAY ==
--- NOTE | ~2023-10-25 | XR_ITS ---
EXAMINATION: XR chest 2V DATE: 10/25/2023 14:19 INDICATION: Cough. TECHNIQUE: Frontal and lateral views of the chest were obtained. COMPARISON: Chest 2 views 11/11/2022 FINDINGS: There is no pneumonia, pleural effusion, or pneumothorax. The heart size is normal. IMPRESSION: 1. No acute cardiopulmonary disease. Reviewed, dictated and finalized at location A.
[2023-10-25 12:34] LABS: Glucose Point of Care 250 mg/dl (65-105)
[2023-10-25 12:35] VITALS: BP 135/82; PULSE 102; RESP 18; TEMP 36.1; O2SAT 98
--- NOTE | 2023-10-25 13:53 | ED.RECABL ---
HPI - Recheck/Abnormal Lab/Rx General Chief Complaint: Recheck/Abnormal Lab/Rx <Kathleen Bailey APRN - Last Filed: 10/25/23 14:00> Stated Complaint: high blood sugar <Kathleen Bailey APRN - Last Filed: 10/25/23 14:00> Time Seen by Provider: 10/25/23 13:45 <Kathleen Bailey APRN - Last Filed: 10/25/23 14:00> Focused HPI: Pt is a 43-year-old female who presents with elevated blood sugar. She has had diabetes for about ten years, which is usually well-controlled but this morning it was 330. Pt reports she has had a cough for a couple weeks and has had a headache. She normally takes insulin to control her blood sugar. Pt denies shortness of breath, chest pain, and numbness/tingling. GENERAL: Well-appearing, well-nourished, and in no acute distress. HEAD: Normocephalic, atraumatic. CHEST: Clear to auscultation. ?No respiratory distress. HEART: Regular rate and rhythm.? NEURO: ?Alert and oriented x3. Patient screened in triage and initial orders placed.? ?Additional care and disposition to be based upon?diagnostic testing and treatment. <Kathleen Bailey APRN - Last Filed: 10/25/23 14:00> History of Present Illness HPI narrative: Agree with HPI. Patient having mild congestion. Reports her blood sugar increases when she has an infection. She had not been checking her blood sugar for few days because her dexcom was not working so she switched to her Accu-Chek machine. No fevers or chills. No chest pain or chest pressure. No vomiting. Takes 15 units of long-acting insulin at night. <Niels Ozuna MD - Last Filed: 10/25/23 17:49> Related Data Home Medications: Home Medications Medication Instructions Recorded Confirmed quetiapine 100 mg tablet 100 mg PO DAILY 04/19/23 10/22/23 <Kathleen Bailey APRN - Last Filed: 10/25/23 14:00> Allergies/Adverse Reactions: Allergies Allergy/AdvReac Type Severity Reaction Status Date / Time miconazole Allergy Severe Swelling Verified 10/07/23 12:05 tioconazole Allergy Severe Swelling Verified 10/07/23 12:05 adhesive tape Allergy Mild BLISTERS Verified 10/07/23 12:05 amoxicillin AdvReac Intermediate Nausea and Verified 10/07/23 12:05 Vomiting clavulanic acid AdvReac Intermediate Other Verified 10/07/23 12:05 [From Augmentin] eletriptan AdvReac Intermediate Vomiting Verified 10/07/23 12:05 hydromorphone AdvReac Intermediate Severe Verified 10/07/23 12:05 Vomiting sumatriptan AdvReac Intermediate Vomiting Verified 10/07/23 12:05 <Kathleen Bailye APRN - Last Filed: 10/25/23 14:00> Review of Systems Review of Systems: All systems reviewed & are unremarkable except as noted in HPI and below <Niels Ozuna MD - Last Filed: 10/25/23 17:49> Constitutional: Constitutional: Reports no additional constitutional complaints <Niels Ozuna MD - Last Filed: 10/25/23 17:49> ENT: Reports nasal congestion and Denies sore throat <Niels Ozuna MD - Last Filed: 10/25/23 17:49> Cardiovascular: Cardiovascular: Reports no additional cardiovascular complaints <Niels Ozuna MD - Last Filed: 10/25/23 17:49> Respiratory: Respiratory: Reports no additional respiratory complaints <Niels Ozuna MD - Last Filed: 10/25/23 17:49> Gastrointestinal: Gastrointestinal: Reports no additional gastrointestinal complaints <Niels Ozuna MD - Last Filed: 10/25/23 17:49> [facility] Past Medical History Medical History: Medical History Allergies Anxiety Arthritis Asthma Bilateral hand pain Blood in stool Bronchitis Carcinoma x2 Chronic constipation COVID-19 virus infection Depression Diabetes DM II (diabetes mellitus, type II), controlled Dysphagia Fibroids Fibromyalgia (~2012) GERD (gastroesophageal reflux disease) History of gastritis HSV infection Type 2 Hx of carpal tunnel syndrome Hx of fracture of wrist rt Hypercholesteremia
[2023-10-25 14:21] LABS: Basophils Absolute Auto 0.1 K/mm3 (0.0-0.1); Basophils Percent Auto 0.9 % (0.2-1.2); Eosinophils Absolute Auto 0.1 K/mm3 (0-0.3); Eosinophils Percent Auto 1.7 % (0-4.4); Hematocrit 39.2 % (37.0-47.0); Hemoglobin 13.2 g/dL (12.0-15.0); Immature Granulocyte Absolute 0.03 K/mm3 (0.00-0.031); Immature Granulocyte Percent A 0.4 % (0-0.5); Lymphocytes Absolute Auto 2.71 K/mm3 (0.9-3.2); Lymphocytes Percent Auto 35.1 % (18.3-44.2); Mean Corpuscular HGB Conc 33.7 g/dl (32-36); Mean Corpuscular Hemoglobin 28.9 pg (26-34); Mean Platelet Volume 9.6 fl (7.4-10.4); Monocytes Absolute Auto 0.6 K/mm3 (0.1-0.6); Monocytes Percent Auto 7.8 % (2.6-8.5); Neutrophils Absolute Auto 4.2 K/mm3 (1.3-6.7); Neutrophils Percent Auto 54.1 % (45.5-73.1); Platelet Count Result 186 k/mm3 (150-375); Red Blood Count 4.56 M/mm3 (4.2-5.4); Red Cell Distribution Width 13.4 % (11.5-14.5); White Blood Count 7.7 K/mm3 (4.5-10.0)
[2023-10-25 14:34] LABS: BEDSIDEPREGUCG Negative (Negative)
[2023-10-25] MEDS: SODIUM CHLORIDE 0.9% IV 1,000 ML 999 ML IV CONT (14:35)
[2023-10-25 14:38] VITALS: BP 115/56; PULSE 86; RESP 16; O2SAT 96
[2023-10-25 14:40] LABS: Add Urine Microscopic? NO; Appearance Urine Clear (Clear); Bilirubin Urine Negative (Negative); Blood Urine Negative (Negative); Color Urine Yellow (Yellow); Glucose Urine UA 1+ mg/dL (Negative); Ketones Urine Negative (Negative); Leukocyte Esterase Ur Negative LEU/UL (Negative); Nitrate Urine Negative (Negative); Protein Urine Negative (Negative); Specific Grav Ur 1.012 (1.001-1.035); Urobilinogen Urine 0.2 mg/dL (<2.0)
[2023-10-25 14:40] LABS: Alanine Aminotransferase 19 U/L (6-35); Alkaline Phosphatase 145 U/L (38-126); Anion Gap 8 mmol/L (4-12); Aspartate Amino Transferase 22 U/L (14-36); Bilirubin,Total 0.4 mg/dL (0.2-1.3); Blood Urea Nitrogen 20 mg/dL (7-17); Calcium 8.9 mg/dL (8.4-10.2); Carbon Dioxide 25 mmol/L (22-30); Chloride 100 mmol/L (98-107); Estimated CRCL calculation 92 ml/min; Estimated Glomerular Filt Rate > 60; Glucose 237 mg/dL (65-110); Phosphorus 3.5 mg/dL (2.5-4.5); Sodium 133 mmol/L (137-145)
--- NOTE | 2023-10-25 14:42 | PC.NURSE ---
pt blood sugar checked at this time. it was 250
[2023-10-25 14:43] LABS: Glucose Point of Care 250 mg/dl (65-105)
[2023-10-25 14:45] LABS: Beta-Hydroxybutyrate/Acetoacetate 0.11 mmol/L (0.02-0.27)
[2023-10-25 14:56] LABS: Influenza A QL RT-PCR Negative (Negative); Influenza B QL RT-PCR Negative (Negative); RSV RNA, RT-PCR Negative (Negative); SARS-CoV-2 RNA PCR Negative (Negative)
[2023-10-25 16:12] VITALS: BP 122/76; PULSE 79; RESP 18; TEMP 36.2; O2SAT 98
== END 2023-10-25 19:17 | disposition home or self-care (01) ==
PROVIDERS: Registered Nurse; Emergency Provider Emergency Medicine; PCP Internal Medicine
DX: E11.65 Type 2 diabetes mellitus with hyperglycemia (principal); Z20.822 Contact with and (suspected) exposure to COVID-19; I34.1 Nonrheumatic mitral (valve) prolapse; J44.9 Chronic obstructive pulmonary disease, unspecified; E78.00 Pure hypercholesterolemia, unspecified; N30.10 Interstitial cystitis (chronic) without hematuria; K21.9 Gastro-esophageal reflux disease without esophagitis; K58.9 Irritable bowel syndrome, unspecified; M79.7 Fibromyalgia; M19.90 Unspecified osteoarthritis, unspecified site; F41.9 Anxiety disorder, unspecified; F17.210 Nicotine dependence, cigarettes, uncomplicated; Z90.722 Acquired absence of ovaries, bilateral; Z90.79 Acquired absence of other genital organ(s); Z86.16 Personal history of COVID-19; Z85.9 Personal history of malignant neoplasm, unspecified; Z79.4 Long term (current) use of insulin; Z79.899 Other long term (current) drug therapy; Z90.710 Acquired absence of both cervix and uterus
CPT/HCPCS: 36415; 71046; 80053; 81003; 81025; 82010; 82948; 83735; 84100; 85025; 87637; 96360; 96361; 99283; J7030

== ENCOUNTER 2024-01-07 09:45 | Emergency (ER) | payer BC, SELFPAY ==
--- NOTE | ~2024-01-07 | XR_ITS ---
EXAMINATION: XR ankle RT min 3V DATE: 01/07/2024 11:36 INDICATION: 3 weeks of lateral right ankle pain TECHNIQUE: Anteroposterior, oblique, mortise, and lateral views of the right ankle were obtained. COMPARISON: None. FINDINGS: Alignment is normal. No fracture. Joint spaces are well maintained. No ankle joint effusion. Small Achilles and plantar calcaneal spurs. The soft tissues are unremarkable. IMPRESSION: 1. Small Achilles and plantar calcaneal enthesophytes. Reviewed, dictated and finalized at location A. ONTRACT ADMINISTRATOR
[2024-01-07 10:10] VITALS: BP 121/81; PULSE 80; RESP 16; TEMP 36.8; O2SAT 99
--- NOTE | 2024-01-07 11:12 | ED_ITS ---
HPI - Extremity Injury (Lower) General Chief Complaint: Extremity Injury, Lower Stated Complaint: Right Ankle/Foot Pain and Swelling Time Seen by Provider: 01/07/24 11:12 Source: patient, RN notes reviewed and old records reviewed Mode of arrival: ambulatory Limitations: no limitations History of Present Illness HPI Narrative: Patient presents with complaints of right lateral ankle pain that has been present for 3 weeks. She reports that about 3 weeks ago she tripped over her dog. Has had pain with weight-bearing ever since. She states that she has been taking Tylenol with no relief. Last dose 2 days ago. States that she has been icing and elevating the affected ankle, standing on concrete floors at work makes pain worse. Rest makes pain better. No obvious deformity. No other concerns or complaints. Denies other injury and trauma Related Data Home Medications Medication Instructions Recorded Confirmed quetiapine 100 mg tablet 100 mg PO DAILY 04/19/23 01/07/24 Allergies Allergy/AdvReac Type Severity Reaction Status Date / Time miconazole Allergy Severe Swelling Verified 01/07/24 11:14 tioconazole Allergy Severe Swelling Verified 01/07/24 11:14 adhesive tape Allergy Mild BLISTERS Verified 01/07/24 11:14 amoxicillin AdvReac Intermediate Nausea and Verified 01/07/24 11:14 Vomiting clavulanic acid AdvReac Intermediate Other Verified 01/07/24 11:14 [From Augmentin] eletriptan AdvReac Intermediate Vomiting Verified 01/07/24 11:14 hydromorphone AdvReac Intermediate Severe Verified 01/07/24 11:14 Vomiting sumatriptan AdvReac Intermediate Vomiting Verified 01/07/24 11:14 Review of Systems Review of Systems: All systems reviewed & are unremarkable except as noted in HPI and below Constitutional: Constitutional: Reports no additional constitutional complaints ENT: Reports system reviewed and no additional complaints, except as documented Cardiovascular: Cardiovascular: Reports no additional cardiovascular complaints Respiratory: Respiratory: Reports no additional respiratory complaints Gastrointestinal: Gastrointestinal: Reports no additional gastrointestinal complaints Musculoskeletal: Musculoskeletal: Reports no additional musculoskeletal complaints, Reports as per HPI, Reports arthralgias and Denies joint swelling PMFSH Past Medical History Medical History Allergies Anxiety Arthritis Asthma Bilateral hand pain Blood in stool Bronchitis Carcinoma x2 Chronic constipation COVID-19 virus infection Depression Diabetes DM II (diabetes mellitus, type II), controlled Dysphagia Fibroids Fibromyalgia (~2012) GERD (gastroesophageal reflux disease) History of gastritis HSV infection Type 2 Hx of carpal tunnel syndrome Hx of fracture of wrist rt Hypercholesteremia IBS (irritable bowel syndrome) (~2012) Interstitial cystitis Lesion of stomach Migraine MVP (mitral valve prolapse) Odynophagia Postprandial abdominal bloating Weight loss Surgical History Surgical History H/O adenoidectomy H/O foot surgery H/O sinus surgery History of bilateral salpingo-oophorectomy 09/25/19 History of bilateral tubal ligation History of hysterectomy 09/25/2019, TLH Hx of tonsillectomy Previous section x2 Family History Family History Father Family history of malignant neoplasm of urinary bladder, Onset Age: 67 Family history of rheumatoid arthritis Family history of hypercholesterolemia Family history of mental disorder Hypertension Family history of alcoholism Carcinoma of colon, Onset Age: 67 Family history of lung cancer, Onset Age: 67 Family history of malignant neoplasm of brain, Onset Age: 67 Family history of hearing loss Family history of malignant neoplasm Grandparent Family history of thyroid disease Family history of obesity Family history of osteoporosis Depression Hypertension Family history of alcoholism Family history of arthritis Carcinoma of colon Family history of Alzheimer's disease Family history of lung cancer Family history of hearing loss Sibling Family history of mental disorder Hypertension Cerebrovascular accident Family history of development disorder Mother Depression Hypertension Family history of arthritis Family history of Alzheimer's disease Social History Social History Smoking packs per day: 0.5 Smoking cigarettes per day: 10.0 Smoking status: Current every day smoker Tobacco type: cigarettes Second hand tobacco smoke exposure: Yes Alcohol intake: current Drinks per week: 1 Alcohol use details: rarely Substance use: current Substance use type: marijuana Do You Feel Safe in your Home?: Yes Lack of Transportation: No Lack of Food: Sometimes True Current Housing: I Have Housing Concerned About Future Housing: No Difficulty Paying Gas/Electric Bills: YES Difficulty Paying for Meds: YES Currently Unemployed: No Education: Associate Degree Difficulty w/ Childcare or Family Care: No Living arrangements: with family Occupation/Education: occupation 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 There is no relevant family his tory pertinent to the patient complaint. Exam Const: General: cooperative, no acute distress, alert and awake Orientation/consciousness: oriented to person, oriented to place and oriented to time HENMT: Head: normal to inspection Resp: Effort & Inspection: normal respiratory effort and able to speak in complete sentences Auscultation: clear to auscultation bilaterally, no crackles, no rales, no rhonchi and no wheezes Cardio: Palpation: normal PMI Rate: regular rate Rhythm: regular rhythm Heart sounds: S1 normal heart sound present and S2 normal heart sound present Neuro: General: oriented to person, oriented to place and oriented to time Cranial nerves: Yes CN's II-XII intact bilaterally Extrem: Right lower extremity: normal to inspection, full ROM, no joint enlargement and ankle Details: normal to inspection, tenderness Location: of the lateral malleolus, no edema and normal ROM; no swelling and no ecchymosis Psych: Appearance: grossly normal Thought process: Normal thought process present Insight: Good insight present (Psych) Judgement: Good judgement present (Psych) Course Course Level of Care: Express Care Visit Vital Signs Vital signs: Vital Signs Pulse Rate 80 01/07/24 10:10 Respiratory Rate 16 01/07/24 10:10 Blood Pressure 121/81 01/07/24 10:10 Pulse Oximetry 99 01/07/24 10:10 Oxygen Delivery Room Air 01/07/24 10:10 Pulse Rate 80 01/07/24 10:10 Respiratory Rate 16 01/07/24 10:10 Blood Pressure 121/81 01/07/24 10:10 Pulse Oximetry 99 01/07/24 10:10 Oxygen Delivery Room Air 01/07/24 10:10 Reviewed MDM - Extremity Injury (Lower) Imaging Data My impression: no fracture Radiologist's impression: [facility] [address] [place] [address] XRay Report Signed Patient: Alisia Emerson : 1980 MR#: [id number] Age: 43 Acct:[id number] Loc: [facility] ADM Date: 01/07/24Attending Dr: Ordering Physician: Isabella Rebolledo FNP Date of Service: 01/07/24 Procedure(s): XR ankle RT min 3V Accession Number(s): [id number] cc: Isabella Rebolledo FNP; SmithaEnio DO~ EXAMINATION: XR ankle RT min 3V DATE: 01/07/2024 11:36 INDICATION: 3 weeks of lateral right ankle pain TECHNIQUE: Anteroposterior, oblique, mortise, and lateral views of the right ankle were obtained. COMPARISON: None. FINDINGS: Alignment is normal. No fracture. Joint spaces are well maintained. No ankle joint effusion. Small Achilles and plantar calcaneal spurs. The soft tissues are unremarkable. IMPRESSION: 1. Small Achilles and plantar calcaneal enthesophytes. Reviewed, dictated and finalized at location A. E LEAD FILTERER Dictated By: Terry Cui MD 01/07/24 1136 Signed By: <Electronically signed by Terry Cui MD in OV> 01/07/24 1137 Discharge Plan Discharge Clinical Impression: Musculoskeletal pain Patient Disposition: Home, Self-Care Condition: Stable Instructions: Antibiotic Form, P.R.I.C.E. Treatment (ED) Additional Instructions: Follow-up with primary care provider. Emergency department for any new or worsening symptoms Patient Language: Greenlandic Prescriptions: No Action quetiapine 100 mg tablet 100 mg PO DAILY (DME) Sharps Container Misc See Rx Instructions .Route Qty: 1 5RF Rx Instructions: As directed naproxen 500 mg tablet 500 mg PO BID Qty: 60 1RF (DME) lancets [FreeStyle Lancets] 28 gauge misc See Rx Instructions .Route Qty: 100 0RF Rx Instructions: As directed estradiol 1 mg tablet 1 mg PO DAILY Qty: 90 3RF bupropion HCl 300 mg tablet extended release 24 hr 300 mg PO QAM Qty: 90 1RF (DME) Dexcom G7 Hand Roller Misc See Rx Instructions .Route Qty: 1 0RF Rx Instructions: As directed omeprazole 40 mg capsule,delayed release(DR/EC) 40 mg PO DAILY Qty: 90 3RF (DME) pen needle, diabetic [BD Ev 2nd Gen Pen Needle] 32 gauge x 5/32 ne edle See Rx Instructions .ROUTE .COMPLEX Qty: 100 3RF Dose Instruction: USE WITH INSULIN ONCE DAILY Rx Instructions: USE WITH INSULIN ONCE DAILY insulin glargine U-300 conc [Toujeo Max U-300 SoloStar] 300 unit/mL (3 mL) insulin pen 15 unit subcut QHS Qty: 18 1RF (DME) Dexcom G7 Sensor Device See Rx Instructions .Route Qty: 6 2RF Rx Instructions: As directed venlafaxine 75 mg capsule,extended release 24hr 75 mg PO DAILY Qty: 90 1RF atorvastatin 20 mg tablet 20 mg PO DAILY Qty: 90 2RF buspirone 15 mg tablet 15 mg PO BID Qty: 180 2RF cyclobenzaprine 10 mg tablet 10 mg PO QHS PRN (Reason: muscle spasm) Qty: 30 0RF Follow-up/Referrals: Enio Bone DO [Primary Care Provider] - 1 Week Stand Alone Forms: Work/School Release IP Time of Disposition: 11:49
== END 2024-01-07 11:59 | disposition home or self-care (01) ==
PROVIDERS: Emergency Provider Nurse Practitioner Family; PCP Internal Medicine
DX: M25.571 Pain in right ankle and joints of right foot (principal); J45.909 Unspecified asthma, uncomplicated; M19.90 Unspecified osteoarthritis, unspecified site; E11.9 Type 2 diabetes mellitus without complications; M79.7 Fibromyalgia; K21.9 Gastro-esophageal reflux disease without esophagitis; E78.00 Pure hypercholesterolemia, unspecified; I34.1 Nonrheumatic mitral (valve) prolapse; F32.A Depression, unspecified
CPT/HCPCS: 73610; 99213; G0463

== ENCOUNTER 2024-06-23 10:39 | Outpatient (CLI) | payer BC, SELFPAY ==
--- NOTE | ~2024-06-23 | US_ITS ---
Thyroid ultrasound. Clinical History: Dysphagia Findings: Real-time sonography of the thyroid gland was performed. The right lobe measures 5.5 x 1.4 x 1.6 cm. The left lobe measures 4.7 x 1.8 x 1.5 cm. The isthmus is 4 mm in AP diameter. No thyroid nodule seen. Impression: No significant abnormality seen. No thyroid nodule seen.. Reviewed, dictated and finalized at location . Impression: No significant abnormality seen. No thyroid nodule seen..
== END 2024-06-23 10:40 | disposition home or self-care (01) ==
LOC: MICIMG 06-24 10:40
PROVIDERS: PCP Nurse Practitioner Family; Visit Provider Nurse Practitioner Family
DX: R13.10 Dysphagia, unspecified (principal)
CPT/HCPCS: 76536

== ENCOUNTER 2024-07-11 14:21 | Outpatient (CLI) | payer BC, SELFPAY ==
--- OUTSIDE RECORDS SUMMARY | 2024-07-11 14:27 | XMS_ITS | Clinical Summary ---
Author Organization [facility] [address] Address [address] [place] [address] Care Team Providers Care Sand Technologist Name Role Phone Dontae Elliott Primary Care Provider Allergies Active Allergy Reactions Criticality Noted Date Comments Adhesive Redness Low 03/21/2012 Adhesive Tape-Silicones Blisters High 02/16/2018 Hydromorphone Vomiting Low 02/16/2018 Sumatriptan Vomiting Low 02/16/2018 Metronidazole Hives Medium 07/08/2017 Tioconazole Swelling Medium 02/16/2018 Medications gabapentin (NEURONTIN) 300 mg capsule Take 300 mg by mouth 3 (three) times a day 02/10/2019 Active metFORMIN (GLUCOPHAGE) 500 mg tablet Take 500 mg by mouth daily 01/22/2019 Active venlafaxine XR (EFFEXOR-XR) 75 mg 24 hr capsule Take 75 mg by mouth daily 02/08/2019 Active metoprolol XL (TOPROL-XL) 25 mg 24 hr tablet Take 25 mg by mouth daily 01/27/2019 Active DEXILANT 60 mg capsule Take 60 mg by mouth daily 01/22/2019 Active atorvastatin (LIPITOR) 10 mg tablet Take 10 mg by mouth daily 01/23/2019 Active lisinopril (PRINIVIL,ZESTRI L) 5 mg tablet Take 5 mg by mouth daily 01/22/2019 Active buPROPion XL (WELLBUTRIN XL) 300 mg 24 hr tablet 12/16/2020 Active BASAGLAR 100 unit/mL (3 mL) pen for injection 11/12/2020 Active Active Problems Problem Noted Date Diagnosed Date Mitral valve prolapse 02/18/2019 Chronic fatigue 02/18/2019 Precordial pain 02/16/2019 Tachycardia 02/16/2019 Surgical History Surgery Date Site/Laterality Comments SECTION TONSILECTOMY, ADENOIDECTOMY, BILATERAL MYRINGOTOMY AND TUBES Tonsilectomy Medical History Medical History Date Comments Obesity Hypertension Diabetes mellitus (HCC) Sinusitis Wears dentures Allergic rhinitis Ulcer, gastric, acute Depression Anxiety Asthma Interstitial cystitis Arthritis Hypercholesteremia Plantar fasciitis Migraine Family History Medical History Relation Name Comments Cardiomyopathy Brother 1 Awaiting parish splant, has ICD Prob CAD Brother 1 morbid obesity Brother 1 Heart disease Brother 2 Hyperlipidemia Brother 2 Hypertension Brother 2 Bladder Cancer Father Hyperlipidemia Mother Hypertension Mother Hypertension Sister 1 Relation Name Status Comments Brother 1 Alive Brother 2 Alive Father Mother Alive Sister 1 Alive Sister 2 Alive Social History Tobacco Use Types Packs/Day Years Used Date Smoking Tobacco: Every Day Smokeless Tobacco: Never Tobacco Cessation:Ready to Q uit: No; Counseling Given: Yes Alcohol Use Standard Drinks/Week Comments Yes 0 (1 standard drink = 0.6 oz pur e alcohol) AUDIT-C Answer Date Recorded Frequency of Alcohol Consumption Monthly or less 02/16/2019 Average Number of Drinks Not on file 020 Frequency of Binge Drinking Not on file 10/2019 Personal Safety Answer Date Recorded Getting School Help Needed Not on file 04/09 Comments No Sex and Gender Information Value Date Recorded Sex Assigned at Not on file Legal Sex Female 2:49 PM PEACE OFFICER Gender Identity Not on file Sexual Orientation Not on file Obstetrics History Last Filed Vital Signs Vital Sign Reading Time Taken Comments Blood Pressure 117/84 03/06/2021 10:19 AM PEACE OFFICER Pulse 109 03/06/2021 10:19 AM PEACE OFFICER Temperature 37 C (98.6 F) 03/18/2021 3:30 PM PEACE OFFICER Respiratory Rate 16 03/06/2021 10:19 AM PEACE OFFICER Oxygen Saturation 98% 03/06/2021 10:19 AM PEACE OFFICER Inhaled Oxygen Concentration - - Weight 85.7 kg (189 lb) 03/06/2021 10:19 AM PEACE OFFICER Height 167.6 cm (5' 6) 03/06/2021 10:19 AM PEACE OFFICER Body Mass Index 30.51 03/06/2021 10:19 AM PEACE OFFICER Plan of Treatment Not on file Insurance [facility] Care Teams Sand Technologist Relationship Specialty Start Date End Date Dontae Elliott PA [address] [facility] [address] [place] [address] PCP - General Physician Ledger Poster 02/09/18
--- OUTSIDE RECORDS SUMMARY | 2024-07-11 14:27 | XMS_ITS | Referral Summary ---
Author Organization [facility] [address] Address [address] [place] [address] Care Team Providers Care Commissary Manager Name Role Phone Dontae Elliott Primary Care [...] fatigue 02/18/2019 Precordial pain 02/16/2019 Tachycardia 02/16/2019 Social History Tobacco Use Types Packs/Day Years [...] on file Legal Sex Female 2:49 PM DOCK GUARD Gender Identity Not on file Sexual Orientation Not on file Last Filed Vital Signs Vital Sign Reading Time Taken Comments Blood Pressure 117/84 03/06/2021 10:19 AM DOCK GUARD Pulse 109 03/06/2021 10:19 AM DOCK GUARD Temperature 37 C (98.6 F) 03/18/2021 3:30 PM DOCK GUARD Respiratory Rate 16 03/06/2021 10:19 AM DOCK GUARD Oxygen Saturation 98% 03/06/2021 10:19 AM DOCK GUARD Inhaled Oxygen Concentration - - Weight 85.7 kg (189 lb) 03/06/2021 10:19 AM DOCK GUARD Height 167.6 cm (5' 6) 03/06/2021 10:19 AM DOCK GUARD Body Mass Index 30.51 03/06/2021 10:19 AM DOCK GUARD Plan of Treatment Not on file Insurance [facility] Care Teams Commissary Manager Relationship Specialty Start Date End Date Dontae Elliott PA [address] [facility] [address] [place] [address] PCP - General Physician Lockstitcher 02/09/18
--- OUTSIDE RECORDS SUMMARY | 2024-07-11 14:28 | XMS_ITS | Patient Health Record ---
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 Role Phone Enio Bone DO Primary Care Provider Perri Pierre Unavailable [phone] Allergies Allergen (clinical drug ingredient) Drug/Non Drug Allergy documented on EMR Reaction Allergy Type Onset Date Status ADHESIVE TAPE (uncoded) Unknown Allergy 03/22/2023 Active COVID-19 VACCINE, MRNA, [id number], LNP-S ([employer]) (uncoded) Unknown Allergy 03/22/2023 Active Miconazole Unknown Drug Allergy 03/22/2023 Activ e sumatriptan SUMAtriptan Unknown Drug Allergy 03/22/2023 Ac tive clavulanic acid Clavulanic Acid Unknown Drug Allergy 03/22 Active eletriptan Eletriptan Unknown Drug Allergy 03/22/2023 Acti ve hydromorphone Hydromorphone Unknown Drug Allergy Active Reason For Referral No Information Medications Medication SIG (Take, Route, Frequency, Duration) Notes Start Date End Date Status FreeStyle Lite Test In Vitro 03/22/2023 Active Fluconazole 150 MG Oral 03/22/2023 Not-Taking ProAir HFA 108 (90 Base) MCG/ACT Inhalation 03/22/2023 Active Lisinopril 5 MG Oral 03/22/2023 Not -Taking Cyclobenzaprine HCl 10 MG Oral 03/22/2023 Active methylPREDNISolone 4 MG Oral 03/22/2023 Not-Taking Venlafaxine HCl ER 150 MG 1 capsule in the morning Oral Once a day for 30 days Active Omeprazole 40 MG Oral 03/22/2023 Ac tive Triazolam 0.25 MG Oral 03/22/2023 N ot-Taking buPROPion HCl ER (XL) 300 MG 1 tablet in the morning Oral Once a day for 90 days Active rOPINIRole HCl 0.5 MG Oral 03/22/2023 Not-Taking Toujeo SoloStar 300 UNIT/ML as directed Subcutaneous Active QUEtiapine Fumarate 100 MG 1 tablet at bedtime Oral bedtime for 90 days appointment needed for refills Active Divigel 1 mg/gram (0.1 %) Transdermal *Pick strength-form from [facility] for eRX* 03/22/2023 Not-Taking QUEtiapine Fumarate 100 MG 1 tablet at bedtime Oral bedtime for 90 days Active Atorvastatin Calcium 20 MG 1 tablet Oral Once a day 03/22/2023 Active FREESTYLE LITE METER MISCELLANEOUS *Reorder fr [facility] for eRx and Interaction Alerts* 03/22/2023 Not-Taking Estradiol 1 MG Oral 03/22/2023 Acti ve metFORMIN HCl 500 MG Oral 03/22/2023 Not-Taking BD RENARD 2ND GEN PEN NEEDLE 32 GAUGE X 5/32 *Reorder from [facility] for eRx and Interaction Alerts* 03/22/2023 Active Basaglar KwikPen 100 UNIT/ML Subcutaneous 03/22/2023 Not-Taking Propranolol HCl ER 60 MG Oral 03/22/2023 Active Diclofenac Sodium 1% Transdermal 03/22/2023 Not-Taking Immunizations Vaccine Route Administration Date Status Comme nts Influenza, unspecified formulation Unknown 11/09/2022 A dministered Social History Tobacco Use: Social History Observation Description Date Details (start date - stop date) Current Smoker NA - NA Sex Assigned At : Social History Observation Description Sex Assigned At Female Tobacco Control (Standard) Question Answer Notes Tobacco use: Current smoker How often do you smoke cigarettes? Every day How many cigarettes a day do you smoke? 11-20 How soon after you wake up do you smoke your fir st cigarette? 6-30 minutes Are you interested in quitting? Not ready to salena t AUDIT-C (Standard) Question Answer Notes Did you have a drink contain ing alcohol in the past year? Yes How often did you have six o r more drinks on one occasion in the past year? Never (0 point) How many drinks did you have on a typical day when you were drinking in the past year? 3 or 4 drinks (1 point) How often did you have a dri nk containing alcohol in the past year? Monthly or less (1 point) Problems Problem Type SNOMED Code ICD Code Onset Dates Problem Status W/U Status Risk Notes Problem Generalized anxiety disorder (09432115) Generalized anxiety disorder (F41.1) 4 Active confirmed Problem Insomnia due to other mental disorder (F51.05) 4 Active confirmed Problem 463944998 Tobacco use (Z72.0) Active confirmed Problem 809442541 Marijuana use (F12.90) Active confirmed Problem 013100250 On long-term drug therapy (Z79.899) Active confirmed Problem 209322267 MDD (major depressive disorder), severe (F32.2) Active confirmed Vital Signs Heart Rate 88 /min 03/30/2024 Height-cm 167.64 cm 03/30/2024 Blood pressure diastolic 84 mm Hg 03/30/2024 Weight-kg 88.27 kg 03/30/2024 Height 66.00 in 03/30/2024 Blood pressure systolic 126 mm Hg 03/30/2024 Weight 194.6 lbs 03/30/2024 BMI 31.41 kg/m2 03/30/2024 Encounters Encounter Location Date Provider Diagnosis [facility] [employer] [address] [place] [address] [address] 12/07/2023 Perri Cristobal MDD (major depressiv e disorder), severe F32.2 ; Generalized anxiety disorder F41.1 ; Insomnia due to other mental disorder F51.05 ; Marijuana use F12.90 ; On [facility] drug therapy Z79.899 and Tobacco use Z72.0 [facility] [employer] [address] [address] 03/30/2024 Perri Jain MDD (major depressiv e disorder), severe F32.2 ; Generalized anxiety disorder F41.1 ; Insomnia due to other mental disorder F51.05 ; Marijuana use F12.90 ; On long-term drug therapy Z79.899 and Tobacco use Z72.0 Assessments Encounter Date Diagnosis (ICD Code) Assessment Notes Treatment Notes Treatment Clinical Notes Section Notes 12/07/2023 Generalized anxiety disorder (ICD-10 - F41.1) Learning About Generalized Anxiety Disorder material was published, Generalized Anxiety Disorder: Care Instructions material was published, Learning About Anxiety Disorders material was published presently taking Seroquel 100 mg bedtime (off for last 3 months- ran out rx), Buspar 15 mg twice a day, Wellbutrin XL 300 mg daily in am, Effexor ER 75 mg daily Depression- having increase depression, anxiety, agitation, and sleep issues restart Seroquel 100 mg bedtime- hx good response - been off rx Wellbutrin XL 300 mg daily in am Effexor ER 75 mg daily monitor B/P discuss therapy - patient will check insurance and co-pay Anxiety- having anxiety and panic increase Buspar 15 mg three times a day anxiety and stress coping skills handout given Insomnia - Seroquel will help sleep sleep hygiene educated tobacco use Do not smoke. Nicotine and other chemicals in cigarettes and cigars can cause lung damage. Ask your healthcare provider for information if you currently smoke and need help to quit. E-cigarettes or smokeless tobacco still contain nicotine. Talk to your healthcare provider before you use these products. education on decrease to stopping nicotine products and stop smoking hotline given Cannabis use- educated on decrease to stopping Recommend decrease/stop cannabis use as it can negatively impact mood, motivation, anxiety, sleep, focus/concentratio n/memory (vigilance, elasticity, processing and attention); can also contribute to development of psychosis. http_s://www.nimh. nih.gov/health/top ics/mental-health- medications http_s://www.lc. org/Raphj-Bzyqcn-S llness/Treatments/ Xeoyxm-Bxecws-Kmgh cations Recommend decrease/stop cannabis use as it may be negatively impacting mood, motivation, anxiety, sleep, focus; can also contribute to development of psychosis Cannabis/marijuana information: http_s://tina.nih. gov/publications/d rugfacts/cannabis- marijuana http_s://www.[employer]/cannabi h-iyv-wkqxyvdc-mar ijuana-adhd/ http_s://www.lc. org/Dcucu-Dhhyrl-O llness/Mental-Heal th-Conditions http_s://psychcent Watch Over Me.com/depression /bwo-bsulnyyxl-enj pskla-qa-xlzhjrypn n#treatments http__s://www.nimh .nih.gov/health/to pics/mental-health -medications http__s://www.lc .org/About-Mental- Illness/Treatments /Aqvnwu-Zivwok-Tva ications educated on all medications, benefits, side effects and risk, and educated on depression, anxiety, and ADHD, mood d/o and educated on compliance of medications, metabolic and movement d/o education appointment's, continue therapy discussion with patient about course of treatment and patient instructions. education on serotonin syndrome SSRI/SNRI side effects discussed including but not limited to, gastric upset, nausea, vomiting, diarrhea and/or constipation, weight changes, sexual side effects including loss of libido, increased suicidal thoughts/behaviors in children and young adults, and serotonin syndrome. Second generation antipsychotics (SGAs) have metabolic syndrome issues with weight gain, increase in prolactin, increased waist circumference, increased lipids, and increased glucose. Thus routine monitoring of weight, metabolic labs, etc. is indicated. A general rank ordering of antipsychotics that have the greatest to the least risk of metabolic effects is olanzapine, quetiapine, risperidone, ziprasidone, and aripiprazole. However, weight gain can occur with all of these drugs and considerable variability exists among patients receiving the same drug regarding the risk of metabolic effects. Anti-psychotic agents not only increase the risk of metabolic disorder, they also increase the risk of CVA, akathisia, and movement disorders including EPS or tardive dyskinesia (more common with first generation antipsychotics) and more. Discussed and educated pt regarding benzodiazepines are generally not intended for prolonged use and that use can cause tolerance, dependence, depression, and associated memory issues including dementias (this list is not exhaustive). Benzodiazepine use is generally not recommended concurrently with pain medications and/or other controlled substances Medication Management and Follow-Up - Plan: - Schedule follow-up appointments every 1-3 months to monitor the patient's response to the medication regimen. - Reinforce the importance of avoiding recreational drug use due to potential neurotoxicity and interactions with prescribed medications. 12/07/2023 MDD (major depressive disorder), severe (ICD-10 - F32.2) Learning About Depression material was published, Learning About Depression Screening material was published, Depression Treatment: Care Instructions material was published, Suicidal Thoughts and Behavior: Care Instructions material was published, Learning About Mood Disorders material was published presently taking Seroquel 100 mg bedtime (off for last 3 months- ran out rx), Buspar 15 mg twice a day, Wellbutrin XL 300 mg daily in am, Effexor ER 75 mg daily Depression- having increase depression, anxiety, agitation, and sleep issues restart Seroquel 100 mg bedtime- hx good response - been off rx Wellbutrin XL 300 mg daily in am Effexor ER 75 mg daily monitor B/P discuss therapy - patient will check insurance and co-pay Anxiety- having anxiety and panic increase Buspar 15 mg three times a day anxiety and stress coping skills handout given Insomnia - Seroquel will help sleep sleep hygiene educated tobacco use Do not smoke. Nicotine and other chemicals in cigarettes and cigars can cause lung damage. Ask your healthcare provider for information if you currently smoke and need help to quit. E-cigarettes or smokeless tobacco still contain nicotine. Talk to your healthcare provider before you use these products. education on decrease to stopping nicotine products and stop smoking hotline given Cannabis use- educated on decrease to stopping Recommend decrease/stop cannabis use as it can negatively impact mood, motivation, anxiety, sleep, focus/concentratio n/memory (vigilance, elasticity, processing and attention); can also contribute to development of psychosis. http_s://www.nimh. nih.gov/health/top ics/mental-health- medications http_s://www.lc. org/Dzvty-Jazxic-B llness/Treatments/ Jxcmsc-Rnxvmq-Sqdu cations Recommend decrease/stop cannabis use as it may be negatively impacting mood, motivation, anxiety, sleep, focus; can also contribute to development of psychosis Cannabis/marijuana information: http_s://tina.nih. gov/publications/d rugfacts/cannabis- marijuana http_s://www.[employer]/cannabi m-cfz-ntfbbopy-mar ijuana-adhd/ http_s://www.lc. org/Dbtvg-Qtnllv-G llness/Mental-Heal th-Conditions http_s://psychcent Watch Over Me.com/depression /lbr-ryeryvzrx-usu gnghr-uz-asafogimd n#treatments http__s://www.nimh .nih.gov/health/to pics/mental-health -medications http__s://www.lc .org/About-Mental- Illness/Treatments /Airjfh-Vfjnzp-Smy ications educated on all medications, benefits, side effects and risk, and educated on depression, anxiety, and ADHD, mood d/o and educated on compliance of medications, metabolic and movement d/o education appointment's, continue therapy discussion with patient about course of treatment and patient instructions. education on serotonin syndrome SSRI/SNRI side effects discussed including but not limited to, gastric upset, nausea, vomiting, diarrhea and/or constipation, weight changes, sexual side effects including loss of libido, increased suicidal thoughts/behaviors in children and young adults, and serotonin syndrome. Second generation antipsychotics (SGAs) have metabolic syndrome issues with weight gain, increase in prolactin, increased waist circumference, increased lipids, and increased glucose. Thus routine monitoring of weight, metabolic labs, etc. is indicated. A general rank ordering of antipsychotics that have the greatest to the least risk of metabolic effects is olanzapine, quetiapine, risperidone, ziprasidone, and aripiprazole. However, weight gain can occur with all of these drugs and considerable variability exists among patients receiving the same drug regarding the risk of metabolic effects. Anti-psychotic agents not only increase the risk of metabolic disorder, they also increase the risk of CVA, akathisia, and movement disorders including EPS or tardive dyskinesia (more common with first generation antipsychotics) and more. Discussed and educated pt regarding benzodiazepines are generally not intended for prolonged use and that use can cause tolerance, dependence, depression, and associated memory issues including dementias (this list is not exhaustive). Benzodiazepine use is generally not recommended concurrently with pain medications and/or other controlled substances Medication Management and Follow-Up - Plan: - Schedule follow-up appointments every 1-3 months to monitor the patient's response to the medication regimen. - Reinforce the importance of avoiding recreational drug use due to potential neurotoxicity and interactions with prescribed medications. 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 Nicotine and other chemicals in cigarettes and cigars can cause lung damage. Ask your healthcare provider for information if you currently smoke and need help to quit. E-cigarettes or smokeless tobacco still contain nicotine. Talk to your healthcare provider before you use these products. education on decrease to stopping nicotine products and stop smoking hotline given Cannabis use- educated on decrease to stopping Recommend decrease/stop cannabis use as it can negatively impact mood, motivation, anxiety, sleep, focus/concentratio n/memory (vigilance, elasticity, processing and attention); can also contribute to development of psychosis. http_s://www.nimh. nih.gov/health/top ics/mental-health- medications http_s://www.lc. org/Uuvpk-Mmtlqp-C llness/Treatments/ Spztpe-Wbvvpq-Deqz cations Recommend decrease/stop cannabis use as it may be negatively impacting mood, motivation, anxiety, sleep, focus; can also contribute to development of psychosis Cannabis/marijuana information: http_s://tina.nih. gov/publications/d rugfacts/cannabis- marijuana http_s://www.[employer]/cannabi g-pkc-bkxylucn-mar ijuana-adhd/ http_s://www.lc. org/Atkez-Qlmcbe-R llness/Mental-Heal th-Conditions http_s://psychcent Watch Over Me.com/depression /snz-axmoauxvn-aew xklwq-cl-hyyoblxcw n#treatments http__s://www.nimh .nih.gov/health/to pics/mental-health -medications http__s://www.lc .org/About-Mental- Illness/Treatments /Xymhns-Vojwuc-Wtv ications educated on all medications, benefits, side effects and risk, and educated on depression, anxiety, and ADHD, mood d/o and educated on compliance of medications, metabolic and movement d/o education appointment's, continue therapy discussion with patient about course of treatment and patient instructions. education on serotonin syndrome SSRI/SNRI side effects discussed including but not limited to, gastric upset, nausea, vomiting, diarrhea and/or constipation, weight changes, sexual side effects including loss of libido, increased suicidal thoughts/behaviors in children and young adults, and serotonin syndrome. Second generation antipsychotics (SGAs) have metabolic syndrome issues with weight gain, increase in prolactin, increased waist circumference, increased lipids, and increased glucose. Thus routine monitoring of weight, metabolic labs, etc. is indicated. A general rank ordering of antipsychotics that have the greatest to the least risk of metabolic effects is olanzapine, quetiapine, risperidone, ziprasidone, and aripiprazole. However, weight gain can occur with all of these drugs and considerable variability exists among patients receiving the same drug regarding the risk of metabolic effects. Anti-psychotic agents not only increase the risk of metabolic disorder, they also increase the risk of CVA, akathisia, and movement disorders including EPS or tardive dyskinesia (more common with first generation antipsychotics) and more. Discussed and educated pt regarding benzodiazepines are generally not intended for prolonged use and that use can cause tolerance, dependence, depression, and associated memory issues including dementias (this list is not exhaustive). Benzodiazepine use is generally not recommended concurrently with pain medications and/or other controlled substances Medication Management and Follow-Up - Plan: - Schedule follow-up appointments every 1-3 months to monitor the patient's response to the medication regimen. - Reinforce the importance of avoiding recreational drug use due to potential neurotoxicity and interactions with prescribed medications. 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 Nicotine and other chemicals in cigarettes and cigars can cause lung damage. Ask your healthcare provider for information if you currently smoke and need help to quit. E-cigarettes or smokeless tobacco still contain nicotine. Talk to your healthcare provider before you use these products. education on decrease to stopping nicotine products and stop smoking hotline given Cannabis use- educated on decrease to stopping Recommend decrease/stop cannabis use as it can negatively impact mood, motivation, anxiety, sleep, focus/concentratio n/memory (vigilance, elasticity, processing and attention); can also contribute to development of psychosis. http_s://www.nimh. nih.gov/health/top ics/mental-health- medications http_s://www.lc. org/Eqadt-Rkqrxs-P llness/Treatments/ Roqbgb-Craxpk-Qiuy cations Recommend decrease/stop cannabis use as it may be negatively impacting mood, motivation, anxiety, sleep, focus; can also contribute to development of psychosis Cannabis/marijuana information: http_s://tina.nih. gov/publications/d rugfacts/cannabis- marijuana http_s://www.[employer]/cannabi e-wjx-sgvugout-mar ijuana-adhd/ http_s://www.lc. org/Wbswr-Xkqsuc-V llness/Mental-Heal th-Conditions http_s://swabr.[employer]/depression /upo-kmhqcphoe-eqx dzaxw-dd-wgqztcilw n#treatments http__s://www.nimh .nih.gov/health/to pics/mental-health -medications http__s://www.lc .org/About-Mental- Illness/Treatments /Ieoeme-Vyzegq-Dpa ications educated on all medications, benefits, side effects and risk, and educated on depression, anxiety, and ADHD, mood d/o and educated on compliance of medications, metabolic and movement d/o education appointment's, continue therapy discussion with patient about course of treatment and patient instructions. education on serotonin syndrome SSRI/SNRI side effects discussed including but not limited to, gastric upset, nausea, vomiting, diarrhea and/or constipation, weight changes, sexual side effects including loss of libido, increased suicidal thoughts/behaviors in children and young adults, and serotonin syndrome. Second generation antipsychotics (SGAs) have metabolic syndrome issues with weight gain, increase in prolactin, increased waist circumference, increased lipids, and increased glucose. Thus routine monitoring of weight, metabolic labs, etc. is indicated. A general rank ordering of antipsychotics that have the greatest to the least risk of metabolic effects is olanzapine, quetiapine, risperidone, ziprasidone, and aripiprazole. However, weight gain can occur with all of these drugs and considerable variability exists among patients receiving the same drug regarding the risk of metabolic effects. Anti-psychotic agents not only increase the risk of metabolic disorder, they also increase the risk of CVA, akathisia, and movement disorders including EPS or tardive dyskinesia (more common with first generation antipsychotics) and more. Discussed and educated pt regarding benzodiazepines are generally not intended for prolonged use and that use can cause tolerance, dependence, depression, and associated memory issues including dementias (this list is not exhaustive). Benzodiazepine use is generally not recommended concurrently with pain medications and/or other controlled substances Medication Management and Follow-Up - Plan: - Schedule follow-up appointments every 1-3 months to monitor the patient's response to the medication regimen. - Reinforce the importance of avoiding recreational drug use due to potential neurotoxicity and interactions with prescribed medications. 12/07/2023 Insomnia due to other mental disorder (ICD-10 - F51.05) presently taking Seroquel 100 mg bedtime (off for last 3 months- ran out rx), Buspar 15 mg twice a day, Wellbutrin XL 300 mg daily in am, Effexor ER 75 mg daily Depression- having increase depression, anxiety, agitation, and sleep issues restart Seroquel 100 mg bedtime- hx good response - been off rx Wellbutrin XL 300 mg daily in am Effexor ER 75 mg daily monitor B/P discuss therapy - patient will check insurance and co-pay Anxiety- having anxiety and panic increase Buspar 15 mg three times a day anxiety and stress coping skills handout given Insomnia - Seroquel will help sleep sleep hygiene educated tobacco use Do not smoke. Nicotine and other chemicals in cigarettes and cigars can cause lung damage. Ask your healthcare provider for information if you currently smoke and need help to quit. E-cigarettes or smokeless tobacco still contain nicotine. Talk to your healthcare provider before you use these products. education on decrease to stopping nicotine products and stop smoking hotline given Cannabis use- educated on decrease to stopping Recommend decrease/stop cannabis use as it can negatively impact mood, motivation, anxiety, sleep, focus/concentratio n/memory (vigilance, elasticity, processing and attention); can also contribute to development of psychosis. http_s://www.nimh. nih.gov/health/top ics/mental-health- medications http_s://www.lc. org/Mlcvg-Npwgvr-T llness/Treatments/ Dkwchn-Fsaiip-Jskb cations Recommend decrease/stop cannabis use as it may be negatively impacting mood, motivation, anxiety, sleep, focus; can also contribute to development of psychosis Cannabis/marijuana information: http_s://tina.nih. gov/publications/d rugfacts/cannabis- marijuana http_s://www.[employer]/cannabi v-hgc-skiqtgio-mar ijuana-adhd/ http_s://www.lc. org/Jtcma-Duxwzl-V llness/Mental-Heal th-Conditions http_s://Reciclata/depression /ktg-judnagjzx-qhv pmobt-rx-weccebncr n#treatments http__s://www.nimh .nih.gov/health/to pics/mental-health -medications http__s://www.lc .org/About-Mental- Illness/Treatments /Kruivp-Doqnmk-Lxo ications educated on all medications, benefits, side effects and risk, and educated on depression, anxiety, and ADHD, mood d/o and educated on compliance of medications, metabolic and movement d/o education appointment's, continue therapy discussion with patient about course of treatment and patient instructions. education on serotonin syndrome SSRI/SNRI side effects discussed including but not limited to, gastric upset, nausea, vomiting, diarrhea and/or constipation, weight changes, sexual side effects including loss of libido, increased suicidal thoughts/behaviors in children and young adults, and serotonin syndrome. Second generation antipsychotics (SGAs) have metabolic syndrome issues with weight gain, increase in prolactin, increased waist circumference, increased lipids, and increased glucose. Thus routine monitoring of weight, metabolic labs, etc. is indicated. A general rank ordering of antipsychotics that have the greatest to the least risk of metabolic effects is olanzapine, quetiapine, risperidone, ziprasidone, and aripiprazole. However, weight gain can occur with all of these drugs and considerable variability exists among patients receiving the same drug regarding the risk of metabolic effects. Anti-psychotic agents not only increase the risk of metabolic disorder, they also increase the risk of CVA, akathisia, and movement disorders including EPS or tardive dyskinesia (more common with first generation antipsychotics) and more. Discussed and educated pt regarding benzodiazepines are generally not intended for prolonged use and that use can cause tolerance, dependence, depression, and associated memory issues including dementias (this list is not exhaustive). Benzodiazepine use is generally not recommended concurrently with pain medications and/or other controlled substances Medication Management and Follow-Up - Plan: - Schedule follow-up appointments every 1-3 months to monitor the patient's response to the medication regimen. - Reinforce the importance of avoiding recreational drug use due to potential neurotoxicity and interactions with prescribed medications. 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 Nicotine and other chemicals in cigarettes and cigars can cause lung damage. Ask your healthcare provider for information if you currently smoke and need help to quit. E-cigarettes or smokeless tobacco still contain nicotine. Talk to your healthcare provider before you use these products. education on decrease to stopping nicotine products and stop smoking hotline given Cannabis use- educated on decrease to stopping Recommend decrease/stop cannabis use as it can negatively impact mood, motivation, anxiety, sleep, focus/concentratio n/memory (vigilance, elasticity, processing and attention); can also contribute to development of psychosis. http_s://www.nimh. nih.gov/health/top ics/mental-health- medications http_s://www.lc. org/Casfh-Qyniwg-A llness/Treatments/ Vakuea-Mrowwb-Kzva cations Recommend decrease/stop cannabis use as it may be negatively impacting mood, motivation, anxiety, sleep, focus; can also contribute to development of psychosis Cannabis/marijuana information: http_s://tina.nih. gov/publications/d rugfacts/cannabis- marijuana http_s://www.[employer]/cannabi f-zvg-mgtsxtpl-mar ijuana-adhd/ http_s://www.lc. org/Oziut-Vozitw-J llness/Mental-Heal th-Conditions http_s://Reciclata/depression /jfd-rtnotvldz-csq tmoqw-fn-jocvpuvke n#treatments http__s://www.nimh .nih.gov/health/to pics/mental-health -medications http__s://www.lc .org/About-Mental- Illness/Treatments /Gjfoxc-Xpiuft-Vww ications educated on all medications, benefits, side effects and risk, and educated on depression, anxiety, and ADHD, mood d/o and educated on compliance of medications, metabolic and movement d/o education appointment's, continue therapy discussion with patient about course of treatment and patient instructions. education on serotonin syndrome SSRI/SNRI side effects discussed including but not limited to, gastric upset, nausea, vomiting, diarrhea and/or constipation, weight changes, sexual side effects including loss of libido, increased suicidal thoughts/behaviors in children and young adults, and serotonin syndrome. Second generation antipsychotics (SGAs) have metabolic syndrome issues with weight gain, increase in prolactin, increased waist circumference, increased lipids, and increased glucose. Thus routine monitoring of weight, metabolic labs, etc. is indicated. A general rank ordering of antipsychotics that have the greatest to the least risk of metabolic effects is olanzapine, quetiapine, risperidone, ziprasidone, and aripiprazole. However, weight gain can occur with all of these drugs and considerable variability exists among patients receiving the same drug regarding the risk of metabolic effects. Anti-psychotic agents not only increase the risk of metabolic disorder, they also increase the risk of CVA, akathisia, and movement disorders including EPS or tardive dyskinesia (more common with first generation antipsychotics) and more. Discussed and educated pt regarding benzodiazepines are generally not intended for prolonged use and that use can cause tolerance, dependence, depression, and associated memory issues including dementias (this list is not exhaustive). Benzodiazepine use is generally not recommended concurrently with pain medications and/or other controlled substances Medication Management and Follow-Up - Plan: - Schedule follow-up appointments every 1-3 months to monitor the patient's response to the medication regimen. - Reinforce the importance of avoiding recreational drug use due to potential neurotoxicity and interactions with prescribed medications. 12/07/2023 Marijuana use (ICD-10 - F12.90) Marijuana Use: Care Instructions material was published, Learning About Cannabis Use Disorder material was published presently taking Seroquel 100 mg bedtime (off for last 3 months- ran out rx), Buspar 15 mg twice a day, Wellbutrin XL 300 mg daily in am, Effexor ER 75 mg daily Depression- having increase depression, anxiety, agitation, and sleep issues restart Seroquel 100 mg bedtime- hx good response - been off rx Wellbutrin XL 300 mg daily in am Effexor ER 75 mg daily monitor B/P discuss therapy - patient will check insurance and co-pay Anxiety- having anxiety and panic increase Buspar 15 mg three times a day anxiety and stress coping skills handout given Insomnia - Seroquel will help sleep sleep hygiene educated tobacco use Do not smoke. Nicotine and other chemicals in cigarettes and cigars can cause lung damage. Ask your healthcare provider for information if you currently smoke and need help to quit. E-cigarettes or smokeless tobacco still contain nicotine. Talk to your healthcare provider before you use these products. education on decrease to stopping nicotine products and stop smoking hotline given Cannabis use- educated on decrease to stopping Recommend decrease/stop cannabis use as it can negatively impact mood, motivation, anxiety, sleep, focus/concentratio n/memory (vigilance, elasticity, processing and attention); can also contribute to development of psychosis. http_s://www.nimh. nih.gov/health/top ics/mental-health- medications http_s://www.lc. org/Xcvfi-Wztxhg-L llness/Treatments/ Qriwmg-Xkxflh-Pftb cations Recommend decrease/stop cannabis use as it may be negatively impacting mood, motivation, anxiety, sleep, focus; can also contribute to development of psychosis Cannabis/marijuana information: http_s://tina.nih. gov/publications/d rugfacts/cannabis- marijuana http_s://www.ticketea.[employer]/cannabi i-jrn-zxnrxlzs-mar ijuana-adhd/ http_s://www.lc. org/Qdrgv-Sydyjn-J llness/Mental-Heal th-Conditions http_s://psychcent Watch Over Me.com/depression /uup-tqwnuqukz-ixz zobmz-bz-zxijlxaqx n#treatments http__s://www.nimh .nih.gov/health/to pics/mental-health -medications http__s://www.lc .org/About-Mental- Illness/Treatments /Epylas-Tqexiv-Hxi ications educated on all medications, benefits, side effects and risk, and educated on depression, anxiety, and ADHD, mood d/o and educated on compliance of medications, metabolic and movement d/o education appointment's, continue therapy discussion with patient about course of treatment and patient instructions. education on serotonin syndrome SSRI/SNRI side effects discussed including but not limited to, gastric upset, nausea, vomiting, diarrhea and/or constipation, weight changes, sexual side effects including loss of libido, increased suicidal thoughts/behaviors in children and young adults, and serotonin syndrome. Second generation antipsychotics (SGAs) have metabolic syndrome issues with weight gain, increase in prolactin, increased waist circumference, increased lipids, and increased glucose. Thus routine monitoring of weight, metabolic labs, etc. is indicated. A general rank ordering of antipsychotics that have the greatest to the least risk of metabolic effects is olanzapine, quetiapine, risperidone, ziprasidone, and aripiprazole. However, weight gain can occur with all of these drugs and considerable variability exists among patients receiving the same drug regarding the risk of metabolic effects. Anti-psychotic agents not only increase the risk of metabolic disorder, they also increase the risk of CVA, akathisia, and movement disorders including EPS or tardive dyskinesia (more common with first generation antipsychotics) and more. Discussed and educated pt regarding benzodiazepines are generally not intended for prolonged use and that use can cause tolerance, dependence, depression, and associated memory issues including dementias (this list is not exhaustive). Benzodiazepine use is generally not recommended concurrently with pain medications and/or other controlled substances Medication Management and Follow-Up - Plan: - Schedule follow-up appointments every 1-3 months to monitor the patient's response to the medication regimen. - Reinforce the importance of avoiding recreational drug use due to potential neurotoxicity and interactions with prescribed medications. 12/07/2023 On long-term drug therapy (ICD-10 - Z79.899) Medication Refill: Care Instructions material was published presently taking Seroquel 100 mg bedtime (off for last 3 months- ran out rx), Buspar 15 mg twice a day, Wellbutrin XL 300 mg daily in am, Effexor ER 75 mg daily Depression- having increase depression, anxiety, agitation, and sleep issues restart Seroquel 100 mg bedtime- hx good response - been off rx Wellbutrin XL 300 mg daily in am Effexor ER 75 mg daily monitor B/P discuss therapy - patient will check insurance and co-pay Anxiety- having anxiety and panic increase Buspar 15 mg three times a day anxiety and stress coping skills handout given Insomnia - Seroquel will help sleep sleep hygiene educated tobacco use Do not smoke. Nicotine and other chemicals in cigarettes and cigars can cause lung damage. Ask your healthcare provider for information if you currently smoke and need help to quit. E-cigarettes or smokeless tobacco still contain nicotine. Talk to your healthcare provider before you use these products. education on decrease to stopping nicotine products and stop smoking hotline given Cannabis use- educated on decrease to stopping Recommend decrease/stop cannabis use as it can negatively impact mood, motivation, anxiety, sleep, focus/concentratio n/memory (vigilance, elasticity, processing and attention); can also contribute to development of psychosis. http_s://www.nimh. nih.gov/health/top ics/mental-health- medications http_s://www.lc. org/Ftpyr-Zepdai-Y llness/Treatments/ Fealnb-Zhsbdj-Ttch cations Recommend decrease/stop cannabis use as it may be negatively impacting mood, motivation, anxiety, sleep, focus; can also contribute to development of psychosis Cannabis/marijuana information: http_s://tina.nih. gov/publications/d rugfacts/cannabis- marijuana http_s://www.[employer]/cannabi q-tzb-sljttqhx-mar ijuana-adhd/ http_s://www.lc. org/Cpljy-Kkavai-G llness/Mental-Heal th-Conditions http_s://psychcent Watch Over Me.com/depression /zap-zwdlijbiw-yok wcoiz-fq-llcszrgur n#treatments http__s://www.nimh .nih.gov/health/to pics/mental-health -medications http__s://www.lc .org/About-Mental- Illness/Treatments /Ierbyi-Edlnee-Onh ications educated on all medications, benefits, side effects and risk, and educated on depression, anxiety, and ADHD, mood d/o and educated on compliance of medications, metabolic and movement d/o education appointment's, continue therapy discussion with patient about course of treatment and patient instructions. education on serotonin syndrome SSRI/SNRI side effects discussed including but not limited to, gastric upset, nausea, vomiting, diarrhea and/or constipation, weight changes, sexual side effects including loss of libido, increased suicidal thoughts/behaviors in children and young adults, and serotonin syndrome. Second generation antipsychotics (SGAs) have metabolic syndrome issues with weight gain, increase in prolactin, increased waist circumference, increased lipids, and increased glucose. Thus routine monitoring of weight, metabolic labs, etc. is indicated. A general rank ordering of antipsychotics that have the greatest to the least risk of metabolic effects is olanzapine, quetiapine, risperidone, ziprasidone, and aripiprazole. However, weight gain can occur with all of these drugs and considerable variability exists among patients receiving the same drug regarding the risk of metabolic effects. Anti-psychotic agents not only increase the risk of metabolic disorder, they also increase the risk of CVA, akathisia, and movement disorders including EPS or tardive dyskinesia (more common with first generation antipsychotics) and more. Discussed and educated pt regarding benzodiazepines are generally not intended for prolonged use and that use can cause tolerance, dependence, depression, and associated memory issues including dementias (this list is not exhaustive). Benzodiazepine use is generally not recommended concurrently with pain medications and/or other controlled substances Medication Management and Follow-Up - Plan: - Schedule follow-up appointments every 1-3 months to monitor the patient's response to the medication regimen. - Reinforce the importance of avoiding recreational drug use due to potential neurotoxicity and interactions with prescribed medications. 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 Nicotine and other chemicals in cigarettes and cigars can cause lung damage. Ask your healthcare provider for information if you currently smoke and need help to quit. E-cigarettes or smokeless tobacco still contain nicotine. Talk to your healthcare provider before you use these products. education on decrease to stopping nicotine products and stop smoking hotline given Cannabis use- educated on decrease to stopping Recommend decrease/stop cannabis use as it can negatively impact mood, motivation, anxiety, sleep, focus/concentratio n/memory (vigilance, elasticity, processing and attention); can also contribute to development of psychosis. http_s://www.nimh. nih.gov/health/top ics/mental-health- medications http_s://www.lc. org/Tggld-Ciykjo-Y llness/Treatments/ Ooemia-Attyzt-Pxcw cations Recommend decrease/stop cannabis use as it may be negatively impacting mood, motivation, anxiety, sleep, focus; can also contribute to development of psychosis Cannabis/marijuana information: http_s://tina.nih. gov/publications/d rugfacts/cannabis- marijuana http_s://www.[employer]/cannabi o-bux-axjnrvim-mar ijuana-adhd/ http_s://www.lc. org/Cbzqs-Hfrwle-D llness/Mental-Heal th-Conditions http_s://swabr.[employer]/depression /nqr-pjfxrjeuj-hjj jbkip-pg-ebgwfjlqy n#treatments http__s://www.nimh .nih.gov/health/to pics/mental-health -medications http__s://www.lc .org/About-Mental- Illness/Treatments /Drvgaz-Wdrkgl-Jlg ications educated on all medications, benefits, side effects and risk, and educated on depression, anxiety, and ADHD, mood d/o and educated on compliance of medications, metabolic and movement d/o education appointment's, continue therapy discussion with patient about course of treatment and patient instructions. education on serotonin syndrome SSRI/SNRI side effects discussed including but not limited to, gastric upset, nausea, vomiting, diarrhea and/or constipation, weight changes, sexual side effects including loss of libido, increased suicidal thoughts/behaviors in children and young adults, and serotonin syndrome. Second generation antipsychotics (SGAs) have metabolic syndrome issues with weight gain, increase in prolactin, increased waist circumference, increased lipids, and increased glucose. Thus routine monitoring of weight, metabolic labs, etc. is indicated. A general rank ordering of antipsychotics that have the greatest to the least risk of metabolic effects is olanzapine, quetiapine, risperidone, ziprasidone, and aripiprazole. However, weight gain can occur with all of these drugs and considerable variability exists among patients receiving the same drug regarding the risk of metabolic effects. Anti-psychotic agents not only increase the risk of metabolic disorder, they also increase the risk of CVA, akathisia, and movement disorders including EPS or tardive dyskinesia (more common with first generation antipsychotics) and more. Discussed and educated pt regarding benzodiazepines are generally not intended for prolonged use and that use can cause tolerance, dependence, depression, and associated memory issues including dementias (this list is not exhaustive). Benzodiazepine use is generally not recommended concurrently with pain medications and/or other controlled substances Medication Management and Follow-Up - Plan: - Schedule follow-up appointments every 1-3 months to monitor the patient's response to the medication regimen. - Reinforce the importance of avoiding recreational drug use due to potential neurotoxicity and interactions with prescribed medications. 03/30/2024 On [facility] drug therapy (ICD-10 - Z79.899) Medication Refill: Care Instructions material was published Depression- having depression, anxiety, agitation, - taking care mom last 2 weeks schedule therapy KLAUS discuss healthcare translator stress with caring for mom- Vascular Dementia Seroquel 100 mg bedtime- hx good response - Wellbutrin XL 300 mg daily in am Increase Effexor ER 150 mg daily monitor B/P discuss therapy - patient will check insurance and co-pay Anxiety- having anxiety and panic Buspar 15 mg three times a day anxiety and stress coping skills handout given Insomnia - Seroquel will help sleep sleep hygiene educated tobacco use Do not smoke. Nicotine and other chemicals in cigarettes and cigars can cause lung damage. Ask your healthcare provider for information if you currently smoke and need help to quit. E-cigarettes or smokeless tobacco still contain nicotine. Talk to your healthcare provider before you use these products. education on decrease to stopping nicotine products and stop smoking hotline given Cannabis use- educated on decrease to stopping Recommend decrease/stop cannabis use as it can negatively impact mood, motivation, anxiety, sleep, focus/concentratio n/memory (vigilance, elasticity, processing and attention); can also contribute to development of psychosis. http_s://www.nimh. nih.gov/health/top ics/mental-health- medications http_s://www.lc. org/Ngcpq-Bqxyne-U llness/Treatments/ Rdtlfz-Eleszy-Khic cations Recommend decrease/stop cannabis use as it may be negatively impacting mood, motivation, anxiety, sleep, focus; can also contribute to development of psychosis Cannabis/marijuana information: http_s://tina.nih. gov/publications/d rugfacts/cannabis- marijuana http_s://www.[employer]/cannabi s-fad-zicvmxga-mar ijuana-adhd/ http_s://www.lc. org/Ekfov-Ulpltg-N llness/Mental-Heal th-Conditions http_s://[employer]/depression /ibq-eenofhoal-jbt xvlab-tr-zqumnjcmb n#treatments http__s://www.nimh .nih.gov/health/to pics/mental-health -medications http__s://www.lc .org/About-Mental- Illness/Treatments /Kdydxr-Lkymop-Dom ications educated on all medications, benefits, side effects and risk, and educated on depression, anxiety, and ADHD, mood d/o and educated on compliance of medications, metabolic and movement d/o education appointment's, continue therapy discussion with patient about course of treatment and patient instructions. education on serotonin syndrome SSRI/SNRI side effects discussed including but not limited to, gastric upset, nausea, vomiting, diarrhea and/or constipation, weight changes, sexual side effects including loss of libido, increased suicidal thoughts/behaviors in children and young adults, and serotonin syndrome. Second generation antipsychotics (SGAs) have metabolic syndrome issues with weight gain, increase in prolactin, increased waist circumference, increased lipids, and increased glucose. Thus routine monitoring of weight, metabolic labs, etc. is indicated. A general rank ordering of antipsychotics that have the greatest to the least risk of metabolic effects is olanzapine, quetiapine, risperidone, ziprasidone, and aripiprazole. However, weight gain can occur with all of these drugs and considerable variability exists among patients receiving the same drug regarding the risk of metabolic effects. Anti-psychotic agents not only increase the risk of metabolic disorder, they also increase the risk of CVA, akathisia, and movement disorders including EPS or tardive dyskinesia (more common with first generation antipsychotics) and more. Discussed and educated pt regarding benzodiazepines are generally not intended for prolonged use and that use can cause tolerance, dependence, depression, and associated memory issues including dementias (this list is not exhaustive). Benzodiazepine use is generally not recommended concurrently with pain medications and/or other controlled substances Medication Management and Follow-Up - Plan: - Schedule follow-up appointments every 1-3 months to monitor the patient's response to the medication regimen. - Reinforce the importance of avoiding recreational drug use due to potential neurotoxicity and interactions with prescribed medications. 12/07/2023 Tobacco use (ICD-10 - Z72.0) Learning About Benefits of Quitting Smoking material was published, Deciding About Using Medicines To Quit Smoking material was published, Stopping Smokeless Tobacco Use: Care Instructions material was published, Quitting Tobacco: Care Instructions material was published presently taking Seroquel 100 mg bedtime (off for last 3 months- ran out rx), Buspar 15 mg twice a day, Wellbutrin XL 300 mg daily in am, Effexor ER 75 mg daily Depression- having increase depression, anxiety, agitation, and sleep issues restart Seroquel 100 mg bedtime- hx good response - been off rx Wellbutrin XL 300 mg daily in am Effexor ER 75 mg daily monitor B/P discuss therapy - patient will check insurance and co-pay Anxiety- having anxiety and panic increase Buspar 15 mg three times a day anxiety and stress coping skills handout given Insomnia - Seroquel will help sleep sleep hygiene educated tobacco use Do not smoke. Nicotine and other chemicals in cigarettes and cigars can cause lung damage. Ask your healthcare provider for information if you currently smoke and need help to quit. E-cigarettes or smokeless tobacco still contain nicotine. Talk to your healthcare provider before you use these products. education on decrease to stopping nicotine products and stop smoking hotline given Cannabis use- educated on decrease to stopping Recommend decrease/stop cannabis use as it can negatively impact mood, motivation, anxiety, sleep, focus/concentratio n/memory (vigilance, elasticity, processing and attention); can also contribute to development of psychosis. http_s://www.nimh. nih.gov/health/top ics/mental-health- medications http_s://www.lc. org/Svvib-Ujazll-L llness/Treatments/ Dhyplg-Jpohop-Kygn cations Recommend decrease/stop cannabis use as it may be negatively impacting mood, motivation, anxiety, sleep, focus; can also contribute to development of psychosis Cannabis/marijuana information: http_s://tina.nih. gov/publications/d rugfacts/cannabis- marijuana http_s://wwwMobiCart/cannabi y-qay-cfldcbor-mar ijuana-adhd/ http_s://www.lc. org/Ithmf-Okrifb-X llness/Mental-Heal th-Conditions http_s://Reciclata/depression /uph-nfvfpsexk-cpl waqmc-tt-ikzjwnshq n#treatments http__s://www.nimh .nih.gov/health/to pics/mental-health -medications http__s://www.lc .org/About-Mental- Illness/Treatments /Jviohx-Kwggqv-Szp ications educated on all medications, benefits, side effects and risk, and educated on depression, anxiety, and ADHD, mood d/o and educated on compliance of medications, metabolic and movement d/o education appointment's, continue therapy discussion with patient about course of treatment and patient instructions. education on serotonin syndrome SSRI/SNRI side effects discussed including but not limited to, gastric upset, nausea, vomiting, diarrhea and/or constipation, weight changes, sexual side effects including loss of libido, increased suicidal thoughts/behaviors in children and young adults, and serotonin syndrome. Second generation antipsychotics (SGAs) have metabolic syndrome issues with weight gain, increase in prolactin, increased waist circumference, increased lipids, and increased glucose. Thus routine monitoring of weight, metabolic labs, etc. is indicated. A general rank ordering of antipsychotics that have the greatest to the least risk of metabolic effects is olanzapine, quetiapine, risperidone, ziprasidone, and aripiprazole. However, weight gain can occur with all of these drugs and considerable variability exists among patients receiving the same drug regarding the risk of metabolic effects. Anti-psychotic agents not only increase the risk of metabolic disorder, they also increase the risk of CVA, akathisia, and movement disorders including EPS or tardive dyskinesia (more common with first generation antipsychotics) and more. Discussed and educated pt regarding benzodiazepines are generally not intended for prolonged use and that use can cause tolerance, dependence, depression, and associated memory issues including dementias (this list is not exhaustive). Benzodiazepine use is generally not recommended concurrently with pain medications and/or other controlled substances Medication Management and Follow-Up - Plan: - Schedule follow-up appointments every 1-3 months to monitor the patient's response to the medication regimen. - Reinforce the importance of avoiding recreational drug use due to potential neurotoxicity and interactions with prescribed medications. 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 Nicotine and other chemicals in cigarettes and cigars can cause lung damage. Ask your healthcare provider for information if you currently smoke and need help to quit. E-cigarettes or smokeless tobacco still contain nicotine. Talk to your healthcare provider before you use these products. education on decrease to stopping nicotine products and stop smoking hotline given Cannabis use- educated on decrease to stopping Recommend decrease/stop cannabis use as it can negatively impact mood, motivation, anxiety, sleep, focus/concentratio n/memory (vigilance, elasticity, processing and attention); can also contribute to development of psychosis. http_s://www.nimh. nih.gov/health/top ics/mental-health- medications http_s://www.lc. org/Vqgbk-Ipggpl-C llness/Treatments/ Nmputg-Tawxgs-Wgra cations Recommend decrease/stop cannabis use as it may be negatively impacting mood, motivation, anxiety, sleep, focus; can also contribute to development of psychosis Cannabis/marijuana information: http_s://tina.nih. gov/publications/d rugfacts/cannabis- marijuana http_s://www.JungleCents/cannabi w-jrr-viruqgcb-mar ijuana-adhd/ http_s://www.lc. org/Kfotb-Bhalcg-U llness/Mental-Heal th-Conditions http_s://psychSection 101.com/depression /ipn-phejwkrqy-guo novhs-gz-zzkpyxset n#treatments http__s://www.nimh .nih.gov/health/to pics/mental-health -medications http__s://www.lc .org/About-Mental- Illness/Treatments /Noonyp-Lvzvni-Dnx ications educated on all medications, benefits, side effects and risk, and educated on depression, anxiety, and ADHD, mood d/o and educated on compliance of medications, metabolic and movement d/o education appointment's, continue therapy discussion with patient about course of treatment and patient instructions. education on serotonin syndrome SSRI/SNRI side effects discussed including but not limited to, gastric upset, nausea, vomiting, diarrhea and/or constipation, weight changes, sexual side effects including loss of libido, increased suicidal thoughts/behaviors in children and young adults, and serotonin syndrome. Second generation antipsychotics (SGAs) have metabolic syndrome issues with weight gain, increase in prolactin, increased waist circumference, increased lipids, and increased glucose. Thus routine monitoring of weight, metabolic labs, etc. is indicated. A general rank ordering of antipsychotics that have the greatest to the least risk of metabolic effects is olanzapine, quetiapine, risperidone, ziprasidone, and aripiprazole. However, weight gain can occur with all of these drugs and considerable variability exists among patients receiving the same drug regarding the risk of metabolic effects. Anti-psychotic agents not only increase the risk of metabolic disorder, they also increase the risk of CVA, akathisia, and movement disorders including EPS or tardive dyskinesia (more common with first generation antipsychotics) and more. Discussed and educated pt regarding benzodiazepines are generally not intended for prolonged use and that use can cause tolerance, dependence, depression, and associated memory issues including dementias (this list is not exhaustive). Benzodiazepine use is generally not recommended concurrently with pain medications and/or other controlled substances Medication Management and Follow-Up - Plan: - Schedule follow-up appointments every 1-3 months to monitor the patient's response to the medication regimen. - Reinforce the importance of avoiding recreational drug use due to potential neurotoxicity and interactions with prescribed medications. 12/07/2023 Other Learning About Depression Screening material was printed, Diet and Exercise for Metabolic Syndrome: Care Instructions material was published presently taking Seroquel 100 mg bedtime (off for last 3 months- ran out rx), Buspar 15 mg twice a day, Wellbutrin XL 300 mg daily in am, Effexor ER 75 mg daily Depression- having increase depression, anxiety, agitation, and sleep issues restart Seroquel 100 mg bedtime- hx good response - been off rx Wellbutrin XL 300 mg daily in am Effexor ER 75 mg daily monitor B/P discuss therapy - patient will check insurance and co-pay Anxiety- having anxiety and panic increase Buspar 15 mg three times a day anxiety and stress coping skills handout given Insomnia - Seroquel will help sleep sleep hygiene educated tobacco use Do not smoke. Nicotine and other chemicals in cigarettes and cigars can cause lung damage. Ask your healthcare provider for information if you currently smoke and need help to quit. E-cigarettes or smokeless tobacco still contain nicotine. Talk to your healthcare provider before you use these products. education on decrease to stopping nicotine products and stop smoking hotline given Cannabis use- educated on decrease to stopping Recommend decrease/stop cannabis use as it can negatively impact mood, motivation, anxiety, sleep, focus/concentratio n/memory (vigilance, elasticity, processing and attention); can also contribute to development of psychosis. http_s://www.nimh. nih.gov/health/top ics/mental-health- medications http_s://www.lc. org/Xdtzr-Bdntbo-X llness/Treatments/ Ryimwd-Jgdjrl-Cdhc cations Recommend decrease/stop cannabis use as it may be negatively impacting mood, motivation, anxiety, sleep, focus; can also contribute to development of psychosis Cannabis/marijuana information: http_s://tina.nih. gov/publications/d rugfacts/cannabis- marijuana http_s://www.JungleCents/cannabi m-wpv-jzomxrxo-mar ijuana-adhd/ http_s://www.lc. org/Pkovj-Dkkwyb-U llness/Mental-Heal th-Conditions http_s://psychSection 101.com/depression /rvk-hotgtzvpf-ccm stpnu-gi-vubddsgev n#treatments http__s://www.nimh .nih.gov/health/to pics/mental-health -medications http__s://www.lc .org/About-Mental- Illness/Treatments /Auikaz-Vhaqrj-Gvd ications educated on all medications, benefits, side effects and risk, and educated on depression, anxiety, and ADHD, mood d/o and educated on compliance of medications, metabolic and movement d/o education appointment's, continue therapy discussion with patient about course of treatment and patient instructions. education on serotonin syndrome SSRI/SNRI side effects discussed including but not limited to, gastric upset, nausea, vomiting, diarrhea and/or constipation, weight changes, sexual side effects including loss of libido, increased suicidal thoughts/behaviors in children and young adults, and serotonin syndrome. Second generation antipsychotics (SGAs) have metabolic syndrome issues with weight gain, increase in prolactin, increased waist circumference, increased lipids, and increased glucose. Thus routine monitoring of weight, metabolic labs, etc. is indicated. A general rank ordering of antipsychotics that have the greatest to the least risk of metabolic effects is olanzapine, quetiapine, risperidone, ziprasidone, and aripiprazole. However, weight gain can occur with all of these drugs and considerable variability exists among patients receiving the same drug regarding the risk of metabolic effects. Anti-psychotic agents not only increase the risk of metabolic disorder, they also increase the risk of CVA, akathisia, and movement disorders including EPS or tardive dyskinesia (more common with first generation antipsychotics) and more. Discussed and educated pt regarding benzodiazepines are generally not intended for prolonged use and that use can cause tolerance, dependence, depression, and associated memory issues including dementias (this list is not exhaustive). Benzodiazepine use is generally not recommended concurrently with pain medications and/or other controlled substances Medication Management and Follow-Up - Plan: - Schedule follow-up appointments every 1-3 months to monitor the patient's response to the medication regimen. - Reinforce the importance of avoiding recreational drug use due to potential neurotoxicity and interactions with prescribed medications. 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 Nicotine and other chemicals in cigarettes and cigars can cause lung damage. Ask your healthcare provider for information if you currently smoke and need help to quit. E-cigarettes or smokeless tobacco still contain nicotine. Talk to your healthcare provider before you use these products. education on decrease to stopping nicotine products and stop smoking hotline given Cannabis use- educated on decrease to stopping Recommend decrease/stop cannabis use as it can negatively impact mood, motivation, anxiety, sleep, focus/concentratio n/memory (vigilance, elasticity, processing and attention); can also contribute to development of psychosis. http_s://www.nimh. nih.gov/health/top ics/mental-health- medications http_s://www.lc. org/Wiiak-Ffdgpk-H llness/Treatments/ Acxatq-Reopmw-Odey cations Recommend decrease/stop cannabis use as it may be negatively impacting mood, motivation, anxiety, sleep, focus; can also contribute to development of psychosis Cannabis/marijuana information: http_s://tina.nih. gov/publications/d rugfacts/cannabis- marijuana http_s://www.JungleCents/cannabi r-tbd-asunhjjd-mar ijuana-adhd/ http_s://www.lc. org/Dlrhh-Ftcopd-B llness/Mental-Heal th-Conditions http_s://psychcent Watch Over Me.com/depression /mak-jmdhmqzhu-xbz eqcwd-ul-syizjhqas n#treatments http__s://www.nimh .nih.gov/health/to pics/mental-health -medications http__s://www.lc .org/About-Mental- Illness/Treatments /Bnmgin-Ugklck-Wmv ications educated on all medications, benefits, side effects and risk, and educated on depression, anxiety, and ADHD, mood d/o and educated on compliance of medications, metabolic and movement d/o education appointment's, continue therapy discussion with patient about course of treatment and patient instructions. education on serotonin syndrome SSRI/SNRI side effects discussed including but not limited to, gastric upset, nausea, vomiting, diarrhea and/or constipation, weight changes, sexual side effects including loss of libido, increased suicidal thoughts/behaviors in children and young adults, and serotonin syndrome. Second generation antipsychotics (SGAs) have metabolic syndrome issues with weight gain, increase in prolactin, increased waist circumference, increased lipids, and increased glucose. Thus routine monitoring of weight, metabolic labs, etc. is indicated. A general rank ordering of antipsychotics that have the greatest to the least risk of metabolic effects is olanzapine, quetiapine, risperidone, ziprasidone, and aripiprazole. However, weight gain can occur with all of these drugs and considerable variability exists among patients receiving the same drug regarding the risk of metabolic effects. Anti-psychotic agents not only increase the risk of metabolic disorder, they also increase the risk of CVA, akathisia, and movement disorders including EPS or tardive dyskinesia (more common with first generation antipsychotics) and more. Discussed and educated pt regarding benzodiazepines are generally not intended for prolonged use and that use can cause tolerance, dependence, depression, and associated memory issues including dementias (this list is not exhaustive). Benzodiazepine use is generally not recommended concurrently with pain medications and/or other controlled substances Medication Management and Follow-Up - Plan: - Schedule follow-up appointments every 1-3 months to monitor the patient's response to the medication regimen. - Reinforce the importance of avoiding recreational drug use due to potential neurotoxicity and interactions with prescribed medications. 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 , Past Psychiatric History: Anxiety Disord er abdominal aortic aneurysm: No atrial fibrillation: No chronic fatigue syndrome: Yes essential tremor: No hyperlipidemia: Yes hypertension: No Parkinson's disease: No restless leg syndrome: Yes stroke: No subdural hematoma: No type 1 diabetes mellitus: No type 2 diabetes mellitus: Yes vitamin B12 deficiency: No vitamin D deficiency: No Surgical History Surgery Date(Month/Year) Hysterectomy/revise vagina (82957) 09/12 Hysterectomy ([id number]) 09/19/2019 Other 09/19/2019 Tonsilectomy/adenoids 10/09/2006 Any surgical history 10/25/2009 Myringotomy tube placement 10/25/2009 Sinus surgery 01/08/2018 2 c sections rt foot
--- OUTSIDE RECORDS SUMMARY | 2024-07-11 14:28 | XMS_ITS | Encounter Summary ---
Author Organization [facility] Address [address] [place] [address] Care Team Providers Care Flatbed Owner Operator Name Role Phone Lars Mcdermott MD Primary Care Provider [phone] Encounter Details Date Type Department Care Team (Late st Contact Info) Description 10/21/2018 Lab Requisition [facility] [address] [facility] [place] [address] Lesli Tavera MD [address] [facility] [address] [place] [address] Social History Tobacco Use Types Packs/Day Years Used Date Smoking Tobacco: Never Assessed Comments Unknown Sex and Gender Information Value Date Recorded Sex Assigned at Not on file Legal Sex Female 4:12 AM CDT Gender Identity Not on file Sexual Orientation Not on file documented as of this encounter Plan of Treatment Not on file documented as of this encounter Procedures Procedure Name Priority Date/Time Associated Diagnosis Comments DERMATOPATH TECHNICAL REPORT Routine 10/20/2018 12:00 AM CDT documented in this encounter Results * DERMATOPATH TECHNICAL REPORT (10/20/2018 12:00 AM CDT) Case Report Dermatopathology Report Case: [id number] Authorizing Provider: Lesli Tavera MD Collected: 10/20/2018 12:00 AM Ordering Location: [facility] Received: 10/21/2018 01:03 PM Pathologist: Jeison Alvarez MD Specimen: Skin, left ala 9 5:36 PM CDT DERMATOPATHOLOGY LABORATORY Clinical History Nevus 9 5:36 PM CDT DERMATOPATHOLOGY LABORATORY Gross Description Specimen A: Received is one formalin filled container labeled with the patient's name and designated left ala. The specimen consists of a shave biopsy measuring 5x4x1 mm. Jar 0. [facility] Dermatopathology Laboratory performed the technical component only. 9 5:36 PM CDT DERMATOPATHOLOGY LABORATORY Embedded Images 5:36 PM CDT DERMATOPATHOLOGY LABORATORY DISCLAIMER An external and internal positive and negative controls are appropriate for the histochemical, immunohistochemical and immunofluorescence stain(s) in this case (if any), except where stated explicitly. The performance characteristics of the stain(s) cited in this report were developed and its performance characteristic determined by the Dermatopathology Laboratory at [facility], directed by Dr. Roseline Alvarez. These tests need not be, and therefore are not, approved by the [place] Food and Drug Administration. The tests are used for clinical purposes. 9 5:36 PM CDT DERMATOPATHOLOGY LABORATORY at 1736 CDT Pathology/Cytolog y TISSUE SPECIMEN FROM SKIN / Unknown 10/20/2018 10/21/2018 1:03 PM CDT Lesli Tavera MD LAB - PATHOLOGY/CYTOLOGY OR DERABLES Final Result DERMATOPATHOLOGY LABORATORY [facility] - Department of Dermatology [address] [facility] 5th Floor Lab [address] [phone] documented in this encounter Visit Diagnoses Not on filedocumented in this encounter Care Teams Flatbed Owner Operator Relationship Specialty Start Date End Date Lars Mcdermott MD [address] [place] [address] PCP - General 10/05/18 documented as of this encounter
--- OUTSIDE RECORDS SUMMARY | 2024-07-11 14:28 | XMS_ITS | Encounter Summary ---
Author Organization [facility] Address [address] [place] [address] Care Team Providers Care [facility] Worker Name Role Phone Lars Mcdermott MD Primary Care Provider Encounter Details Date Type Department Care Team (Late st Contact Info) Description 12/30/2018 Lab Requisition [facility] DermPath Lab [address] [facility], [place] [address] Helena Morrison DO [address] [facility] 3 [place] [address] Social History Tobacco Use Types Packs/Day Years [...] Procedure Name Priority Date/Time Associated Diagnosis Comments DERMATOPATHOLOGY Routine 12/29/2018 12:0 0 AM LICENSED WEIGHER documented in this encounter Results * DERMATOPATHOLOGY (12/29/2018 12:00 AM LICENSED WEIGHER) Case Report Dermatopathology Report Case: [id number] Authorizing Provider: Helena Morrison DO Collected: 12/29/2018 12:00 AM Ordering Location: [facility] DermPath Lab Received: 12/30/2018 12:36 PM Pathologist: Sandra De La Cruz MD Specimen: Skin, left LE 9 12:40 PM [facility]ED [facility]HER DERMATOPATHOLOGY LABORATORY Final Diagnosis Specimen A. 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 12:40 PM [facility] DERMATOPATHOLOGY LABORATORY Gross Description Specimen A: Received is one formalin filled container labeled with the patient's name and designated left LE. The specimen consists of a shave measuring 5w3q9wk. Jar 0. 12:40 PM [facility] DERMATOPATHOLOGY LABORATORY Microscopic Description Specimen A. SKIN, left LE: The epidermis shows parakeratosis, full thickness disorderly maturation of keratinocytes, mitoses at different levels, and dyskeratotic cells. 12:40 PM [facility] DERMATOPATHOLOGY LABORATORY Disclaimer An external and internal positive and negative controls are appropriate for the histochemical, immunohistochemical and immunofluorescence stain(s) in this case (if any), except where stated explicitly. The performance characteristics of the stain(s) cited in this report were developed and its performance characteristic determined by the Dermatopathology Laboratory at [facility], directed by Dr. Roseline Alvarez. These tests need not be, and therefore are not, approved by the [place] Food and Drug Administration. The tests are used for clinical purposes. Billing Codes Specimen Charges Stain Charges 39784 1 12:40 PM [facility] DERMATOPATHOLOGY LABORATORY Embedded Images 12:40 PM [facility] DERMATOPATHOLOGY LABORATORY Pathology/Cytolog y TISSUE SPECIMEN FROM SKIN / Unknown 12/29/2018 12/30/2018 12:36 PM LICENSED WEIGHER us Helena Morrison DO LAB - PATHOLOGY/CYTOLOGY ORDERABLES Final Result DERMATOPATHOLOGY LABORATORY [facility] - Department of Dermatology [facility] [facility], [address]th [place] [address], [facility] [phone] documented in this encounter Visit Diagnoses Not on filedocumented in this encounter Care Teams [facility] Day Care Center Worker Relationship Specialty Start Date End Date Lars Mcdermott MD [address] [place] [address] PCP - General 10/05/18 documented as of this encounter
--- OUTSIDE RECORDS SUMMARY | 2024-07-11 14:28 | XMS_ITS | Encounter Summary ---
Author Organization [facility] Address [address] [place] [address] Care Team Providers Care Artist And Repertoire Manager Name Role Phone Lars Mcdermott MD Primary Care Provider Encounter Details Date Type Department Care Team (Late st Contact Info) Description 02/27/2019 Lab Requisition [facility] DermPath Lab [address] [facility], [place] [address] Helena Morrison DO [address] [facility] [address] [place] [address] Social History Tobacco Use Types Packs/Day Years [...] Priority Date/Time Associated Diagnosis Comments DERMATOPATHOLOGY Routine 02/23/2019 12:0 0 AM [facility] documented in this encounter Results * DERMATOPATHOLOGY (02/23/2019 12:00 AM [facility]OOKER) Case Report Dermatopathology Report Case: [id number] Authorizing Provider: Helena Morrison DO Collected: 02/23/2019 12:00 AM Ordering Location: [facility] DermPath Lab Received: 02/27/2019 07:31 AM Pathologist: Jeison Alvarez MD Specimen: Skin, left LE 0 1:56 PM [facility] DERMATOPATHOLOGY LABORATORY Final Diagnosis Specimen A. SKIN, left LE: DERMAL SCAR; PRESENT AT MARGIN RESIDUAL SQUAMOUS CELL CARCINOMA NOT IDENTIFIED (L90.5) (see microscopic description) 0 1:56 PM [facility] DERMATOPATHOLOGY LABORATORY at [address] [facility] Clinical History R/O SCC, bx proven. Previous Bx: [id number]. 0 1:56 PM [facility] DERMATOPATHOLOGY LABORATORY Gross Description Specimen A: Received is one formalin filled container labeled with the patient's name and designated left LE. The specimen consists of a non-oriented ellipse of skin measuring 63w81k3db. The epidermal surface is unremarkable. The margin is inked green. The 12 o'clock and 6 o'clock tips are submitted in cassette 1. The remainder of the ellipse is serially sectioned and submitted in cassettes 2-3. Jar 0. 0 1:56 PM [facility] DERMATOPATHOLOGY LABORATORY Microscopic Description Specimen A. SKIN, left LE: There are fibroblasts and collagen bundles oriented parallel to the skin surface. There are elongated blood vessels, some of which are oriented perpendicular to the skin surface. No residual squamous cell carcinoma is identified. The scar is present at the base of the specimen in blocks 2 and 3. 0 1:56 PM [facility] DERMATOPATHOLOGY LABORATORY Disclaimer An external and internal positive and negative controls are appropriate for the histochemical, immunohistochemical and immunofluorescence stain(s) in this case (if any), except where stated explicitly. The performance characteristics of the stain(s) cited in this report were developed and its performance characteristic determined by the Dermatopathology Laboratory at [facility], directed by Dr. Roseline Alvarez. These tests need not be, and therefore are not, approved by the [place] Food and Drug Administration. The tests are used for clinical purposes. Billing Codes Specimen Charges Stain Charges 74319 1 0 1:56 PM [facility] DERMATOPATHOLOGY LABORATORY Embedded Images 0 1:56 PM [facility] DERMATOPATHOLOGY LABORATORY Pathology/Cytolog y TISSUE SPECIMEN FROM SKIN / Unknown 02/23/2019 02/27/2019 7:31 AM [facility] us Helena Morrison DO LAB - PATHOLOGY/CYTOLOGY ORDERABLES Final Result DERMATOPATHOLOGY LABORATORY [facility] - Department of Dermatology [address] [facility], [address]th [place] [address], [facility] [phone] documented in this encounter Visit Diagnoses Not on filedocumented in this encounter Care Teams Artist And Repertoire Manager Relationship Specialty Start Date End Date Lars Mcdermott MD [address] [place] [address] PCP - General 10/05/18 documented as of this encounter
--- OUTSIDE RECORDS SUMMARY | 2024-07-11 14:28 | XMS_ITS | Clinical Summary ---
Author Organization [facility] Address [address] [place] [address] Care Team Providers Care Butcher Assistant Name Role Phone Lars Mcdermott MD Primary Care Provider [phone] Source Comments [facility],non-owned Affiliates and Associated Physician Practices is amultiple site organization consisting of ambulatory clinics and hospital sitesin [place], [place], [place] and [place]. This disclosure is being madepursuant to the Care Everywhere program and may not contain all information available regarding this patient. Last updated 17.[facility] Social History Tobacco Use Types Packs/Day Years Used Date Smoking Tobacco: Never Assessed Comments Unknown Sex and Gender Information Value Date Recorded Sex Assigned at Not on file Legal Sex Female 4:12 AM CDT Gender Identity Not on file Sexual Orientation Not on file Plan of Treatment Health Maintenance Due Date Last Done Comments COLOGUARD (AGES 45-75) - COL ON CA SCREENING 1979 COLON MONITORING 1979 COLONOSCOPY - COLON CA SCREENING 1979 CT COLONOGRAPHY - COLON CA SCREENING 1979 Colorectal Cancer Screening 1979 FIT - COLON CA SCREENING 1979 FLEX SIG - COLON CA SCREENING 1979 LIPID TESTING 1979 MAMMOGRAM 1979 HIV SCREENING 06/12/1994 HEPATITIS C SCREENING 06/08/1997 DTAP/TDAP/TD VACCINES (1 - Tdap) 06/12/1998 HEPATITIS B VACCINE (1 of 3 - 19+ 3-dose series) 06/12/1998 COVID-19 VACCINE (1 - 2023-2 5 season) 2023 DEPRESSION SCREENING 02/09/2024 INFLUENZA VACCINE (Season Ended) 2024 ZOSTER VACCINE (1 of 2) 06/12/2029 HIB VACCINE Aged Out No longer eligi ble based on patient's age to complete this topic HPV VACCINE Aged Out No longer eligi ble based on patient's age to complete this topic MENINGOCOCCAL (Group B) VACC INE SHARED DECISION-MAKING Aged Out No longer eligibl e based on patient's age to complete this topic MENINGOCOCCAL GROUPS A/C/Y/W VACCINE Aged Out No longer eligible b ased on patient's age to complete this topic PNEUMOCOCCAL VACCINE Aged Out No long er eligible based on patient's age to complete this topic Insurance ANTH Care Teams Butcher Assistant Relationship Specialty Start Date End Date Lars Mcdermott MD [address] [place] [address] PCP - General 10/05/18
--- OUTSIDE RECORDS SUMMARY | 2024-07-11 14:28 | XMS_ITS | Data Portability ---
Author Organization [facility] Address [address] [place] [address] [place] [address] Care Team Providers Care Show Host Or Hostess Name Role Phone JAKE CRANE Primary Care Provider [phone] Assessment Encounter Date Assessment Date Assessment LastModified by Organization Details LastModified Time 08/26/2022 08/26/2022 Annual gynecological exam performed. Patient will come back in a year unless there are new symptoms. Not available 08/26/2022 18:23:14 Plan of Treatment Reminders Order Date Submit Date Provider Last Modified By Organization Details Last Modified Time Details Appointments None recorded. Lab None recorded. Referral None recorded. Procedures None recorded. Surgeries None recorded. Imaging MAMMO, screening, digital, bilateral [address] [facility], [address], [address], [place], [address], 5 18:29:26 MAMMO, screening, bilateral [address] [facility], [address], [address], [place], [address], 3 09:43:32 US, pelvis 2019 020 [email or web address], [address], [address], [place], [address], 0 17:31:27 US, transvagina l 2019 020 [facility], [address], [place], [address], 1 05:03:20 Medication Orders clindamycin HCl 300 mg capsule 2024 025 [facility] [address] [place], [address], 5 12:55:47 fluconazole 150 mg tablet 2024 025 [facility] [address] [place], [address], 5 10:12:20 nystatin-tr iamcinolone 100,000 unit/gram-0 .1 % topical ointment 2024 025 [facility] [address] [place], [address], 5 16:54:52 estradiol 1 mg tablet 2022 [address]23 [address] [place], [address], 3 09:47:45 Jocelyne 0.35 mg tablet 2019 020 [address] [place], [address], 3 18:26:10 Addyi 100 mg tablet 2019 020 [address] [place], [address], 3 18:24:42 Patient TargetsNo targets recorded. Patient InstructionsNo instructions recorded. Reason for Referral None Reported. Results Created Date Observation Date Name Description Value Unit Range Abnormal Flag Note LastModifiedBy Organization Detail LastModifiedTime 03/28/19 21 03/28/2020 , brenna aguilera md interpretati on Not Available Dora miller [address], [place], [address], 08/24/2019 14:36:16 03/13/19 25 03/13/2024 [facility] [place] bacterial vaginosis (bv), tma Positi ve negati ve abnormal Not Available [facility] (Lab) [address] [facility], [place], [address], 03/16/2024 07:30:14 03/13/19 25 03/13/2024 [facility] [place] ce species, tma Positi ve negati ve abnormal Not Available [facility] (Lab) [address] [facility], [place], [address], 03/16/2024 07:30:14 03/13/19 25 03/13/2024 [facility] [place] ce glabrata, tma Negati ve negati ve Not Available [facility] (Lab) [address] [place], [address], 03/16/2024 07:30:14 03/13/19 25 03/13/2024 [facility] [place] trichomonas vaginalis, tma Negati ve negati ve Not Available [facility] (Lab) [address] [place], [address], 03/16/2024 07:30:14 03/13/19 25 03/13/2024 [facility] [place] chlamydia trachomatis, PCR Negati ve negati ve Not Available [facility] (Lab) [address] [place], [address], 03/16/2024 07:30:14 03/13/19 25 03/13/2024 [facility] [place] neisseria gonorrhoeae, PCR Negati ve negati ve Bacte rial vagin osis detec ts the follo wing bacte ewa assoc iated with bacte rial vagin osis (BV): Lacto bacil pamela (L. gasse ri, L. crisp atus and Seth reyes lorraine), Gardn erell a vagin basil, and Atopo bium vagin ae. A singl e quali tativ e resul t is repor stephen base on instr ument softw are to deter mine BV posit arnie or negat arnie statu s. The [facility] es group tests for C. albic ans, C. tropi calis , C. parap deena is, C. dubli niens is. Testi ng is perfo rmed using the Trans cript ion Media stephen Ampli ficat ion metho d. Tests for Princess [facility] glabr suki, Trich omona s vagin basil, Chlam ydia trach omati s, and Neiss eria gonor rhoea e are also inclu ded in this panel . Not Available [facility] (Lab) [address] [facility], [place], [address], 03/16/2024 07:30:14 08/24/19 US, pelvi s No observ ation record ed. [address], [facility], [place], [address], 08/25/2019 12:19:24 09/28/19 20 09/28/2019 US, doppl er, venou s No observ ation record ed. [facility] [facility] [address], [place], [address], 03/28/2020 12:24:21 09/28/19 20 09/28/2019 US, doppl er, venou s No observ ation record ed. [facility] [address] [facility] [address], [place], [address], 03/28/2020 12:24:58 Result Notes None recorded. 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;P ractice ID: 0001 Not Available [facility] 0 21:13:41 Urinary tract infectiou s disease 39002569 Active 2017 Urinary tract infection, site not specified; Practice ID: 0001 Not Available [facility] 0 21:13:41 Acute vaginitis 40749192 Active 2017 Acute vaginitis; Practice ID: 0001 Not Available [facility] 0 21:13:41 Vaginolab ial hernia Active 2017 Other specified noninflamm atory disorders of vagina;Pra ctice ID: 0001 Not Available [facility] 0 21:13:42 Lesion of ovary Active 2019 Other ovarian cyst, right side;Pract ice ID: 0001 Not Available [facility] 0 21:13:42 Pelvic and perineal pain 077572648 Active 2019 Pelvic and perineal pain;Pract ice ID: 0001 Not Available [facility] 0 21:13:42 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 ed 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 on 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;Recorded Elsewhere: No Locatio n: [facility] rce: EHR Chroni c: N Practice ID: 0001 Billa ble Time: 10:30:00 AM Not Available [facility] 0 21:13:42 Vaginitis and vulvovagi nitis Active 2014 Vaginitis; Recorded Elsewhere: No Locatio n: [facility] rce: EHR Chroni c: N Practice ID: 0001 Billa ble Time: 10:30:00 AM Not Available [facility] 0 21:13:[address] Concept Active 2016 Encntr for general adult medical exam w/o abnormal findings;R ecorded Elsewhere: No Locatio n: [facility] rce: EHR Chroni c: N Practice ID: 0001 Billa ble Time: 08:30:00 AM Not Available [facility] 0 21:13:42 Cyst of ovary Active 2019 Unspecifie d ovarian cyst, unspecifie d side;Recor ded Elsewhere: No Locatio n: [facility] rce: EHR Chroni c: N Practice ID: 0001 Billa ble Time: 03:00:00 PM Not Available [facility] 0 21:13:42 Finding of pattern of menstrual cycle 424453113 Active 2016 Excessive and frequent menstruati on with irregular cycle;Jus rded Elsewhere: No Locatio n: [facility] rce: EHR Chroni c: N Practice ID: 0001 Billa ble Time: 04:30:00 PM Not Available [facility] 0 21:13:42 Irregular intermens trual bleeding 96178104 Active 2012 Metrorrhag ia;Recorde d Elsewhere: No Locatio n: [facility] rce: EHR Chroni c: N Practice ID: 0001 Billa ble Time: 04:30:00 PM Not Available [facility] 0 21:13:43 test negative 388187540 Active 2015 Encounter for test, result negative;R ecorded Elsewhere: No Locatio n: [facility] rce: EHR Chroni c: N Practice ID: 0001 Billa ble Time: 01:15:00 PM Not Available [facility] 0 21:13:43 Glycosuri a 13883303 Active 2014 Glycosuria ;Practice ID: 0001 Not Available [facility] 0 21:13:43 Female genital organ symptoms 902635190 Active 2014 Pelvic Pain;Pract ice ID: 0001 Not Available [facility] 0 21:13:43 Adult health examinati on Active 2014 Routine general 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o n at a health care facility;Colt babbtice ID: 0001 Not Available [facility] 0 21:13:43 Screening for malignant neoplasm of cervix Active 2014 Pap Smear;Prac michael ID: 0001 Not Available [facility] 0 21:13:43 Finding of pattern of menstrual cycle Active 2015 Other specified irregular menstruati on;Practic e ID: 0001 Not Available [facility] 0 21:13:44 Carbuncle 315818003 Active 2015 Carbuncle of other sites;Prac michael ID: 0001 Not Available [facility] 0 21:13:44 Disease 43559005 Active 2015 Oth cond assoc w female genital organs and menstrual cycle;Prac michael ID: 0001 Not Available [facility] 0 21:13:44 Syphilis test finding 538730502 Active 2015 Encntr screen for infections w sexl mode of transmiss; Practice ID: 0001 Not Available [facility] 0 21:13:44 Evaluatio n finding Active 2015 Hematuria, unspecifie d;Practice ID: 0001 Not Available [facility] 0 21:13:45 Finding of sensation of breast Active 2016 Mastodynia ;Practice ID: 0001 Not Available [facility] 0 21:13:45 Family history of breast cancer 995662639 Active 2016 Family history of breast cancer;Rec orded Elsewhere: No Locatio n: [facility] rce: EHR Chroni c: N Practice ID: 0001 Billa ble Time: 10:00:00 AM Not Available [facility] 0 21:13:46 Body mass index 25-29 - overweigh t 056327743 Active 2016 Body mass index (BMI) 26.0-26.9, adult;Jus rded Elsewhere: No Locatio n: [facility] rce: EHR Chroni c: N Practice ID: 0001 Billa ble Time: 08:30:00 AM Not Available [facility] 0 21:13:47 Leukorrhe a 571970041 Active 2014 Leukorrhea , not specified as infective; Recorded Elsewhere: No Locatio n: [facility] rce: EHR Chroni c: N Practice ID: 0001 Billa ble Time: 02:30:00 PM Not Available [facility] 0 21:13:47 Infection screening Active 2015 Encounter for screening for oth infec/para stc diseases;R ecorded Elsewhere: No Locatio n: [facility] rce: EHR Chroni c: N Practice ID: 0001 Billa ble Time: 01:15:00 PM Not Available [facility] 0 21:13:48 Problem Notes None recorded. Procedures Surgical History Date Name Laterality Status Provider Name and Address Organization Details Recorded Time 08/13/19 18 Date of Last Pap Smear completed [facility] 08/26/2022 18:29:29 02/08/19 17 Unlisted px accessory sinus completed [facility] 05/25/2019 11:47:23 10/26/19 10 Tubal Ligation completed [facility] 03/13/2024 16:40:54 10/26/19 10 Caesarean Section completed [facility] 03/13/2024 16:40:54 02/08/19 10 delivery completed [facility] 05/25/2019 11:47:10 02/08/19 07 Tonsillectomy completed [facility] 05/25/2019 11:46:59 09/11/18 98 Caesarean Section completed [facility] 03/13/2024 16:40:54 02/08/18 98 delivery completed [facility] 05/25/2019 11:46:47 Colposcopy completed [facility] 08/26/2022 18:24:11 Tonsillectomy completed [facility] 08/26/2022 18:24:11 Tubal Ligation completed [facility] 08/26/2022 18:24:11 Total Hysterectomy completed [facility] 08/26/2022 18:24:11 Colonoscopy completed [facility] 08/26/2022 18:24:11 screening for cancer completed [facility] 05/25/2019 11:45:57 excision of lesion of stomach completed [facility] 05/25/2019 11:46:30 Imaging Results None recorded. Procedure Notes None recorded. Medical Equipment None Reported. Allergies Allergen ID Allergen Name Allergen Category Reaction Reaction Severity Criticality Documentation Date Start Date Code Code System Note Provider Name and Address Organization Details Recorded Time 189 adhesive environme nt,medica tion Not available Not available Not available 05/25/2019 63878 UNK Formerly named [facility] 0 11:34:00 190 hydromorp sujatha medicatio n Not available Not available Not available 05/25/2019 3423 RxNorm Formerly named [facility] 0 11:34:08 191 metronida zole medicatio n Not available Not available Not available 05/25/2019 6922 RxNorm Formerly named [facility] 0 11:34:17 192 sumatript an medicatio n Not available Not available Not available 05/25/2019 [facility] 11:34[facility]25 193 tioconazo le medicatio n Not available Not available Not available 05/25/2019 217[facility] 0 11:34:35 Medications Name Sig Start Date Stop Date Status Note LastModified by Organization Details LastModified Time celecoxib 200 mg capsule TAKE 1 TABLET ORALLY DAILY 08/26 completed Not Available Not Available Not Available cyclobenz aprine 10 mg tablet TAKE 1 TABLET BY MOUTH EVERY DAY AT BEDTIME NEEDED FOR MUSCLE SPASMS active Not Available Not Available No t Available tretinoin 0.1 % topical cream APPLY TO AFFECTED AREA ON FACE EVERY NIGHT BEFORE BEDTIME 08/26 completed Not Available Not Available Not Available metformin 500 mg tablet 500 MG ORALLY TWICE A DAY FOR 1 MONTH 03/11 completed Not Available Not Available Not Available venlafaxi ne ER 37.5 mg capsule,e xtended release 24 hr take 1 capsule by oral route every day with food 08/26 completed Prescrib ed Elsewher e: Yes Loca tion: [facility] odify By: manolo Cespedes r DateTime : 06/26/19 18 01:30:00 PM Not Available Not Available Not Available venlafaxi ne ER 75 mg capsule,e xtended release 24 hr TAKE 1 CAPSULE BY MOUTH EVERY DAY IN THE MORNING active Not Available Not Available No t Available cefuroxim e axetil 250 mg tablet 05/24 completed Not Available Not Available Not Available atorvasta tin 20 mg tablet TAKE 1 TABLET BY MOUTH EVERY DAY active Not Available Not Available No t Available ketoconaz ole 2 % shampoo USE BODY WASH TO AFFECTED AREAS DAILY NEEDED LEAVE ON 5-10 MIN BEFORE RISING 03/11 completed Not Available Not Available Not Available albuterol (bulk) powder 06/25 completed Prescrib ed Elsewher e: Yes Loca tion: [facility] odify By: manolo Cespedes r DateTime : 03/21/19 13 04:30:00 PM Not Available Not Available Not Available clindamyc in HCl 300 mg capsule TAKE 1 CAPSULE BY MOUTH TWICE A DAY FOR 7 DAYS active Not Available Not Available No t Available trazodone 50 mg tablet 08/26 completed Not Available Not Available Not Available atorvasta tin 10 mg tablet 08/26 completed Not Available Not Available Not Available fluconazo le 150 mg tablet TAKE 1 TABLET BY ORAL ROUTE ONCE, REPEAT IN 72 HOURS IF NEEDED 03/30 completed Not Available Not Available Not Available benzonata te 200 mg capsule 200 MG ORALLY THREE TIMES A DAY NEEDED FOR COUGH 03/11 completed Not Available Not Available Not Available tolterodi ne ER 4 mg capsule,e xtended release 24 hr TAKE 1 TABLET ORALLY DAILY 08/26 completed Not Available Not Available Not Available ondansetr on HCl 8 mg tablet 05/24 completed Not Available Not Available Not Available ondansetr on HCl 4 mg tablet TAKE ONE TABLET EVERY 6 HOURS NEEDED 03/11 completed Not Available Not Available Not Available prednison e 20 mg tablet TAKE 2 TABLETS BY MOUTH EVERY DAY FOR 5 DAYS 03/11 completed Not Available Not Available Not Available propranol ol ER 60 mg capsule,2 4 hr,extend ed release TAKE 1 CAPSULE BY MOUTH EVERY DAY active Not Available Not Available No t Available venlafaxi ne ER 150 mg capsule,e xtended release 24 hr TAKE 1 CAPSULE BY MOUTH EVERY DAY IN THE MORNING active Not Available Not Available No t Available acyclovir 400 mg tablet TAKE 1 TABLET BY MOUTH TWICE A DAY active Not Available Not Available No t Available omeprazol e 40 mg capsule,d elayed release TAKE 1 CAPSULE BY MOUTH EVERY DAY active Not Available Not Available No t Available doxycycli ne monohydra te 100 mg tablet 100 MG ORALLY TWICE A DAY 03/11 completed Not Available Not Available Not Available tramadol 50 mg tablet TAKE 1 TABLET BY MOUTH EVERY 6 HOURS NEEDED FOR PAIN 03/11 completed Not Available Not Available Not Available quetiapin e 100 mg tablet TAKE 1 TABLET BY MOUTH EVERYDAY AT BEDTIME active Not Available Not Available No t Available acyclovir 800 mg tablet TAKE 1 TABLET BY MOUTH 3 TIMES A DAY FOR 2 DAYS 08/26 completed Not Available Not Available Not Available ondansetr on 8 mg disintegr ating tablet 08/26 completed Not Available Not Available Not Available nystatin- triamcino lone 100,000 unit/gram -0.1 % topical ointment APPLY TO THE AFFECTED AREA(S) BY TOPICAL ROUTE 2 TIMES PER DAY FOR 5 DAYS active Not Available Not Available No t Available alprazola m 0.5 mg tablet 08/26 completed Not Available Not Available Not Available Metrogel Vaginal 0.75 % (37.5 mg/5 gram) insert 1 applicat orful by vaginal route every day at bedtime for 5 nights 07/08 completed Prescrib ed Elsewher e: No Locat ion: [facility] odify By: jhon Carpentert er DateTime : 07/07/19 18 10:58:38 AM Not Available Not Available Not Available famotidin e 20 mg tablet 08/26 completed Not Available Not Available Not Available omeprazol e 10 mg capsule,d elayed release take 2 capsule by oral route every day before a meal 08/12 completed Prescrib ed Elsewher e: Yes Loca tion: [facility] odify By: charly Shi ncounter DateTime : 08/11/19 17 08:30:00 AM Not Available Not Available Not Available methocarb ezekiel 750 mg tablet TAKE 1 TABLET BY MOUTH THREE TIMES A DAY NEEDED FOR MUSCLE SPASM 03/11 completed Not Available Not Available Not Available estradiol 1 mg tablet take 1 tablet daily 2024 active Not Available Not Available Not Avai lable Zoloft 50 mg tablet take 1 tablet by oral route every day 08/06 completed Prescrib ed Elsewher e: Yes Loca tion: [facility] odify By: [email or web address] trick En counter DateTime : 06/21/19 15 10:30:00 AM Not Available Not Available Not Available Flagyl 500 mg tablet take 1 tablet by oral route every 12 hours for 7 days 08/12 completed Prescrib ed Elsewher e: No Locat ion: [facility] odify By: charly Shi ncounter DateTime : 07/09/19 18 11:39:13 AM Not Available Not Available Not Available meclizine 25 mg tablet 08/26 completed Not Available Not Available Not Available Xanax 0.25 mg tablet take 1 tablet by oral route 3 times every day 08/26 completed Prescrib ed Elsewher e: Yes [facility] By: jefry Shi ncounter DateTime : 01/07/20 18 01:00:00 PM Not Available Not Available Not Available cephalexi n 500 mg capsule 05/24 completed Not Available Not Available Not Available hyoscyami ne sulfate 0.125 mg tablet 08/26 completed Not Available Not Available Not Available acyclovir 5 % topical ointment APPLY TOPICALL Y 6 TIMES PER DAY FOR 7 DAYS active Not Available Not Available No t Available Claritin 5 mg/5 mL oral solution take 10 millilit er by oral route every day 06/20 completed Prescrib ed Elsewher e: Yes Loca tion: [facility] odify By: [email or web address] trick En counter DateTime : 03/21/19 13 04:30:00 PM Not Available Not Available Not Available Cipro 500 mg tablet take 1 tablet by oral route every 12 hours 12/19 completed Prescrib ed Elsewher e: No Locat ion: [facility] odify By: danielashley Encounte r DateTime : 10/16/19 16 01:30:00 PM Not Available Not Available Not Available Neurontin 100 mg capsule take 1 capsule by oral route 3 times every day 12/19 completed Prescrib ed Elsewher e: No Locat ion: [facility] odify By: danielashley Encounte r DateTime : 08/07/19 16 09:00:00 AM Not Available Not Available Not Available Qvar 40 mcg/actua tion Metered Aerosol oral inhaler inhale 2 puff by inhalati on route 2 times every day 12/19 completed Prescrib ed Elsewher e: Yes Loca tion: [facility] odify By: danieljose manuelrebecca Encounte r DateTime : 08/07/19 16 09:00:00 AM Not Available Not Available Not Available Valtrex 1 gram tablet take 1 tablet by oral route every 12 hours 06/20 completed Prescrib ed Elsewher e: Yes Loca tion: [facility] odify By: [email or web address] trick En counter DateTime : 03/21/19 13 04:30:00 PM Not Available Not Available Not Available gabapenti n 300 mg capsule 08/26 completed Not Available Not Available Not Available Imitrex 6 mg/0.5 mL subcutane ous solution inject 0.5 millilit er by subcutan eous route once; may be repeated 1 hour after the first dose if headache pain returns or increase s in severity ; do not exceed 2 doses within 24 hours 06/20 completed Prescrib ed Elsewher e: Yes Loca tion: [facility] odify By: [email or web address] trick En counter DateTime : 03/21/19 13 04:30:00 PM Not Available Not Available Not Available omeprazol e 20 mg capsule,d elayed release 20 MG ORALLY DAILY FOR 1 MONTH 03/11 completed Not Available Not Available Not Available clindamyc in 2 % vaginal cream Insert 1 applicat orful every day by vaginal route at bedtime for 7 days. active Not Available Not Available No t Available lisinopri l 5 mg tablet 08/26 completed Not Available Not Available Not Available acyclovir 200 mg capsule take 1 capsule by oral route every 4 hours 5 times per day 08/26 completed Prescrib ed Elsewher e: Yes [facility] By: manolo Cespedes r DateTime : 06/26/19 18 01:30:00 PM Not Available Not Available Not Available mupirocin 2 % topical ointment 05/24 completed Not Available Not Available Not Available metoprolo l succinate ER 25 mg tablet,ex tended release 24 hr 03/11 completed Not Available Not Available Not Available dexametha sone sodium phosphate 4 mg/mL injection solution 05/24 completed Not Available Not Available Not Available methylpre dnisolone 4 mg tablets in a dose pack TAKE 6 TABLETS ON DAY 1 DIRECTED ON PACKAGE AND DECREASE BY 1 TAB EACH DAY FOR A TOTAL OF 6 DAYS 03/11 completed Not Available Not Available Not Available albuterol sulfate HFA 90 mcg/actua tion aerosol inhaler INHALE 2 PUFFS BY MOUTH FOUR TIMES DAILY NEEDED FOR SHORTNES S OF BREATH OR WHEEZING 08/26 completed Not Available Not Available Not Available Vitamin D2 1,250 mcg (50,000 unit) capsule take 1 capsule by oral route every week 08/26 completed Prescrib ed Elsewher e: Yes [facility]ify By: tmanitra Shi ncounter DateTime : 01/07/20 18 01:00:00 PM Not Available Not Available Not Available hydroxyzi ne HCl 10 mg tablet 1 po every hs 06/25 completed Prescrib ed Elsewher e: No Locat ion: [facility] odify By: manolo Cespedes r DateTime : 03/03/19 17 05:15:00 PM Not Available Not Available Not Available ondansetr on 4 mg disintegr ating tablet TAKE 1 TABLET (4 MG) ORALLY EVERY 8 HOURS NEEDED FOR NAUSEA AND VOMITING 03/11 completed Not Available Not Available Not Available fluticaso ne propionat e 50 mcg/actua tion nasal spray,yasmin pension 05/24 completed Not Available Not Available Not Available Ambien 5 mg tablet take 2 tablet by oral route every day at bedtime 08/26 completed Prescrib ed Elsewher e: Yes [facility]ify By: manolo john DateTime : 06/26/19 18 01:30:00 PM Not Available Not Available Not Available doxycycli ne hyclate 100 mg tablet 08/26 completed Not Available Not Available Not Available gentamici n 0.1 % topical ointment 05/24 completed Not Available Not Available Not Available naproxen 500 mg tablet TAKE 1 TABLET BY MOUTH TWICE A DAY 03/11 completed Not Available Not Available Not Available diazepam 5 mg tablet 08/26 completed Not Available Not Available Not Available amoxicill in 875 mg-potass ium clavulana te 125 mg tablet TAKE 1 TABLET BY MOUTH EVERY 12 HOURS FOR 7 DAYS 03/11 completed Not Available Not Available Not Available buspirone 15 mg tablet TAKE 1 TABLET BY MOUTH THREE TIMES A DAY active Not Available Not Available No t Available clindamyc in 1 % lotion APPLY TO AFFECTED AREAS ON BODY TWICE A DAY UNTIL CLEAR, THEN ONCE DAILY 08/26 completed Not Available Not Available Not Available metaxalon e 800 mg tablet 05/24 completed Not Available Not Available Not Available bupropion HCl XL 300 mg 24 hr tablet, extended release TAKE 1 TABLET BY MOUTH EVERY DAY IN THE MORNING FOR 90 DAY active Not Available Not Available No t Available eszopiclo ne 2 mg tablet 2 MG ORALLY ONCE TAKE TABLET WITH YOU TO SLEEP CENTER FOR SLEEP STUDY, IF NEEDED. 03/11 completed Not Available Not Available Not Available Clindesse 2 % vaginal cream,ext ended release insert by Vaginal route for 1 bedtime 01/17 completed Prescrib ed Elsewher e: No [facility]at [facility] odify By: flory quinn DateTime : 01/13/20 18 11:03:42 AM Not Available Not Available Not Available acyclovir 05/24 completed Not Available Not Available Not Available venlafaxi ne 08/26 completed Not Available Not Available Not Available Ambien 05/24 completed Not Available Not Available Not Available Xanax 08/26 completed Not Available Not Available Not Available meloxicam 7.5 mg/5 mL oral suspensio n take 5 millilit er by oral route every day 08/12 completed Prescrib ed Elsewher e: Yes [facility] odify By: charly aguileraunter DateTime : 06/26/19 18 01:30:00 PM Not Available Not Available Not Available quetiapin e 50 mg tablet TAKE 1 TABLET BY MOUTH EVERYDAY AT BEDTIME 03/11 completed Not Available Not Available Not Available Symbicort 160 mcg-4.5 mcg/actua tion HFA aerosol inhaler 03/11 completed Not Available Not Available Not Available Symbicort 80 mcg-4.5 mcg/actua tion HFA aerosol inhaler INHALE 2 PUFFS BY MOUTH EVERY 12 HOURS FOR 30 DAYS, RINSE AND SPIT AFTER USE 03/11 completed Not Available Not Available Not Available Divigel 1 mg/gram (0.1 %) transderm al gel packet APPLY 1 PACKET TO INNER THIGH DAILY active Not Available Not Available No t Available diclofena c 1 % topical gel 08/26 completed Not Available Not Available Not Available B-12 DOTS 500 mcg tablet 03/06 completed Prescrib ed Elsewher e: Yes [facility] By: [email or web address] trick En counter DateTime : 06/21/19 15 10:30:00 AM Not Available Not Available Not Available venlafaxi ne ER 225 mg tablet,ex tended release 24 hr take 1 tablet by oral route every day in the morning at the same time each day with food 12/19 completed Prescrib ed Elsewher e: Yes Loca tion: [facility] odify By: [email or web address] Coy john DateTime : 08/07/19 16 09:00:00 AM Not Available Not Available Not Available venlafaxi ne ER 150 mg tablet,ex tended release 24 hr 03/11 completed Not Available Not Available Not Available venlafaxi ne ER 75 mg tablet,ex tended release 24 hr 08/26 completed Not Available Not Available Not Available Dexilant 60 mg capsule, delayed release take 1 capsule by oral route every day for 8 weeks 08/26 completed Prescrib ed Elsewher e: Yes Loca tion: [facility] odify By: charly barnhart DateTime : 08/13/19 18 01:00:00 PM Not Available Not Available Not Available Dexilant 08/26 completed Not Available Not Available Not Available Suprep Bowel Prep Kit 17.5 gram-3.13 gram-1.6 gram oral solution 05/24 completed Not Available Not Available Not Available Amina Allergy 180 mg tablet take 1 tablet by oral route every day 06/25 completed Prescrib ed Elsewher e: Yes Loca tion: [facility] odify By: manolo john DateTime : 08/07/19 16 09:00:00 AM Not Available Not Available Not Available Vitamin D2 08/26 completed Not Available Not Available Not Available Linzess 145 mcg capsule 08/26 completed Not Available Not Available Not Available Addyi 100 mg tablet Take 1 tablet every day by oral route. 08/26 completed Not Available Not Available Not Available Basaglar KwikPen U-100 Insulin 100 unit/mL (3 mL) subcutane ous 08/26 completed Not Available Not Available Not Available Toujeo Max U-300 SoloStar 300 unit/mL (3 mL) subcutane ous insulin pen INJECT 15 UNITS UNDER THE SKIN ONCE DAILY AT BEDTIME active Not Available Not Available No t Available Incassia 0.35 mg tablet TAKE 1 TABLET BY MOUTH EVERY DAY 08/26 completed Not Available Not Available Not Available BD Ev 2nd Gen Pen Needle 32 gauge x USE WITH INSULIN ONCE DAILY active Not Available Not Available No t Available Ozempic 1 mg/dose (4 mg/3 mL) subcutane ous pen injector 1 MG (0.75 ML) SUBCUTAN EOUSLY WEEKLY 03/11 completed Not Available Not Available Not Available insulin glargine- yfgn (U-100) 100 unit/mL (3 mL) subcutane ous pen 15 UNIT (0.15 ML) SUBCUTAN EOUSLY EVERY EVENING 03/11 completed Not Available Not Available Not Available Mounjaro 5 mg/0.5 mL subcutane ous pen injector 5 MG (0.5 ML) SUBCUTAN EOUSLY WEEKLY 08/26 completed Not Available Not Available Not Available Dexcom G7 Patternmaker All Around DIRECTED 03/11 completed Not Available Not Available Not Available Dexcom G7 Sensor device DIRECTED 03/11 completed Not Available Not Available Not Available Ozempic 0.25 mg or 0.5 mg (2 mg/3 mL) subcutane ous pen injector INJECT 0.25 MG SUBCUTAN EOUSLY WEEKLY FOR 4 WEEKS 03/11 completed Not Available Not Available Not Available Vitals Date Recorded Body height Body mass index (BMI) Body weight Systolic blood pressure Diastolic blood pressure Provider Name and Address Organization Details Last Updated DateTime 03/13/2024 167.64 cm 32 kg/m2 66101.29 g 122 mm[Hg] 79 mm[Hg] [facility] 5 16:40:33 Date Recorded Body height Body mass index (BMI) Body weight Systolic blood pressure Diastolic blood pressure Systolic blood pressure Diastolic blood pressure Provider Name and Address Organization Details Last Updated DateTime 5 167.64 cm 31.5 kg/m2 14443.5 1 g 143 mm[Hg] 80 mm[Hg] 125 mm[Hg] 82 mm[Hg] [facility] 5 10:15:51 Date Recorded Body height Body mass index (BMI) Body weight Systolic blood pressure Diastolic blood pressure Provider Name and Address Organization Details Last Updated DateTime 05/25/2019 163.83 cm 34 kg/m2 35261.07 g 120 mm[Hg] 80 mm[Hg] [facility] 0 14:08:43 Date Recorded Body height Body mass index (BMI) Body weight Systolic blood pressure Diastolic blood pressure Provider Name and Address Organization Details Last Updated DateTime 08/26/2022 167.64 cm 29.7 kg/m2 87803 g 122 mm[Hg] 79 mm[Hg] Shauna Kumar [facility] 18:23:36 Social History Question Answer Notes LastModified by Organizat ion Details LastModified Time Tobacco Smoking Status Current Every Day Smoker Shauna Kumar [facility], [facility] 08/26/2022 18:31:19 Do You Have An Advance Directive? No [email or web address] Information n ot available 03/13/2024 How Many Years Have You Consumed Alcohol? 22 Information not available 08/26/2022 Are You Blind Or Do You Have Difficulty Seeing? Yes Information n ot available 08/26/2022 What Is Your Level Of Caffeine Consumption? Heavy Information not available 08/26/2022 In The 14 Days Before Symptom Onset, Have You Had Close Contact With A Laboratory-confirm ed COVID-19 While That Case Was Ill? No Information n ot available 08/26/2022 In The 14 Days Before Symptom Onset, Have You Had Close Contact With A Person Who Is Under Investigation For COVID-19 While That Person Was Ill? No Information not available 08/26/2022 Have You Been To An Area Known To Be High Risk For COVID-19? No Information not available 08/26/2022 Are You Deaf Or Do You Have Serious Difficulty Hearing? No Information not available 08/26/2022 What Type Of Diet Are You Following? DIABETIC Information n ot available 08/26/2022 What Is The Highest Grade Or Level Of School You Have Completed Or The Highest Degree You Have Received? [id number] Information not available 08/26/2022 Are There Any Guns Present In Your Home? No Information not available 08/26/2022 Do You Use Protection During Sex? No Information not available 08/26/2022 Do You Use Your Seat Belt Or Car Seat Routinely? Yes Information not available 08/26/2022 Do You Have Smoke And Carbon Monoxide Detectors In Your Home? Yes Information not available 08/26/2022 At What Age Did You Start Smoking Tobacco? 9 Information not available 08/26/2022 How Much Tobacco Do You Smoke? 0.5 PPD Information not available 08/26/2022 Do You Use Sunscreen Routinely? No Information not available 08/26/2022 How Many Years Have You Smoked Tobacco? 35 [email or web address] Information not available 03/13/2024 Have You Used IV Drugs? No Information not available 08/26/2022 Sex: Unknown Functional Status Question Answer Note LastModified by Organizat ion Details LastModified Time Do you use any illicit or recreational drugs? Yes Information not available 08/26/2022 What is your level of alcohol consumption? Occasional Information not available 08/26/2022 Are you able to walk? 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 Occasional Information not available 08/26/2022 Mental Status Question Answer Note LastModified by Organization D etails LastModified Time Do you feel stressed (tense, restless, nervous, or anxious, or unable to sleep at night)? [id number] Information not available 08/26/2022 Family History Relationship Description Onset Age of this Age Resolved Age Notes LastModified by Organization Details LastModified Time Father Hypertensive disorder [email or web address] Not available 05/24 11:36:33 Father Hyperlipidem ia [email or web address] Not available 03/12 09:58:20 Father Family history of malignant neoplasm Bladde r, brain, bone, colon [email or web address] Not available 03/30/2024 09:58:20 Father Disorder of lung Not available 2022 18:23:46 Father Depressive disorder Not available 2022 18:23:46 Father Malignant tumor of colon Not available 2022 18:23:46 Mother Hypertensive disorder [email or web address] Not available 05/24 11:36:33 Mother Depressive disorder Not available 2022 18:23:46 Mother Osteoporosis Not availa ble 08/26/2022 18:23:46 Mother Vascular dementia [email or web address] Not available 2024 10:13:26 Sister Hypertensive disorder [email or web address] Not available 05/24 11:36:33 Sister Depressive disorder Not available 2022 18:23:46 Sister Substance abuse Not available 2022 18:23:46 Brother Hypertensive disorder [email or web address] Not available 05/24 11:36:33 Brother Disorder of cardiovascul ar system [email or web address] Not available 03/12 09:58:20 Brother Cerebrovascu lar accident Not available 18:23:46 Brother Depressive disorder Not available 2022 18:23:46 Brother Heart disease Not available 2022 18:23:46 Brother Blood coagulation disorder Not available 2022 18:23:46 Brother Substance abuse Not available 2022 18:23:46 Brother Mental disorder Not available 2022 18:23:46 Maternal Grandmother Hypertensive disorder [email or web address] Not available 05/24 11:36:33 Maternal Grandmother Hyperlipidem ia [email or web address] Not available 03/12 09:58:20 Maternal Grandmother Family history of malignant neoplasm Colon [email or web address] Not available 03/12 09:58:20 Maternal Grandmother Alzheimer's disease [email or web address] Not available 03/12 09:58:20 Maternal Grandmother Cerebrovascu lar accident Not available 18:23:46 Maternal Grandmother Depressive disorder Not available 2022 18:23:46 Maternal Grandmother Osteoporosis Not available 0 08/26/2022 18:23:46 Maternal Grandmother Mental disorder Not available 2022 18:23:46 Paternal Grandmother Hypertensive disorder [email or web address] Not available 05/24 11:36:33 Paternal Grandmother Hyperlipidem ia [email or web address] Not available 03/12 09:58:20 Paternal Grandmother Malignant tumor of colon Not available 2022 18:23:46 Maternal Grandfather Disorder of thyroid gland [email or web address] Not available 05/24 11:38:32 Maternal Grandfather Depressive disorder Not available 2022 18:23:46 Maternal Grandfather Osteoporosis Not available 0 08/26/2022 18:23:46 Daughter Depressive disorder Not available 2022 18:23:46 Unspecified Relation Malignant tumor of breast Not available 2022 18:23:46 Paternal Aunt Disorder of lung Not available 2022 18:23:46 Paternal Aunt Depressive disorder Not available 2022 18:23:46 Paternal Aunt Malignant tumor of colon Not available 2022 18:23:46 Notes:Brother: Cardiovascula r disease, Hypertension Father: Hyperlipidemia, Hypertension, Cancer, bladder, brain, bone, Cancer, colon Maternal grandfather: Thyroid disease Maternal grandmother: Alzheimer's disease, Cancer, colon, Hyperlipidemia, Hypertension Mother: Hypertension Paternal grandmother: Hypertension, Hyperlipidemia, Cancer, colon Sister: Hypertension Medical History Condition Response Allergies (Food, seasonal, environmental ) Y Anxiety Disorder Y Diabetes Y Pulmonary (TB, Asthma) Y Other Y Arthritis Y Polyps Y Drug/Latex Allergies/Reactions Y Acid Reflux (GERD) Y History of abnormal pap Y Kidney or Bladder Problems Y GI Problems Y Asthma Y Depression/ depression Y Headaches Y Fibromyalgia Y Gynecological History Statement/Question Response On BCP's at Conception? Y N Was last menstrual period normal N STIs/STDs N HPV Vaccine N Duration of Flow (days) 3 Current Control Method Hysterectom y Age at First Child 17 If Post Menopausal, Age at Menopause 39 Date of Last Colonoscopy Frequency of Cycle (Q days) 28 Sexually Active? Y Hysterectomy Menses Monthly N Date of DEXA bone scan Age of first menstrual cycle 11 Date of Last Pap Smear 08/12/2017 Sexual Problems? Y Desired Control Method Hysterectom y LMP Unknown Y Obstetrics History GPAL:G 2 P 0 0 0 2 Type Value Living 2 Total 2 Past Encounters Encounter ID Performer Location Encounter Start Date Encounter Closed Date Diagnosis/Indication Diagnosis SNOMED-CT Code Diagnosis ICD10 Code Diagnosis Note [id number] Latia Frias MD [facility] [address] [address] 05/25/2019 13:57:46 05/25/2019 17:27:42 Cyst of right ovary 8780358149 1088018 N83.201 We discussed options including expectant management , progestin only therapy (not cadidate for estrogen due to age and smoking), or surgical management . She opts to start POP and will repeat U/S in 2 1/2 - 3 months. Contracept ion: s/p BTL Pain in pelvis 41152785 R10.2 Reduced libido 3536109 R 68.82 We discussed options such as testostero ne or Addyi. She opts to start Addyi and was counseled not to drink alcohol on this medication . She reports not drinking alcohol anyway and expresses understand ing and agrees. I spent 18 minutes face to face with her today with majority of time in counseling [id number] Calos Armenta MD [facility] [address],[place] [address] 08/24/2019 13:53:38 08/24/2019 14:39:20 Pain in pelvis 49641361 R10.2 N83.291 [id number] [facility]atic[facility] [address],[place] [address] 08/26/2022 18:22:44 08/27/2022 09:43:32 Gynecologic examination 62072147 Z01.419 Suggested Calcium with Vitamin D 1200-1500m g daily. Patient advised to get an annual flu shot in the fall and she could obtain at [facility] or [facility] take care clinic. Also to obtain TDap vaccinatio n if you have not had one in the last 10 years. Recommend yearly mammograms . Encouraged monthly self breast exams. Encourage safe sexual practices, to use condoms and limit partners if not already in a monogamous relationsh ip. Engage in daily exercise of low impact aerobic exercise 45-60 minutes 4-5 times weekly. Avoid tobacco and illicit drugs as well as using moderation with alcohol intake less than 1-2 8 oz beverages daily. This lifestyle behavior pattern will lead to less health conditions and longer life span. If BMI greater than 25 weight watchers or dietary consult advised. All questions have been answered. Patient appears to understand informatio n, but if you have any questions please call or respond to this email.Pap/ hpv USPSTF recommends against screening for cervical cancer in women older than 65yo, those who've had a hysterecto my for non-cancer indication s, & who have had adequate prior screening & are not otherwise at high risk for cervical cancer. STD Screen declinedGe netic Screen discussedC olon Screen PCPDexa Screen PCPRoutine Labs PCP Menopausal symptom 30878 002 N95.1 RF sent to see if it is covered at a lower cost so she can continue this therapy for vasomotor sx's. Screening mammography 24 551462 Z12.31 Reduced libido 9404049 R 68.82 Will reach out to the rep of [employer] to see if she is a good candidate for this option.Vsuni eesi-not a candidate due to migraine HxTestim jelly-woul d like to avoid since taking estradiol. [id number] HUSSAIN Maurice [facility] [address] [address] 03/13/2024 16:22:10 03/14/2024 10:01:13 Vaginitis 82915449 N76.0 suspect yeast on examvagini tis panel sentSTI screen declinedrx sent - r/b/a revieweden couraged blood sugar controlvul anjelica care guidelines discussedR TC for WWE Time spent in visit is a total of 20 mins with at least 50% of visit consisting of counseling and review of plan of care. [id number] HUSSAIN Maurice [facility] [address] [address] 03/30/2024 09:58:10 03/30/2024 13:38:09 Gynecologic examination 65044417 Z01.419 WWEPap - no further paps indicatedS TI screen - declinedMa mmogram - order givenColon cancer screening - n/aRoutine labs - PCPRTC in 1 yr or sooner if needed Suggested Calcium with Vitamin D daily. Patient advised to get an annual flu shot in the fall and she could obtain at local pharmacy. Also to obtain TDap vaccinatio n if you have not had one in the last 10 years. Recommend yearly mammograms . Encouraged monthly self breast exams. Encourage safe sexual practices, to use condoms and limit partners if not already in a monogamous relationsh ip. Engage in regular exercise. Avoid tobacco and illicit drugs. This lifestyle behavior pattern will lead to less health conditions and longer life span. If BMI greater than 25 dietary consult advised. All questions have been answered. Screening for malignant neoplasm of breast 858827630 Z12.39 Vaginitis 34019134 N76.0 rx sent - r/b/a reviewed and accepted by pt Health Concerns Section Related Observation LastModified by Organization Detai ls LastModified Time None Recorded Concern Status LastModified by Organization Details LastModified Time None Recorded Advance Directives Directive N: Payers Encounter Date Sequence Insurance Name Policy Number Policy Sandoval Covered Member ID Sandoval Member ID Guarantor Name 05/25/2019 1 [place] [id number] Ken Emerson [id number] [facility] 08/24/2019 1 [place] [id number] Ken Ki [id number] [facility] 08/26/2022 1 [place] [id number] Ken Ki [id number] [facility] 03/13/2024 1 [place] [id number] Ken Ki [id number] [facility] 03/30/2024 1 [place] [id number] Ken Ki [id number] Al[facility] Carrizozo Notes Date Note Type Note Provider Name and Address Organization Details Recorded Time 05/25/2019 text/html She has BLQ pelv ic pain about 3-4 days per week, lasts 10-20 minutes usually. Naproxen doesn't help. Cycles had been normal prior to February. She bled 2 weeks in February then had no bleeding again until 05/21 for 3 days so far, not heavy. She has night sweats but no hot flashes. No urinary or bowel complaints or dyspareunia. She also c/o absent sex drive S Rodriguez olson [facility] 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 Post-MenopausalRepor stephen bypatient.Menopausal Symptoms:normal vaginal lubrication;hot flashes;insomnia due to night sweats Vaginal Bleeding:history of menopause having occurred; no history of post menopausal bleeding Urinary Symptoms:no hematuria; no incontinence; no nocturia; no urinary frequency Vulva:no genital lesion; no vulvar atrophy Vagina:normal vaginal discharge; no vaginal atrophy Breast:no breast lump; no nipple discharge; no breast pain Sexual Complaints:no sexual complaints Psychological Symptoms:no depression; no anxiety Preventive Measures:encourage regular mammograms starting age 40; encourage self breast examination; encourage regular exercise; encourage no tobacco use; needs to schedule mammogram; history of recent colonoscopy HUSSAIN Valdovinos- [address], [place], [address], [facility] 08/26/2022 18:49:35 03/13/2024 text/html 43yopresents for vaginal itchingsymptoms started 5 days agoyellow/thick dischargehas diabetes, blood sugars recently uncontrolledno new partners neg n/v/fneg pelvic painneg odors HUSSAIN Maurice [address], [place], [address], [facility] 03/14/2024 09:28:49 03/30/2024 text/html Annual GYNReport ed bypatient.Urinary symptoms:No hematuria; No incontinence Vulva:No genital lesion Vagina:Normal vaginal discharge Breast:No breast pain; No breast lump; No nipple discharge Current Contraception:hyst Sexual complaints:No sexual complaints; No pain during intercourse; Normal libido Menopausal Symptoms:No menopausal symptoms; Normal vaginal lubrication Psychological symptoms:No depression; No anxiety; No PMDD Preventive measures:Encourage self breast examination; Encourage regular exercise; Encourage no tobacco use; Encourage regular mammograms starting age 40Notes:43yo wweh/o hyst for non-cancerous indicationslast pap 2018 - wnl(+) BV at last visit 2/3, did not use the clindamycin cream - would like oral treatment instead (allergic to metronidazole) HUSSAIN Maurice [address], [place], [address], [facility] 03/30/2024 13:09:57 OBGyn Episode Ob Episode Information Episode Created Date Number of Fetuses Patient Bloodtype Patient rh Status Prepregnancy Weight lbs Domestic Partner Domestic Partner Phone Father Name Minister Of Religion Status 08/27/19 23 1 CLOSED Fetus Data First Name Last Name Admitted to NICU Weight (g) Sex Living Outcome Pediatric Complications Fetus ID Race Codes Race Delivery Type 2438.05 7 Full Term 11090 Repeat Daron Calculation Initial Daron Date Initial Exam Date Initial Exam Provider Initial Ultrasound Date Last Menstrual Period Date Ultra Sound Weeks Gestation 0 Eighteen To Twenty Week Daron Update Ultra Sound Date Fundal Height At Umbil Quickening Date Ultra Sound Latest Weeks Gestation Final Daron Confirmed By Final Daron Confirmed Date Final Daron Date Ultra Sound Latest Days Gestation 0 0 Menstrual History Last Menstrual Date Menses Monthly On Bcp Conception Prior Menses Frequency Hcg Plus Date Menarche Onset Age Delivery Information Delivery Date Delivery Type Labor Anesthesia Weeks Gestation Incision Type Labor Labor Length Hrs Delivered By Post Complications Tubal Sterilization Discharge Date Comments 0 39 Discharge Information Feeding Method Contraceptive Method Maternal HG B and HCT Levels Ob Episode Information Episode Created Date Number of Fetuses Patient Bloodtype Patient rh Status Prepregnancy Weight lbs Domestic Partner Domestic Partner Phone Father Name Minister Of Religion Status 08/27/19 1 CLOSED Fetus Data First Name Last Name Admitted to NICU Weight (g) Sex Living Outcome Pediatric Complications Fetus ID Race Codes Race Delivery Type 3855.53 2 Full Term [id number] Primary Daron Calculation Initial Daron Date Initial Exam Date Initial Exam Provider Initial Ultrasound Date Last Menstrual Period Date Ultra Sound Weeks Gestation 0 Eighteen To Twenty Week Daron Update Ultra Sound Date Fundal Height At Umbil Quickening Date Ultra Sound Latest Weeks Gestation Final Daron Confirmed By Final Daron Confirmed Date Final Daron Date Ultra Sound Latest Days Gestation 0 0 Menstrual History Last Menstrual Date Menses Monthly On Bcp Conception Prior Menses Frequency Hcg Plus Date Menarche Onset Age Delivery Information Delivery Date Delivery Type Labor Anesthesia Weeks Gestation Incision Type Labor Labor Length Hrs Delivered By Post Complications Tubal Sterilization Discharge Date Comments 8 40 Discharge Information Feeding Method Contraceptive Method Maternal HG B and HCT Levels
== END 2024-07-11 14:22 | disposition home or self-care (01) ==
LOC: ANHAUDIO 14:22
PROVIDERS: PCP Nurse Practitioner Family; Visit Provider Nurse Practitioner
DX: H90.41 Sensorineural hearing loss, unilateral, right ear, with unrestricted hearing on the contralateral side (principal)
CPT/HCPCS: 92557; 92567

== ENCOUNTER 2024-09-12 15:50 | Outpatient (CLI) | payer BC, SELFPAY ==
--- NOTE | ~2024-09-12 | CT_ITS ---
EXAMINATION: CT brain wo/w con DATE: 09/12/2024 16:25 INDICATION: Tremor TECHNIQUE: Computed tomography (CT) of the head was performed without and with 100 mL Omnipaque-350 i ntravenous contrast. Sagittal and coronal reconstructions were performed. The mA was adjusted accordi ng to patient size. Iterative reconstruction technique was employed. The dose-length product was 1210 .67 mGy-cm. COMPARISON: head CT dated 12/30/2022 FINDINGS: No acute intracranial hemorrhage, acute infarction or abnormal extra axial fluid collection. Ventricl es are normal and symmetric. No mass/mass effect. No abnormally enhancing brain lesions. The orbits, paranasal sinuses and mastoid air cells are normal. IMPRESSION: 1. Normal pre and postcontrast head CT. Reviewed, dictated and finalized at location A.
--- OUTSIDE RECORDS SUMMARY | 2024-09-12 15:54 | XMS_ITS | Encounter Summary ---
Author Organization [facility] Address [address] [place] [address] Care Team Providers Care Cement Sack Breaker Name Role Phone Lars Mcdermott MD Primary Care Provider Encounter Details Date Type Department Care Team (Late st Contact Info) Description 02/27/2019 Lab Requisition [facility] [address] [place] [address] Helena Morrison DO [address] [facility] [facility] [address] [place] [address] Social History Tobacco Use Types Packs/Day Years [...] Comments DERMATOPATHOLOGY Routine 02/23/2019 12:0 0 AM [employer] documented in this encounter Results * DERMATOPATHOLOGY (02/23/2019 12:00 AM [employer]) Case Report Dermatopathology Report Case: [id number] Authorizing Provider: Helena Morrison DO Collected: 02/23/2019 12:00 AM Ordering Location: [facility] Received: 02/27/2019 07:31 AM Pathologist: Jeison Alvarez MD Specimen: Skin, left LE 0 1:56 PM [employer] DERMATOPATHOLOGY LABORATORY Final Diagnosis Specimen A. 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 Previous Bx: [id number]. 0 1:56 PM [facility] Gross Description Specimen A: Received is one formalin filled container labeled with the patient's name and designated left LE. The specimen consists of a non-oriented ellipse of skin measuring [id number]. The epidermal surface is unremarkable. The margin [...] characteristic determined by the Dermatopathology Laboratory at [facility], directed by Dr. Roseline Alvarez. These tests need not be, and therefore are not, approved by the [place] Food and Drug Administration. The tests are used for clinical purposes. Billing Codes Specimen Charges Stain Charges 26604 1 0 1:56 PM [facility] D[facility] Embedded Images 0 1:56 PM [facility] Pathology/Cytolog y TISSUE SPECIMEN FROM SKIN / Unknown 02/23/2019 02/27/2019 7:31 AM [facility] us Helena Morrison DO LAB - PATHOLOGY/CYTOLOGY ORDERABLES Final Result DERMATOPATHOLOGY LABORATORY [facility] - Department of Dermatology [address] [place] [address], [facility] [phone] documented in this encounter Visit Diagnoses Not on filedocumented in this encounter Care Teams Cement Sack Breaker Relationship Specialty Start Date End Date Lars Mcdermott MD [address] [place] [address] PCP - General 10/05/18 documented as of this encounter
--- OUTSIDE RECORDS SUMMARY | 2024-09-12 15:54 | XMS_ITS | Patient Health Record ---
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 Role Phone Enio Bone DO Primary Care Provider Perri Pierre Unavailable [phone] Allergies Allergen (clinical drug ingredient) Drug/Non Drug Allergy documented on EMR Reaction Allergy Type Onset Date Status ADHESIVE TAPE (uncoded) Unknown Allergy 03/22/2023 Active COVID-19 VACCINE, MRNA, [id number], LNP-S (Orabrush) (uncoded) Unknown Allergy 03/22/2023 Active Miconazole Unknown Drug Allergy 03/22/2023 Activ e sumatriptan SUMAtriptan Unknown Drug Allergy 03/22/2023 Ac tive clavulanic acid Clavulanic Acid Unknown Drug Allergy 03/22 Active eletriptan Eletriptan Unknown Drug Allergy 03/22/2023 Acti ve hydromorphone Hydromorphone Unknown Drug Allergy Active Reason For Referral No Information Medications Medication SIG (Take, Route, Frequency, Duration) Notes Start Date End Date Status Venlafaxine HCl ER 150 MG 1 capsule in the morning Oral Once a day; Duration: 30 days Active Divigel 1 mg/gram (0.1 %) Transdermal *Pick strength-form from [employer] for eRX* 03/22/2023 Not-Taking rOPINIRole HCl 0.5 MG Oral 03/22/2023 Not-Taking Omeprazole 40 MG Oral 03/22/2023 Ac tive Triazolam 0.25 MG Oral 03/22/2023 N ot-Taking Cyclobenzaprine HCl 10 MG Oral 03/22/2023 Active methylPREDNISolone 4 MG Oral 03/22/2023 Not-Taking ProAir HFA 108 (90 Base) MCG/ACT Inhalation 03/22/2023 Active Lisinopril 5 MG Oral 03/22/2023 Not -Taking FreeStyle Lite Test In Vitro 03/22/2023 Active Fluconazole 150 MG Oral 03/22/2023 Not-Taking Propranolol HCl ER 60 MG Oral 03/22/2023 Active Diclofenac Sodium 1% Transdermal 03/22/2023 Not-Taking Basaglar KwikPen 100 UNIT/ML Subcutaneous 03/22/2023 Not-Taking QUEtiapine Fumarate 200 MG 1 tablet at bedtime Oral bedtime; Duration: 90 days Active buPROPion HCl ER (XL) 300 MG 1 tablet in the morning Oral Once a day; Duration: 90 days Active Venlafaxine HCl ER 150 MG 1 capsule in the morning Oral Once a day; Duration: 90 days d/c 75 mg dose Active BD RENARD 2ND GEN PEN NEEDLE 32 GAUGE X *Reorder from [employer] for eRx and Interaction Alerts* 03/22/2023 Active Estradiol 1 MG Oral 03/22/2023 Acti ve metFORMIN HCl 500 MG Oral 03/22/2023 Not-Taking Atorvastatin Calcium 20 MG 1 tablet Oral Once a day 03/22/2023 Active FREESTYLE LITE METER MISCELLANEOUS *Reorder fr [employer] for eRx and Interaction Alerts* 03/22/2023 Not-Taking Toujeo SoloStar 300 UNIT/ML as directed Subcutaneous Active Icosapent Ethyl 1 GM Oral; Duration: 90 Days Active Immunizations Vaccine Route Administration Date Status Comme [...] Status Risk Notes Problem Generalized anxiety disorder (96882974) Generalized anxiety disorder (F41.1) 03/22/19 Active confirmed Problem Insomnia disorder related to another mental disorder (80770447) Insomnia due to other mental disorder (F51.05) 03/22/19 Active confirmed Problem Screening for cardiovascular system disease (048391772) Encounter for screening for cardiovascular disorders (Z13.6) Active confirmed Problem Tobacco use (915412008) Tobacco use (Z72.0) Active confirmed Problem Mild recurrent major depression (64527405) MDD (major depressive disorder), recurrent episode, mild (F33.0) Active confirmed Problem Nondependent cannabis abuse (117419424) Marijuana use (F12.90) Active confirmed Problem Long-term current use of drug therapy (744443166) 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) Active confirmed Problem Severe major depression, single episode, without psychotic features (07801154) MDD (major depressive disorder), severe (F32.2) Active confirmed Vital Signs Heart Rate 88 /min 08/01/2024 Respiratory Rate 16 /min 08/01/2024 Height-cm 167.64 cm 08/01/2024 Blood pressure diastolic 80 mm Hg 08/01/2024 Weight-kg 92.08 kg 08/01/2024 Height 66.00 in 08/01/2024 Blood pressure systolic 125 mm Hg 08/01/2024 Weight 203 lbs 08/01/2024 BMI 32.76 kg/m2 08/01/2024 Encounters Encounter Location Date Provider Diagnosis [facility] [id number] [address] 12/07/2023 Perri Jain MDD (major depressiv e disorder), severe F32.2 ; Generalized anxiety disorder F41.1 ; Insomnia due to other mental disorder F51.05 ; Marijuana use F12.90 ; On long wall mining machine tender drug therapy Z79.899 and Tobacco use Z72.0 [facility] [address] [place] [address] 03/30/2024 Perri Jain MDD (major depressiv e disorder), severe F32.2 ; Generalized anxiety disorder F41.1 ; Insomnia due to other mental disorder F51.05 ; Marijuana use F12.90 ; On alf drug therapy Z79.899 and Tobacco use Z72.0 [facility] [place] [address] [place] [address] 08/01/2024 Perri Jain MDD (major depressiv e disorder), severe F32.2 ; Generalized anxiety disorder F41.1 ; Insomnia due to other mental disorder F51.05 ; Marijuana use F12.90 ; On alf drug therapy Z79.899 ; Tobacco use Z72.0 and Encounter for screening for cardiovascular disorders Z13.6 [facility] [place] [address] [place] [address] 08/28/2024 Perri Jain Generalized anxiety disorder F41.1 ; MDD (major depressive disorder), recurrent episode, mild F33.0 ; Insomnia due to other mental disorder F51.05 ; Marijuana use F12.90 ; On long wall mining machine tender drug therapy Z79.899 ; Tobacco use Z72.0 and Encounter for screening for cardiovascular disorders Z13.6 Assessments Encounter Date Diagnosis (ICD Code) Assessment [...] can negatively impact mood, motivation, anxiety, sleep, focus/concentrati on/memory (vigilance, elasticity, processing and attention); can also contribute to development of psychosis. http_s://www.nim .nih.gov/health/t opics/mental-heal th-medications http_s://www.lc .org/About-Mental -Illness/Treatmen ts/Mental-Health- Medications Recommend decrease/stop cannabis use as it may be negatively impacting mood, motivation, anxiety, sleep, focus; can also contribute to development of psychosis Cannabis/marijuan a information: http_s://tina.nih .gov/publications /drugfacts/cannab is-marijuana http_s://www.[employer]/canna hhb-zep-jymxkuzy- marijuana-adhd/ http_s://www.lc .org/About-Mental -Illness/Mental-H ealth-Conditions http_s://[employer]/depressi on/the-cognitive- exvrlagu-qh-phjxl ssion#treatments http__s://www.[facility].nih.gov/health/ topics/mental-hea lth-medications http__s://www.nam i.org/About-Menta l-Illness/Treatme nts/Mental-Health -Medications educated on all medications, benefits, side effects [...] effects including loss of libido, increased suicidal thoughts/behavior s in children and young adults, and serotonin [...] can negatively impact mood, motivation, anxiety, sleep, focus/concentrati on/memory (vigilance, elasticity, processing and attention); can also contribute to development of psychosis. http_s://www.nim .nih.gov/health/t opics/mental-heal th-medications http_s://www.lc .org/About-Mental -Illness/Treatmen ts/Mental-Health- Medications Recommend decrease/stop cannabis use as it may be negatively impacting mood, motivation, anxiety, sleep, focus; can also contribute to development of psychosis Cannabis/marijuan a information: http_s://tina.nih .gov/publications /drugfacts/cannab is-marijuana http_s://www.[employer]/canna tqc-mve-ecgzdsxi- marijuana-adhd/ http_s://www.lc .org/About-Mental -Illness/Mental-H ealth-Conditions http_s://[employer]/depressi on/the-cognitive- ihcfahqu-kt-fhxfd ssion#treatments http__s://www.[facility].nih.gov/health/ topics/mental-hea lth-medications http__s://www.nam i.org/About-Menta l-Illness/Treatme nts/Mental-Health -Medications educated on all medications, benefits, side effects [...] effects including loss of libido, increased suicidal thoughts/behavior s in children and young adults, and serotonin [...] last 2 weeks schedule therapy 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 http_s://www.nim .nih.gov/health/t opics/mental-heal th-medications http_s://www.lc .org/About-Mental -Illness/Treatmen ts/Mental-Health- Medications Recommend decrease/stop cannabis use as it may be negatively impacting mood, motivation, anxiety, sleep, focus; can also contribute to development of psychosis Cannabis/marijuan a information: http_s://tina.nih .gov/publications /drugfacts/cannab is-marijuana http_s://www.[employer]/canna xtb-tcm-zywguppt- marijuana-adhd/ http_s://www.lc .org/About-Mental -Illness/Mental-H ealth-Conditions http_s://[employer]/depressi on/the-cognitive- kipanifh-ni-jslpq ssion#treatments http__s://www.nim .nih.gov/health/ topics/mental-hea lth-medications http__s://www.nam i.org/About-Menta l-Illness/Treatme nts/Mental-Health -Medications educated on all medications, benefits, side effects [...] effects including loss of libido, increased suicidal thoughts/behavior s in children and young adults, and serotonin [...] potential neurotoxicity and interactions with prescribed medications. 08/28/2024 Generalized anxiety disorder (ICD-10 - F41.1) Learning About Generalized Anxiety Disorder material was published, Generalized Anxiety Disorder: Care Instructions material was published, Learning About Anxiety Disorders material was published, Learning About Generalized Anxiety Disorder material was published, Generalized Anxiety Disorder: Care Instructions material was published, Learning About Anxiety Disorders material was published 1. 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 Insomnia - Seroquel help sleep sleep hygiene educated 4. tobacco use Do not smoke. Nicotine and other chemicals in cigarettes and cigars can cause lung damage. Ask your healthcare provider for information if you currently smoke and need help to quit. E-cigarettes or smokeless tobacco still contain nicotine. Talk to your healthcare provider before you use these products. education on decrease to stopping nicotine products and stop smoking hotline given 5. Cannabis use- educated on decrease to stopping Recommend decrease/stop cannabis use as it can negatively impact mood, motivation, anxiety, sleep, focus/concentrati on/memory (vigilance, elasticity, processing and attention); can also contribute to development of psychosis. http_s://www.nimh .nih.gov/health/t opics/mental-heal th-medications http_s://www.lc .org/About-Mental -Illness/Treatmen ts/Mental-Health- Medications Recommend decrease/stop cannabis use as it may be negatively impacting mood, motivation, anxiety, sleep, focus; can also contribute to development of psychosis Cannabis/marijuan a information: http_s://tina.nih .gov/publications /drugfacts/cannab is-marijuana http_s://www[employer]back/canna wny-cpr-ivdzuzny- marijuana-adhd/ http_s://www.lc .org/About-Mental -Illness/Mental-H ealth-Conditions http_s://[employer]/depressi on/the-cognitive- aslswmjy-th-sbiwm ssion#treatments http__s://www.[facility].nih.gov/health/ topics/mental-hea lth-medications http__s://www.[facility].org/About-Menta l-Illness/Treatme nts/Mental-Health -Medications educated on all medications, benefits, side effects [...] effects including loss of libido, increased suicidal thoughts/behavior s in children and young adults, and serotonin [...] potential neurotoxicity and interactions with prescribed medications. 08/28/2024 MDD (major depressive disorder), recurrent episode, mild (ICD-10 - F33.0) 1. 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 Insomnia - Seroquel help sleep sleep hygiene educated 4. tobacco use Do not smoke. Nicotine and other chemicals in cigarettes and cigars can cause lung damage. Ask your healthcare provider for information if you currently smoke and need help to quit. E-cigarettes or smokeless tobacco still contain nicotine. Talk to your healthcare provider before you use these products. education on decrease to stopping nicotine products and stop smoking hotline given 5. Cannabis use- educated on decrease to stopping Recommend decrease/stop cannabis use as it can negatively impact mood, motivation, anxiety, sleep, focus/concentrati on/memory (vigilance, elasticity, processing and attention); can also contribute to development of psychosis. http_s://www.nimh .nih.gov/health/t opics/mental-heal th-medications http_s://www.lc .org/About-Mental -Illness/Treatmen ts/Mental-Health- Medications Recommend decrease/stop cannabis use as it may be negatively impacting mood, motivation, anxiety, sleep, focus; can also contribute to development of psychosis Cannabis/marijuan a information: http_s://tina.nih .gov/publications /drugfacts/cannab is-marijuana http_s://www.[employer]/canna fql-qgy-yllizqzg- marijuana-adhd/ http_s://www.lc .org/About-Mental -Illness/Mental-H ealth-Conditions http_s://[employer]/depressi on/the-cognitive- hiutbkoq-vn-qqamt ssion#treatments http__s://www.[facility].nih.gov/health/ topics/mental-hea lth-medications http__s://www.nam i.org/About-Menta l-Illness/Treatme nts/Mental-Health -Medications educated on all medications, benefits, side effects [...] effects including loss of libido, increased suicidal thoughts/behavior s in children and young adults, and serotonin [...] potential neurotoxicity and interactions with prescribed medications. 08/01/2024 Generalized anxiety disorder (ICD-10 - F41.1) Learning About Generalized Anxiety Disorder material was published, Generalized Anxiety Disorder: Care Instructions material was published, Learning About Anxiety Disorders material was published, Learning About Generalized Anxiety Disorder material was published, Generalized Anxiety Disorder: Care Instructions material was published, Learning About Anxiety Disorders material was published 1. 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 Insomnia - Seroquel will help sleep sleep hygiene educated 4. tobacco use Do not smoke. Nicotine and other chemicals in cigarettes and cigars can cause lung damage. Ask your healthcare provider for information if you currently smoke and need help to quit. E-cigarettes or smokeless tobacco still contain nicotine. Talk to your healthcare provider before you use these products. education on decrease to stopping nicotine products and stop smoking hotline given 5. Cannabis use- educated on decrease to stopping Recommend decrease/stop cannabis use as it can negatively impact mood, motivation, anxiety, sleep, focus/concentrati on/memory (vigilance, elasticity, processing and attention); can also contribute to development of psychosis. http_s://www.nimh .nih.gov/health/t opics/mental-heal th-medications http_s://www.lc .org/About-Mental -Illness/Treatmen ts/Mental-Health- Medications Recommend decrease/stop cannabis use as it may be negatively impacting mood, motivation, anxiety, sleep, focus; can also contribute to development of psychosis Cannabis/marijuan a information: http_s://tina.nih .gov/publications /drugfacts/cannab is-marijuana http_s://www.[employer]/canna zkk-lzf-ptixzivx- marijuana-adhd/ http_s://www.lc .org/About-Mental -Illness/Mental-H ealth-Conditions http_s://psychcen Gencia.com/depressi on/the-cognitive- fhhwndhl-fs-kqisr ssion#treatments http__s://www.[facility].nih.gov/health/ topics/mental-hea lth-medications http__s://www.nam i.org/About-Menta l-Illness/Treatme nts/Mental-Health -Medications educated on all medications, benefits, side effects [...] effects including loss of libido, increased suicidal thoughts/behavior s in children and young adults, and serotonin [...] potential neurotoxicity and interactions with prescribed medications. 08/01/2024 MDD (major depressive disorder), severe (ICD-10 - F32.2) Learning About Depression material was published, Learning About Depression Screening material was published, Depression Treatment: Care Instructions material was published, Suicidal Thoughts and Behavior: Care Instructions material was published, Learning About Mood Disorders material was published, Depression Treatment: Care Instructions material was published, Learning About Depression material was published, Learning About Depression Screening material was published, Recovering From Depression: Care Instructions material was published 1. 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 Insomnia - Seroquel will help sleep sleep hygiene educated 4. tobacco use Do not smoke. Nicotine and other chemicals in cigarettes and cigars can cause lung damage. Ask your healthcare provider for information if you currently smoke and need help to quit. E-cigarettes or smokeless tobacco still contain nicotine. Talk to your healthcare provider before you use these products. education on decrease to stopping nicotine products and stop smoking hotline given 5. Cannabis use- educated on decrease to stopping Recommend decrease/stop cannabis use as it can negatively impact mood, motivation, anxiety, sleep, focus/concentrati on/memory (vigilance, elasticity, processing and attention); can also contribute to development of psychosis. http_s://www.nimh .nih.gov/health/t opics/mental-heal th-medications http_s://www.lc .org/About-Mental -Illness/Treatmen ts/Mental-Health- Medications Recommend decrease/stop cannabis use as it may be negatively impacting mood, motivation, anxiety, sleep, focus; can also contribute to development of psychosis Cannabis/marijuan a information: http_s://tina.nih .gov/publications /drugfacts/cannab is-marijuana http_s://www.[employer]/cannambrosio yhd-zso-khwcqees- marijuana-adhd/ http_s://www.lc .org/About-Mental -Illness/Mental-H ealth-Conditions http_s://psychcen Gencia.com/depressi on/the-cognitive- ysowhexb-iq-dgqcq ssion#treatments http__s://www.[facility].nih.gov/health/ topics/mental-hea lth-medications http__s://www.nam i.org/About-Menta l-Illness/Treatme nts/Mental-Health -Medications educated on all medications, benefits, side effects [...] effects including loss of libido, increased suicidal thoughts/behavior s in children and young adults, and serotonin [...] potential neurotoxicity and interactions with prescribed medications. 08/01/2024 Insomnia due to other mental disorder (ICD-10 - F51.05) 1. 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 Insomnia - Seroquel will help sleep sleep hygiene educated 4. tobacco use Do not smoke. Nicotine and other chemicals in cigarettes and cigars can cause lung damage. Ask your healthcare provider for information if you currently smoke and need help to quit. E-cigarettes or smokeless tobacco still contain nicotine. Talk to your healthcare provider before you use these products. education on decrease to stopping nicotine products and stop smoking hotline given 5. Cannabis use- educated on decrease to stopping Recommend decrease/stop cannabis use as it can negatively impact mood, motivation, anxiety, sleep, focus/concentrati on/memory (vigilance, elasticity, processing and attention); can also contribute to development of psychosis. http_s://www.nimh .nih.gov/health/t opics/mental-heal th-medications http_s://www.lc .org/About-Mental -Illness/Treatmen ts/Mental-Health- Medications Recommend decrease/stop cannabis use as it may be negatively impacting mood, motivation, anxiety, sleep, focus; can also contribute to development of psychosis Cannabis/marijuan a information: http_s://tina.nih .gov/publications /drugfacts/cannab is-marijuana http_s://www.[employer]/merlin dfc-lzy-edwdcckc- marijuana-adhd/ http_s://www.lc .org/About-Mental -Illness/Mental-H ealth-Conditions http_s://psychcen tral.com/depressi on/the-cognitive- jqbtvyqo-qg-dwtzd ssion#treatments http__s://www.nim h.nih.gov/health/ topics/mental-hea [facility]-medications http__s://www.nam i.org/About-Menta l-Illness/Treatme nts/Mental-Health -Medications educated on all medications, benefits, side effects [...] effects including loss of libido, increased suicidal thoughts/behavior s in children and young adults, and serotonin [...] potential neurotoxicity and interactions with prescribed medications. 08/28/2024 Insomnia due to other mental disorder (ICD-10 - F51.05) 1. 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 Insomnia - Seroquel help sleep sleep hygiene educated 4. tobacco use Do not smoke. Nicotine and other chemicals in cigarettes and cigars can cause lung damage. Ask your healthcare provider for information if you currently smoke and need help to quit. E-cigarettes or smokeless tobacco still contain nicotine. Talk to your healthcare provider before you use these products. education on decrease to stopping nicotine products and stop smoking hotline given 5. Cannabis use- educated on decrease to stopping Recommend decrease/stop cannabis use as it can negatively impact mood, motivation, anxiety, sleep, focus/concentrati on/memory (vigilance, elasticity, processing and attention); can also contribute to development of psychosis. http_s://www.nim .nih.gov/health/t opics/mental-heal th-medications http_s://www.lc .org/About-Mental -Illness/Treatmen ts/Mental-Health- Medications Recommend decrease/stop cannabis use as it may be negatively impacting mood, motivation, anxiety, sleep, focus; can also contribute to development of psychosis Cannabis/marijuan a information: http_s://tina.nih .gov/publications /drugfacts/cannab is-marijuana http_s://www.[employer]/canna swr-ztv-zkmfrmoj- marijuana-adhd/ http_s://www.lc .org/About-Mental -Illness/Mental-H ealth-Conditions http_s://psychcen [employer].com/depressi on/the-cognitive- ppvhdekc-dh-lfesq ssion#treatments http__s://www.nim .nih.gov/health/ topics/mental-hea lth-medications http__s://www.nam i.org/About-Menta l-Illness/Treatme nts/Mental-Health -Medications educated on all medications, benefits, side effects [...] effects including loss of libido, increased suicidal thoughts/behavior s in children and young adults, and serotonin [...] last 2 weeks schedule therapy 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 http_s://www.nim .nih.gov/health/t opics/mental-heal th-medications http_s://www.lc .org/About-Mental -Illness/Treatmen ts/Mental-Health- Medications Recommend decrease/stop cannabis use as it may be negatively impacting mood, motivation, anxiety, sleep, focus; can also contribute to development of psychosis Cannabis/marijuan a information: http_s://tina.nih .gov/publications /drugfacts/cannab is-marijuana http_s://www.[employer]/canna nho-she-mrtqtfvj- marijuana-adhd/ http_s://www.lc .org/About-Mental -Illness/Mental-H ealth-Conditions http_s://[employer]/depressi on/the-cognitive- uefcprxk-om-zwphx ssion#treatments http__s://www.[facility].nih.gov/health/ topics/mental-hea lth-medications http__s://www.nam i.org/About-Menta l-Illness/Treatme nts/Mental-Health -Medications educated on all medications, benefits, side effects [...] effects including loss of libido, increased suicidal thoughts/behavior s in children and young adults, and serotonin [...] can negatively impact mood, motivation, anxiety, sleep, focus/concentrati on/memory (vigilance, elasticity, processing and attention); can also contribute to development of psychosis. http_s://www.nim .nih.gov/health/t opics/mental-heal th-medications http_s://www.lc .org/About-Mental -Illness/Treatmen ts/Mental-Health- Medications Recommend decrease/stop cannabis use as it may be negatively impacting mood, motivation, anxiety, sleep, focus; can also contribute to development of psychosis Cannabis/marijuan a information: http_s://tina.nih .gov/publications /drugfacts/cannab is-marijuana http_s://www.[employer]/canna txm-oqf-cvuhsrmf- marijuana-adhd/ http_s://www.lc .org/About-Mental -Illness/Mental-H ealth-Conditions http_s://[employer]/depressi on/the-cognitive- zmsrjztq-bg-icato ssion#treatments http__s://www.nim .nih.gov/health/ topics/mental-hea lth-medications http__s://www.nam i.org/About-Menta l-Illness/Treatme nts/Mental-Health -Medications educated on all medications, benefits, side effects [...] effects including loss of libido, increased suicidal thoughts/behavior s in children and young adults, and serotonin [...] last 2 weeks schedule therapy 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 http_s://www.nimh .nih.gov/health/t opics/mental-heal th-medications http_s://www.lc .org/About-Mental -Illness/Treatmen ts/Mental-Health- Medications Recommend decrease/stop cannabis use as it may be negatively impacting mood, motivation, anxiety, sleep, focus; can also contribute to development of psychosis Cannabis/marijuan a information: http_s://tina.nih .gov/publications /drugfacts/cannab is-marijuana http_s://www.[employer]/cannambrosio ojw-ict-kwzqyxuu- marijuana-adhd/ http_s://www.lc .org/About-Mental -Illness/Mental-H ealth-Conditions http_s://psychcen [employer]/depressi on/the-cognitive- qzdwxich-hn-jtijy ssion#treatments http__s://www.[facility].nih.gov/health/ topics/mental-hea lth-medications http__s://www.nam i.org/About-Menta l-Illness/Treatme nts/Mental-Health -Medications educated on all medications, benefits, side effects [...] effects including loss of libido, increased suicidal thoughts/behavior s in children and young adults, and serotonin [...] can negatively impact mood, motivation, anxiety, sleep, focus/concentrati on/memory (vigilance, elasticity, processing and attention); can also contribute to development of psychosis. http_s://www.nimh .nih.gov/health/t opics/mental-heal th-medications http_s://www.lc .org/About-Mental -Illness/Treatmen ts/Mental-Health- Medications Recommend decrease/stop cannabis use as it may be negatively impacting mood, motivation, anxiety, sleep, focus; can also contribute to development of psychosis Cannabis/marijuan a information: http_s://tina.nih .gov/publications /drugfacts/cannab is-marijuana http_s://www.[employer]/lyudmilaambrosoi arh-brd-etcleqqe- marijuana-adhd/ http_s://www.lc .org/About-Mental -Illness/Mental-H ealth-Conditions http_s://psychcen [employer]/depressi on/the-cognitive- voapukrn-ce-hyapz ssion#treatments http__s://www.[facility].nih.gov/health/ topics/mental-hea lth-medications http__s://www.nam i.org/About-Menta l-Illness/Treatme nts/Mental-Health -Medications educated on all medications, benefits, side effects [...] effects including loss of libido, increased suicidal thoughts/behavior s in children and young adults, and serotonin [...] potential neurotoxicity and interactions with prescribed medications. 08/28/2024 Marijuana use (ICD-10 - F12.90) Marijuana Use: Care Instructions material was published, Learning About Cannabis Use Disorder material was published, Marijuana Use: Care Instructions material was published, Learning About Cannabis Use Disorder material was published 1. 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 Insomnia - Seroquel help sleep sleep hygiene educated 4. tobacco use Do not smoke. Nicotine and other chemicals in cigarettes and cigars can cause lung damage. Ask your healthcare provider for information if you currently smoke and need help to quit. E-cigarettes or smokeless tobacco still contain nicotine. Talk to your healthcare provider before you use these products. education on decrease to stopping nicotine products and stop smoking hotline given 5. Cannabis use- educated on decrease to stopping Recommend decrease/stop cannabis use as it can negatively impact mood, motivation, anxiety, sleep, focus/concentrati on/memory (vigilance, elasticity, processing and attention); can also contribute to development of psychosis. http_s://www.nimh .nih.gov/health/t opics/mental-heal th-medications http_s://www.lc .org/About-Mental -Illness/Treatmen ts/Mental-Health- Medications Recommend decrease/stop cannabis use as it may be negatively impacting mood, motivation, anxiety, sleep, focus; can also contribute to development of psychosis Cannabis/marijuan a information: http_s://tina.nih .gov/publications /drugfacts/cannab is-marijuana http_s://www.[employer]/merlin mwh-xya-rgjynpdi- marijuana-adhd/ http_s://www.lc .org/About-Mental -Illness/Mental-H ealth-Conditions http_s://psychcen tral.com/depressi on/the-cognitive- yieijybs-mn-cycbp ssion#treatments http__s://www.nim h.nih.gov/health/ topics/mental-hea [facility]-medications http__s://www.nam i.org/About-Menta l-Illness/Treatme nts/Mental-Health -Medications educated on all medications, benefits, side effects [...] effects including loss of libido, increased suicidal thoughts/behavior s in children and young adults, and serotonin [...] potential neurotoxicity and interactions with prescribed medications. 08/01/2024 Marijuana use (ICD-10 - F12.90) Marijuana Use: Care Instructions material was published, Learning About Cannabis Use Disorder material was published, Marijuana Use: Care Instructions material was published, Learning About Cannabis Use Disorder material was published 1. 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 Insomnia - Seroquel will help sleep sleep hygiene educated 4. tobacco use Do not smoke. Nicotine and other chemicals in cigarettes and cigars can cause lung damage. Ask your healthcare provider for information if you currently smoke and need help to quit. E-cigarettes or smokeless tobacco still contain nicotine. Talk to your healthcare provider before you use these products. education on decrease to stopping nicotine products and stop smoking hotline given 5. Cannabis use- educated on decrease to stopping Recommend decrease/stop cannabis use as it can negatively impact mood, motivation, anxiety, sleep, focus/concentrati on/memory (vigilance, elasticity, processing and attention); can also contribute to development of psychosis. http_s://www.nimh .nih.gov/health/t opics/mental-heal th-medications http_s://www.lc .org/About-Mental -Illness/Treatmen ts/Mental-Health- Medications Recommend decrease/stop cannabis use as it may be negatively impacting mood, motivation, anxiety, sleep, focus; can also contribute to development of psychosis Cannabis/marijuan a information: http_s://tina.nih .gov/publications /drugfacts/cannab is-marijuana http_s://www.[employer]/canna zgu-iqu-jfmwslyr- marijuana-adhd/ http_s://www.lc .org/About-Mental -Illness/Mental-H ealth-Conditions http_s://psychcen [employer].com/depressi on/the-cognitive- yercpstl-km-qsgrx ssion#treatments http__s://www.nim .nih.gov/health/ topics/mental-hea lth-medications http__s://www.nam i.org/About-Menta l-Illness/Treatme nts/Mental-Health -Medications educated on all medications, benefits, side effects [...] effects including loss of libido, increased suicidal thoughts/behavior s in children and young adults, and serotonin [...] potential neurotoxicity and interactions with prescribed medications. 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 Insomnia - Seroquel will help sleep sleep hygiene educated 4. tobacco use Do not smoke. Nicotine and other chemicals in cigarettes and cigars can cause lung damage. Ask your healthcare provider for information if you currently smoke and need help to quit. E-cigarettes or smokeless tobacco still contain nicotine. Talk to your healthcare provider before you use these products. education on decrease to stopping nicotine products and stop smoking hotline given 5. Cannabis use- educated on decrease to stopping Recommend decrease/stop cannabis use as it can negatively impact mood, motivation, anxiety, sleep, focus/concentrati on/memory (vigilance, elasticity, processing and attention); can also contribute to development of psychosis. http_s://www.nim .nih.gov/health/t opics/mental-heal th-medications http_s://www.lc .org/About-Mental -Illness/Treatmen ts/Mental-Health- Medications Recommend decrease/stop cannabis use as it may be negatively impacting mood, motivation, anxiety, sleep, focus; can also contribute to development of psychosis Cannabis/marijuan a information: http_s://tina.nih .gov/publications /drugfacts/cannab is-marijuana http_s://www.[employer]/canna xmm-tbw-wtwsudgk- marijuana-adhd/ http_s://www.lc .org/About-Mental -Illness/Mental-H ealth-Conditions http_s://psychcen [employer].com/depressi on/the-cognitive- bylxupgr-pn-qqnpz ssion#treatments http__s://www.nim .nih.gov/health/ topics/mental-hea lth-medications http__s://www.nam i.org/About-Menta l-Illness/Treatme nts/Mental-Health -Medications educated on all medications, benefits, side effects [...] effects including loss of libido, increased suicidal thoughts/behavior s in children and young adults, and serotonin [...] potential neurotoxicity and interactions with prescribed medications. 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 Insomnia - Seroquel help sleep sleep hygiene educated 4. tobacco use Do not smoke. Nicotine and other chemicals in cigarettes and cigars can cause lung damage. Ask your healthcare provider for information if you currently smoke and need help to quit. E-cigarettes or smokeless tobacco still contain nicotine. Talk to your healthcare provider before you use these products. education on decrease to stopping nicotine products and stop smoking hotline given 5. Cannabis use- educated on decrease to stopping Recommend decrease/stop cannabis use as it can negatively impact mood, motivation, anxiety, sleep, focus/concentrati on/memory (vigilance, elasticity, processing and attention); can also contribute to development of psychosis. http_s://www.nim .nih.gov/health/t opics/mental-heal th-medications http_s://www.lc .org/About-Mental -Illness/Treatmen ts/Mental-Health- Medications Recommend decrease/stop cannabis use as it may be negatively impacting mood, motivation, anxiety, sleep, focus; can also contribute to development of psychosis Cannabis/marijuan a information: http_s://tina.nih .gov/publications /drugfacts/cannab is-marijuana http_s://www.[employer]/canna fex-xqd-rdlxylfy- marijuana-adhd/ http_s://www.lc .org/About-Mental -Illness/Mental-H ealth-Conditions http_s://[employer]/depressi on/the-cognitive- ujwrnblg-dw-qmgjp ssion#treatments http__s://www.[facility].nih.gov/health/ topics/mental-hea lth-medications http__s://www.nam i.org/About-Menta l-Illness/Treatme nts/Mental-Health -Medications educated on all medications, benefits, side effects [...] effects including loss of libido, increased suicidal thoughts/behavior s in children and young adults, and serotonin [...] and interactions with prescribed medications. 12/07/2023 On alf drug therapy (ICD-10 - Z79.899) Medication Refill: [...] can negatively impact mood, motivation, anxiety, sleep, focus/concentrati on/memory (vigilance, elasticity, processing and attention); can also contribute to development of psychosis. http_s://www.nim .nih.gov/health/t opics/mental-heal th-medications http_s://www.lc .org/About-Mental -Illness/Treatmen ts/Mental-Health- Medications Recommend decrease/stop cannabis use as it may be negatively impacting mood, motivation, anxiety, sleep, focus; can also contribute to development of psychosis Cannabis/marijuan a information: http_s://tina.nih .gov/publications /drugfacts/cannab is-marijuana http_s://www.[employer]/canna vey-kgp-cqunixlm- marijuana-adhd/ http_s://www.lc .org/About-Mental -Illness/Mental-H ealth-Conditions http_s://[employer]/depressi on/the-cognitive- vayawfgv-zt-qothm ssion#treatments http__s://www.[facility].nih.gov/health/ topics/mental-hea lth-medications http__s://www.nam i.org/About-Menta l-Illness/Treatme nts/Mental-Health -Medications educated on all medications, benefits, side effects [...] effects including loss of libido, increased suicidal thoughts/behavior s in children and young adults, and serotonin [...] last 2 weeks schedule therapy 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 http_s://www.nimh .nih.gov/health/t opics/mental-heal th-medications http_s://www.lc .org/About-Mental -Illness/Treatmen ts/Mental-Health- Medications Recommend decrease/stop cannabis use as it may be negatively impacting mood, motivation, anxiety, sleep, focus; can also contribute to development of psychosis Cannabis/marijuan a information: http_s://tina.nih .gov/publications /drugfacts/cannab is-marijuana http_s://www.[employer]/canna pwe-wfl-eesssswh- marijuana-adhd/ http_s://www.lc .org/About-Mental -Illness/Mental-H ealth-Conditions http_s://psychcrobo/depressi on/the-cognitive- lrpvxskx-wu-hjjbk ssion#treatments http__s://www.[facility].nih.gov/health/ topics/mental-hea lth-medications http__s://www.[facility] i.org/About-Menta l-Illness/Treatme nts/Mental-Health -Medications educated on all medications, benefits, side effects [...] effects including loss of libido, increased suicidal thoughts/behavior s in children and young adults, and serotonin [...] and interactions with prescribed medications. 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 http_s://www.nimh .nih.gov/health/t opics/mental-heal th-medications http_s://www.lc .org/About-Mental -Illness/Treatmen ts/Mental-Health- Medications Recommend decrease/stop cannabis use as it may be negatively impacting mood, motivation, anxiety, sleep, focus; can also contribute to development of psychosis Cannabis/marijuan a information: http_s://tina.nih .gov/publications /drugfacts/cannab is-marijuana http_s://www.[employer]/lyudmilaambrosio pji-vrw-kdgoarhv- marijuana-adhd/ http_s://www.lc .org/About-Mental -Illness/Mental-H ealth-Conditions http_s://psychcen [employer]/depressi on/the-cognitive- hnqikvwa-wm-qcfnn ssion#treatments http__s://www.[facility].nih.gov/health/ topics/mental-hea lth-medications http__s://www.nam i.org/About-Menta l-Illness/Treatme nts/Mental-Health -Medications educated on all medications, benefits, side effects [...] effects including loss of libido, increased suicidal thoughts/behavior s in children and young adults, and serotonin [...] can negatively impact mood, motivation, anxiety, sleep, focus/concentrati on/memory (vigilance, elasticity, processing and attention); can also contribute to development of psychosis. http_s://www.nimh .nih.gov/health/t opics/mental-heal th-medications http_s://www.lc .org/About-Mental -Illness/Treatmen ts/Mental-Health- Medications Recommend decrease/stop cannabis use as it may be negatively impacting mood, motivation, anxiety, sleep, focus; can also contribute to development of psychosis Cannabis/marijuan a information: http_s://tina.nih .gov/publications /drugfacts/cannab is-marijuana http_s://www.[employer]/lyudmilaa fti-jtp-hqwwvptj- marijuana-adhd/ http_s://www.lc .org/About-Mental -Illness/Mental-H ealt-Conditions http_s://psychcen [employer].com/depressi on/the-cognitive- nmuiwsph-is-aavou ssion#treatments http__s://www.nim .nih.gov/health/ topics/mental-hea [facility]-medications http__s://www.nam i.org/About-Menta l-Illness/Treatme nts/Mental-Health -Medications educated on all medications, benefits, side effects [...] effects including loss of libido, increased suicidal thoughts/behavior s in children and young adults, and serotonin [...] potential neurotoxicity and interactions with prescribed medications. 08/28/2024 Tobacco use (ICD-10 - Z72.0) Learning About Benefits of Quitting Smoking material was published, Deciding About Using Medicines To Quit Smoking material was published, Stopping Smokeless Tobacco Use: Care Instructions material was published, Quitting Tobacco: Care Instructions material was published, Deciding About Using Medicines To Quit Smoking material was published, Learning About Benefits of Quitting Smoking material was published, Quitting Tobacco: Care Instructions material was published 1. 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 Insomnia - Seroquel help sleep sleep hygiene educated 4. tobacco use Do not smoke. Nicotine and other chemicals in cigarettes and cigars can cause lung damage. Ask your healthcare provider for information if you currently smoke and need help to quit. E-cigarettes or smokeless tobacco still contain nicotine. Talk to your healthcare provider before you use these products. education on decrease to stopping nicotine products and stop smoking hotline given 5. Cannabis use- educated on decrease to stopping Recommend decrease/stop cannabis use as it can negatively impact mood, motivation, anxiety, sleep, focus/concentrati on/memory (vigilance, elasticity, processing and attention); can also contribute to development of psychosis. http_s://www.nimh .nih.gov/health/t opics/mental-heal th-medications http_s://www.lc .org/About-Mental -Illness/Treatmen ts/Mental-Health- Medications Recommend decrease/stop cannabis use as it may be negatively impacting mood, motivation, anxiety, sleep, focus; can also contribute to development of psychosis Cannabis/marijuan a information: http_s://tina.nih .gov/publications /drugfacts/cannab is-marijuana http_s://www.[employer]/merlin vud-ksw-yrxkyfut- marijuana-adhd/ http_s://www.lc .org/About-Mental -Illness/Mental-H ealth-Conditions http_s://psychcen tral.com/depressi on/the-cognitive- jffdhapu-is-cjoun ssion#treatments http__s://www.nim h.nih.gov/health/ topics/mental-hea [facility] [facility] http__s://www.nam i.org/About-Menta l-Illness/Treatme nts/Mental-Health -Medications educated on all medications, benefits, side effects [...] effects including loss of libido, increased suicidal thoughts/behavior s in children and young adults, and serotonin [...] potential neurotoxicity and interactions with prescribed medications. 08/01/2024 Tobacco use (ICD-10 - Z72.0) Learning About Benefits of Quitting Smoking material was published, Deciding About Using Medicines To Quit Smoking material was published, Stopping Smokeless Tobacco Use: Care Instructions material was published, Quitting Tobacco: Care Instructions material was published, Deciding About Using Medicines To Quit Smoking material was published, Learning About Benefits of Quitting Smoking material was published, Quitting Tobacco: Care Instructions material was published 1. 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 Insomnia - Seroquel will help sleep sleep hygiene educated 4. tobacco use Do not smoke. Nicotine and other chemicals in cigarettes and cigars can cause lung damage. Ask your healthcare provider for information if you currently smoke and need help to quit. E-cigarettes or smokeless tobacco still contain nicotine. Talk to your healthcare provider before you use these products. education on decrease to stopping nicotine products and stop smoking hotline given 5. Cannabis use- educated on decrease to stopping Recommend decrease/stop cannabis use as it can negatively impact mood, motivation, anxiety, sleep, focus/concentrati on/memory (vigilance, elasticity, processing and attention); can also contribute to development of psychosis. http_s://www.nimh .nih.gov/health/t opics/mental-heal th-medications http_s://www.lc .org/About-Mental -Illness/Treatmen ts/Mental-Health- Medications Recommend decrease/stop cannabis use as it may be negatively impacting mood, motivation, anxiety, sleep, focus; can also contribute to development of psychosis Cannabis/marijuan a information: http_s://tina.nih .gov/publications /drugfacts/cannab is-marijuana http_s://www.[employer]/merlin slv-lrs-ezesmsmg- marijuana-adhd/ http_s://www.lc .org/About-Mental -Illness/Mental-H ealth-Conditions http_s://psychcen tral.com/depressi on/the-cognitive- hivomcoj-dy-vvyfp ssion#treatments http__s://www.nim .nih.gov/health/ topics/mental-hea [facility]-medications http__s://www.nam i.org/About-Menta l-Illness/Treatme nts/Mental-Health -Medications educated on all medications, benefits, side effects [...] effects including loss of libido, increased suicidal thoughts/behavior s in children and young adults, and serotonin [...] potential neurotoxicity and interactions with prescribed medications. 08/01/2024 Encounter for screening for cardiovascular disorders (ICD-10 - Z13.6) 1. 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 Insomnia - Seroquel will help sleep sleep hygiene educated 4. tobacco use Do not smoke. Nicotine and other chemicals in cigarettes and cigars can cause lung damage. Ask your healthcare provider for information if you currently smoke and need help to quit. E-cigarettes or smokeless tobacco still contain nicotine. Talk to your healthcare provider before you use these products. education on decrease to stopping nicotine products and stop smoking hotline given 5. Cannabis use- educated on decrease to stopping Recommend decrease/stop cannabis use as it can negatively impact mood, motivation, anxiety, sleep, focus/concentrati on/memory (vigilance, elasticity, processing and attention); can also contribute to development of psychosis. http_s://www.nimh .nih.gov/health/t opics/mental-heal th-medications http_s://www.lc .org/About-Mental -Illness/Treatmen ts/Mental-Health- Medications Recommend decrease/stop cannabis use as it may be negatively impacting mood, motivation, anxiety, sleep, focus; can also contribute to development of psychosis Cannabis/marijuan a information: http_s://tina.nih .gov/publications /drugfacts/cannab is-marijuana http_s://www.[employer]/merlin btd-vcv-sntypvsw- marijuana-adhd/ http_s://www.lc .org/About-Mental -Illness/Mental-H ealth-Conditions http_s://psychcen tral.com/depressi on/the-cognitive- ptqkshpx-tj-kamut ssion#treatments http__s://www.nim .nih.gov/health/ topics/mental-hea lth-medications http__s://www.nam i.org/About-Menta l-Illness/Treatme nts/Mental-Health -Medications educated on all medications, benefits, side effects [...] effects including loss of libido, increased suicidal thoughts/behavior s in children and young adults, and serotonin [...] potential neurotoxicity and interactions with prescribed medications. 08/28/2024 Encounter for screening for cardiovascular disorders (ICD-10 - Z13.6) 1. 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 Insomnia - Seroquel help sleep sleep hygiene educated 4. tobacco use Do not smoke. Nicotine and other chemicals in cigarettes and cigars can cause lung damage. Ask your healthcare provider for information if you currently smoke and need help to quit. E-cigarettes or smokeless tobacco still contain nicotine. Talk to your healthcare provider before you use these products. education on decrease to stopping nicotine products and stop smoking hotline given 5. Cannabis use- educated on decrease to stopping Recommend decrease/stop cannabis use as it can negatively impact mood, motivation, anxiety, sleep, focus/concentrati on/memory (vigilance, elasticity, processing and attention); can also contribute to development of psychosis. http_s://www.nim .nih.gov/health/t opics/mental-heal th-medications http_s://www.lc .org/About-Mental -Illness/Treatmen ts/Mental-Health- Medications Recommend decrease/stop cannabis use as it may be negatively impacting mood, motivation, anxiety, sleep, focus; can also contribute to development of psychosis Cannabis/marijuan a information: http_s://tina.nih .gov/publications /drugfacts/cannab is-marijuana http_s://www.[employer]/canna ado-yld-gxvjrvnz- marijuana-adhd/ http_s://www.lc .org/About-Mental -Illness/Mental-H ealth-Conditions http_s://[employer]/depressi on/the-cognitive- ndwwflvl-yx-kplxe ssion#treatments http__s://www.[facility].nih.gov/health/ topics/mental-hea lth-medications http__s://www.nam i.org/About-Menta l-Illness/Treatme nts/Mental-Health -Medications educated on all medications, benefits, side effects [...] effects including loss of libido, increased suicidal thoughts/behavior s in children and young adults, and serotonin [...] last 2 weeks schedule therapy 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 http_s://www.nim .nih.gov/health/t opics/mental-heal th-medications http_s://www.lc .org/About-Mental -Illness/Treatmen ts/Mental-Health- Medications Recommend decrease/stop cannabis use as it may be negatively impacting mood, motivation, anxiety, sleep, focus; can also contribute to development of psychosis Cannabis/marijuan a information: http_s://tina.nih .gov/publications /drugfacts/cannab is-marijuana http_s://www.[employer]/canna ubr-vnm-nibsxtwv- marijuana-adhd/ http_s://www.lc .org/About-Mental -Illness/Mental-H ealth-Conditions http_s://[employer]/depressi on/the-cognitive- pxxarfzl-eh-vbzgk ssion#treatments http__s://www.[facility].nih.gov/health/ topics/mental-hea lth-medications http__s://www.nam i.org/About-Menta l-Illness/Treatme nts/Mental-Health -Medications educated on all medications, benefits, side effects [...] effects including loss of libido, increased suicidal thoughts/behavior s in children and young adults, and serotonin [...] can negatively impact mood, motivation, anxiety, sleep, focus/concentrati on/memory (vigilance, elasticity, processing and attention); can also contribute to development of psychosis. http_s://www.nimh .nih.gov/health/t opics/mental-heal th-medications http_s://www.lc .org/About-Mental -Illness/Treatmen ts/Mental-Health- Medications Recommend decrease/stop cannabis use as it may be negatively impacting mood, motivation, anxiety, sleep, focus; can also contribute to development of psychosis Cannabis/marijuan a information: http_s://tina.nih .gov/publications /drugfacts/cannab is-marijuana http_s://wwwLoopback/cannPerminova ptn-yat-bkuxzinm- marijuana-adhd/ http_s://www.lc .org/About-Mental -Illness/Mental-H ealth-Conditions http_s://[employer]/depressi on/the-cognitive- fhaxgznb-yt-abudh ssion#treatments http__s://www.[facility].nih.gov/health/ topics/mental-hea lth-medications http__s://www.nam i.org/About-Menta l-Illness/Treatme nts/Mental-Health -Medications educated on all medications, benefits, side effects [...] effects including loss of libido, increased suicidal thoughts/behavior s in children and young adults, and serotonin [...] last 2 weeks schedule therapy 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 http_s://www.nimh .nih.gov/health/t opics/mental-heal th-medications http_s://www.lc .org/About-Mental -Illness/Treatmen ts/Mental-Health- Medications Recommend decrease/stop cannabis use as it may be negatively impacting mood, motivation, anxiety, sleep, focus; can also contribute to development of psychosis Cannabis/marijuan a information: http_s://tina.nih .gov/publications /drugfacts/cannab is-marijuana http_s://www.[employer]/canna qet-kfr-ccgtnzib- marijuana-adhd/ http_s://www.lc .org/About-Mental -Illness/Mental-H ealth-Conditions http_s://[employer]/depressi on/the-cognitive- quhpqdex-sv-qwjqm ssion#treatments http__s://www.[facility].nih.gov/health/ topics/mental-hea lth-medications http__s://www.nam i.org/About-Menta l-Illness/Treatme nts/Mental-Health -Medications educated on all medications, benefits, side effects [...] effects including loss of libido, increased suicidal thoughts/behavior s in children and young adults, and serotonin [...] potential neurotoxicity and interactions with prescribed medications. 08/01/2024 Other Venlafaxine material was published, Bupropion material was published, Quetiapine material was published 1. 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 Insomnia - Seroquel will help sleep sleep hygiene educated 4. tobacco use Do not smoke. Nicotine and other chemicals in cigarettes and cigars can cause lung damage. Ask your healthcare provider for information if you currently smoke and need help to quit. E-cigarettes or smokeless tobacco still contain nicotine. Talk to your healthcare provider before you use these products. education on decrease to stopping nicotine products and stop smoking hotline given 5. Cannabis use- educated on decrease to stopping Recommend decrease/stop cannabis use as it can negatively impact mood, motivation, anxiety, sleep, focus/concentrati on/memory (vigilance, elasticity, processing and attention); can also contribute to development of psychosis. http_s://www.nimh .nih.gov/health/t opics/mental-heal th-medications http_s://www.lc .org/About-Mental -Illness/Treatmen ts/Mental-Health- Medications Recommend decrease/stop cannabis use as it may be negatively impacting mood, motivation, anxiety, sleep, focus; can also contribute to development of psychosis Cannabis/marijuan a information: http_s://tina.nih .gov/publications /drugfacts/cannab is-marijuana http_s://www.[employer]/merlin lcw-goa-dsmxqygc- marijuana-adhd/ http_s://www.lc .org/About-Mental -Illness/Mental-H ealth-Conditions http_s://psychcen tral.com/depressi on/the-cognitive- tqoafriv-nj-kcufv ssion#treatments http__s://www.nim h.nih.gov/health/ topics/mental-hea [facility]-medications http__s://www.nam i.org/About-Menta l-Illness/Treatme nts/Mental-Health -Medications educated on all medications, benefits, side effects [...] effects including loss of libido, increased suicidal thoughts/behavior s in children and young adults, and serotonin [...] potential neurotoxicity and interactions with prescribed medications. 08/28/2024 Other Learning About Depression material was published, Learning About Depression Screening material was published, Depression Treatment: Care Instructions material was published, Suicidal Thoughts and Behavior: Care Instructions material was published, Learning About Mood Disorders material was published, Depression Treatment: Care Instructions material was published, Learning About Depression material was published, Learning About Depression Screening material was published, Recovering From Depression: Care Instructions material was published 1. 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 Insomnia - Seroquel help sleep sleep hygiene educated 4. tobacco use Do not smoke. Nicotine and other chemicals in cigarettes and cigars can cause lung damage. Ask your healthcare provider for information if you currently smoke and need help to quit. E-cigarettes or smokeless tobacco still contain nicotine. Talk to your healthcare provider before you use these products. education on decrease to stopping nicotine products and stop smoking hotline given 5. Cannabis use- educated on decrease to stopping Recommend decrease/stop cannabis use as it can negatively impact mood, motivation, anxiety, sleep, focus/concentrati on/memory (vigilance, elasticity, processing and attention); can also contribute to development of psychosis. http_s://www.nimh .nih.gov/health/t opics/mental-heal th-medications http_s://www.lc .org/About-Mental -Illness/Treatmen ts/Mental-Health- Medications Recommend decrease/stop cannabis use as it may be negatively impacting mood, motivation, anxiety, sleep, focus; can also contribute to development of psychosis Cannabis/marijuan a information: http_s://tina.nih .gov/publications /drugfacts/cannab is-marijuana http_s://www.[employer]/canna pwz-pyt-fptuhojr- marijuana-adhd/ http_s://www.lc .org/About-Mental -Illness/Mental-H ealth-Conditions http_s://psychcen tral.com/depressi on/the-cognitive- ugahtruw-oh-odvcx ssion#treatments http__s://www.nim h.nih.gov/health/ topics/mental-hea [facility]-medications http__s://www.nam i.org/About-Menta l-Illness/Treatme nts/Mental-Health -Medications educated on all medications, benefits, side effects [...] effects including loss of libido, increased suicidal thoughts/behavior s in children and young adults, and serotonin [...] Test Test Name Order Date UDT 12/07/2023 Next Appt Details Provider Name:Perri Jain , 12/01/2024 04:15:00 PM, [address], [facility] [address], [place], [address], Insurance Providers Payer Name Payer Address Payer Phone Subscriber Number Group Number Insured Name Patient Relationship to Insured Coverage Start Date Coverage End Date [employer] [address] [place] [address] [id number] ELISSA JOHNSON Self - patient is the [...] No Surgical History Surgery Date(Month/Year) Hysterectomy/revise vagina (12828) 09/12 Hysterectomy (37849) 09/19/2019 Other 09/19/2019 Tonsilectomy/adenoids 10/09/2006 Any surgical history 10/25/2009 Myringotomy tube placement 10/25/2009 Sinus surgery 01/08/2018 2 c sections rt foot
--- OUTSIDE RECORDS SUMMARY | 2024-09-12 15:54 | XMS_ITS | Referral Summary ---
Author Organization [facility] [address] Address [address] [place] [address] Care Team Providers Care Greaser Helper Name Role Phone Dontae Elliott Primary Care [...] on file Legal Sex Female 2:49 PM FERTILIZER APPLICATOR Gender Identity Not on file Sexual Orientation Not on file Last Filed Vital Signs Vital Sign Reading Time Taken Comments Blood Pressure 117/84 03/06/2021 10:19 AM FERTILIZER APPLICATOR Pulse 109 03/06/2021 10:19 AM FERTILIZER APPLICATOR Temperature 37 C (98.6 F) 03/18/2021 3:30 PM FERTILIZER APPLICATOR Respiratory Rate 16 03/06/2021 10:19 AM FERTILIZER APPLICATOR Oxygen Saturation 98% 03/06/2021 10:19 AM FERTILIZER APPLICATOR Inhaled Oxygen Concentration - - Weight 85.7 kg (189 lb) 03/06/2021 10:19 AM FERTILIZER APPLICATOR Height 167.6 cm (5' 6) 03/06/2021 10:19 AM FERTILIZER APPLICATOR Body Mass Index 30.51 03/06/2021 10:19 AM FERTILIZER APPLICATOR Plan of Treatment Not on file Insurance [facility] Care Teams Greaser Helper Relationship Specialty Start Date End Date Dontae Elliott PA [address] [facility] [address] [place] [address] PCP - General Physician Bag Loader Machine Operator 02/09/18
--- OUTSIDE RECORDS SUMMARY | 2024-09-12 15:54 | XMS_ITS | Encounter Summary ---
Author Organization [facility] Address [address] [place] [address] Care Team Providers Care Deblocker Name Role Phone Lars Mcdermott MD Primary Care Provider [phone] Encounter Details Date Type Department Care Team (Late st Contact Info) Description 10/21/2018 Lab Requisition [facility] DermPath Lab [address] [facility] [place] [address] Lesli Tavera MD [address] [facility] [address] [place] [address] Social History Tobacco Use Types Packs/Day Years [...] AM CDT) Case Report Dermatopathology Report Case: [id number] Authorizing Provider: Lesli Tavera MD Collected: 10/20/2018 12:00 AM Ordering Location: [facility] DermPath Lab Received: 10/21/2018 01:03 PM Pathologist: Jeison Alvarez MD Specimen: Skin, left ala 9 5:36 PM CDT DERMATOPATHOLOGY LABORATORY Clinical History Nevus 9 5:36 PM CDT DERMATOPATHOLOGY LABORATORY Gross Description Specimen A: Received is one formalin filled container labeled with the patient's name and designated left ala. The specimen consists of a shave biopsy measuring 5x4x1 mm. Jar 0. [facility] Dermatopathology Laboratory performed the technical component only. [...] characteristic determined by the Dermatopathology Laboratory at [facility], directed by Dr. Roseline Alvarez. These tests [...] PATHOLOGY/CYTOLOGY OR DERABLES Final Result DERMATOPATHOLOGY LABORATORY [facility] - Department of Dermatology [address] [facility], 5th Floor Lab [address] [phone] documented in this encounter Visit Diagnoses Not on filedocumented in this encounter Care Teams Deblocker Relationship Specialty Start Date End Date Lars Mcdermott MD [address] [place] [address] PCP - General 10/05/18 documented as of this encounter
--- OUTSIDE RECORDS SUMMARY | 2024-09-12 15:54 | XMS_ITS | Clinical Summary ---
Author Organization [facility] Address [address] [place] [address] Care Team Providers Care Auto Body Shop Manager Name Role Phone Dontae Elliott PA-C Primary Care Provider [phone] Allergies Active Allergy Reactions Criticality Noted Date Comments Hydromorphone Vomiting High 02/16/2018 Sumatriptan Vomiting Low 02/16/2018 Tape Redness Low 03/21/2012 Medications atorvastatin 10 MG tablet 1 Active celecoxib 200 MG capsule 1 Active cyclobenzaprin e 10 MG tablet 1 Active omeprazole 40 MG capsule 1 Active acetaminophen (TYLENOL) 500 MG tablet Take 1 tablet (500 mg total) by mouth every 6 (six) hours as needed for Pain. Active buPROPion XL 300 MG 24 hr tablet 1 Active venlafaxine XR 75 MG 24 hr capsule 1 Active OZEMPIC 1 mg/dose injection (PEN) 1 MG (0.75 ML) SUBCUTANEOUSLY WEEKLY Active estradiol (ESTRACE) 1 MG tablet Take 1 tablet (1 mg total) by mouth daily. 3 Active busPIRone (BUSPAR) 15 MG tablet Active Active Problems No known active problems Family History Medical History Relation Comments Anxiety Father Arthritis Father Depression Father Hyperlipidemia Father Macular Degeneration Father Anxiety Mother Depression Mother Heart Disease Mother Hyperlipidemia Mother Osteoporosis Mother Relation Status Comments Father Mother Social History Tobacco Use Types Packs/Day Years Used Date Smoking Tobacco: Every Day Cigarettes Smokeless Tobacco: Never Tobacco Cessation:Ready to Q uit: Not Asked; Counseling Given: Not Answered Alcohol Use Standard Drinks/Week Comments Yes 0 (1 standard drink = 0.6 oz pur e alcohol) socially PHQ-2 Answer Date Recorded PHQ-2 Score - If the patient scores above 3, please move on to questions 3-9 0 12/12/2020 Comments Unknown Sex and Gender Information Value Date Recorded Sex Assigned at Not on file Legal Sex Female 4:05 PM CDT Gender Identity Not on file Sexual Orientation Not on file Last Filed Vital Signs Vital Sign Reading Time Taken Comments Blood Pressure 107/72 05/11/2023 12:34 PM CDT Pulse 71 05/11/2023 12:34 PM CDT Temperature 36.8 C (98.2 F) 05/11/2023 7:50 AM CDT Respiratory Rate 16 05/11/2023 12:34 PM CDT Oxygen Saturation 100% 05/11/2023 12:34 PM CDT Inhaled Oxygen Concentration - - Weight 85.7 kg (189 lb) 05/11/2023 7:50 AM CDT Height 167.6 cm (5' 6) 05/11/2023 7:50 AM CDT Body Mass Index 30.51 05/11/2023 7:50 AM CDT Plan of Treatment Health Maintenance Due Date Last Done Comments Colorectal Cancer Screening Colonoscopy (10 Years) 1979 Annual Physical 06/12/1982 Hepatitis C 06/12/1997 Hepatitis B Vaccines (1 of 3 - 19+ 3-dose series) 06/12/1998 Pneumococcal Vaccine: Pediat rics (0 to 5 Years) and At-Risk Patients (6 to 49 Years) (1 of 2 - PCV) 06/12/1998 HPV Vaccines (1 - 3-dose SCD M series) 06/12/2006 Mammogram Screening 2019 DTaP, Tdap and Td Vaccines ( 2 - Td or Tdap) 06/29/2019 06/28/2009 COVID-19 Vaccine (2023-2 5 season) 2023 PHQ-2 (Physician [place]) 02/09/2024 Meningococcal B Vaccine Aged Out No l onger eligible based on patient's age to complete this topic Meningococcal Vaccine Aged Out No aster amy eligible based on patient's age to complete this topic RSV Immunizations Under 20 Months Aged Out No longer eligible based on patient's age to complete this topic [place] [address] [place] [address] [facility] Care Teams Auto Body Shop Manager Relationship Specialty Start Date End Date Dnotae Elliott PA-C [address] [facility] [address] [place] [address] PCP - General PHYSICIAN COSTUME MAKER 12/12/20
--- OUTSIDE RECORDS SUMMARY | 2024-09-12 15:54 | XMS_ITS | Encounter Summary ---
Author Organization [facility] Address [address] [place] [address] Care Team Providers Care Polymerization Oven Operator Name Role Phone Lars Mcdermott MD Primary Care Provider Encounter Details Date Type Department Care Team (Late st Contact Info) Description 12/30/2018 Lab Requisition [facility] [address] [facility], [place] [address] Helena Morrison DO [address] [facility] [address] [place] [address] Social History Tobacco Use Types Packs/Day Years [...] Comments DERMATOPATHOLOGY Routine 12/29/2018 12:0 0 AM WATER PIPE INSTALLER documented in this encounter Results * DERMATOPATHOLOGY (12/29/2018 12:00 AM WATER PIPE INSTALLER) Case Report Dermatopathology Report Case: [id number] Authorizing Provider: Helena Morrison DO Collected: 12/29/2018 12:00 AM Ordering Location: [facility] Care DermPath Lab Received: 12/30/2018 12:36 PM Pathologist: Sandra De La Cruz MD Specimen: Skin, left LE 9 12:40 PM WATER PIPE INSTALLER DERMATOPATHOLOGY LABORATORY Final Diagnosis Specimen A. 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 12:40 PM [facility] DERMATOPATHOLOGY LABORATORY Gross Description Specimen A: Received is one formalin filled container labeled with the patient's name and designated left LE. The specimen consists of a shave measuring [id number]. Jar 0. 12:40 PM [facility] DERMATOPATHOLOGY LABORATORY Microscopic Description Specimen A. SKIN, left LE: The epidermis shows parakeratosis, full thickness disorderly maturation of keratinocytes, mitoses at different levels, and dyskeratotic cells. 12:40 PM [facility] DERMATOPATHOLOGY LABORATORY Disclaimer An external and internal positive and negative controls are appropriate for the histochemical, immunohistochemical and immunofluorescence stain(s) in this case (if any), except where stated explicitly. The performance characteristics of the stain(s) cited in this report were developed and its performance characteristic determined by the Dermatopathology Laboratory at [facility], directed by Dr. Roseline Alvarez. These tests need not be, and therefore are not, approved by the [place] Food and Drug Administration. The tests are used for clinical purposes. Billing Codes Specimen Charges Stain Charges 07928 1 12:40 PM [facility] DERMATOPATHOLOGY LABORATORY Embedded Images 12:40 PM [facility] DERMATOPATHOLOGY LABORATORY Pathology/Cytolog y TISSUE SPECIMEN FROM SKIN / Unknown 12/29/2018 12/30/2018 12:36 PM WATER PIPE INSTALLER us Helena Morrison DO LAB - PATHOLOGY/CYTOLOGY ORDERABLES Final Result DERMATOPATHOLOGY LABORATORY [facility] - Department of Dermatology [facility] [facility], 5th [place] [address], [facility] [phone] documented in this encounter Visit Diagnoses Not on filedocumented in this encounter Care Teams Polymerization Oven Operator Relationship Specialty Start Date End Date Lars Mcdermott MD [address] [place] [address] PCP - General 10/05/18 documented as of this encounter
--- OUTSIDE RECORDS SUMMARY | 2024-09-12 15:54 | XMS_ITS | Clinical Summary ---
Author Organization [facility] [address] Address [address] [place] [address] Care Team Providers Care Electronics Teacher Name Role Phone Dontae Elliott Primary Care [...] on file Legal Sex Female 2:49 PM BACK WEDGER Gender Identity Not on file Sexual Orientation Not on file Obstetrics History Last Filed Vital Signs Vital Sign Reading Time Taken Comments Blood Pressure 117/84 03/06/2021 10:19 AM BACK WEDGER Pulse 109 03/06/2021 10:19 AM BACK WEDGER Temperature 37 C (98.6 F) 03/18/2021 3:30 PM BACK WEDGER Respiratory Rate 16 03/06/2021 10:19 AM BACK WEDGER Oxygen Saturation 98% 03/06/2021 10:19 AM BACK WEDGER Inhaled Oxygen Concentration - - Weight 85.7 kg (189 lb) 03/06/2021 10:19 AM BACK WEDGER Height 167.6 cm (5' 6) 03/06/2021 10:19 AM BACK WEDGER Body Mass Index 30.51 03/06/2021 10:19 AM BACK WEDGER Plan of Treatment Not on file Insurance [facility] Care Teams Electronics Teacher Relationship Specialty Start Date End Date Dontae Elliott PA [address] [facility] [address] [facility] [address] [place] [address] PCP - General Physician Scientific Linguist 02/09/18
--- OUTSIDE RECORDS SUMMARY | 2024-09-12 15:54 | XMS_ITS | Clinical Summary ---
Author Organization [facility] [employer] Address [address] [place] [address] Care Team Providers Care Non Acoustic Operator Name Role Phone Lars Mcdermott MD Primary Care Provider Source Comments [facility] [employer],non-owned Affiliates and Associated Physician Practices is amultiple site organization consisting of ambulatory clinics and hospital sitesin [place], [place], [place] and [place]. This disclosure is being madepursuant to the Care Everywhere program and may not contain all information available regarding this patient. Last updated 17.[facility] [employer] Social History Tobacco Use Types Packs/Day Years [...] of 3 - 19+ 3-dose series) 06/12/1998 HPV VACCINE (1 - 3-dose SCDM series) 06/12/2006 COVID-19 VACCINE (2023-2 5 season) 2023 DEPRESSION SCREENING 02/09/2024 INFLUENZA VACCINE (#1) 2024 ZOSTER VACCINE (1 of 2) 06/12/2029 [...] age to complete this topic Insurance ANTH Member Subscriber Plan / Payer (Ef fective 2019-Present) Name:Alisia Emerson Relation to Subscriber:Spouse Name:JAYDEN EMERSON Subscriber ID:Not on file (Home) Address: [address] [place] [address] Payer ID:[id number] (NAIC) Type:PPO Address: [facility] [address] [place] [id number] Care Teams Non Acoustic Operator Relationship Specialty Start Date End Date Lars Mcdermott MD [address] [place] [address] PCP - General 10/05/18
[2024-09-12 16:12] LABS: Estimated Glomerular Filt Rate 54
== END 2024-09-12 15:51 | disposition home or self-care (01) ==
LOC: ANHIMG 15:52
PROVIDERS: PCP Nurse Practitioner; Visit Provider Nurse Practitioner
DX: R25.1 Tremor, unspecified (principal)
CPT/HCPCS: 70470; Q9967

== ENCOUNTER 2024-09-15 10:27 | Emergency (ER) | payer BC, SELFPAY ==
--- NOTE | 2024-09-15 10:34 | ED.EAR ---
HPI - Ear Problem General Chief complaint: Ear Stated complaint: swollen glands/ear pain Time Seen by Provider: 09/15/24 10:35 Source: patient, RN notes reviewed and old records reviewed Mode of arrival: ambulatory Limitations: no limitations History of Present Illness HPI Narrative: 44-year-old female presents to the [facility] with complaints of a sore throat, headache, bilateral ear pressure, cough, nausea since Wednesday, 2 days. Has taken ibuprofen. Denies taking any other medication. Denies any fevers. Related Data Home Medications ?Medication ?Instructions ?Recorded ?Confirmed ?Last Taken ?Type quetiapine 100 mg tablet 100 mg PO DAILY 04/19/23 07/13/24 Unknown History Allergies Allergy/AdvReac Type Severity Reaction Status Date / Time miconazole Allergy Severe Swelling Verified 09/15/24 10:43 tioconazole Allergy Severe Swelling Verified 09/15/24 10:43 adhesive tape Allergy Mild BLISTERS Verified 09/15/24 10:43 amoxicillin AdvReac Intermediate Nausea and Verified 09/15/24 10:43 Vomiting clavulanic acid (From AdvReac Intermediate Other Verified 09/15/24 10:43 Augmentin) eletriptan AdvReac Intermediate Vomiting Verified 09/15/24 10:43 hydromorphone AdvReac Intermediate Severe Verified 09/15/24 10:43 Vomiting sumatriptan AdvReac Intermediate Vomiting Verified 09/15/24 10:43 Review of Systems Review of Systems: All systems reviewed & are unremarkable except as noted in HPI and below Constitutional: Constitutional: Reports no additional constitutional complaints ENT: Reports as per HPI Cardiovascular: Cardiovascular: Reports no additional cardiovascular complaints, Denies chest pain and Denies dyspnea Respiratory: Respiratory: Reports as per HPI, Denies chest congestion, Reports cough and Denies dyspnea Musculoskeletal: Musculoskeletal: Reports no additional musculoskeletal complaints Integumentary/Breasts: Skin/Breast: Reports system reviewed and no additional complaints, except as docu [facility] Past Medical History Medical History (Updated 09/15/24 @ 11:22 by Marisa Cruz APRN) BMI 32.0-32.9,adult Dysphagia BMI 31.0-31.9,adult Inflammatory arthritis Fibromyalgia Dysuria Bilateral hand pain Acute pain of right knee Vitamin D deficiency Tachycardia Right foot pain Right carpal tunnel syndrome Palpitations Osteoarthritis of first metatarsophalangeal joint Neck pain Missed period LUQ pain Left carpal tunnel syndrome Enthesopathy of left foot Encounter for medication management Dry eye Counseling on health promotion and disease prevention Cough Bloating Arthralgia of both hands Anxiety and depression COVID-19 virus infection History of gastritis Blood in stool Weight loss Odynophagia Postprandial abdominal bloating Carcinoma x2 Bilateral hand pain Chronic constipation IBS (irritable bowel syndrome) (~2012) MVP (mitral valve prolapse) DM II (diabetes mellitus, type II), controlled Hx of fracture of wrist rt Fibromyalgia (~2012) Hx of carpal tunnel syndrome Interstitial cystitis Fibroids Bronchitis Asthma Hypercholesteremia Allergies Anxiety Arthritis Depression Diabetes GERD (gastroesophageal reflux disease) HSV infection Type 2 Lesion of stomach Migraine Surgical History Surgical History History of bilateral salpingo-oophorectomy 09/25/19 Previous section x2 History of hysterectomy 09/25/2019, TLH History of bilateral tubal ligation H/O adenoidectomy H/O foot surgery H/O sinus surgery Hx of tonsillectomy Family History Family History Father Family history of malignant neoplasm of urinary bladder, Onset Age: 67 Family history of rheumatoid arthritis Family history of hypercholesterolemia Family history of mental disorder Hypertension Family history of alcoholism Carcinoma of colon, Onset Age: 67 Family history of lung cancer, Onset Age: 67 Family history of malignant neoplasm of brain, Onset Age: 67 Family history of hearing loss Family history of malignant neoplasm Grandparent Family history of thyroid disease Family history of obesity Family history of osteoporosis Depression Hypertension Family history of alcoholism Family history of arthritis Carcinoma of colon Family history of Alzheimer's disease Family history of lung cancer Family history of hearing loss Sibling Family history of mental disorder Hypertension Cerebrovascular accident Family history of development disorder CHF (congestive heart failure) Mother Depression Hypertension Family history of arthritis Family history of Alzheimer's disease Dementia Social History Social History (Updated 07/13/24 @ 15:12 by JAMES Jim) Smoking packs per day: 0.5 Smoking cigarettes per day: 10.0 Smoking status: Current every day smoker Tobacco type: cigarettes Second hand tobacco smoke exposure: Yes Alcohol intake: current Drinks per week: 1 Alcohol use details: rarely Substance use: current Substance use type: marijuana Do You Feel Safe in your Home?: Yes Lack of Transportation: No Lack of Food: Never True Current Housing: I Have Housing Concerned About Future Housing: No Difficulty Paying Gas/Electric Bills: YES Difficulty Paying for Meds: YES Currently Unemployed: No Education: Associate Degree Difficulty w/ Childcare or Family Care: No Living arrangements: with family Occupation/Education: occupation 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 There is no relevant family history pertinent to the patient complaint. Exam Const: General: cooperative, healthy appearing, comfortable, no acute distress, well developed, alert and well nourished Nutritional Appearance: well nourished Orientation/consciousness: patient oriented x3 Limitations: no limitations HENMT: Head: normal to inspection Ears: hearing grossly normal bilaterally, external ears normal, TM's normal bilaterally, EAC's normal, mastoids normal and no periauricular adenopathy Mouth: Yes Normal oral and palatal mucosa present, Yes lip normal, Yes tongue normal and Yes moist mucous membranes Throat: posterior oropharynx normal, uvula midline, postnasal drainage and no uvular edema Eyes: General: appearance normal, both eyes and all related structures Alignment and Position: alignment normal Neck: Neck: normal visual inspection, full ROM, no lymphadenopathy and no meningeal signs Chest: Chest palpation & inspection: normal inspection of the chest Resp: Effort & Inspection: normal respiratory effort and able to speak in complete sentences Auscultation: clear to auscultation bilaterally, no crackles, no rales, no rhonchi and no wheezes Cardio: Rate: regular rate Skin: General skin exam: normal color and no rashes or lesions noted Neuro: General: patient oriented x3, gait normal, moves all extremities and no meningeal signs Cognition (Neuro): normal cognition Speech: normal speech Gait exam (Neuro): Normal gait present Extrem: General: normal to inspection, full ROM, capillary refill normal and normal gait Psych: Appearance: grossly normal and well kempt Mental Status: mental status grossly normal Speech and movement: Normal speech and movement present and Clear speech present Affect: normal affect Attitude: cooperative Course Course Level of Care: Express Care Visit Vital Signs Vital signs: Vital Signs Temperature 97.3 F L 09/15/24 10:35 Pulse Rate 74 09/15/24 10:35 Respiratory Rate 16 09/15/24 10:35 Blood Pressure 125/84 09/15/24 10:35 Pulse Oximetry 100 09/15/24 10:35 Oxygen Delivery Room Air 09/15/24 10:35 Temperature 97.3 F L 09/15/24 10:35 Pulse Rate 74 09/15/24 10:35 Respiratory Rate 16 09/15/24 10:35 Blood Pressure 125/84 09/15/24 10:35 Pulse Oximetry 100 09/15/24 10:35 Oxygen Delivery Room Air 09/15/24 10:35 Reviewed Medical Decision Making MDM Narrative Medical decision making narrative: Patient sitting comfortably in exam room. Nontoxic, vitals stable. Patient in no acute distress Patient presents with a 2 day history of URI symptoms. Flu, COVID negative. Strep negative, will culture Patient appropriate for outpatient treatment with close follow-up Discharge instructions reviewed with patient, as well as provided in writing per nursing staff. The instructions also include specific and strict return/GO TO THE ER as well as f/u information. All questions have been answered, and the patient deny any further questions with discharge and discharge plan. Some parts of this dictation were generated by voice recognition software and may contain typographical and/or grammatical inaccuracies. Differential Diagnosis Differential Diagnosis: Flu, COVID, strep, URI Medical Records Medical records reviewed: Yes I reviewed the external patient's medical records. Vital Signs Vital Signs: Vital Signs Temperature 97.3 F L 09/15/24 10:35 Pulse Rate 74 09/15/24 10:35 Respiratory Rate 16 09/15/24 10:35 Blood Pressure 125/84 09/15/24 10:35 Pulse Oximetry 100 09/15/24 10:35 Oxygen Delivery Room Air 09/15/24 10:35 Temperature 97.3 F L 09/15/24 10:35 Pulse Rate 74 09/15/24 10:35 Respiratory Rate 16 09/15/24 10:35 Blood Pressure 125/84 09/15/24 10:35 Pulse Oximetry 100 09/15/24 10:35 Oxygen Delivery Room Air 09/15/24 10:35 Reviewed Lab Data Lab results reviewed: Yes I reviewed the patient's lab results. Labs: Lab Results 09/15/24 09/15/24 Range/Units 10:51 11:01 POC Influenza A Ag Negative (Negative) POC Influenza B Ag Negative (Negative) POC SARS CoV-2 Ag Negative (Negative) POC Grp A Strep Screen Negative (Negative) Reviewed Critical Care Time Critical Care Time Critical Care Time: No Discharge Plan Discharge Clinical Impression: Upper respiratory infection, viral Patient Disposition: Home Condition: Stable Instructions: Antibiotic Form, Upper Respiratory Infection (ED) Additional Instructions: Your rapid strep swab was negative today at [facility]. A throat culture will be sent to the laboratory for further testing. If the test is positive, you will receive a phone call within 48 hours and an appropriate antibiotic will be initiated at that time. Your rapid COVID test were negative Your rapid flu test was negative Your symptoms are likely due to a viral illness, which is not treated with antibiotics. Typically viral infections last 7-10 days, can linger for couple of weeks. It is very important to treat your symptoms. Drink plenty of water, Gatorade, Pedialyte, ice pops or Jell-O. -Alternate Tylenol and Motrin per package directions for fever or pain. You can alternate every 4 hours -Antihistamine medication such as Zyrtec/Claritin/Amina during the day can help improve symptoms. -doing daily nasal irrigations can help relieve pressure your sinuses. Things like a Neti pot -Use Flonase twice a day for 5 days then daily to help reduce the inflammation and dry up your sinuses. -You can also use Mucinex. Be sure to drink plenty of water with this medication at least 8 ounces with every dose and it is important to drink 8 to 10 glasses of water per day. Water is a natural decongestant -Eat and drink things that are easy to swallow, like tea or soup, or popsicles. -Oral rinses such as: Salt water gargles and/or may use topical anesthetic (eg. Chloraseptic spray) or lozenges to relieve dryness or throat pain). -Frequent hand washing or hand farmworker vegetable is one of the best ways to prevent spread of infection. -Using a vaporizer or humidifier at night will also help thin secretions and help with coughing up phlegm. -Follow up with primary care provider in 7-10 days if condition is not improving - For new or worsening symptoms go directly to the nearest ER Patient Language: Italian Prescriptions: No Action quetiapine 100 mg tablet 100 mg PO DAILY Patient Comments: 200 mg per pt (DME) Sharps Container Misc See Rx Instructions .Route Qty: 1 5RF Rx Instructions: As directed Jardiance 25 mg tablet 25 mg PO DAILY Qty: 90 2RF Patient Comments: Pt states no longer taking Gvoke HypoPen 2-Pack 1 mg/0.2 mL auto-injector 1 mg subcut ONCE Qty: 0.4 4RF Rx Instructions: may repeat once after 15 minutes if no response (DME) FreeStyle Abhishek 3 Plus Sensor Device See Rx Instructions .ROUTE .MEDSUPPLY Qty: 6 2RF Rx Instructions: Use to monitor glucose (DME) pen needle, diabetic 32 gauge x 5/32 needle See Rx Instructions .ROUTE .COMPLEX Qty: 100 3RF Dose Instruction: USE WITH INSULIN ONCE DAILY Rx Instructions: USE WITH INSULIN ONCE DAILY venlafaxine 150 mg capsule,extended release 24hr 150 mg PO DAILY Qty: 90 1RF (DME) lancets [FreeStyle Lancets] 28 gauge misc See Rx Instructions .Route Qty: 100 0RF Rx Instructions: As directed estradiol 1 mg tablet 1 mg PO DAILY Qty: 90 3RF bupropion HCl 300 mg tablet extended release 24 hr 300 mg PO QAM Qty: 90 1RF buspirone 15 mg tablet 15 mg PO BID Qty: 180 2RF ergocalciferol (vitamin D2) 1,250 mcg (50,000 unit) capsule 1,250 mcg PO WEEKLY 98 Days Qty: 14 0RF atorvastatin 20 mg tablet 20 mg PO DAILY Qty: 90 2RF insulin degludec [Tresiba FlexTouch U-100] 100 unit/mL (3 mL) insulin pen 24 unit subcut DAILY Qty: 30 1RF Lyumjev KwikPen U-100 Insulin 100 unit/mL insulin pen 5 unit subcut TIDWMEAL MDD 33 Qty: 30 1RF Rx Instructions: Take 5 units premeal + SSI 150-200: 1 unit 201-250: 2 units 251-300: 3 units 301-350: 4 units 351-400: 5 units >401: 6 units omeprazole 40 mg capsule,delayed release(DR/EC) 40 mg PO DAILY Qty: 90 3RF cyclobenzaprine 10 mg tablet 10 mg PO QHS PRN (Reason: muscle spasm) Qty: 30 3RF Follow-up/Referrals: Castillo Hill APRN [Primary Care Provider] - 2 Weeks ([facility] follow-up) Stand Alone Forms: Work/School Release IP Time of Disposition: 11:21
[2024-09-15 10:35] VITALS: BP 125/84; PULSE 74; RESP 16; TEMP 36.3; O2SAT 100
[2024-09-15 11:03] LABS: EDSTREPNEGPOS1 Negative (Negative)
[2024-09-15 11:11] LABS: EDCOVIDSCREEN Negative (Negative); EDINFLUASCREEN Negative (Negative); EDINFLUBSCREEN Negative (Negative)
== END 2024-09-15 11:28 | disposition home or self-care (01) ==
PROVIDERS: Emergency Provider Nurse Practitioner; PCP Nurse Practitioner
DX: J06.9 Acute upper respiratory infection, unspecified (principal); Z20.822 Contact with and (suspected) exposure to COVID-19; F17.210 Nicotine dependence, cigarettes, uncomplicated; M19.90 Unspecified osteoarthritis, unspecified site; M79.7 Fibromyalgia; E55.9 Vitamin D deficiency, unspecified; F41.9 Anxiety disorder, unspecified; F32.A Depression, unspecified; E11.9 Type 2 diabetes mellitus without complications; Z79.4 Long term (current) use of insulin; Z79.84 Long term (current) use of oral hypoglycemic drugs; E78.00 Pure hypercholesterolemia, unspecified; K21.9 Gastro-esophageal reflux disease without esophagitis; I34.1 Nonrheumatic mitral (valve) prolapse
CPT/HCPCS: 87081; 87426; 87804; 87880; 99213; G0463